=== PATIENT | female | born 1945 | race Caucasian/White ===

== ENCOUNTER 2016-06-22 21:48 | Inpatient (IN) | payer MEDICARE, OTHER ==
[2016-06-22] MEDS ORDERED: IPRATROPIUM/ALBUTEROL 0.5-2.5 MG/3 ML AMPUL NEB ONE (22:13)
[2016-06-22] MEDS ORDERED: CEFTRIAXONE 1 GM/D5W RTU 50 ML IV ONE (22:17)
[2016-06-22] MEDS ORDERED: AZITHROMYCIN INJ 500 MG VIAL IV ONE (22:17)
--- NOTE | 2016-06-22 22:19 | ER Document Report ---
ED Respiratory Problem - General Chief Complaint: Shortness Of Breath Stated Complaint: WEAKNESS Time seen by provider: 22:15 Notes: Patient is a 70-year-old female that comes emergency department for chief complaint of respiratory distress, fever, productive cough, and weakness. Patient was found by EMS to have an oxygen saturation of 78% on room air, initial temperature 103.6, already given 975 of Tylenol. Patient states she never smoked, denies history of asthma or COPD, she has had the influenza vaccine. Past medical history of cervical cancer (not on chemo or having radiation recently reportedly), IDDM, CKD. TRAVEL OUTSIDE OF THE [place] IN LAST 30 DAYS: No - Related Data Allergies/Adverse Reactions: hydralazine [Hydralazine] Allergy (Severe, Verified 06/22/16 23:26) Rash all over Sulfa (Sulfonamide Antibiotics) Allergy (Severe, Verified 06/22/16 23:26) mouth swells Past Medical History - General Information source: Patient - Social History Smoking Status: Never Smoker Frequency of alcohol use: None Drug Abuse: None Lives with: Family Family History: Reviewed & Not Pertinent, DM, Hyperlipidemia, Hypertension Patient has suicidal ideation: No - Past Medical History Cardiac Medical History: Reports: Hx Congestive Heart Failure, Hx Hypercholesterolemia, Hx Hypertension, Hx Peripheral Vascular Disease, Hx Heart Murmur Denies: Hx Atrial Fibrillation, Hx Coronary Artery Disease, Hx DVT, Hx Heart Attack, Hx Pulmonary Embolism Pulmonary Medical History: Reports: Hx Asthma - Sinus related, Hx Pneumonia - 2015, Hx Sleep Apnea - CPAP Denies: Hx Bronchitis, Hx COPD, Hx Respiratory Failure, Hx Tuberculosis Neurological Medical History: Denies: Hx Cerebrovascular Accident, Hx Seizures Endocrine Medical History: Reports: Hx Diabetes Mellitus Type 1, Hx Diabetes Mellitus Type 2. Denies: Hx Graves' Disease, Hx Hyperthyroidism, Hx Hypothyroidism Renal/ Medical History: Reports: Hx Kidney Stones - 1993. Denies: Hx End Stage Renal Disease, Hx Ovarian Cysts, Hx Peritoneal Dialysis, Hx Pelvic Inflammatory Disease Malignancy Medical History: Reports: Hx Cervical Cancer - currently. Denies: Hx Breast Cancer, Hx Leukemia, Hx Lung Cancer, Hx Ovarian Cancer GI Medical History: Reports: Hx Gastroesophageal Reflux Disease, Hx Irritable Bowel. Denies: Hx Cirrhosis, Hx Crohn's Disease, Hx Hiatal Hernia, Hx Liver Failure, Hx Ulcer Musculoskeltal Medical History: Reports Hx Arthritis, Denies Hx Fibromyalgia, Denies Hx Multiple Sclerosis, Denies Hx Muscular Dystrophy Skin Medical History: Denies Hx Eczema, Denies Hx Psoriasis Psychiatric Medical History: Reports: Hx Anxiety, Hx Depression Denies: Hx Bipolar Disorder, Hx Dementia, Hx Post Traumatic Stress Disorder, Hx Schizophrenia Traumatic Medical History: Denies: Hx Fractures Infectious Medical History: Denies: Hx HIV Past Surgical History: Reports: Hx Appendectomy, Hx Bowel Surgery, Hx Cholecystectomy, Hx Orthopedic Surgery - Amputation 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 Lumbar spine fusion.. Denies: Hx Section, Hx Colostomy, Hx Coronary Artery Bypass Graft, Hx Gastric Bypass Surgery, Hx Herniorrhaphy, Hx Hysterectomy, Hx Mastectomy, Hx Pacemaker, Hx Tonsillectomy, Hx Tubal Ligation - Immunizations Hx Diphtheria, Pertussis, Tetanus Vaccination: No Hx Pneumococcal Vaccination: 04/30/16 Review of Systems - Review of Systems Constitutional: See HPI EENT: No symptoms reported Cardiovascular: See HPI Respiratory: See HPI Gastrointestinal: No symptoms reported Genitourinary: No symptoms reported Female Genitourinary: No symptoms reported Musculoskeletal: No symptoms reported Skin: No symptoms reported Hematologic/Lymphatic: No symptoms reported Neurological/Psychological: No symptoms reported Physical Exam - Vital signs Vitals: Resp Pulse Ox 34 H 95 06/22/16 22:05 06/22/16 22:05 Interpretation: Normal - General General appearance: Alert, Anxious In distress: Severe - HEENT Head: Normocephalic, Atraumatic Eyes: Normal Pupils: PERRL - Respiratory Respiratory status: Respiratory distress, Labored, Tachypnea Breath sounds: Decreased air movement, Nonproductive cough, Rhonchi, Wheezing - Cardiovascular Rhythm: Regular. No: Tachycardia Heart sounds: Normal auscultation, S1 appreciated, S2 appreciated Murmur: No - Abdominal Inspection: Normal Distension: No distension Bowel sounds: Normal Tenderness: Nontender. No: Tender Organomegaly: No organomegaly - Back Back: Normal, Nontender. 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 Patient immediately placed on BiPAP therapy, gave DuoNeb, patient was already given 1 L fluid bolus from EMS, patient is not hypotensive or tachycardic. Patient immediately began to improve on BiPAP, respiratory rate improved and minimally labored on re-examination. Leukocytosis with elevation of neutrophils, 6% bands, febrile, productive cough , clinical picture is consistent with pneumonia. Patient already been started on Rocephin and azithromycin. 06/23/16 Patient is comfortable and smiling on reexamination, no signs of distress now. Chest x-ray not overtly reading pneumonia, possible congestion versus infectious process. DP and PT is elevated but patient was given a bolus of IV fluids by EMS. Patient does not have rails on exam, has no peripheral edema, suspect respiratory distress sources still pneumonia. Cultures pending, lactic acid unremarkable, VBG does not show acidosis fortunately. Kidney disease is chronic. Discussed with Dr. Whittaker, patient will be admitted to [facility]. - Vital Signs Vital signs: Temp Pulse Resp BP Pulse Ox 99.1 F 19 132/55 H 95 06/23/16 05:01 06/23/16 05:01 06/23/16 05:01 06/23/16 05:01 - Laboratory Result Diagrams: 06/22/16 21:57 06/22/16 22:02 Laboratory results interpreted by me: 06/22/16 06/22/16 06/22/16 21:57 21:57 22:02 WBC 12.4 H RBC 3.49 L Hgb 9.9 L Hct 32.2 L MCHC 30.7 L RDW 17.3 H Seg Neuts % (Manual) 83 H Band Neutrophils % 6 H Lymphocytes % (Manual) 8 L Abs Neuts (Manual) 11.0 H VBG pCO2 VBG HCO3 Chloride 110 H Carbon Dioxide 16 L BUN 62 H Creatinine 2.84 H Est GFR ( Amer) 20 L Est GFR (Non-Af Amer) 16 L Glucose 307 H Creatine Kinase 25 L NT-Pro-B Natriuret Pep 23246 H Urine Protein Urine Glucose (UA) Urine Blood 06/22/16 06/23/16 22:58 03:10 WBC RBC Hgb Hct MCHC RDW Seg Neuts % (Manual) Band Neutrophils % Lymphocytes % (Manual) Abs Neuts (Manual) VBG pCO2 34.7 L VBG HCO3 19.8 L Chloride Carbon Dioxide BUN Creatinine Est GFR ( Amer) Est GFR (Non-Af Amer) Glucose Creatine Kinase NT-Pro-B Natriuret Pep Urine Protein >=500 H Urine Glucose (UA) >=500 H Urine Blood MODERATE H Critical Care Note - Critical Care Note Total time excluding time spent on procedures (mins): 35 - respiratory distress , hypoxia Comments: Please allow 35 minutes of critical care time for evaluation and treatment of patient in respiratory distress, treatment with BiPAP therapy, antibiotics, DuoNeb therapy, multiple reevaluations, consultation and admission to the hospital. Discharge - Discharge Clinical Impression: Respiratory distress, Cough Fever Qualifiers: Fever type: unspecified Qualified Code(s): R50.9 - Fever, unspecified Leukocytosis Qualifiers: Leukocytosis type: unspecified Qualified Code(s): D72.829 - Elevated white blood cell count, unspecified Condition: Stable Disposition: ADMITTED INPATIENT Admitting Provider: Hospitalist Unit Admitted: [facility]
[2016-06-22 22:25] LABS: VENOUS BLOOD BASE EXCESS -5.2 mmol/L; VENOUS BLOOD PCO2 43.1 mmHg (35-63); VENOUS BLOOD PH 7.31 (7.30-7.42)
[2016-06-22 22:27] LABS: HEMATOCRIT 32.2 % (36.0-47.0); HEMOGLOBIN 9.9 g/dL (12.0-15.5); HGB HCT DIFFERENCE -2.5; MEAN CORPUSCULAR HEMOGLOBIN 28.3 pg (27.0-33.4); MEAN CORPUSCULAR HGB CONC 30.7 g/dL (32.0-36.0); MEAN CORPUSCULAR VOLUME 92 fl (80-97); RED BLOOD COUNT 3.49 10^6/uL (3.72-5.28); RED CELL DISTRIBUTION WIDTH 17.3 % (11.5-14.0); WHITE BLOOD COUNT 12.4 10^3/uL (4.0-10.5)
[2016-06-22 22:33] LABS: PROTHROMBIN TIME 14.8 SEC (11.4-15.4)
[2016-06-22 22:46] LABS: ALANINE AMINOTRANSFERASE 25 U/L (9-52); ALBUMIN 3.8 g/dL (3.5-5.0); ALKALINE PHOSPHATASE 65 U/L (38-126); ANION GAP 18 (5-19); ASPARTATE AMINO TRANSFERASE 29 U/L (14-36); BILIRUBIN,TOTAL 0.8 mg/dL (0.2-1.3); BLOOD UREA NITROGEN 62 mg/dL (7-20); CALCIUM 9.2 mg/dL (8.4-10.2); CARBON DIOXIDE 16 mmol/L (22-30); CHLORIDE 110 mmol/L (98-107); CREATINE KINASE 25 U/L (30-135); CREATININE RESULT 2.84 mg/dL (0.52-1.25); GLUCOSE 307 mg/dL (75-110); SODIUM 143.8 mmol/L (137-145); TOTAL PROTEIN 7.5 g/dL (6.3-8.2)
[2016-06-22 22:54] LABS: ANISOCYTOSIS 1+; BAND NEUTROPHILS % (MANUAL) 6 % (3-5); BASOPHILS % (MANUAL) 0 % (0-2); EOSINOPHILS % (MANUAL) 0 % (0-6); LYMPHOCYTES % (MANUAL) 8 % (13-45); NUCLEATED RED BLOOD CELLS 1 /100 WBC (0); OVALOCYTES SLIGHT; PLATELET CLUMPS PRESENT; POIKILOCYTOSIS SLIGHT; POLYCHROMASIA SLIGHT; TEAR DROP CELLS SLIGHT; TOTAL CELLS COUNTED 100; TOXIC GRANULATION 1+; TOXIC VACUOLATION PRESENT
[2016-06-22 22:58] LABS: CREATINE KINASE MB 0.73 ng/mL (<4.55); TROPONIN I < 0.012 ng/mL
[2016-06-22 23:34] LABS: APPEARANCE,URINE CLEAR; BILIRUBIN,URINE NEGATIVE (NEGATIVE); GLUCOSE, URINE >=500 mg/dL (NEGATIVE); KETONES,URINE NEGATIVE (NEGATIVE); LEUKOCYTE ESTERASE,URINE NEGATIVE (NEGATIVE); NITRITE,URINE NEGATIVE (NEGATIVE); PROTEIN,URINE >=500 mg/dL (NEGATIVE); UROBILINOGEN,URINE NEGATIVE mg/dL (<2.0)
[2016-06-23] MEDS ORDERED: ACETAMINOPHEN 325 MG TABLET PO ONE (01:39)
[2016-06-23 03:23] LABS: VENOUS BLOOD BASE EXCESS -4.7 mmol/L; VENOUS BLOOD HCO3 19.8 mmol/L (20-32); VENOUS BLOOD PCO2 34.7 mmHg (35-63); VENOUS BLOOD PH 7.37 (7.30-7.42)
[2016-06-23] MEDS ORDERED: DEXTROSE 40% GEL 15 GM TUBE PO PRN ×2 (05:44)
[2016-06-23] MEDS ORDERED: DEXTROSE 50%-WATER 25 GM/50 ML DISP.SYRIN IV PRN ×2 (05:44)
[2016-06-23] MEDS ORDERED: INSULIN LISPRO 100 UNIT/ML 3 ML VIAL SUBCUT PRN (05:44)
[2016-06-23] MEDS ORDERED: GLUCAGON,HUMAN RECOMB 1 MG INJ IM PRN (05:44)
[2016-06-23] MEDS ORDERED: PHARMACY COMMUNICATION ORDER MC SCH (05:45)
[2016-06-23] MEDS ORDERED: PIPERACILLIN/TAZOBACTAM 4.5 GM VIAL IV ONE (05:56)
[2016-06-23] MEDS ORDERED: PIPERACILLIN SODIUM/TAZOBACTAM 4.5 GM in NORMAL SALINE 100 ML IV SCH (06:00)
[2016-06-23] MEDS ORDERED: ALBUTEROL SULFATE 0.083% NEB 2.5 MG/3 ML AMPUL NEB PRN (06:02)
[2016-06-23] MEDS ORDERED: GUAIFENESIN SYRP 200 MG/10 ML UDC PO PRN (06:02)
[2016-06-23] MEDS ORDERED: VANCOMYCIN HCL 0 MG in DEXTROSE 5%-WATER 250 ML IV NR (06:15)
[2016-06-23] MEDS ORDERED: AZTREONAM INJ 1 GM VIAL IV PRN (06:29)
[2016-06-23] MEDS ORDERED: AZTREONAM INJ 1 GM VIAL ONE (06:41)
[2016-06-23] MEDS: NORMAL SALINE 1000 ML 1,000 ML IV PRN ×2 (06:47→21:41)
[2016-06-23 06:54] LABS: HEMATOCRIT 27.5 % (36.0-47.0); HEMOGLOBIN 8.7 g/dL (12.0-15.5); HGB HCT DIFFERENCE -1.4; MEAN CORPUSCULAR HEMOGLOBIN 28.6 pg (27.0-33.4); MEAN CORPUSCULAR HGB CONC 31.5 g/dL (32.0-36.0); MEAN CORPUSCULAR VOLUME 91 fl (80-97); RED BLOOD COUNT 3.03 10^6/uL (3.72-5.28); RED CELL DISTRIBUTION WIDTH 16.8 % (11.5-14.0); WHITE BLOOD COUNT 23.3 10^3/uL (4.0-10.5)
[2016-06-23] MEDS ORDERED: AZTREONAM 2 GM in DEXTROSE 5%-WATER 50 ML IV SCH (07:00)
[2016-06-23 07:02] LABS: ANION GAP 13 (5-19); BLOOD UREA NITROGEN 64 mg/dL (7-20); CALCIUM 8.6 mg/dL (8.4-10.2); CARBON DIOXIDE 18 mmol/L (22-30); CHLORIDE 112 mmol/L (98-107); CREATININE RESULT 3.02 mg/dL (0.52-1.25); GLUCOSE 262 mg/dL (75-110); POTASSIUM 4.7 mmol/L (3.6-5.0); SODIUM 142.6 mmol/L (137-145)
[2016-06-23 07:19] LABS: BAND NEUTROPHILS % (MANUAL) 12 % (3-5); BASOPHILS % (MANUAL) 0 % (0-2); EOSINOPHILS % (MANUAL) 0 % (0-6); LYMPHOCYTES % (MANUAL) 4 % (13-45); TOTAL CELLS COUNTED 100
[2016-06-23 07:20] LABS: PLATELET CLUMPS PRESENT; ROULEAUX SLIGHT; TOXIC GRANULATION SLIGHT; TOXIC VACUOLATION PRESENT
[2016-06-23 07:21] LABS: ANISOCYTOSIS SLIGHT; HYPOCHROMASIA 1+; POLYCHROMASIA 1+
--- NOTE | 2016-06-23 08:22 | EKG REPORT ---
SEVERITY:- ABNORMAL ECG - SINUS RHYTHM PROBABLE LEFT ATRIAL ABNORMALITY LEFT ANTERIOR FASCICULAR BLOCK CONSIDER ANTEROSEPTAL INFARCT : Confirmed by: Vlad Baez MD 23-Jun-2016 08:21:25
[2016-06-23] MEDS: IPRATROPIUM/ALBUTEROL 0.5-2.5 MG/3 ML AMPUL NEB SCH ×3 (08:26→20:13)
--- NOTE | 2016-06-23 08:42 | PDOC H&P ---
History of Present Illness Admission Date/PCP: 06/23/16 03:23 CAROLINA ROBIN MD Nephrology Dr. Craig Oncology Dr. Ureña Patient complains of: Difficulty breathing History of Present Illness: VIVIAN WATKINS is a 70 year old female with underlying asthma and COPD, who presents to the emergency room for evaluation of above complaint. Patient has been discussed with emergency room nurse practitioner who evaluated the patient. . Describes a 48 hour history of slowly progressive respiratory distress, in particular with much of any exertion, fever, productive cough, and generalized weakness. No nausea vomiting, diarrhea or dysuria. No sick contacts. Up-to- date with Pneumovax and flu vaccination. EMS reported a room air oxygen saturation of 78%, with an initial temperature 103.6. Significant respiratory distress upon arrival in the emergency room. Has responded nicely to treatment, including BiPAP. Hospitalized for 5 days last month at [facility] for problems associated with her chronic kidney disease. Laboratory results are listed in [facility] and are reviewed. X-ray summary results are listed below, with full report(s) reviewed. . EKG reviewed. And compared to a tracing from May 07 of last year. Social history/personal habits: . 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 No use of alcohol tobacco or illicit drugs. Allergies/adverse reactions are listed in [facility] and are reviewed. Home medications are reviewed from a hand written list provided by patient and are to be reconciled by nursing staff in [facility]. [facility] may not accurately reflect patient's true medications, dosages, and/or frequencies. REVIEW OF SYSTEMS: Constitutional: See history and present illness. Eyes: Wears glasses. ENT: No swallowing problems or complaints. No hearing problems or complaints. Pulmonary: See history and present illness. Cardiovascular: No current complaints, including chest pain. Gastrointestinal: No current complaints, including nausea or vomiting. Skin: No current complaints, including rashes. Hematologic: Easy bruising. Neurologic: No current complaints, including numbness or tingling. Musculoskeletal: Joint pain from arthritis. Psychiatric: Anxiety depression; denies suicidal or homicidal ideation. Endocrine: No current complaints, including polyuria. Genitourinary: No current complaints, including dysuria. PHYSICAL EXAMINATION: 5 feet 7 inches tall. 100.7 kg. BMI 34.8 kg/m. Pulse 53 and regular. Blood pressure 132/55. 97% saturation on FiO2 25%, BiPAP 12/6. Respirations are 16 and unlabored. Temperature 99.1. Obese chronically ill-appearing female, who appears a number of years older than her stated age. Pleasant awake alert and cooperative. Slightly fatigued, and mildly anxious, but otherwise in no obvious distress. is present at her side; patient approves. Skin is warm and dry. No grossly obvious evidence of rash in areas of skin examined. No subcutaneous nodules palpated. ENT: Hearing grossly normal to normal conversation. Tongue midline on protrusion pink and slightly tacky. Eyes: No scleral icterus. Pupils equal and reactive to light at 4 mm. [place] conjunctivae. Neck is supple and nontender to gentle active range of motion and palpation. Midline trachea. No palpable thyroid nodule mass enlargement or tenderness. Lymphatic: No palpable cervical or clavicular nodes. Neck and lymphatic exams limited by patient body habitus. Psychiatric: Reasonable insight into acute and chronic medical issues. Oriented to time location and why here. Lungs: Auscultation reveals equal breath sounds bilaterally. No use of accessory respiratory muscles. Slightly coarse breath sounds on the right; clear on the left. Cardiovascular: Heart regular rate and rhythm, without gallop or rub. 1/6 holosystolic ejection murmur heard at the cardiac apex. No carotid or abdominal aortic bruits. No ankle or pedal edema. Faintly palpable dorsalis pedis pulses. Abdomen: soft, obese, slightly distended nontender with positive bowel sounds. Unable to adequately evaluate abdomen for masses or organomegaly due to body habitus and distention. Extremities: Feet are warm and dry. No calf tenderness to compression. No grossly obvious visual evidence of calf swelling. Gentle manipulation of lower extremities fails to reveal any obvious evidence of injury or instability to knees hips or ankles. Prior amputation of all toes. 2 separate 1 cm wounds, 1 on distal surface right foot, other on later border, right foot. Each w/black eschar, w/o evidence of secondary infection. Neurologic: Moves upper extremities grossly normally. Patellar reflexes absent. Absent Babinski. Light touch is intact at feet. Dorsiflexion and plantarflexion of feet 5 / 5 and symmetric. Past Medical History Cardiac Medical History: Reports: Congestive Heart Failure - diastolic, Coronary Artery Disease, Hyperlipidema, Hypertension, Peripheral Vascular Disease, Heart Murmur Denies: Atrial Fibrillation, DVT, Myocardial Infarction, Pulmonary Embolism Pulmonary Medical History: Reports: Asthma - Sinus related, Chronic Obstructive Pulmonary Disease (COPD), Pneumonia - 02/2016, Sleep Apnea - CPAP Denies: Bronchitis, Respiratory Failure, Tuberculosis Neurological Medical History: Denies: Hemorrhagic CVA, Ischemic CVA, Seizures Endocrine Medical History: Reports: Diabetes Mellitus Type 1, Diabetes Mellitus Type 2 Denies: Hyperthyroidism, Hypothyroidism Renal/ Medical History: Denies: End Stage Renal Disease Malignancy Medical History: Reports: Cervical Cancer - currently Denies: Breast Cancer, Leukemia, Lung Cancer, Ovarian Cancer GI Medical History: Reports: Gastroesophageal Reflux Disease Denies: Cirrhosis, Crohn's Disease, Hiatal Hernia Musculoskeltal Medical History: Reports: Arthritis Denies: Fibromyalgia Skin Medical History: Denies: Eczema, Psoriasis Psychiatric Medical History: Reports: Depression Denies: Alcohol Dependency, Bipolar Disorder, Dementia, Post Traumatic Stress Disorder, Substance Abuse Hematology: Reports: Anemia Denies: Hemophilia, Sickle Cell Disease, Bleeding Tendencies Infectious Medical History: Reports: Methicillin-Resistant Staph Aureus Denies: Hepatitis B, Hepatitis C, HIV Past Surgical History Past Surgical History: Reports: Amputation - All toes, Appendectomy, Cholecystectomy, Orthopedic Surgery - Amputation 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 Lumbar spine fusion. Denies: Section, Colostomy, Coronary Artery Bypass Graft, Gastric Bypass Surgery, Herniorrhaphy, Hysterectomy, Mastectomy, Pacemaker, Tonsillectomy, Tubal Ligation Social History Information Source: Patient, Emergency Med Personnel, [facility] Records Lives with: Spouse/Significant other Smoking Status: Never Smoker Frequency of Alcohol Use: None Hx Recreational Drug Use: No Drugs: None Hx Prescription Drug Abuse: No - Advance Directive Resuscitation Status: Full Code Surrogate healthcare decision maker:: Family History Family History: Reviewed & Not Pertinent, DM, Hyperlipidemia, Hypertension Parental Family History Reviewed: Yes Children Family History Reviewed: Yes Sibling(s) Family History Reviewed.: Yes Medication/Allergy Home Medications: Amlodipine Besylate [Norvasc 10 mg Tablet] 10 mg PO QAM 06/23/16 Aspirin [Ecotrin 81 mg EC Tablet] 81 mg PO QAM 06/23/16 Atorvastatin Calcium [Lipitor 10 mg Tablet] 10 mg PO QAM 06/23/16 Bumetanide [Bumex 1 mg Tablet] 2 mg PO BID 06/23/16 Carvedilol [Coreg 12.5 mg Tablet] 12.5 mg PO Q12 06/23/16 Clonidine HCl [Catapres 0.2 mg Tablet] 0.2 mg PO TID 06/23/16 Esomeprazole Mag Trihydrate [Nexium] 40 mg PO DAILY 06/23/16 Fenofibrate Nanocrystallized [Tricor 145 mg Tablet] 145 mg PO DAILY 06/23/16 Hum Insulin NPH/Reg Insulin Hm [Insulin Inj 70-30 (100 Unit/1 ml) 3 ml Vial] 15 unit SUBCUT MEALS 06/23/16 Magnesium Oxide [Magnesium] 400 mg PO DAILY 06/23/16 Pramipexole Di-HCl [Mirapex] 1 mg PO BID 06/23/16 Sertraline HCl [Zoloft 50 mg Tablet] 100 mg PO QHS 06/23/16 Allergies/Adverse Reactions: hydralazine [Hydralazine] Allergy (Severe, Verified 06/22/16 23:26) Rash all over Sulfa (Sulfonamide Antibiotics) Allergy (Severe, Verified 06/22/16 23:26) mouth swells Physical Exam Vital Signs: Temp Pulse Resp BP Pulse Ox 99.1 F 19 132/55 H 95 06/23/16 05:01 06/23/16 05:01 06/23/16 05:01 06/23/16 05:01 Results Impressions: Chest X-Ray 06/22/16 22:12 IMPRESSION: Perihilar and bibasilar pulmonary opacities in the setting of cardiomegaly suggest failure pattern; infectious etiology is not excluded. Assessment & Plan - Diagnosis (1) Acute on chronic respiratory failure with hypoxia and hypercapnia Is this a current diagnosis for this admission?: YesPlan: Patient will be admitted under COPD and asthma exacerbation and pneumonia protocol. Incentive spirometry twice a day. Scheduled DuoNeb's. PRN albuterol nebs daily prednisone. Prevacid for gastritis prophylaxis. Antibiotics will consist of Zosyn, aztreonam, and intravenous vancomycin for suspected hospital-acquired pneumonia, combined with her history of MRSA infection. Pharmacy to assist with dosing.. I strongly encouraged patient to notify staff should patient feel that respiratory status is worsening. Patient is a full code. I have strongly encouraged patient not to get out of bed without notifying staff , , to avoid a fall with injury. Knee high SCDs for DVT prophylaxis, along with subcutaneous heparin. Impression and plans were discussed with patient, and , both of whom concur. Time spent in evaluation and management of patient: 65 minutes. 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 Accu-Cheks with appropriate sliding scale coverage.Resume home medications as appropriate once these have been reviewed. (6) Diastolic CHF Qualifiers: Congestive heart failure chronicity: acute on chronic Qualified Code (s): I50.33 - Acute on chronic diastolic (congestive) heart failure Is this a current diagnosis for this admission?: YesPlan: Resume home medications as appropriate once these have been reviewed. - Inpatient Certification Based on my medical assessment, after consideration of the patient's comorbidities, presenting symptoms, or acuity I expect that the services needed warrant INPATIENT care.: Yes I certify that my determination is in accordance with my understanding of Medicare's requirements for reasonable and necessary INPATIENT services [42 CFR 412.3e].: Yes Medical Necessity: Significant Comorbidiites Make Outpatient Treatment Too Risky , Need Close Monitoring Due to Risk of Patient Decompensation, Need For IV Fluids, Need For Continuous Telemetry Monitoring, Need for Nebulizer Therapy and Monitoring of Response, Need for IV Antibiotics, Risk of Diagnosis Which Will Require Inpatient Eval/Care/Monitoring Post Hospital Care: D/C or Transfer Summary
[2016-06-23] MEDS ORDERED: CLONIDINE HCL 0.2 MG TABLET PO SCH (10:00)
[2016-06-23] MEDS ORDERED: PREDNISONE 20 MG TABLET PO SCH (10:00)
[2016-06-23] MEDS ORDERED: PRAMIPEXOLE DI-HCL 0.5 MG TABLET PO SCH ×2 (10:00→18:00)
[2016-06-23] MEDS ORDERED: (PENDING PHARMACY ID) (Carvedilol [Coreg 25 Mg Tablet] 12.5 MG) PO SCH (10:00)
[2016-06-23] MEDS ORDERED: AZTREONAM 2 GM in DEXTROSE 5%-WATER 100 ML IV SCH (10:00)
--- NOTE | 2016-06-23 10:41 | PDOC PROGRESS REPORT ---
Subjective Progress Note for:: 06/23/16 Subjective:: Patient states that she would like something to eat. She is having some continued shortness of breath and chills. It is noted that she was hospitalized in May and for renal failure. Patient denies headache , new focal weakness, chest pain, abdominal pain, nausea, vomiting, diarrhea, constipation. Physical Exam Vital Signs: Temp Pulse Resp BP Pulse Ox 98.2 F 52 L 18 126/41 H 97 06/23/16 07:35 06/23/16 08:25 06/23/16 08:25 06/23/16 07:35 06/23/16 08:25 Intake & Output 06/22/16 06/23/16 06/24/16 06:59 06:59 06:59 Weight 100.7 kg GENERAL: No acute distress, shaking/chills HEENT: Conjunctiva clear, nonicteric, moist mucous membranes, no JVD, midline trachea RESPIRATORY: Clear to auscultation bilaterally, no wheezes, no rhonchi CARDIAC: Regular rate and rhythm, no murmurs/gallops/rubs ABDOMEN: Soft, nondistended, nontender, positive bowel sounds, no rebound, no guarding EXTREMETIES: No edema, cyanosis, clubbing NEUROLOGIC: Alert, oriented to person/place/time, CN's grossly intact, no focal deficits SKIN: 2 - 1 cm wounds on right foot with black eschar covering, no surrounding erythema, no exudate PSYCH: Normal mood, normal affect Results Laboratory Results: 06/23/16 06:32 06/23/16 06:32 06/23/16 06/23/16 06:32 06:32 WBC 23.3 H RBC 3.03 L Hgb 8.7 L Hct 27.5 L MCV 91 MCH 28.6 MCHC 31.5 L RDW 16.8 H Plt Count 216 Seg Neutrophils % Not Reportable Lymphocytes % Not Reportable Monocytes % Not Reportable Eosinophils % Not Reportable Basophils % Not Reportable Absolute Neutrophils Not Reportable Absolute Lymphocytes Not Reportable Absolute Monocytes Not Reportable Absolute Eosinophils Not Reportable Absolute Basophils Not Reportable Sodium 142.6 Potassium 4.7 Chloride 112 H Carbon Dioxide 18 L Anion Gap 13 BUN 64 H Creatinine 3.02 H Est GFR ( Amer) 18 L Est GFR (Non-Af Amer) 15 L Glucose 262 H Calcium 8.6 Impressions: Chest X-Ray 06/22/16 22:12 IMPRESSION: Perihilar and bibasilar pulmonary opacities in the setting of cardiomegaly suggest failure pattern; infectious etiology is not excluded. Assessment & Plan - Diagnosis (1) Acute on chronic respiratory failure with hypoxia and hypercapnia Is this a current diagnosis for this admission?: YesPlan: Continue oxygen supplementation. (2) Sepsis Qualifiers: Sepsis type: sepsis due to unspecified organism Qualified Code(s): A41.9 - Sepsis, unspecified organism Is this a current diagnosis for this admission?: YesPlan: Secondary to pneumonia. (3) Hospital acquired PNA Is this a current diagnosis for this admission?: YesPlan: Healthcare associated secondary to recent hospitalization. High probability of gram-negative organism. Start IV cefepime and IV azithromycin pending further culture and susceptibility. I would like to hold off IV vancomycin secondary to poor renal function approaching hemodialysis range. (4) COPD (chronic obstructive pulmonary disease) Is this a current diagnosis for this admission?: YesPlan: No wheezing at this time. Discontinue prednisone. Continue albuterol. (5) Bradycardia Is this a current diagnosis for this admission?: YesPlan: Decrease clonidine to 0.1 mg every 8 hours. (6) Acute on chronic diastolic (congestive) heart failure Is this a current diagnosis for this admission?: YesPlan: Continue Lasix. Monitor closely with gentle IV fluids. (7) Cervical cancer, FIGO stage MIRIAM Is this a current diagnosis for this admission?: YesPlan: Followed by Dr. Ureña of hematology oncology as an outpatient. She currently is not having treatment secondary to renal failure and right foot wound/ infection. (8) CKD (chronic kidney disease), stage IV Is this a current diagnosis for this admission?: YesPlan: Followed by Dr. Craig of nephrology. She is approaching hemodialysis range. 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 (10) Do not intubate but use all other measures Is this a current diagnosis for this admission?: Yes - Time Time Spent with patient: 35 or more minutes
[2016-06-23] MEDS: CARVEDILOL 12.5 MG TABLET PO SCH ×2 (10:59→21:35)
[2016-06-23] MEDS: HEPARIN SOD (PORCINE) 5,000 UNIT/ML 1 ML SYRINGE SUBCUT SCH ×2 (10:59→21:34)
[2016-06-23] MEDS ORDERED: CEFTRIAXONE 1 GM/D5W RTU 50 ML IV SCH (11:00)
[2016-06-23 11:17] LABS: ADD ON TESTING BLD IN LAB ACKNOWLEDGE
[2016-06-23 11:49] LABS: MAGNESIUM 2.1 mg/dL (1.6-2.3)
[2016-06-23] MEDS: INSULIN LISPRO 100 UNIT/ML 3 ML VIAL SUBCUT PRN ×3 (11:53→21:34)
[2016-06-23] MEDS ORDERED: CEFAZOLIN 1 GM/D5W RTU 50 ML IV SCH (12:00)
[2016-06-23] MEDS ORDERED: CLONIDINE HCL 0.1 MG TABLET PO PRN (12:16)
[2016-06-23] MEDS ORDERED: CEFAZOLIN SODIUM 1 GM in DEXTROSE 5%-WATER 50 ML IV ONE (13:00)
[2016-06-23] MEDS: CLONIDINE HCL 0.1 MG TABLET PO SCH ×2 (13:59→21:34)
[2016-06-23 14:34] LABS: PATH REVIEW PATHOLOGIST REVIEWED
[2016-06-23] MEDS: ACETAMINOPHEN 325 MG TABLET PO PRN (15:07)
[2016-06-23] MEDS ORDERED: LINEZOLID 600 MG RTU 300 ML IV ONE (16:00)
[2016-06-23] MEDS: LANSOPRAZOLE 30 MG TAB.RAP.DR PO SCH (16:56)
[2016-06-23] MEDS: CEFEPIME 1 GM/D5W RTU 1 GM/50 ML RTUPB IV SCH (17:58)
[2016-06-23] MEDS ORDERED: CEFAZOLIN SODIUM 1 GM in DEXTROSE 5%-WATER 50 ML IV SCH (18:00)
[2016-06-23] MEDS: SERTRALINE HCL 50 MG TABLET PO SCH (21:34)
[2016-06-23] MEDS ORDERED: INSULIN ASPART PROTAM SQ SCH (22:00)
[2016-06-23] MEDS ORDERED: ASPART SQ SCH (22:00)
[2016-06-23] MEDS ORDERED: LINEZOLID 300 ML IV SCH (22:00)
[2016-06-24] MEDS: ACETAMINOPHEN 325 MG TABLET PO PRN (04:14)
[2016-06-24] MEDS: LANSOPRAZOLE 30 MG TAB.RAP.DR PO SCH ×2 (05:30→10:27)
[2016-06-24] MEDS: CLONIDINE HCL 0.1 MG TABLET PO SCH ×3 (05:31→21:18)
[2016-06-24] MEDS: CEFEPIME 1 GM/D5W RTU 1 GM/50 ML RTUPB IV SCH ×2 (06:02→18:16)
[2016-06-24] MEDS: LINEZOLID 600 MG RTU 300 ML IV SCH ×2 (06:52→18:46)
[2016-06-24 06:57] LABS: ANION GAP 14 (5-19); BLOOD UREA NITROGEN 68 mg/dL (7-20); CALCIUM 8.8 mg/dL (8.4-10.2); CARBON DIOXIDE 17 mmol/L (22-30); CHLORIDE 111 mmol/L (98-107); GLUCOSE 174 mg/dL (75-110); MAGNESIUM 2.2 mg/dL (1.6-2.3); POTASSIUM 4.4 mmol/L (3.6-5.0); SODIUM 142.1 mmol/L (137-145)
[2016-06-24] MEDS: NORMAL SALINE 1000 ML 1,000 ML IV PRN (07:36)
[2016-06-24] MEDS: ATORVASTATIN CALCIUM 10 MG TABLET PO SCH (07:54)
[2016-06-24] MEDS: AMLODIPINE BESYLATE 10 MG TABLET PO SCH (07:54)
[2016-06-24] MEDS: INSULIN LISPRO 100 UNIT/ML 3 ML VIAL SUBCUT PRN ×4 (07:55→22:15)
[2016-06-24] MEDS ORDERED: FUROSEMIDE 40 MG TABLET PO SCH (08:00)
[2016-06-24] MEDS ORDERED: ASPIRIN 81 MG TABLET, ENT COATED PO SCH (08:00)
[2016-06-24] MEDS: IPRATROPIUM/ALBUTEROL 0.5-2.5 MG/3 ML AMPUL NEB SCH ×3 (08:04→20:01)
[2016-06-24] MEDS ORDERED: NORMAL SALINE FOR INHALATION 5 ML VIAL.NEB ONE (08:24)
[2016-06-24] MEDS ORDERED: PHARMACY COMMUNICATION ORDER MC NR (09:00)
[2016-06-24] MEDS ORDERED: CLONIDINE HCL 0.2 MG TABLET PO SCH (10:00)
[2016-06-24] MEDS ORDERED: AZITHROMYCIN 500 MG in DEXTROSE 5%-WATER 250 ML IV SCH (10:00)
[2016-06-24] MEDS ORDERED: (PENDING PHARMACY ID) (Pramipexole Di-Hcl [Mirapex] 1 MG) PO SCH (10:00)
[2016-06-24] MEDS ORDERED: MAGNESIUM OXIDE 400 MG TABLET PO SCH (10:00)
[2016-06-24] MEDS ORDERED: (PENDING PHARMACY ID) (Magnesium Oxide [Magnesium] 400 MG) PO SCH (10:00)
[2016-06-24] MEDS ORDERED: (PENDING PHARMACY ID) (Esomeprazole Mag Trihydrate [Nexium] 40 MG) PO SCH (10:00)
[2016-06-24] MEDS: CARVEDILOL 12.5 MG TABLET PO SCH ×2 (10:25→21:17)
[2016-06-24] MEDS: AZITHROMYCIN 250 MG TABLET PO SCH (10:26)
[2016-06-24] MEDS: FENOFIBRATE NANOCRYSTALLIZED 145 MG TABLET PO SCH (10:27)
[2016-06-24] MEDS: HEPARIN SOD (PORCINE) 5,000 UNIT/ML 1 ML SYRINGE SUBCUT SCH ×2 (10:28→21:18)
[2016-06-24] MEDS: PRAMIPEXOLE DI-HCL 0.5 MG TABLET PO SCH ×2 (10:34→18:49)
[2016-06-24] MEDS: BUMETANIDE 1 MG TABLET PO SCH (10:39)
[2016-06-24] MEDS: MAGNESIUM OXIDE 400 MG TABLET PO SCH (10:43)
[2016-06-24] MEDS ORDERED: NORMAL SALINE 1000 ML 1,000 ML IV PRN (12:26)
--- NOTE | 2016-06-24 16:54 | PDOC CONSULTATION ---
Consultation Consult Date: 06/24/16 Consult reason:: Right foot ulcer History of Present Illness Admission Date/PCP: 06/23/16 05:45 CAROLINA ROBIN MD History of Present Illness: 70-year-old female with history of diabetes currently in hospital for respiratory infection. Patient has had the bilateral amputations of all of her toes the remote past. Patient has had a chronic ulcer at the wound overlying the right first metatarsal head and another one overlying the fifth metatarsal head. The one overlying the first metatarsal head has been draining pus for the past several days. She notes that the of the wound had been packed in the past several weeks. She has very little sensation in her feet and does not experience any pain. Past Medical History Cardiac Medical History: Reports: Congestive Heart Failure - diastolic, Coronary Artery Disease, Hyperlipidema, Hypertension, Peripheral Vascular Disease, Heart Murmur Denies: Atrial Fibrillation, DVT, Myocardial Infarction, Pulmonary Embolism Pulmonary Medical History: Reports: Asthma - Sinus related, Pneumonia - 02/2016, Sleep Apnea - CPAP Denies: Bronchitis, Chronic Obstructive Pulmonary Disease (COPD), Respiratory Failure, Tuberculosis Neurological Medical History: Denies: Hemorrhagic CVA, Ischemic CVA, Seizures Endocrine Medical History: Reports: Diabetes Mellitus Type 1, Diabetes Mellitus Type 2 Denies: Hyperthyroidism, Hypothyroidism Renal/ Medical History: Denies: End Stage Renal Disease Malignancy Medical History: Reports: Cervical Cancer - currently Denies: Breast Cancer, Leukemia, Lung Cancer, Ovarian Cancer GI Medical History: Reports: Gastroesophageal Reflux Disease Denies: Cirrhosis, Crohn's Disease, Hiatal Hernia Musculoskeltal Medical History: Reports: Arthritis Denies: Fibromyalgia Skin Medical History: Denies: Eczema, Psoriasis Psychiatric Medical History: Reports: Depression Denies: Alcohol Dependency, Bipolar Disorder, Dementia, Post Traumatic Stress Disorder, Substance Abuse Hematology: Reports: Anemia Denies: Hemophilia, Sickle Cell Disease, Bleeding Tendencies Infectious Medical History: Reports: Methicillin-Resistant Staph Aureus Denies: Hepatitis B, Hepatitis C, HIV Past Surgical History Past Surgical History: Reports: Amputation - All toes, Appendectomy, Cholecystectomy, Orthopedic Surgery - Amputation 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 Lumbar spine fusion. Denies: Section, Colostomy, Coronary Artery Bypass Graft, Gastric Bypass Surgery, Herniorrhaphy, Hysterectomy, Mastectomy, Pacemaker, Tonsillectomy, Tubal Ligation Social History Lives with: Spouse/Significant other Smoking Status: Never Smoker Frequency of Alcohol Use: None Hx Recreational Drug Use: No Drugs: None Hx Prescription Drug Abuse: No - Advance Directive Resuscitation Status: Full Code Family History Family History: Reviewed & Not Pertinent, DM, Hyperlipidemia, Hypertension Parental Family History Reviewed: No Children Family History Reviewed: No Sibling(s) Family History Reviewed.: No Medication/Allergy Home Medications: Amlodipine Besylate [Norvasc 10 mg Tablet] 10 mg PO QAM 06/23/16 Aspirin [Ecotrin 81 mg EC Tablet] 81 mg PO QAM 06/23/16 Atorvastatin Calcium [Lipitor 10 mg Tablet] 10 mg PO QAM 06/23/16 Bumetanide [Bumex 1 mg Tablet] 2 mg PO BID 06/23/16 Carvedilol [Coreg 12.5 mg Tablet] 12.5 mg PO Q12 06/23/16 Clonidine HCl [Catapres 0.2 mg Tablet] 0.2 mg PO TID 06/23/16 Esomeprazole Mag Trihydrate [Nexium] 40 mg PO DAILY 06/23/16 Fenofibrate Nanocrystallized [Tricor 145 mg Tablet] 145 mg PO DAILY 06/23/16 Hum Insulin NPH/Reg Insulin Hm [Insulin Inj 70-30 (100 Unit/1 ml) 3 ml Vial] 15 unit SUBCUT MEALS 06/23/16 Magnesium Oxide [Magnesium] 400 mg PO DAILY 06/23/16 Pramipexole Di-HCl [Mirapex] 1 mg PO BID 06/23/16 Sertraline HCl [Zoloft 50 mg Tablet] 100 mg PO QHS 06/23/16 Allergies/Adverse Reactions: hydralazine [Hydralazine] Allergy (Severe, Verified 06/22/16 23:26) Rash all over Sulfa (Sulfonamide Antibiotics) Allergy (Severe, Verified 06/22/16 23:26) mouth swells Physical Exam Vital Signs: Temp Pulse Resp BP Pulse Ox 97.8 F 56 L 18 122/53 L 100 06/24/16 11:43 06/24/16 14:00 06/24/16 13:18 06/24/16 11:43 06/24/16 13:18 Intake & Output 06/23/16 06/24/16 06/25/16 06:59 06:59 06:59 Intake Total 3660 540 Output Total 1050 100 Balance 2610 440 Weight 100.7 kg 101.1 kg General appearance: PRESENT: no acute distress, cooperative Respiratory exam: PRESENT: other - Positive bilateral rhonchi Cardiovascular exam: PRESENT: RRR Pulses: PRESENT: +1 pedal pulses bilateral GI/Abdominal exam: PRESENT: other - Soft nondistended nontender to palpation Extremities exam: PRESENT: other - Left foot with the all toes amputation site well-healed with no ulcerations no erythema. The right foot with all toes amputation site with a clean very narrow ulcer overlying the fifth metatarsal head with no erythema and no induration. Eschar overlying the fifth metatarsal head on the right. This eschar was sharply excised revealing a tract that the lead down to the underlying bone which is palpable with the probe. No induration no erythema. No pus was drained after removal of the eschar. The skin defect measured the about the 5 mm wide by 1 cm. Wound was packed with iodoform gauze Results Laboratory Results: 06/23/16 06:32 06/24/16 05:56 06/24/16 05:56 Sodium 142.1 Potassium 4.4 Chloride 111 H Carbon Dioxide 17 L Anion Gap 14 BUN 68 H Creatinine 3.30 H Est GFR ( Amer) 17 L Est GFR (Non-Af Amer) 14 L Glucose 174 H Calcium 8.8 Magnesium 2.2 Impressions: Chest X-Ray 06/22/16 22:12 IMPRESSION: Perihilar and bibasilar pulmonary opacities in the setting of cardiomegaly suggest failure pattern; infectious etiology is not excluded. Assessment & Plan - Diagnosis (1) Diabetic infection of right foot Is this a current diagnosis for this admission?: YesPlan: Possible osteomyelitis involving the right first metatarsal that would account for nonhealing of this full-thickness the ulcer with the purulent drainage that has been noted in the past. Will obtain the x-ray studies. Will determine the therapeutic treatment after x-ray studies. In the meantime do iodoform gauze packing to the wound.
[2016-06-24] MEDS: SERTRALINE HCL 50 MG TABLET PO SCH (21:16)
--- NOTE | 2016-06-24 23:55 | PDOC PROGRESS REPORT ---
Subjective Progress Note for:: 06/24/16 Subjective:: Patient had a fever yesterday and subsequent escalation of her antibiotic coverage. Patient is noted to have pus from her eschar on her right lower extremity. Patient denies chest pain, shortness of breath, abdominal pain, nausea, vomiting , diarrhea, constipation, headache, new onset weakness. Physical Exam Vital Signs: Temp Pulse Resp BP Pulse Ox 97.3 F 49 L 20 118/41 L 100 06/24/16 07:33 06/24/16 07:33 06/24/16 07:33 06/24/16 07:33 06/24/16 07:33 Intake & Output 06/23/16 06/24/16 06/25/16 06:59 06:59 06:59 Intake Total 3660 Output Total 1050 Balance 2610 Weight 100.7 kg 101.1 kg Exam: General: Awake alert and oriented x3, no acute respiratory distress HEENT: AT/NC, PERRL, EOMI, oropharynx is moist, pink, no scleral icterus, no conjunctival injection Neck: No JVD, trachea midline Chest: Clear to auscultation bilaterally, no wheezes rhonchi or rales CV: Regular rate and rhythm, normal S1 and S2, no murmur, rub, or gallop Abdomen: Soft, nontender to palpation, nondistended, active bowel sounds; no rebound, rigidity, or guarding Extremities: No cyanosis, clubbing or edema Neuro: Cranial nerves II through XII are grossly intact without focal deficits; awake alert and oriented x3 Psych: Normal mood and affect Skin: Eschar on right first MTP with purulent drainage, eschar on lateral fifth MTP with dried packing. Results Laboratory Results: 06/23/16 06:32 06/24/16 05:56 06/23/16 06/23/16 06/24/16 06:32 06:32 05:56 WBC 23.3 H RBC 3.03 L Hgb 8.7 L Hct 27.5 L MCV 91 MCH 28.6 MCHC 31.5 L RDW 16.8 H Plt Count 216 Sodium 142.1 Potassium 4.4 Chloride 111 H Carbon Dioxide 17 L Anion Gap 14 BUN 68 H Creatinine 3.30 H Est GFR ( Amer) 17 L Est GFR (Non-Af Amer) 14 L Glucose 174 H Calcium 8.8 Magnesium 2.1 2.2 Impressions: Chest X-Ray 06/22/16 22:12 IMPRESSION: Perihilar and bibasilar pulmonary opacities in the setting of cardiomegaly suggest failure pattern; infectious etiology is not excluded. Assessment & Plan - Diagnosis (1) Acute on chronic respiratory failure with hypoxia and hypercapnia Is this a current diagnosis for this admission?: YesPlan: Continue oxygen as needed. (2) COPD (chronic obstructive pulmonary disease) Qualifiers: COPD type: unspecified COPD Qualified Code(s): J44.9 - Chronic obstructive pulmonary disease, unspecified Is this a current diagnosis for this admission?: YesPlan: Consider steroids, but reserve as I am unsure that patient is having a COPD related issue. Continue chronic nebulized treatments. (3) Diabetic infection of right foot Is this a current diagnosis for this admission?: YesPlan: Have consulted surgery. Have discussed case with Dr. Mclaughlin who previously had plans for amputation for this extremity. Plan to have him see her this week for possible amputation this coming Thursday or thereafter. (4) Hospital acquired PNA Is this a current diagnosis for this admission?: YesPlan: Continue patient on Zyvox, azithromycin, and cefepime. Patient currently growing gram-positive cocci in clusters and her blood likely secondary to her underlying extremity infection. Patient did have MRSA of her prior extremity before amputation. (5) Cervical cancer, FIGO stage MIRIAM Is this a current diagnosis for this admission?: YesPlan: Patient reports an advancement of her underlying malignancy as she has been admitted able to receive chemotherapy due to chronic illness. 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 Hold at this time. (9) Hypothyroid Qualifiers: Hypothyroidism type: unspecified Qualified Code(s): E03.9 - Hypothyroidism, unspecified Is this a current diagnosis for this admission?: Yes (10) ORIANA (obstructive sleep apnea) Is this a current diagnosis for this admission?: YesPlan: CPAP as needed (11) Severe obesity (BMI 35.0-39.9) with comorbidity Is this a current diagnosis for this admission?: Yes - Time Time Spent with patient: 25-34 minutes Medications reviewed and adjusted accordingly: Yes
[2016-06-25] MEDS: CEFEPIME 1 GM/D5W RTU 1 GM/50 ML RTUPB IV SCH (05:09)
[2016-06-25] MEDS: CLONIDINE HCL 0.1 MG TABLET PO SCH ×3 (05:48→22:06)
[2016-06-25] MEDS: LINEZOLID 600 MG RTU 300 ML IV SCH (05:49)
[2016-06-25 07:40] LABS: ABSOLUTE EOSINOPHILS # (AUTO) 0.2 10^3/uL (0.0-0.6); ABSOLUTE LYMPHOCYTES (AUTO) 1.6 10^3/uL (0.5-4.7); ABSOLUTE MONOCYTES (AUTO) 0.7 10^3/uL (0.1-1.4); ABSOLUTE NEUT (AUTO) 10.6 10^3/uL (1.7-8.2); BASOPHILS % (AUTO) 0.2 % (0-2); EOSINOPHILS % (AUTO) 1.5 % (0-6); HEMATOCRIT 26.2 % (36.0-47.0); HEMOGLOBIN 8.2 g/dL (12.0-15.5); HGB HCT DIFFERENCE -1.6; LYMPHOCYTES % (AUTO) 12.4 % (13-45); MEAN CORPUSCULAR HEMOGLOBIN 28.5 pg (27.0-33.4); MEAN CORPUSCULAR HGB CONC 31.3 g/dL (32.0-36.0); MEAN CORPUSCULAR VOLUME 91 fl (80-97); MONOCYTES % (AUTO) 5.4 % (3-13); RED BLOOD COUNT 2.88 10^6/uL (3.72-5.28); RED CELL DISTRIBUTION WIDTH 17.9 % (11.5-14.0); SEGMENTED NEUTROPHILS % (AUTO) 80.5 % (42-78); WHITE BLOOD COUNT 13.2 10^3/uL (4.0-10.5)
[2016-06-25 07:49] LABS: ANION GAP 11 (5-19); BLOOD UREA NITROGEN 68 mg/dL (7-20); CALCIUM 8.2 mg/dL (8.4-10.2); CARBON DIOXIDE 18 mmol/L (22-30); CHLORIDE 109 mmol/L (98-107); CREATININE RESULT 3.61 mg/dL (0.52-1.25); GLUCOSE 160 mg/dL (75-110); MAGNESIUM 2.1 mg/dL (1.6-2.3); PARTIAL THROMBOPLASTIN TIME 40.9 SEC (23.5-35.8); PHOSPHORUS 4.6 mg/dL (2.5-4.5); POTASSIUM 4.3 mmol/L (3.6-5.0)
[2016-06-25] MEDS: IPRATROPIUM/ALBUTEROL 0.5-2.5 MG/3 ML AMPUL NEB SCH ×3 (07:50→19:46)
[2016-06-25 07:59] LABS: PREALBUMIN 6.7 mg/dL (17.6-36.0)
[2016-06-25] MEDS: ASPIRIN 81 MG TABLET, ENT COATED PO SCH (08:19)
[2016-06-25] MEDS: AMLODIPINE BESYLATE 10 MG TABLET PO SCH (08:19)
[2016-06-25] MEDS: ATORVASTATIN CALCIUM 10 MG TABLET PO SCH (08:20)
[2016-06-25] MEDS: INSULIN LISPRO 100 UNIT/ML 3 ML VIAL SUBCUT PRN ×2 (08:26→17:20)
[2016-06-25] MEDS: CARVEDILOL 12.5 MG TABLET PO SCH ×2 (10:08→22:06)
[2016-06-25] MEDS: PRAMIPEXOLE DI-HCL 0.5 MG TABLET PO SCH ×2 (10:08→17:19)
[2016-06-25] MEDS: MAGNESIUM OXIDE 400 MG TABLET PO SCH (10:08)
[2016-06-25] MEDS: FENOFIBRATE NANOCRYSTALLIZED 145 MG TABLET PO SCH (10:08)
[2016-06-25] MEDS: LANSOPRAZOLE 30 MG TAB.RAP.DR PO SCH (10:08)
[2016-06-25] MEDS: AZITHROMYCIN 250 MG TABLET PO SCH (10:09)
[2016-06-25] MEDS: HEPARIN SOD (PORCINE) 5,000 UNIT/ML 1 ML SYRINGE SUBCUT SCH ×2 (10:12→22:07)
[2016-06-25] MEDS: BUMETANIDE 1 MG TABLET PO SCH (10:20)
[2016-06-25] MEDS ORDERED: BUMETANIDE INJ/PF 1 MG/4 ML SDV IV PRN (14:58)
--- NOTE | 2016-06-25 15:07 | PDOC PROGRESS REPORT ---
Subjective Progress Note for:: 06/25/16 Subjective:: Patient's foot appears to be improved today. Patient examined with surgeon and nurse present. Patient admits to shortness of breath. Patient denies chest pain, abdominal pain, nausea, vomiting, fevers, chills, diarrhea, constipation, headache, new onset weakness. Physical Exam Vital Signs: Temp Pulse Resp BP Pulse Ox 98.5 F 53 L 18 135/47 H 99 06/25/16 00:12 06/25/16 07:50 06/25/16 07:50 06/25/16 04:10 06/25/16 07:50 Intake & Output 06/24/16 06/25/16 06/26/16 06:59 06:59 06:59 Intake Total 3660 2265 Output Total 1050 750 Balance 2610 1515 Weight 101.1 kg Exam: General: Awake alert and oriented x3, mild tachypnea HEENT: AT/NC, PERRL, EOMI, oropharynx is moist, pink, no scleral icterus, no conjunctival injection Neck: No JVD, trachea midline Chest: Slight bilateral end expiratory wheezes CV: Regular rate and rhythm, normal S1 and S2, no murmur, rub, or gallop Abdomen: Soft, nontender to palpation, nondistended, active bowel sounds; no rebound, rigidity, or guarding Extremities: No cyanosis, clubbing or edema Neuro: Cranial nerves II through XII are grossly intact without focal deficits; awake alert and oriented x3 Psych: Normal mood and affect Skin: Right first MTP eschar removed, with pink granulation tissue present, erythema improved Results Laboratory Results: 06/25/16 07:23 06/25/16 07:23 06/25/16 06/25/16 07:23 07:23 WBC 13.2 H RBC 2.88 L Hgb 8.2 L Hct 26.2 L MCV 91 MCH 28.5 MCHC 31.3 L RDW 17.9 H Plt Count 204 Seg Neutrophils % 80.5 H Lymphocytes % 12.4 L Monocytes % 5.4 Eosinophils % 1.5 Basophils % 0.2 Absolute Neutrophils 10.6 H Absolute Lymphocytes 1.6 Absolute Monocytes 0.7 Absolute Eosinophils 0.2 Absolute Basophils 0.0 Sodium 138.0 Potassium 4.3 Chloride 109 H Carbon Dioxide 18 L Anion Gap 11 BUN 68 H Creatinine 3.61 H Est GFR ( Amer) 15 L Est GFR (Non-Af Amer) 12 L Glucose 160 H Calcium 8.2 L Phosphorus 4.6 H Magnesium 2.1 Prealbumin 6.7 L Impressions: Chest X-Ray 06/22/16 22:12 IMPRESSION: Perihilar and bibasilar pulmonary opacities in the setting of cardiomegaly suggest failure pattern; infectious etiology is not excluded. Foot X-Ray 06/24/16 00:00 IMPRESSION: No cortical erosions or lytic areas are identified to confirm bony involvement by osteomyelitis. Extensive amputations which appears stable. Other findings as noted above Assessment & Plan - Diagnosis (1) Sepsis Qualifiers: Sepsis type: methicillin resistant Staphylococcus aureus Qualified Code(s): A41.02 - Sepsis due to Methicillin resistant Staphylococcus aureus Is this a current diagnosis for this admission?: YesPlan: Secondary to underlying foot wound. At this time do not feel the patient clinically had pneumonia prior to presentation. Prior to presentation patient had fever and weakness. Feel that patient's cough is secondary currently to her volume overload. Have obtain chest x-ray which reveals volume overload but no overt consolidation consistent with pneumonia. Stop azithromycin and cefepime. Continue clindamycin and Zyvox. (2) Acute on chronic respiratory failure with hypoxia and hypercapnia Is this a current diagnosis for this admission?: YesPlan: Continue oxygen as needed. (3) COPD (chronic obstructive pulmonary disease) Qualifiers: COPD type: unspecified COPD Qualified Code(s): J44.9 - Chronic obstructive pulmonary disease, unspecified Is this a current diagnosis for this admission?: YesPlan: At this time, feel the patient's wheezing is secondary to volume overload. Have stopped IV fluids and will give Bumex. Continue nebulized treatments. Patient also suffers from pulmonary hypertension. (4) Diabetic infection of right foot Is this a current diagnosis for this admission?: YesPlan: Have consulted surgery. Have discussed case with Dr. Mclaughlin who previously had plans for amputation for this extremity. Plan to have him see her this week for possible amputation this coming Thursday or thereafter. Patient currently with MRSA bacteremia and also MRSA growing from swab of right foot/MTP wound. Patient previously had MRSA bacteremia/infection with her prior amputation. (5) Hospital acquired PNA Is this a current diagnosis for this admission?: YesPlan: Do not feel that patient met criteria for hospital-acquired pneumonia. We'll continue to monitor, but appears to be volume overloaded. 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 Most recent echo done on 04/20/2015, reveals grade 2 over 4 diastolic dysfunction and a grossly normal EF, and mild pulmonary hypertension On Bumex, Coreg, aspirin, no Ravinder or ARB secondary to CKD stage IV (10) Hypothyroid Qualifiers: Hypothyroidism type: unspecified Qualified Code(s): E03.9 - Hypothyroidism, unspecified Is this a current diagnosis for this admission?: Yes (11) ORIANA (obstructive sleep apnea) Is this a current diagnosis for this admission?: Yes (12) Severe obesity (BMI 35.0-39.9) with comorbidity Is this a current diagnosis for this admission?: Yes - Time Time Spent with patient: 35 or more minutes Medications reviewed and adjusted accordingly: Yes
[2016-06-25] MEDS: NYSTATIN CREAM 15 GM TP SCH (18:57)
[2016-06-25] MEDS: LINEZOLID 600 MG TABLET PO SCH (22:06)
[2016-06-25] MEDS: SERTRALINE HCL 50 MG TABLET PO SCH (22:06)
[2016-06-25] MEDS: ACETAMINOPHEN 325 MG TABLET PO PRN (23:11)
[2016-06-26 05:35] LABS: ABSOLUTE EOSINOPHILS # (AUTO) 0.2 10^3/uL (0.0-0.6); ABSOLUTE LYMPHOCYTES (AUTO) 1.5 10^3/uL (0.5-4.7); ABSOLUTE MONOCYTES (AUTO) 0.6 10^3/uL (0.1-1.4); ABSOLUTE NEUT (AUTO) 6.7 10^3/uL (1.7-8.2); BASOPHILS % (AUTO) 0.3 % (0-2); EOSINOPHILS % (AUTO) 2.7 % (0-6); HEMATOCRIT 26.6 % (36.0-47.0); HEMOGLOBIN 8.3 g/dL (12.0-15.5); HGB HCT DIFFERENCE -1.7; LYMPHOCYTES % (AUTO) 16.7 % (13-45); MEAN CORPUSCULAR HEMOGLOBIN 28.4 pg (27.0-33.4); MEAN CORPUSCULAR HGB CONC 31.1 g/dL (32.0-36.0); MEAN CORPUSCULAR VOLUME 91 fl (80-97); MONOCYTES % (AUTO) 6.4 % (3-13); RED BLOOD COUNT 2.92 10^6/uL (3.72-5.28); RED CELL DISTRIBUTION WIDTH 17.5 % (11.5-14.0); SEGMENTED NEUTROPHILS % (AUTO) 73.9 % (42-78)
[2016-06-26 05:54] LABS: ANION GAP 14 (5-19); BLOOD UREA NITROGEN 72 mg/dL (7-20); CALCIUM 8.9 mg/dL (8.4-10.2); CARBON DIOXIDE 15 mmol/L (22-30); CHLORIDE 110 mmol/L (98-107); CREATININE RESULT 3.93 mg/dL (0.52-1.25); GLUCOSE 140 mg/dL (75-110); POTASSIUM 4.6 mmol/L (3.6-5.0); SODIUM 139.1 mmol/L (137-145)
[2016-06-26] MEDS: CLONIDINE HCL 0.1 MG TABLET PO SCH ×3 (06:26→22:41)
[2016-06-26] MEDS: AMLODIPINE BESYLATE 10 MG TABLET PO SCH (07:49)
[2016-06-26] MEDS: ATORVASTATIN CALCIUM 10 MG TABLET PO SCH (07:49)
[2016-06-26] MEDS: ASPIRIN 81 MG TABLET, ENT COATED PO SCH (07:50)
--- NOTE | 2016-06-26 08:13 | PDOC PROGRESS REPORT ---
Subjective Progress Note for:: 06/25/16 Subjective:: Spoke with the patient. Longtime patient of Dr. Mclaughlin. The patient was planning an amputation in the near future due to chronic nonhealing wound. Patient refuses care by any surgeon other than Dr. Mclaughlin. Physical Exam Vital Signs: Temp Pulse Resp BP Pulse Ox 97.8 F 54 L 20 148/52 H 99 06/26/16 04:19 06/26/16 07:17 06/26/16 07:17 06/26/16 07:17 06/26/16 07:17 Intake & Output 06/25/16 06/26/16 06/27/16 06:59 06:59 06:59 Intake Total 2265 1540 Output Total 750 770 Balance 1515 770 Weight 103.5 kg General appearance: PRESENT: no acute distress Head exam: PRESENT: normocephalic Extremities exam: PRESENT: other - Right foot chronic wounds. Little to no induration, erythema or tenderness. Right lateral foot wound 1.5 x 0.1 cm long , appears recently closed with a thin strip of eschar. Distal foot chronic wound has a 0.5 cm opening and tracks approximately a centimeter deep. No pus is expressed. The wound is probed with Q-tips soaked with hydrogen peroxide. The wound is repacked and redressed. Neurological exam: PRESENT: alert, oriented to situation Results Laboratory Results: 06/26/16 04:57 06/26/16 04:57 06/26/16 06/26/16 04:57 04:57 WBC 9.0 RBC 2.92 L Hgb 8.3 L Hct 26.6 L MCV 91 MCH 28.4 MCHC 31.1 L RDW 17.5 H Plt Count 200 Seg Neutrophils % 73.9 Lymphocytes % 16.7 Monocytes % 6.4 Eosinophils % 2.7 Basophils % 0.3 Absolute Neutrophils 6.7 Absolute Lymphocytes 1.5 Absolute Monocytes 0.6 Absolute Eosinophils 0.2 Absolute Basophils 0.0 Sodium 139.1 Potassium 4.6 Chloride 110 H Carbon Dioxide 15 L Anion Gap 14 BUN 72 H Creatinine 3.93 H Est GFR ( Amer) 14 L Est GFR (Non-Af Amer) 11 L Glucose 140 H Calcium 8.9 06/24/16 16:50 Nasophary (Mrsa Only) MRSA Surveillance Culture - Final MRSA RECOVERED Impressions: Foot X-Ray 06/24/16 00:00 IMPRESSION: No cortical erosions or lytic areas are identified to confirm bony involvement by osteomyelitis. Extensive amputations which appears stable. Other findings as noted above Chest X-Ray 06/25/16 00:00 IMPRESSION: Cardiomegaly, with pulmonary vascular congestion and mild alveolar and interstitial edema worrisome for fluid overload or congestive failure Assessment & Plan - Diagnosis (1) Diabetic infection of right foot Is this a current diagnosis for this admission?: YesPlan: Patient is a patient of Dr. Mclaughlin. She is planning surgery with him. She does not want surgery by any other providers. The right foot chronic wound apparently had erythema and edema on admission, but now this has resolved. Dr. Mclaughlin is aware and will be caring for patient. Continue daily wound care.
[2016-06-26] MEDS: IPRATROPIUM/ALBUTEROL 0.5-2.5 MG/3 ML AMPUL NEB SCH ×3 (08:21→20:28)
[2016-06-26 09:22] LABS: PROTHROMBIN TIME 15.2 SEC (11.4-15.4)
[2016-06-26 09:23] LABS: PARTIAL THROMBOPLASTIN TIME 40.9 SEC (23.5-35.8)
[2016-06-26] MEDS: NYSTATIN CREAM 15 GM TP SCH ×2 (09:35→17:41)
[2016-06-26] MEDS: LANSOPRAZOLE 30 MG TAB.RAP.DR PO SCH (09:37)
[2016-06-26] MEDS: FENOFIBRATE NANOCRYSTALLIZED 145 MG TABLET PO SCH (09:37)
[2016-06-26] MEDS: LINEZOLID 600 MG TABLET PO SCH ×2 (09:38→22:40)
[2016-06-26] MEDS: MAGNESIUM OXIDE 400 MG TABLET PO SCH (09:38)
[2016-06-26] MEDS: CARVEDILOL 12.5 MG TABLET PO SCH ×2 (09:38→22:41)
[2016-06-26] MEDS: PRAMIPEXOLE DI-HCL 0.5 MG TABLET PO SCH ×2 (09:39→17:38)
[2016-06-26] MEDS ORDERED: BUMETANIDE INJ/PF 1 MG/4 ML SDV IV ONE (10:30)
[2016-06-26 10:38] LABS: ARTERIAL BLOOD BASE EXCESS -8.7 mmol/L; ARTERIAL BLOOD O2 SATURATION 96.1 % (94-98)
[2016-06-26] MEDS: INSULIN LISPRO 100 UNIT/ML 3 ML VIAL SUBCUT PRN ×3 (12:09→22:43)
--- NOTE | 2016-06-26 13:14 | PDOC CONSULTATION ---
Consultation Consult Date: 06/26/16 Consult reason:: Acute on chronic kidney disease with congestive heart failure. Evaluation towards initiation of dialysis. History of Present Illness Admission Date/PCP: 06/23/16 05:45 CAROLINA ROBIN MD History of Present Illness: Mrs. Pryor is a 70 years old lady with a past medical history of diabetes mellitus hypertension chronic right foot ulcer which has failed conservative management, history of cervical cancer with metastasis, CKD stage IV with a base creatinine of around 2.5-3 was admitted with history of fever and chills of one days duration . This was preceded by progressive shortness of breath over the last 2-3 days duration. Denies any history of chest pain cough with expectoration or hemoptysis. Evaluations in the hospital is revealed that she is not diastolic congestive heart failure. IV diuretics has been initiated and she feels some better. During the current evaluation she was also found to have erythema suggestive of active infection around the right foot ulcer. She was initiated on antibiotics. Blood cultures are currently growing MRSA. Her antibiotics have been modified to suit her cultures. Her laboratory evaluation shows worsening renal numbers. She was in the process of initiating hemodialysis through an AV fistula and it was in the making. Cervical cancer with metastasis treatment is currently on hold because of her active foot ulcer by the [facility] oncologist. Past Medical History Cardiac Medical History: Reports: Coronary Artery Disease, Heart Murmur, Hyperlipidemia, Peripheral Vascular Disease Denies: Atrial Fibrillation, DVT, Myocardial Infarction, Pulmonary Embolism Pulmonary Medical History: Reports: Asthma - Sinus related, Pneumonia - 02/2016, Sleep Apnea - CPAP Denies: Bronchitis, Chronic Obstructive Pulmonary Disease (COPD), Respiratory Failure, Tuberculosis Neurological Medical History: Denies: Hemorrhagic CVA, Ischemic CVA, Seizures Endocrine Medical History: Reports: Diabetes Mellitus Type 2 Denies: Hyperthyroidism, Hypothyroidism Renal/ Medical History: Reports: Chronic Kidney Disease Stage IV - with base creatinine at around 3 on discharge early feb. Denies: Benign Prostatic Hyperplasia, End Stage Renal Disease Malignancy Medical History: Reports: Cervical Cancer - currently Denies: Breast Cancer, Leukemia, Lung Cancer, Ovarian Cancer GI Medical History: Reports: Gastroesophageal Reflux Disease Denies: Cirrhosis, Crohn's Disease, Hiatal Hernia Musculoskeltal Medical History: Reports: Arthritis Denies: Fibromyalgia, Rheumatoid Arthritis, Systemic Lupus Erythematosus Skin Medical History: Denies: Eczema, Psoriasis Psychiatric Medical History: Reports: Depression Denies: Alcohol Dependency, Bipolar Disorder, Dementia, Post Traumatic Stress Disorder, Substance Abuse Infectious Medical History: Reports: Methicillin-resist Staph Aureus Denies: Hepatitis B, Hepatitis C, HIV Hematology Medical History: Reports Anemia Past Surgical History Past Surgical History: Reports: Appendectomy, Cholecystectomy, Orthopedic Surgery - Amputation 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 Lumbar spine fusion. Denies: Section, Colostomy, Coronary Artery Bypass Graft, Gastric Bypass Surgery, Herniorrhaphy, Hysterectomy, Mastectomy, Pacemaker, Tonsillectomy, Tubal Ligation Social History Lives with: Spouse/Significant other Smoking Status: Never Smoker Frequency of Alcohol Use: None Hx Recreational Drug Use: No Drugs: None Hx Prescription Drug Abuse: No - Advance Directive Resuscitation Status: Full Code Family History Parental Family History Reviewed: No Children Family History Reviewed: No Sibling(s) Family History Reviewed.: No Medication/Allergy Home Medications: Amlodipine Besylate [Norvasc 10 mg Tablet] 10 mg PO QAM 06/23/16 Aspirin [Ecotrin 81 mg EC Tablet] 81 mg PO QAM 06/23/16 Atorvastatin Calcium [Lipitor 10 mg Tablet] 10 mg PO QAM 06/23/16 Bumetanide [Bumex 1 mg Tablet] 2 mg PO BID 06/23/16 Carvedilol [Coreg 12.5 mg Tablet] 12.5 mg PO Q12 06/23/16 Clonidine HCl [Catapres 0.2 mg Tablet] 0.2 mg PO TID 06/23/16 Esomeprazole Mag Trihydrate [Nexium] 40 mg PO DAILY 06/23/16 Fenofibrate Nanocrystallized [Tricor 145 mg Tablet] 145 mg PO DAILY 06/23/16 Hum Insulin NPH/Reg Insulin Hm [Insulin Inj 70-30 (100 Unit/1 ml) 3 ml Vial] 15 unit SUBCUT MEALS 06/23/16 Magnesium Oxide [Magnesium] 400 mg PO DAILY 06/23/16 Pramipexole Di-HCl [Mirapex] 1 mg PO BID 06/23/16 Sertraline HCl [Zoloft 50 mg Tablet] 100 mg PO QHS 06/23/16 Allergies/Adverse Reactions: hydralazine [Hydralazine] Allergy (Severe, Verified 06/22/16 23:26) Rash all over Sulfa (Sulfonamide Antibiotics) Allergy (Severe, Verified 06/22/16 23:26) mouth swells Review of Systems Review of Systems: Constitutional: PRESENT: as per HPI. ABSENT: Headache(s), weight gain, weight loss Eyes: ABSENT: visual disturbances Ears: ABSENT: hearing changes Cardiovascular: ABSENT: chest pain, edema, orthropnea, palpitations Respiratory: ABSENT: cough, hemoptysis Gastrointestinal: ABSENT: abdominal pain, constipation, diarrhea, hematemesis, hematochezia, nausea, vomiting Genitourinary: ABSENT: dysuria, hematuria Musculoskeletal: ABSENT: joint swelling Integumentary: ABSENT: rash, wounds Neurological: ABSENT: abnormal gait, abnormal speech, confusion, dizziness, focal weakness, syncope Psychiatric: ABSENT: Homicidal ideation, suicidal ideation Endocrine: ABSENT: cold intolerance, heat intolerance, menstrual abnormalities, polydipsia, polyuria Hematologic/Lymphatic: ABSENT: easy bleeding, easy bruising, lymphadenopathy Physical Exam Vital Signs: Temp Pulse Resp BP Pulse Ox 97.5 F 57 L 20 148/50 H 98 06/26/16 11:43 06/26/16 11:43 06/26/16 11:43 06/26/16 11:43 06/26/16 11:43 Intake & Output 06/25/16 06/26/16 06/27/16 06:59 06:59 06:59 Intake Total 2265 1540 Output Total 750 770 Balance 1515 770 Weight 103.5 kg General appearance: PRESENT: mild distress Eye exam: PRESENT: EOMI, PERRLA. ABSENT: nystagmus, periorbital swelling Mouth exam: PRESENT: moist, neck supple Neck exam: ABSENT: meningismus, tenderness, thyromegaly, tracheal deviation Respiratory exam: PRESENT: clear to auscultation siobhan, crackles, decreased breath sounds. ABSENT: rhonchi, stridor Cardiovascular exam: PRESENT: +S1, +S2, systolic murmur GI/Abdominal exam: PRESENT: distended, soft. ABSENT: diminished bowel sounds, firm, guarding, organomegaly, tenderness Extremities exam: PRESENT: pedal edema Neurological exam: PRESENT: alert, awake, oriented to person, oriented to place , oriented to time Psychiatric exam: PRESENT: normal mood Skin exam: PRESENT: dry. ABSENT: cyanosis, erythema, mottled, normal color Results Laboratory Results: 06/26/16 04:57 06/26/16 04:57 06/26/16 06/26/1617 04:57 04:57 09:36 WBC 9.0 RBC 2.92 L Hgb 8.3 L Hct 26.6 L MCV 91 MCH 28.4 MCHC 31.1 L RDW 17.5 H Plt Count 200 Seg Neutrophils % 73.9 Lymphocytes % 16.7 Monocytes % 6.4 Eosinophils % 2.7 Basophils % 0.3 Absolute Neutrophils 6.7 Absolute Lymphocytes 1.5 Absolute Monocytes 0.6 Absolute Eosinophils 0.2 Absolute Basophils 0.0 Carbonic Acid 1.03 L HCO3/H2CO3 Ratio 16:1 ABG pH 7.31 L ABG pCO2 34.3 L ABG pO2 88.5 ABG HCO3 16.8 L ABG O2 Saturation 96.1 ABG Base Excess -8.7 FiO2 1 L Sodium 139.1 Potassium 4.6 Chloride 110 H Carbon Dioxide 15 L Anion Gap 14 BUN 72 H Creatinine 3.93 H Est GFR ( Amer) 14 L Est GFR (Non-Af Amer) 11 L Glucose 140 H Calcium 8.9 06/24/16 11:10 Foot - Right Gram Stain - Final 06/24/16 16:50 Nasophary (Mrsa Only) MRSA Surveillance Culture - Final MRSA RECOVERED Impressions: Foot X-Ray 06/24/16 00:00 IMPRESSION: No cortical erosions or lytic areas are identified to confirm bony involvement by osteomyelitis. Extensive amputations which appears stable. Other findings as noted above Chest X-Ray 06/25/16 00:00 IMPRESSION: Cardiomegaly, with pulmonary vascular congestion and mild alveolar and interstitial edema worrisome for fluid overload or congestive failure Assessment & Plan - Diagnosis (1) MRSA bacteremia Is this a current diagnosis for this admission?: YesPlan: Patient currently on appropriate antibiotics with decrement in the white count. Most likely sources of foot infection. (2) Acute on chronic respiratory failure with hypoxia and hypercapnia Is this a current diagnosis for this admission?: YesPlan: Secondary to congestive heart failure as seen clinically and radiologically. She is on IV diuretics but given her renal functions she needs to be initiated on hemodialysis. Discussed this extensively with the patient as well as Dr. Post. Will get the temporary dialysis catheter given her bacteremic stage and plan for dialysis in the morning. (3) Diabetic infection of right foot Is this a current diagnosis for this admission?: YesPlan: On IV antibiotics. Plan for more definitive treatment as per hospitalist and surgicalist. (4) Sepsis Qualifiers: Sepsis type: methicillin resistant Staphylococcus aureus Qualified Code(s): A41.02 - Sepsis due to Methicillin resistant Staphylococcus aureus Is this a current diagnosis for this admission?: Yes (5) Acute on chronic diastolic (congestive) heart failure Is this a current diagnosis for this admission?: YesPlan: As mentioned earlier plan for initiation of hemodialysis in the morning. (6) Acute on chronic renal insufficiency Is this a current diagnosis for this admission?: YesPlan: She is baseline stage IV CKD. Given the presention with heart failure in the the presence of acute worsening of her CKD stage IV secondary to ATN from MRSA bacteremia sepsis I have discussed with the patient to initiate hemodialysis. She had already been sitting on the cusp for a while and she is willing to go ahead with that. I believe initiating hemodialysis and getting central fluid off her would prep her and get her ideally prepared for hopefully a definitive treatment with amputation earlier for next week. Since she is bacteremic we will proceed with temporary dialysis catheter in the groin followed by a conversion to an IJ catheter sometime next week prior to her being discharged. I have discussed with her the pros and cons of hemodialysis including complications that can happen during the procedure. They include sudden drops in blood pressure bleeding and infections. In rare occasions this can lead to cardiac arrest. Patient understands and willing to proceed. (7) Cervical cancer, FIGO stage MIRIAM Is this a current diagnosis for this admission?: Yes (8) Diabetic foot ulcer Qualifiers: Diabetes mellitus type: type 1 Laterality: right Qualified Code(s) : E10.621 - Type 1 diabetes mellitus with foot ulcer; L97.519 - Non-pressure chronic ulcer of other part of right foot with unspecified severity (9) Sepsis Qualifiers: Sepsis type: sepsis due to unspecified organism Qualified Code(s): A41.9 - Sepsis, unspecified organism Is this a current diagnosis for this admission?: Yes (10) ORIANA (obstructive sleep apnea) Is this a current diagnosis for this admission?: Yes (11) Anemia Qualifiers: Anemia type: other cause Other causes of anemia: other cause, not classified Qualified Code(s): D64.89 - Other specified anemias Is this a current diagnosis for this admission?: YesPlan: Multifactorial. They include combination of sepsis, malignancy and chronic kidney disease stage IV. Get iron studies and see if she should be initiating her on erythropoietin.
--- NOTE | 2016-06-26 15:48 | PDOC PROGRESS REPORT ---
Subjective Progress Note for:: 06/26/16 Subjective:: Patient reports that she is still slightly short of breath. She does not have a productive cough. Patient denies chest pain, abdominal pain, nausea, vomiting , fevers, chills, diarrhea, constipation, headache, new onset weakness. Physical Exam Vital Signs: Temp Pulse Resp BP Pulse Ox 97.8 F 56 L 24 H 123/44 L 100 06/26/16 04:19 06/26/16 06:44 06/26/16 04:19 06/26/16 04:19 06/26/16 04:19 Intake & Output 06/25/16 06/26/16 06/27/16 06:59 06:59 06:59 Intake Total 2265 1540 Output Total 750 770 Balance 1515 770 Weight 103.5 kg Exam: General: Awake alert and oriented x3, mild tachypnea HEENT: AT/NC, PERRL, EOMI, oropharynx is moist, pink, no scleral icterus, no conjunctival injection Neck: No JVD, trachea midline Chest: bilateral rales CV: Regular rate and rhythm, normal S1 and S2, no rub, or gallop; 3/6 systolic murmur Abdomen: Soft, nontender to palpation, nondistended, active bowel sounds; no rebound, rigidity, or guarding Extremities: No cyanosis, clubbing or edema Neuro: Cranial nerves II through XII are grossly intact without focal deficits; awake alert and oriented x3 Psych: Normal mood and affect Skin: Right first MTP eschar removed, with pink granulation tissue present, erythema improved Results Laboratory Results: 06/26/16 04:57 06/26/16 04:57 06/25/16 06/25/16 06/26/16 07:23 07:23 04:57 WBC 13.2 H 9.0 RBC 2.88 L 2.92 L Hgb 8.2 L 8.3 L Hct 26.2 L 26.6 L MCV 91 91 MCH 28.5 28.4 MCHC 31.3 L 31.1 L RDW 17.9 H 17.5 H Plt Count 204 200 Seg Neutrophils % 80.5 H 73.9 Lymphocytes % 12.4 L 16.7 Monocytes % 5.4 6.4 Eosinophils % 1.5 2.7 Basophils % 0.2 0.3 Absolute Neutrophils 10.6 H 6.7 Absolute Lymphocytes 1.6 1.5 Absolute Monocytes 0.7 0.6 Absolute Eosinophils 0.2 0.2 Absolute Basophils 0.0 0.0 Sodium 138.0 Potassium 4.3 Chloride 109 H Carbon Dioxide 18 L Anion Gap 11 BUN 68 H Creatinine 3.61 H Est GFR ( Amer) 15 L Est GFR (Non-Af Amer) 12 L Glucose 160 H Calcium 8.2 L Phosphorus 4.6 H Magnesium 2.1 Prealbumin 6.7 L 06/26/16 04:57 WBC RBC Hgb Hct MCV MCH MCHC RDW Plt Count Seg Neutrophils % Lymphocytes % Monocytes % Eosinophils % Basophils % Absolute Neutrophils Absolute Lymphocytes Absolute Monocytes Absolute Eosinophils Absolute Basophils Sodium 139.1 Potassium 4.6 Chloride 110 H Carbon Dioxide 15 L Anion Gap 14 BUN 72 H Creatinine 3.93 H Est GFR ( Amer) 14 L Est GFR (Non-Af Amer) 11 L Glucose 140 H Calcium 8.9 Phosphorus Magnesium Prealbumin 06/24/16 16:50 Nasophary (Mrsa Only) MRSA Surveillance Culture - Final MRSA RECOVERED Impressions: Foot X-Ray 06/24/16 00:00 IMPRESSION: No cortical erosions or lytic areas are identified to confirm bony involvement by osteomyelitis. Extensive amputations which appears stable. Other findings as noted above Chest X-Ray 06/25/16 00:00 IMPRESSION: Cardiomegaly, with pulmonary vascular congestion and mild alveolar and interstitial edema worrisome for fluid overload or congestive failure Assessment & Plan - Diagnosis (1) Sepsis Qualifiers: Sepsis type: methicillin resistant Staphylococcus aureus Qualified Code(s): A41.02 - Sepsis due to Methicillin resistant Staphylococcus aureus Is this a current diagnosis for this admission?: YesPlan: Secondary to underlying foot wound. AOn Clindamycin day #2 and Zyvox day #3. At this time do not feel the patient clinically had pneumonia prior to presentation. Prior to presentation patient had fever and weakness. Feel that patient's cough is secondary currently to her volume overload. Have obtain chest x-ray which reveals volume overload but no overt consolidation consistent with pneumonia. (2) Acute on chronic respiratory failure with hypoxia and hypercapnia Is this a current diagnosis for this admission?: YesPlan: Continue oxygen as needed. Patient currently hypoxic alone. (3) COPD (chronic obstructive pulmonary disease) Qualifiers: COPD type: unspecified COPD Qualified Code(s): J44.9 - Chronic obstructive pulmonary disease, unspecified Is this a current diagnosis for this admission?: YesPlan: Continue scheduled nebulized treatments. Patient also suffers from pulmonary hypertension. (4) Diabetic infection of right foot Is this a current diagnosis for this admission?: YesPlan: Have discussed case with Dr. Mclaughlin who plans to see patient for plans for an amputation this coming week. Patient currently with MRSA bacteremia and also MRSA growing from swab of right foot/MTP wound. Patient previously had MRSA bacteremia/infection with her prior amputation. (5) Hospital acquired PNA Is this a current diagnosis for this admission?: YesPlan: Do not feel that patient met criteria for hospital-acquired pneumonia. Do not feel patient has pneumonia. (6) Cervical cancer, FIGO stage MIRIAM Is this a current diagnosis for this admission?: YesPlan: Patient reports an advancement of her underlying malignancy as she has been admitted able to receive chemotherapy due to chronic illness. 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 Most recent echo done on 04/20/2015, reveals grade 2 over 4 diastolic dysfunction and a grossly normal EF, and mild pulmonary hypertension On Bumex, Coreg, aspirin, no Ravinder or ARB secondary to CKD stage IV/V (10) Hypothyroid Qualifiers: Hypothyroidism type: unspecified Qualified Code(s): E03.9 - Hypothyroidism, unspecified Is this a current diagnosis for this admission?: YesPlan: Continue Synthroid (11) ORIANA (obstructive sleep apnea) Is this a current diagnosis for this admission?: Yes (12) Severe obesity (BMI 35.0-39.9) with comorbidity Is this a current diagnosis for this admission?: Yes (13) Metabolic acidosis Is this a current diagnosis for this admission?: YesPlan: Currently feel that patient's uncompensated metabolic acidosis is due to her renal failure. (14) Acute on chronic renal failure Is this a current diagnosis for this admission?: YesPlan: Patient currently has acute on chronic renal failure. Have discussed this case with Dr. Dick Craig who preliminarily is planning to have temporary dialysis catheter placed and possibly start hemodialysis. - Time Time Spent with patient: 35 or more minutes Medications reviewed and adjusted accordingly: Yes
[2016-06-26] MEDS: BUMETANIDE INJ/PF 1 MG/4 ML SDV IV SCH (17:37)
[2016-06-26] MEDS: SERTRALINE HCL 50 MG TABLET PO SCH (22:42)
[2016-06-27 05:08] LABS: ABSOLUTE EOSINOPHILS # (AUTO) 0.2 10^3/uL (0.0-0.6); ABSOLUTE LYMPHOCYTES (AUTO) 1.5 10^3/uL (0.5-4.7); ABSOLUTE MONOCYTES (AUTO) 0.6 10^3/uL (0.1-1.4); ABSOLUTE NEUT (AUTO) 6.2 10^3/uL (1.7-8.2); BASOPHILS % (AUTO) 0.4 % (0-2); EOSINOPHILS % (AUTO) 2.8 % (0-6); HEMOGLOBIN 8.3 g/dL (12.0-15.5); HGB HCT DIFFERENCE -2.1; LYMPHOCYTES % (AUTO) 17.2 % (13-45); MEAN CORPUSCULAR HEMOGLOBIN 28.2 pg (27.0-33.4); MEAN CORPUSCULAR HGB CONC 30.8 g/dL (32.0-36.0); MEAN CORPUSCULAR VOLUME 91 fl (80-97); MONOCYTES % (AUTO) 6.9 % (3-13); RED BLOOD COUNT 2.95 10^6/uL (3.72-5.28); RED CELL DISTRIBUTION WIDTH 17.1 % (11.5-14.0); SEGMENTED NEUTROPHILS % (AUTO) 72.7 % (42-78); WHITE BLOOD COUNT 8.6 10^3/uL (4.0-10.5)
[2016-06-27 05:19] LABS: ANION GAP 13 (5-19); BLOOD UREA NITROGEN 72 mg/dL (7-20); CALCIUM 8.9 mg/dL (8.4-10.2); CARBON DIOXIDE 18 mmol/L (22-30); CHLORIDE 109 mmol/L (98-107); CREATININE RESULT 3.73 mg/dL (0.52-1.25); GLUCOSE 167 mg/dL (75-110); POTASSIUM 4.8 mmol/L (3.6-5.0); SODIUM 140.2 mmol/L (137-145)
[2016-06-27] MEDS: INSULIN LISPRO 100 UNIT/ML 3 ML VIAL SUBCUT PRN ×3 (08:01→16:02)
[2016-06-27] MEDS: BUMETANIDE INJ/PF 1 MG/4 ML SDV IV SCH ×2 (08:05→17:03)
[2016-06-27] MEDS: CLONIDINE HCL 0.1 MG TABLET PO SCH ×2 (08:05→16:03)
[2016-06-27] MEDS ORDERED: LIDOCAINE 0.5% INJ-PF (5 MG/ML) 50 ML SDV ONE (08:44)
--- NOTE | 2016-06-27 08:56 | PDOC PROGRESS REPORT ---
Subjective Subjective:: no complaints. No change in sore on right foot. Needs temporary dialysis catheter. Physical Exam Vital Signs: Temp Pulse Resp BP Pulse Ox 97.7 F 62 18 143/50 H 96 06/27/16 04:23 06/27/16 06:37 06/26/16 20:28 06/26/16 20:00 06/27/16 05:30 Intake & Output 06/26/16 06/27/16 06/28/16 06:59 06:59 06:59 Intake Total 1540 410 Output Total 770 1175 Balance 770 -765 Weight 103.5 kg General appearance: PRESENT: no acute distress Eye exam: PRESENT: EOMI GI/Abdominal exam: PRESENT: soft. ABSENT: distended, tenderness Extremities exam: PRESENT: other - Sore on right foot. Neurological exam: PRESENT: alert, oriented to situation Results Laboratory Results: 06/27/16 04:30 06/27/16 04:30 06/26/16 06/27/16 06/27/16 09:36 04:30 04:30 WBC 8.6 RBC 2.95 L Hgb 8.3 L Hct 27.0 L MCV 91 MCH 28.2 MCHC 30.8 L RDW 17.1 H Plt Count 219 Seg Neutrophils % 72.7 Lymphocytes % 17.2 Monocytes % 6.9 Eosinophils % 2.8 Basophils % 0.4 Absolute Neutrophils 6.2 Absolute Lymphocytes 1.5 Absolute Monocytes 0.6 Absolute Eosinophils 0.2 Absolute Basophils 0.0 Retic Count (auto) 2.05 Absolute Retic 0.060 Carbonic Acid 1.03 L HCO3/H2CO3 Ratio 16:1 ABG pH 7.31 L ABG pCO2 34.3 L ABG pO2 88.5 ABG HCO3 16.8 L ABG O2 Saturation 96.1 ABG Base Excess -8.7 FiO2 1 L Sodium 140.2 Potassium 4.8 Chloride 109 H Carbon Dioxide 18 L Anion Gap 13 BUN 72 H Creatinine 3.73 H Est GFR ( Amer) 14 L Est GFR (Non-Af Amer) 12 L Glucose 167 H Calcium 8.9 Iron 49 TIBC 278 % Saturation 18 Ferritin 249.00 Vitamin B12 974.0 H Folate 11.20 06/24/16 11:10 Foot - Right Gram Stain - Final Impressions: Foot X-Ray 06/24/16 00:00 IMPRESSION: No cortical erosions or lytic areas are identified to confirm bony involvement by osteomyelitis. Extensive amputations which appears stable. Other findings as noted above Chest X-Ray 06/25/16 00:00 IMPRESSION: Cardiomegaly, with pulmonary vascular congestion and mild alveolar and interstitial edema worrisome for fluid overload or congestive failure Assessment & Plan - Diagnosis (1) Diabetic infection of right foot Is this a current diagnosis for this admission?: YesPlan: Per Dr. Mclaughlin. Eventually will get amp. (2) Acute on chronic renal failure Is this a current diagnosis for this admission?: YesPlan: Late note. Rounding late for 06/26/2016. Needs temporary dialysis catheter. Has a rather large abdomen and panniculus. Want to avoid right groin due to impending amputation. Left groin may be difficult to keep clean and uninfected given the large panniculus. Consider neck versus left groin. Spoke with Dr. Person, who will do catheter today..
[2016-06-27] MEDS: IPRATROPIUM/ALBUTEROL 0.5-2.5 MG/3 ML AMPUL NEB SCH ×3 (10:00→20:22)
[2016-06-27] MEDS: LANSOPRAZOLE 30 MG TAB.RAP.DR PO SCH (10:02)
[2016-06-27] MEDS: ATORVASTATIN CALCIUM 10 MG TABLET PO SCH (10:03)
[2016-06-27] MEDS: PRAMIPEXOLE DI-HCL 0.5 MG TABLET PO SCH ×2 (10:03→17:03)
[2016-06-27] MEDS: MAGNESIUM OXIDE 400 MG TABLET PO SCH (10:06)
[2016-06-27] MEDS: AMLODIPINE BESYLATE 10 MG TABLET PO SCH (10:06)
[2016-06-27] MEDS: ASPIRIN 81 MG TABLET, ENT COATED PO SCH (10:07)
[2016-06-27] MEDS: LINEZOLID 600 MG TABLET PO SCH (10:07)
[2016-06-27] MEDS: CARVEDILOL 12.5 MG TABLET PO SCH (10:07)
[2016-06-27] MEDS: FENOFIBRATE NANOCRYSTALLIZED 145 MG TABLET PO SCH (10:08)
[2016-06-27] MEDS: NYSTATIN CREAM 15 GM TP SCH ×2 (10:14→17:07)
--- NOTE | 2016-06-27 10:31 | OPERATIVE REPORT E ---
Operative Report NAME: VIVIAN WATKINS : 1945 AGE: 70Y DATE OF SURGERY: 06/27/2016 ROOM: 325 PREOPERATIVE DIAGNOSIS: Impending renal failure. POSTOPERATIVE DIAGNOSIS: Impending renal failure. PROCEDURE: Insertion of right internal jugular vein Trialysis catheter. SURGEON: SEDRICK BRO M.D. ANESTHESIA: Local with 1% Xylocaine. COMPLICATIONS: None. CONDITION: Stable. PROCEDURE: After adequate consent was obtained, the patient's left neck was prepped and draped in the usual sterile manner. A timeout was achieved and then local anesthesia was injected into the anterior triangle. We then identified the left internal jugular vein using the local anesthesia and we aspirated a small amount of blood into the syringe and injected local just above the vein. We then accessed the left internal jugular vein percutaneously and the guidewire was advanced through the needle and the needle was removed. We were not able to advance the guidewire smoothly into the basilic vein and into the superior vena cava. After manipulating the syringe and trying to redirect the wire, we abandoned any further attempts to cannulate the left internal jugular vein. The guidewire was removed and pressure was maintained on the left internal jugular vein for approximately 1 minute. We then reprepped the right neck and after adequate preparation was made and cleansing we accessed the right internal jugular vein using the local anesthesia and needle syringe to anesthetize the area above the vein and to locate the vein. We then accessed the right internal jugular vein percutaneously with the access needle and the guidewire was advanced smoothly into the internal jugular vein into the basilic and into the superior vena cava. There was smooth advancement of the wire. We then passed vein dilators over the guidewire after the needle was removed. Then, using the sterile Seldinger technique, the Trialysis catheter was advanced over the guidewire as the guidewire was removed. We then aspirated each lumen and there was good antegrade and retrograde flow through each lumen. We flushed each with saline and then we secured the catheter in the usual manner using 3-0 nylon. Tegaderm was placed over the catheter. A portable chest x-ray has been ordered. The patient tolerated the procedure well. There were good breath sounds in the right hemithorax post insertion and the chest x-ray will be reviewed. DICTATING PHYSICIAN: SEDRICK BRO M.D. [id number] PHY#: [id number] ID: [id number] JOB#: [id number] ACCT: [id number] cc:SEDRICK BRO M.D. >
[2016-06-27] MEDS ORDERED: OXYCODONE-ACETAMINOPHEN 5-325 MG TABLET ONE (10:50)
--- NOTE | 2016-06-27 13:44 | PDOC PROGRESS REPORT ---
Subjective Progress Note for:: 06/27/16 Subjective:: She is generally doing stable. She had a temporary right IJ catheter placed this morning by the surgeons which was uneventful she is currently undergoing dialysis without any issues. I had talked her through the pros and cons of dialysis earlier this morning. Physical Exam Vital Signs: Temp Pulse Resp BP Pulse Ox 97.7 F 53 L 19 136/48 H 90 L 06/27/16 07:35 06/27/16 11:44 06/27/16 11:44 06/27/16 11:44 06/27/16 11:44 Intake & Output 06/26/16 06/27/16 06/28/16 06:59 06:59 06:59 Intake Total 1540 513 Output Total 770 2175 Balance 770 -1662 Weight 103.5 kg 102 kg General appearance: PRESENT: no acute distress Respiratory exam: PRESENT: clear to auscultation siobhan, crackles, symmetrical. ABSENT: rhonchi Cardiovascular exam: PRESENT: +S1, +S2, systolic murmur GI/Abdominal exam: PRESENT: distended, soft. ABSENT: diminished bowel sounds, firm, guarding, organomegaly, tenderness Extremities exam: PRESENT: +1 edema Neurological exam: PRESENT: alert, awake, oriented to person, oriented to place , oriented to time Results Laboratory Results: 06/27/16 04:30 06/27/16 04:30 06/27/16 06/27/16 04:30 04:30 WBC 8.6 RBC 2.95 L Hgb 8.3 L Hct 27.0 L MCV 91 MCH 28.2 MCHC 30.8 L RDW 17.1 H Plt Count 219 Seg Neutrophils % 72.7 Lymphocytes % 17.2 Monocytes % 6.9 Eosinophils % 2.8 Basophils % 0.4 Absolute Neutrophils 6.2 Absolute Lymphocytes 1.5 Absolute Monocytes 0.6 Absolute Eosinophils 0.2 Absolute Basophils 0.0 Retic Count (auto) 2.05 Absolute Retic 0.060 Sodium 140.2 Potassium 4.8 Chloride 109 H Carbon Dioxide 18 L Anion Gap 13 BUN 72 H Creatinine 3.73 H Est GFR ( Amer) 14 L Est GFR (Non-Af Amer) 12 L Glucose 167 H Calcium 8.9 Iron 49 TIBC 278 % Saturation 18 Ferritin 249.00 Vitamin B12 974.0 H Folate 11.20 06/24/16 11:10 Foot - Right Gram Stain - Final 06/24/16 11:10 Foot - Right Wound Culture - Final Mrsa (Meth Resis Staph Aureus) Skin Diamante Impressions: Foot X-Ray 06/24/16 00:00 IMPRESSION: No cortical erosions or lytic areas are identified to confirm bony involvement by osteomyelitis. Extensive amputations which appears stable. Other findings as noted above Chest X-Ray 06/27/16 00:00 IMPRESSION: Appropriate right IJ line. Slightly improved aeration. No pneumothorax. Assessment & Plan - Diagnosis (1) MRSA bacteremia Is this a current diagnosis for this admission?: YesPlan: On appropriate antibiotics. Discussed with Dr. Post of repeating cultures to see if she is steroid as that would give us a window for placing IJ PermCath on Thursday. (2) Acute on chronic respiratory failure with hypoxia and hypercapnia Is this a current diagnosis for this admission?: YesPlan: Stable .See how she responds to hemodialysis later today. (3) Diabetic infection of right foot Is this a current diagnosis for this admission?: YesPlan: For definitive treatment later this coming week. (4) Sepsis Qualifiers: Sepsis type: methicillin resistant Staphylococcus aureus Qualified Code(s): A41.02 - Sepsis due to Methicillin resistant Staphylococcus aureus Is this a current diagnosis for this admission?: YesPlan: From infected right foot. Currently on antibiotics. Stable. (5) Acute on chronic diastolic (congestive) heart failure Is this a current diagnosis for this admission?: YesPlan: See response to hemodialysis in the morning. (6) Acute on chronic renal insufficiency Is this a current diagnosis for this admission?: YesPlan: CKD stage V now on dialysis. She is undergoing dialysis without any issues through her right temporary IJ catheter. Dialysis orders were discussed with the treating nurse. Vital signs are stable. Will plan to remove approximately 1.5-2 L of fluid as tolerated. (7) Cervical cancer, FIGO stage MIRIAM Is this a current diagnosis for this admission?: Yes (8) Diabetic foot ulcer Qualifiers: Diabetes mellitus type: type 1 Laterality: right Qualified Code(s) : E10.621 - Type 1 diabetes mellitus with foot ulcer; L97.519 - Non-pressure chronic ulcer of other part of right foot with unspecified severity (9) Sepsis Qualifiers: Sepsis type: sepsis due to unspecified organism Qualified Code(s): A41.9 - Sepsis, unspecified organism Is this a current diagnosis for this admission?: Yes (10) ORIANA (obstructive sleep apnea) Is this a current diagnosis for this admission?: Yes (11) Anemia Qualifiers: Anemia type: other cause Other causes of anemia: other cause, not classified Qualified Code(s): D64.89 - Other specified anemias Is this a current diagnosis for this admission?: YesPlan: Adjust erythropoietin. She is got moderate iron deficiency and will plan 1 dose of IV Feraheme next week.
[2016-06-27] MEDS ORDERED: HEPARIN SOD (PORCINE) 1,000 UNIT/ML 10 ML VIAL IV PRN (14:10)
--- NOTE | 2016-06-27 17:47 | PDOC PROGRESS REPORT ---
Subjective Progress Note for:: 06/27/16 Subjective:: Patient complains of pain at the site of her temporary dialysis catheter. She does report some slight shortness of breath. Patient denies chest pain, abdominal pain, nausea, vomiting, fevers, chills, diarrhea, constipation, headache, new onset weakness. Physical Exam Vital Signs: Temp Pulse Resp BP Pulse Ox 97.7 F 62 18 143/50 H 96 06/27/16 04:23 06/27/16 06:37 06/26/16 20:28 06/26/16 20:00 06/27/16 05:30 Intake & Output 06/26/16 06/27/16 06/28/16 06:59 06:59 06:59 Intake Total 1540 410 Output Total 770 1175 Balance 770 -765 Weight 103.5 kg Exam: General: Awake alert and oriented x3, mild tachypnea HEENT: AT/NC, PERRL, EOMI, oropharynx is moist, pink, no scleral icterus, no conjunctival injection Neck: No JVD, trachea midline Chest: bilateral rales to mid lung CV: Regular rate and rhythm, normal S1 and S2, no rub, or gallop; 3/6 systolic murmur Abdomen: Soft, nontender to palpation, nondistended, active bowel sounds; no rebound, rigidity, or guarding Extremities: No cyanosis, clubbing or edema Neuro: Cranial nerves II through XII are grossly intact without focal deficits; awake alert and oriented x3 Psych: Normal mood and affect Skin: Right first MTP eschar removed, with pink granulation tissue present, erythema improved Results Laboratory Results: 06/27/16 04:30 06/27/16 04:30 06/26/16 06/27/16 06/27/16 09:36 04:30 04:30 WBC 8.6 RBC 2.95 L Hgb 8.3 L Hct 27.0 L MCV 91 MCH 28.2 MCHC 30.8 L RDW 17.1 H Plt Count 219 Seg Neutrophils % 72.7 Lymphocytes % 17.2 Monocytes % 6.9 Eosinophils % 2.8 Basophils % 0.4 Absolute Neutrophils 6.2 Absolute Lymphocytes 1.5 Absolute Monocytes 0.6 Absolute Eosinophils 0.2 Absolute Basophils 0.0 Retic Count (auto) 2.05 Absolute Retic 0.060 Carbonic Acid 1.03 L HCO3/H2CO3 Ratio 16:1 ABG pH 7.31 L ABG pCO2 34.3 L ABG pO2 88.5 ABG HCO3 16.8 L ABG O2 Saturation 96.1 ABG Base Excess -8.7 FiO2 1 L Sodium 140.2 Potassium 4.8 Chloride 109 H Carbon Dioxide 18 L Anion Gap 13 BUN 72 H Creatinine 3.73 H Est GFR ( Amer) 14 L Est GFR (Non-Af Amer) 12 L Glucose 167 H Calcium 8.9 Iron 49 TIBC 278 % Saturation 18 Ferritin 249.00 Vitamin B12 974.0 H Folate 11.20 06/24/16 11:10 Foot - Right Gram Stain - Final Impressions: Foot X-Ray 06/24/16 00:00 IMPRESSION: No cortical erosions or lytic areas are identified to confirm bony involvement by osteomyelitis. Extensive amputations which appears stable. Other findings as noted above Chest X-Ray 06/25/16 00:00 IMPRESSION: Cardiomegaly, with pulmonary vascular congestion and mild alveolar and interstitial edema worrisome for fluid overload or congestive failure Assessment & Plan - Diagnosis (1) Sepsis Qualifiers: Sepsis type: methicillin resistant Staphylococcus aureus Qualified Code(s): A41.02 - Sepsis due to Methicillin resistant Staphylococcus aureus Is this a current diagnosis for this admission?: YesPlan: Secondary to underlying foot wound. On Clindamycin day #3 and Zyvox day #4. At this time do not feel the patient clinically had pneumonia prior to presentation. Prior to presentation patient had fever and weakness. Feel that patient's cough is secondary currently to her volume overload. Have obtain chest x-ray which reveals volume overload but no overt consolidation consistent with pneumonia. (2) Acute on chronic respiratory failure with hypoxia and hypercapnia Is this a current diagnosis for this admission?: YesPlan: Continue oxygen as needed. Patient currently hypoxic alone. (3) COPD (chronic obstructive pulmonary disease) Qualifiers: COPD type: unspecified COPD Qualified Code(s): J44.9 - Chronic obstructive pulmonary disease, unspecified Is this a current diagnosis for this admission?: YesPlan: Continue scheduled nebulized treatments. Patient also suffers from pulmonary hypertension. (4) Diabetic infection of right foot Is this a current diagnosis for this admission?: YesPlan: Patient currently with MRSA bacteremia and also MRSA growing from swab of right foot/MTP wound. Patient previously had MRSA bacteremia/infection with her prior amputation. Plan for probable amputation this coming week. Will consult cardiology. Patient will need to have a Vas-Cath placed for dialysis. 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 Most recent echo done on 04/20/2015, reveals grade 2 over 4 diastolic dysfunction and a grossly normal EF, and mild pulmonary hypertension On Bumex, Coreg, aspirin, no Ravinder or ARB secondary to CKD stage IV/V. Pending repeat echo. (9) Hypothyroid Qualifiers: Hypothyroidism type: unspecified Qualified Code(s): E03.9 - Hypothyroidism, unspecified Is this a current diagnosis for this admission?: YesPlan: Continue Synthroid (10) ORIANA (obstructive sleep apnea) Is this a current diagnosis for this admission?: Yes (11) Severe obesity (BMI 35.0-39.9) with comorbidity Is this a current diagnosis for this admission?: Yes (12) Metabolic acidosis Is this a current diagnosis for this admission?: Yes (13) Acute on chronic renal failure Is this a current diagnosis for this admission?: Yes
--- NOTE | 2016-06-27 17:53 | PROGRESS NOTE E ---
Progress Note NAME: VIVIAN WATKINS : 1945 AGE: 70Y DATE: 06/27/2016 ROOM: 325 SUBJECTIVE: The patient is without complaints at this time, is status post placement of a Trilisate catheter by me this morning. OBJECTIVE: VITAL SIGNS: Blood pressure 157/72. Temperature 97.7. Pulse 58. Respirations 16. EXTREMITIES: The patient's right foot is enclosed in a dressing which has not been taken down. The patient is undergoing dialysis shortly after my placement of a Trilisate catheter. ASSESSMENT: DIABETIC FOOT ULCER. PLAN: The patient will need a limited amputation of the right hallux. This will be done later on next week. DICTATING PHYSICIAN: SEDRICK BRO M.D. [id number] PHY#: [id number] ID: [id number] JOB#: [id number] ACCT: [id number] cc:SEDRICK BRO M.D. >
--- NOTE | 2016-06-27 18:22 | XCELERA REPORT ---
[address] [address] Transthoracic Echocardiogram Report Name: VIVIAN WATKINS Age: 70 yrs Gender: Female : 1945 Patient Status: Inpatient Patient Location: 3W\S\325\S\A Study Date: 06/26/2016 11:22 AM Height: 67 in Weight: 222 lb BSA: 2.1 m2 Procedure: A two-dimensional transthoracic echocardiogram with color flow and Doppler was performed. The study was technically difficult with many images being suboptimal in quality. Reason For Study: MRSA bacteremia History: MRSA Bacteremia. Ordering Physician: SENDY BARRERA Performed By: Flavia Hwang Interpretation Summary No grosse vegetations , but recommend VINAYAK if endocarditis is still suspected. The study was technically difficult with many images being suboptimal in quality. MRSA Bacteremia The left ventricle is normal in size. There is mild concentric left ventricular hypertrophy. LV EF is 65% Left ventricular systolic function is normal. Doppler measurements suggest normal left ventricular diastolic function The left ventricular wall motion is normal. Not well seen.Probaly mildly dilated. The right atrium is mildly dilated. The left and right artia are moderately dilated The interatrial septum is intact with no evidence for an atrial septal defect. There is severe mitral annular calcification. Cannot exude mild MVP.No vegetation. There is mild mitral stenosis There is a trace amount of mitral regurgitation There is no aortic valvular vegetation. There is no aortic valve stenosis There is Aortic Sclerosis without stenosis. No aortic regurgitation is present. There is no tricuspid stenosis. There is a mild to moderate amount of tricuspid regurgitation There is moderate pulmonary hypertension by echo RVSP is 49 mm of Hg , with RA men of 12. There is a mild amount of pulmonic regurgitation There is no pulmonic valvular stenosis. Small pericardial effusion. There are no echocardiographic indications of cardiac tamponade. No grosse vegetations , but recommend VINAYAK if endocarditis is still suspected. MMode/2D Measurements \T\ Calculations RVDd: 4.4 cm LVIDd: 5.0 cm FS: 41.9 % Ao root diam: 2.8 cm IVSd: 1.3 cm LVIDs: 2.9 cm EDV(Teich): 116.2 ml LVPWd: 1.3 cm ESV(Teich): 31.7 ml Ao root area: 6.0 cm2 EF(Teich): 72.7 % LA dimension: 4.8 cm Doppler Measurements \T\ Calculations MV E max robbie: MV P1/2t max robbie: Ao V2 max: LV V1 max P.8 cm/sec 185.1 cm/sec 126.0 cm/sec 6.2 mmHg MV A max robbie: MV P1/2t: 84.3 msec Ao max PG: LV V1 max: 169.3 cm/sec 6.3 mmHg 124.4 cm/sec MV E/A: 1.1 MVA(P1/2t): 2.6 cm2 MV dec slope: 643.5 cm/sec2 MV dec time: 0.30 sec PA V2 max: PI end-d robbie: TR max robbie: 118.0 cm/sec 137.1 cm/sec 301.3 cm/sec PA max PG: TR max P.6 mmHg 36.3 mmHg Left Ventricle The left ventricle is normal in size. There is mild concentric left ventricular hypertrophy. LV EF is 65%. Left ventricular systolic function is normal. Doppler measurements suggest normal left ventricular diastolic function. The left ventricular wall motion is normal. There is no thrombus. Right Ventricle Not well seen.Probaly mildly dilated. Atria The right atrium is mildly dilated. The left and right artia are moderately dilated. The interatrial septum is intact with no evidence for an atrial septal defect. Mitral Valve There is severe mitral annular calcification. Cannot exude mild MVP.No vegetation. There is mild mitral stenosis. There is a trace amount of mitral regurgitation. Aortic Valve There is no aortic valvular vegetation. There is no aortic valve stenosis. There is no LVOT obstruction. There is Aortic Sclerosis without stenosis. No aortic regurgitation is present. Tricuspid Valve There is no tricuspid stenosis. There is a mild to moderate amount of tricuspid regurgitation. There is moderate pulmonary hypertension by echo. RVSP is 49 mm of Hg , with RA men of 12. Pulmonic Valve There is no pulmonic valvular stenosis. There is a mild amount of pulmonic regurgitation. Great Vessels The aortic root is normal size. Effusions Small pericardial effusion. There are no echocardiographic indications of cardiac tamponade. : SENDY BARRERA > Sarah Hardign
[2016-06-27] MEDS: ACETAMINOPHEN 325 MG TABLET PO PRN (22:05)
[2016-06-28] MEDS: LINEZOLID 600 MG TABLET PO SCH ×3 (00:14→20:59)
[2016-06-28] MEDS: CLONIDINE HCL 0.1 MG TABLET PO SCH ×4 (00:14→21:01)
[2016-06-28] MEDS: SERTRALINE HCL 50 MG TABLET PO SCH ×2 (00:16→21:01)
[2016-06-28] MEDS: CARVEDILOL 12.5 MG TABLET PO SCH ×3 (00:17→21:00)
[2016-06-28] MEDS: INSULIN LISPRO 100 UNIT/ML 3 ML VIAL SUBCUT PRN ×5 (00:18→22:45)
[2016-06-28 05:41] LABS: HEPATITIS C VIRUS AB <0.1 s/co ratio (0.0-0.9); TRANSFERRIN 199 mg/dL (200-370)
[2016-06-28] MEDS: BUMETANIDE INJ/PF 1 MG/4 ML SDV IV SCH ×2 (06:34→17:20)
[2016-06-28] MEDS: AMLODIPINE BESYLATE 10 MG TABLET PO SCH (07:54)
[2016-06-28] MEDS: ATORVASTATIN CALCIUM 10 MG TABLET PO SCH (07:55)
[2016-06-28] MEDS: ASPIRIN 81 MG TABLET, ENT COATED PO SCH (07:55)
[2016-06-28] MEDS: IPRATROPIUM/ALBUTEROL 0.5-2.5 MG/3 ML AMPUL NEB SCH ×3 (07:56→20:46)
[2016-06-28 08:52] LABS: ABSOLUTE EOSINOPHILS # (AUTO) 0.2 10^3/uL (0.0-0.6); ABSOLUTE LYMPHOCYTES (AUTO) 1.4 10^3/uL (0.5-4.7); ABSOLUTE MONOCYTES (AUTO) 0.5 10^3/uL (0.1-1.4); ABSOLUTE NEUT (AUTO) 5.6 10^3/uL (1.7-8.2); BASOPHILS % (AUTO) 0.5 % (0-2); EOSINOPHILS % (AUTO) 2.4 % (0-6); HEMATOCRIT 26.7 % (36.0-47.0); HEMOGLOBIN 8.3 g/dL (12.0-15.5); HGB HCT DIFFERENCE -1.8; LYMPHOCYTES % (AUTO) 18.6 % (13-45); MEAN CORPUSCULAR HEMOGLOBIN 28.1 pg (27.0-33.4); MEAN CORPUSCULAR HGB CONC 30.9 g/dL (32.0-36.0); MEAN CORPUSCULAR VOLUME 91 fl (80-97); MONOCYTES % (AUTO) 6.2 % (3-13); RED BLOOD COUNT 2.94 10^6/uL (3.72-5.28); RED CELL DISTRIBUTION WIDTH 17.9 % (11.5-14.0); SEGMENTED NEUTROPHILS % (AUTO) 72.3 % (42-78); WHITE BLOOD COUNT 7.8 10^3/uL (4.0-10.5)
[2016-06-28 09:12] LABS: ANION GAP 13 (5-19); BLOOD UREA NITROGEN 56 mg/dL (7-20); CALCIUM 8.8 mg/dL (8.4-10.2); CARBON DIOXIDE 21 mmol/L (22-30); CHLORIDE 107 mmol/L (98-107); CREATININE RESULT 3.02 mg/dL (0.52-1.25); GLUCOSE 191 mg/dL (75-110); POTASSIUM 4.2 mmol/L (3.6-5.0); SODIUM 140.7 mmol/L (137-145)
[2016-06-28 10:21] LABS: PTH INTACT 101 pg/mL (15-65)
[2016-06-28] MEDS: PRAMIPEXOLE DI-HCL 0.5 MG TABLET PO SCH ×2 (10:22→17:19)
[2016-06-28] MEDS: LANSOPRAZOLE 30 MG TAB.RAP.DR PO SCH (10:24)
[2016-06-28] MEDS: FENOFIBRATE NANOCRYSTALLIZED 145 MG TABLET PO SCH (10:24)
[2016-06-28] MEDS: MAGNESIUM OXIDE 400 MG TABLET PO SCH (10:24)
[2016-06-28] MEDS: NYSTATIN CREAM 15 GM TP SCH ×2 (10:26→17:16)
--- NOTE | 2016-06-28 14:19 | PDOC PROGRESS REPORT ---
Subjective Progress Note for:: 06/28/16 Subjective:: Complains of pain at the side of her catheter insertion. Patient reports she is breathing better.Patient denies chest pain, shortness of breath, abdominal pain, nausea, vomiting, fevers, chills, diarrhea, constipation , headache, new onset weakness. Physical Exam Vital Signs: Temp Pulse Resp BP Pulse Ox 98.1 F 58 L 20 141/48 H 95 06/28/16 04:29 06/28/16 06:37 06/28/16 04:29 06/28/16 04:29 06/28/16 04:29 Intake & Output 06/27/16 06/28/16 06/29/16 06:59 06:59 06:59 Intake Total 513 399 Output Total 2172 4200 Balance -1662 -3801 Weight 102 kg 102.1 kg Exam: General: Awake alert and oriented x3, no acute respiratory distress HEENT: AT/NC, PERRL, EOMI, oropharynx is moist, pink, no scleral icterus, no conjunctival injection Neck: No JVD, trachea midline Chest: bilateral bibasilar rales CV: Regular rate and rhythm, normal S1 and S2, no rub, or gallop; 3/6 systolic murmur Abdomen: Soft, nontender to palpation, nondistended, active bowel sounds; no rebound, rigidity, or guarding Extremities: No cyanosis, clubbing; 1+edema Neuro: Cranial nerves II through XII are grossly intact without focal deficits; awake alert and oriented x3 Psych: Normal mood and affect Skin: Right first MTP eschar removed, with pink granulation tissue present, erythema improved Results Laboratory Results: 06/27/16 04:30 06/27/16 04:30 06/24/16 11:10 Foot - Right Gram Stain - Final 06/24/16 11:10 Foot - Right Wound Culture - Final Mrsa (Meth Resis Staph Aureus) Skin Diamante Impressions: Foot X-Ray 06/24/16 00:00 IMPRESSION: No cortical erosions or lytic areas are identified to confirm bony involvement by osteomyelitis. Extensive amputations which appears stable. Other findings as noted above Chest X-Ray 06/27/16 00:00 IMPRESSION: Appropriate right IJ line. Slightly improved aeration. No pneumothorax. Assessment & Plan - Diagnosis (1) Sepsis Qualifiers: Sepsis type: methicillin resistant Staphylococcus aureus Qualified Code(s): A41.02 - Sepsis due to Methicillin resistant Staphylococcus aureus Is this a current diagnosis for this admission?: YesPlan: Secondary to underlying foot wound. On Clindamycin day #4 and Zyvox day #5. At this time do not feel the patient clinically had pneumonia prior to presentation. Prior to presentation patient had fever and weakness. Feel that patient's cough is secondary currently to her volume overload. Have obtain chest x-ray which reveals volume overload but no overt consolidation consistent with pneumonia. (2) Acute on chronic respiratory failure with hypoxia and hypercapnia Is this a current diagnosis for this admission?: YesPlan: Continue oxygen as needed. Patient currently hypoxic alone. (3) COPD (chronic obstructive pulmonary disease) Qualifiers: COPD type: unspecified COPD Qualified Code(s): J44.9 - Chronic obstructive pulmonary disease, unspecified Is this a current diagnosis for this admission?: Yes (4) Diabetic infection of right foot Is this a current diagnosis for this admission?: YesPlan: Patient currently with MRSA bacteremia and also MRSA growing from swab of right foot/MTP wound. Patient previously had MRSA bacteremia/infection with her prior amputation. Plan for probable amputation this coming week. Will consult cardiology. Patient will need to have a Vas-Cath placed for dialysis. (5) Cervical cancer, FIGO stage MIRIAM Is this a current diagnosis for this admission?: YesPlan: Patient reports an advancement of her underlying malignancy as she has been admitted able to receive chemotherapy due to chronic illness. 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 Is this a current diagnosis for this admission?: YesPlan: Continue insulin (8) Diastolic CHF Qualifiers: Congestive heart failure chronicity: acute on chronic Qualified Code (s): I50.33 - Acute on chronic diastolic (congestive) heart failure Is this a current diagnosis for this admission?: Yes (9) Hypothyroid Qualifiers: Hypothyroidism type: unspecified Qualified Code(s): E03.9 - Hypothyroidism, unspecified Is this a current diagnosis for this admission?: Yes (10) ORIANA (obstructive sleep apnea) Is this a current diagnosis for this admission?: Yes (11) Severe obesity (BMI 35.0-39.9) with comorbidity Is this a current diagnosis for this admission?: Yes (12) Metabolic acidosis Is this a current diagnosis for this admission?: Yes (13) Acute on chronic renal failure Is this a current diagnosis for this admission?: Yes - Time Time Spent with patient: 25-34 minutes Medications reviewed and adjusted accordingly: Yes
[2016-06-28] MEDS: OXYCODONE-ACETAMINOPHEN 5-325 MG TABLET PO PRN (20:58)
[2016-06-29] MEDS: BUMETANIDE INJ/PF 1 MG/4 ML SDV IV SCH (05:57)
[2016-06-29] MEDS: CLONIDINE HCL 0.1 MG TABLET PO SCH ×3 (05:58→21:07)
[2016-06-29] MEDS: INSULIN LISPRO 100 UNIT/ML 3 ML VIAL SUBCUT PRN ×4 (07:35→21:14)
[2016-06-29] MEDS: ATORVASTATIN CALCIUM 10 MG TABLET PO SCH (07:36)
[2016-06-29] MEDS: AMLODIPINE BESYLATE 10 MG TABLET PO SCH (07:36)
[2016-06-29] MEDS: ASPIRIN 81 MG TABLET, ENT COATED PO SCH (07:36)
[2016-06-29] MEDS: IPRATROPIUM/ALBUTEROL 0.5-2.5 MG/3 ML AMPUL NEB SCH ×3 (08:51→20:41)
[2016-06-29] MEDS: PRAMIPEXOLE DI-HCL 0.5 MG TABLET PO SCH ×2 (09:08→17:09)
[2016-06-29] MEDS: FENOFIBRATE NANOCRYSTALLIZED 145 MG TABLET PO SCH (09:08)
[2016-06-29] MEDS: LANSOPRAZOLE 30 MG TAB.RAP.DR PO SCH (09:09)
[2016-06-29] MEDS: CARVEDILOL 12.5 MG TABLET PO SCH ×2 (09:09→21:08)
[2016-06-29] MEDS: LINEZOLID 600 MG TABLET PO SCH ×2 (09:09→21:08)
[2016-06-29] MEDS: MAGNESIUM OXIDE 400 MG TABLET PO SCH (09:09)
[2016-06-29] MEDS: NYSTATIN CREAM 15 GM TP SCH ×2 (09:10→17:09)
[2016-06-29] MEDS: OXYCODONE-ACETAMINOPHEN 5-325 MG TABLET PO PRN (15:50)
--- NOTE | 2016-06-29 17:34 | PDOC PROGRESS REPORT ---
Subjective Progress Note for:: 06/29/16 Subjective:: Patient complains of discomfort at the site of her dialysis catheter. Patient denies chest pain, shortness of breath, abdominal pain, nausea, vomiting , fevers, chills, diarrhea, constipation, headache, new onset weakness. Physical Exam Vital Signs: Temp Pulse Resp BP Pulse Ox 97.4 F 59 L 20 162/40 H 90 L 06/29/16 04:29 06/29/16 07:20 06/29/16 04:29 06/29/16 07:20 06/29/16 07:20 Intake & Output 06/28/16 06/29/16 06/30/16 06:59 06:59 06:59 Intake Total 399 1550 Output Total 4200 1600 Balance -3801 -50 Weight 102.1 kg 98.8 kg Exam: General: Awake alert and oriented x3, no acute respiratory distress HEENT: AT/NC, PERRL, EOMI, oropharynx is moist, pink, no scleral icterus, no conjunctival injection Neck: No JVD, trachea midline, trails this catheter and right neck Chest: bilateral bibasilar rales CV: Regular rate and rhythm, normal S1 and S2, no rub, or gallop; 3/6 systolic murmur Abdomen: Soft, nontender to palpation, nondistended, active bowel sounds; no rebound, rigidity, or guarding Extremities: No cyanosis, clubbing; 1+edema Neuro: Cranial nerves II through XII are grossly intact without focal deficits; awake alert and oriented x3 Psych: Normal mood and affect Skin: Right first MTP eschar removed, with pink granulation tissue present, erythema improved Results Laboratory Results: 06/28/16 08:27 06/28/16 08:27 06/27/16 06/28/16 06/28/16 04:30 08:27 08:27 WBC 7.8 RBC 2.94 L Hgb 8.3 L Hct 26.7 L MCV 91 MCH 28.1 MCHC 30.9 L RDW 17.9 H Plt Count 210 Seg Neutrophils % 72.3 Lymphocytes % 18.6 Monocytes % 6.2 Eosinophils % 2.4 Basophils % 0.5 Absolute Neutrophils 5.6 Absolute Lymphocytes 1.4 Absolute Monocytes 0.5 Absolute Eosinophils 0.2 Absolute Basophils 0.0 Sodium 140.7 Potassium 4.2 Chloride 107 Carbon Dioxide 21 L Anion Gap 13 BUN 56 H Creatinine 3.02 H Est GFR ( Amer) 18 L Est GFR (Non-Af Amer) 15 L Glucose 191 H Calcium 8.8 Phosphorus 4.0 Magnesium 2.0 Transferrin 199 L PTH Intact 101 H Impressions: Foot X-Ray 06/24/16 00:00 IMPRESSION: No cortical erosions or lytic areas are identified to confirm bony involvement by osteomyelitis. Extensive amputations which appears stable. Other findings as noted above Chest X-Ray 06/27/16 00:00 IMPRESSION: Appropriate right IJ line. Slightly improved aeration. No pneumothorax. Assessment & Plan - Diagnosis (1) Sepsis Qualifiers: Sepsis type: methicillin resistant Staphylococcus aureus Qualified Code(s): A41.02 - Sepsis due to Methicillin resistant Staphylococcus aureus Is this a current diagnosis for this admission?: YesPlan: Secondary to underlying foot wound. On Clindamycin day #5 and Zyvox day #6. At this time do not feel the patient clinically had pneumonia prior to presentation. Prior to presentation patient had fever and weakness. Feel that patient's cough is secondary currently to her volume overload. Have obtain chest x-ray which reveals volume overload but no overt consolidation consistent with pneumonia. (2) Acute on chronic respiratory failure with hypoxia and hypercapnia Is this a current diagnosis for this admission?: YesPlan: Continue oxygen as needed. Patient currently hypoxic alone. (3) COPD (chronic obstructive pulmonary disease) Qualifiers: COPD type: unspecified COPD Qualified Code(s): J44.9 - Chronic obstructive pulmonary disease, unspecified Is this a current diagnosis for this admission?: Yes (4) Diabetic infection of right foot Is this a current diagnosis for this admission?: YesPlan: Patient currently with MRSA bacteremia and also MRSA growing from swab of right foot/MTP wound. Patient previously had MRSA bacteremia/infection with her prior amputation. Plan for probable amputation this coming week. Have consulted cardiology for preoperative clearance. Plan for stress test tomorrow. (5) Cervical cancer, FIGO stage MIRIAM Is this a current diagnosis for this admission?: YesPlan: Patient reports an advancement of her underlying malignancy as she has been admitted able to receive chemotherapy due to chronic illness. 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 Is this a current diagnosis for this admission?: Yes (7) Diastolic CHF Qualifiers: Congestive heart failure chronicity: acute on chronic Qualified Code (s): I50.33 - Acute on chronic diastolic (congestive) heart failure Is this a current diagnosis for this admission?: Yes (8) Hypothyroid Qualifiers: Hypothyroidism type: unspecified Qualified Code(s): E03.9 - Hypothyroidism, unspecified Is this a current diagnosis for this admission?: YesPlan: Continue Synthroid (9) ORIANA (obstructive sleep apnea) Is this a current diagnosis for this admission?: Yes (10) Severe obesity (BMI 35.0-39.9) with comorbidity Is this a current diagnosis for this admission?: Yes (11) Metabolic acidosis Is this a current diagnosis for this admission?: Yes (12) Acute on chronic renal failure Is this a current diagnosis for this admission?: YesPlan: Patient currently has acute on chronic renal failure. Patient has started hemodialysis and plans for hemodialysis tomorrow. (13) Moderate to severe pulmonary hypertension Is this a current diagnosis for this admission?: YesPlan: Patient is found to have moderate pulmonary hypertension on echo. - Time Time Spent with patient: 25-34 minutes Medications reviewed and adjusted accordingly: Yes
--- NOTE | 2016-06-29 19:43 | PROGRESS NOTE E ---
Progress Note NAME: VIVIAN WATKINS : 1945 AGE: 70Y DATE: 06/29/2016 ROOM: 325 SUBJECTIVE: Patient is lying comfortable in bed and is without complaints. OBJECTIVE: VITAL SIGNS: Blood pressure 155/45. Pulse 62. Saturations 91% on room air. Respirations 20. NECK: The patient's right internal jugular Trialysis catheter is in place. EXTREMITIES: The patient's right foot dressing was not taken down. ASSESSMENT: RENAL INSUFFICIENCY WITH DIABETIC FOOT ULCER OF THE RIGHT FOOT WITH NEED FOR AMPUTATION. PLAN: The patient is to be taken to the operating room later this week by Dr. Mclaughlin. DICTATING PHYSICIAN: SEDRICK BRO M.D. [id number] Y#: [id number] ID: [id number] JOB#: [id number] ACCT: [id number] cc:SEDRICK BRO M.D. >
[2016-06-29] MEDS: SERTRALINE HCL 50 MG TABLET PO SCH (21:08)
[2016-06-30] MEDS: CLONIDINE HCL 0.1 MG TABLET PO SCH ×3 (05:19→22:47)
[2016-06-30 05:54] LABS: ABSOLUTE BASOPHILS # (AUTO) 0.1 10^3/uL (0.0-0.2); ABSOLUTE EOSINOPHILS # (AUTO) 0.3 10^3/uL (0.0-0.6); ABSOLUTE LYMPHOCYTES (AUTO) 1.6 10^3/uL (0.5-4.7); ABSOLUTE MONOCYTES (AUTO) 0.4 10^3/uL (0.1-1.4); ABSOLUTE NEUT (AUTO) 5.3 10^3/uL (1.7-8.2); BASOPHILS % (AUTO) 0.8 % (0-2); EOSINOPHILS % (AUTO) 3.4 % (0-6); HEMATOCRIT 26.1 % (36.0-47.0); HEMOGLOBIN 8.1 g/dL (12.0-15.5); HGB HCT DIFFERENCE -1.8; LYMPHOCYTES % (AUTO) 20.6 % (13-45); MEAN CORPUSCULAR HEMOGLOBIN 28.2 pg (27.0-33.4); MEAN CORPUSCULAR HGB CONC 31.1 g/dL (32.0-36.0); MEAN CORPUSCULAR VOLUME 91 fl (80-97); MONOCYTES % (AUTO) 5.8 % (3-13); RED BLOOD COUNT 2.88 10^6/uL (3.72-5.28); RED CELL DISTRIBUTION WIDTH 17.9 % (11.5-14.0); SEGMENTED NEUTROPHILS % (AUTO) 69.4 % (42-78); WHITE BLOOD COUNT 7.7 10^3/uL (4.0-10.5)
[2016-06-30 06:15] LABS: ANION GAP 13 (5-19); BLOOD UREA NITROGEN 58 mg/dL (7-20); CALCIUM 8.8 mg/dL (8.4-10.2); CARBON DIOXIDE 22 mmol/L (22-30); CHLORIDE 107 mmol/L (98-107); CREATININE RESULT 2.68 mg/dL (0.52-1.25); GLUCOSE 191 mg/dL (75-110); POTASSIUM 4.6 mmol/L (3.6-5.0); SODIUM 142.2 mmol/L (137-145)
[2016-06-30] MEDS: IPRATROPIUM/ALBUTEROL 0.5-2.5 MG/3 ML AMPUL NEB SCH ×3 (08:44→20:41)
[2016-06-30] MEDS ORDERED: LIDOCAINE 0.5% INJ-PF (5 MG/ML) 50 ML SDV ONE (09:09)
[2016-06-30] MEDS: ATORVASTATIN CALCIUM 10 MG TABLET PO SCH (09:34)
[2016-06-30] MEDS: AMLODIPINE BESYLATE 10 MG TABLET PO SCH (09:34)
[2016-06-30] MEDS: ASPIRIN 81 MG TABLET, ENT COATED PO SCH (09:34)
[2016-06-30] MEDS: LINEZOLID 600 MG TABLET PO SCH ×2 (10:45→22:47)
[2016-06-30] MEDS: CARVEDILOL 12.5 MG TABLET PO SCH ×2 (10:45→22:47)
[2016-06-30] MEDS: LANSOPRAZOLE 30 MG TAB.RAP.DR PO SCH (10:45)
[2016-06-30] MEDS: FENOFIBRATE NANOCRYSTALLIZED 145 MG TABLET PO SCH (10:45)
[2016-06-30] MEDS: NYSTATIN CREAM 15 GM TP SCH ×2 (10:45→17:29)
[2016-06-30] MEDS: MAGNESIUM OXIDE 400 MG TABLET PO SCH (10:45)
[2016-06-30] MEDS: PRAMIPEXOLE DI-HCL 0.5 MG TABLET PO SCH ×2 (10:45→17:22)
--- NOTE | 2016-06-30 11:26 | Operative Report ---
Operative Report DATE OF SURGERY: 06/30/16 Operative Report: see Below PREOPERATIVE DIAGNOSIS: End-stage renal failure POSTOPERATIVE DIAGNOSIS: Same. OPERATION: 1. Focused ultrasound of the right groin. 2. Ultrasound directed insertion of percutaneous, temporary trial analysis catheter SURGEON: PARESH ADDISON BIOCHEMICAL ENGINEER: none ANESTHESIA: GA TISSUE REMOVED OR ALTERED: None COMPLICATIONS: None ESTIMATED BLOOD LOSS: scant INTRAOPERATIVE FINDINGS: See below PROCEDURE: Patient was seen in the floor, 325. Right groin was exposed, shaved, prepped with Hibiclens and then chlorhexidine. Graft surgical plan and surgical timeout were conducted. The skin was anesthetized 1% lidocaine without epinephrine. Ultrasound was used to scan the right groin. Patent common femoral vein identified, suitable for cannulation. The right skin was anesthetized with 1% lidocaine without epinephrine additionally. Micropuncture needle and wire were cannulated to the right common femoral vein. The micro-catheter was threaded over the microwire and wire removed. A conventional 0.035 wire was threaded through the introducer. The tract was then dilated up using the small and medium-size dilators, then the trials this catheter was threaded over. There was excellent aspiration, flushing through all 3 chambers. Catheter secured to skin with 3-0 Ethilon, and Biopatch applied. Sterile dressing applied. Patient will
[2016-06-30] MEDS ORDERED: MUPIROCIN 2% OINTMENT 22 GM TP ONE (12:00)
--- NOTE | 2016-06-30 13:39 | PDOC PROGRESS REPORT ---
Subjective Progress Note for:: 06/30/16 Subjective:: Seen on hemodialysis today. She had issues with her temporary right IJ catheter which was not functioning. Therefore we had to get Dr. Mclaughlin to place a new temporary right femoral catheter and bring her back for hemodialysis later today and she is presently undergoing dialysis without any issues. Patient denies any history of chest pain shortness of breath no history of nausea vomiting. She is scheduled for surgery later today or tomorrow. Physical Exam Vital Signs: Temp Pulse Resp BP Pulse Ox 98.1 F 73 20 185/55 H 91 L 06/30/16 05:16 06/30/16 08:12 06/30/16 08:12 06/30/16 08:12 06/30/16 08:12 Intake & Output 06/29/16 06/30/16 07/01/16 06:59 06:59 06:59 Intake Total 1550 2057 Output Total 1600 1400 Balance -50 657 Weight 98.8 kg 96 kg General appearance: PRESENT: no acute distress Respiratory exam: PRESENT: clear to auscultation siobhan. ABSENT: crackles, rhonchi Cardiovascular exam: PRESENT: +S1, +S2, systolic murmur GI/Abdominal exam: PRESENT: distended, soft. ABSENT: diminished bowel sounds, firm, guarding, organomegaly, tenderness Neurological exam: PRESENT: alert, awake, oriented to person, oriented to place , oriented to time Results Laboratory Results: 06/30/16 05:18 06/30/16 05:18 06/30/16 06/30/16 05:18 05:18 WBC 7.7 RBC 2.88 L Hgb 8.1 L Hct 26.1 L MCV 91 MCH 28.2 MCHC 31.1 L RDW 17.9 H Plt Count 205 Seg Neutrophils % 69.4 Lymphocytes % 20.6 Monocytes % 5.8 Eosinophils % 3.4 Basophils % 0.8 Absolute Neutrophils 5.3 Absolute Lymphocytes 1.6 Absolute Monocytes 0.4 Absolute Eosinophils 0.3 Absolute Basophils 0.1 Sodium 142.2 Potassium 4.6 Chloride 107 Carbon Dioxide 22 Anion Gap 13 BUN 58 H Creatinine 2.68 H Est GFR ( Amer) 21 L Est GFR (Non-Af Amer) 18 L Glucose 191 H Calcium 8.8 Impressions: Foot X-Ray 06/24/16 00:00 IMPRESSION: No cortical erosions or lytic areas are identified to confirm bony involvement by osteomyelitis. Extensive amputations which appears stable. Other findings as noted above Chest X-Ray 06/30/16 00:00 IMPRESSION: Stable chest with appropriate right IJ lines. Assessment & Plan - Diagnosis (1) MRSA bacteremia Is this a current diagnosis for this admission?: YesPlan: On appropriate antibiotics. (2) Acute on chronic respiratory failure with hypoxia and hypercapnia Is this a current diagnosis for this admission?: Yes (3) Diabetic infection of right foot Is this a current diagnosis for this admission?: Yes (4) Sepsis Qualifiers: Sepsis type: methicillin resistant Staphylococcus aureus Qualified Code(s): A41.02 - Sepsis due to Methicillin resistant Staphylococcus aureus Is this a current diagnosis for this admission?: YesPlan: From infected right foot. Currently on antibiotics. Stable. (5) Acute on chronic diastolic (congestive) heart failure Is this a current diagnosis for this admission?: YesPlan: Has done well to conservative management and hemodialysis/ultrafiltration. Is currently undergoing dialysis again and will try to remove another 1-100 L as tolerated. This should set her up in good stead for her foot surgery hopefully tomorrow.. (6) Acute on chronic renal insufficiency Is this a current diagnosis for this admission?: YesPlan: CKD stage V now on dialysis. She is undergoing dialysis without any issues through right Femoral Catheter. Non functioning right temporary IJ catheter. Dialysis orders were discussed with the treating nurse. Vital signs are stable. Will plan to remove approximately 1.5-2 L of fluid as tolerated. (7) Cervical cancer, FIGO stage MIRIAM Is this a current diagnosis for this admission?: Yes (8) Diabetic foot ulcer Qualifiers: Diabetes mellitus type: type 1 Laterality: right Qualified Code(s) : E10.621 - Type 1 diabetes mellitus with foot ulcer; L97.519 - Non-pressure chronic ulcer of other part of right foot with unspecified severity Plan: Plan for elective surgery may be tomorrow morning. (9) Sepsis Qualifiers: Sepsis type: sepsis due to unspecified organism Qualified Code(s): A41.9 - Sepsis, unspecified organism Is this a current diagnosis for this admission?: Yes (10) ORIANA (obstructive sleep apnea) Is this a current diagnosis for this admission?: Yes (11) Anemia Qualifiers: Anemia type: other cause Other causes of anemia: other cause, not classified Qualified Code(s): D64.89 - Other specified anemias Is this a current diagnosis for this admission?: YesPlan: Plan for low-dose of IV Feraheme and I will also start her on erythropoietin.
[2016-06-30] MEDS ORDERED: HEPARIN SOD (PORCINE) 1,000 UNIT/ML 10 ML VIAL IV PRN (13:53)
--- NOTE | 2016-06-30 14:17 | PDOC PROGRESS REPORT ---
Subjective Progress Note for:: 06/30/16 Subjective:: The patient was interviewed and examined. Formal consultation to follow. The patient would be acceptable risk for this scheduled surgery. Postoperatively recommend serial EKGs and enzymes, and telemetry monitoring. Will ask Dr. Huthcison to follow the patient from 07/01/2016. Thanking you for this consult. Physical Exam Vital Signs: Temp Pulse Resp BP Pulse Ox 98.1 F 73 20 185/55 H 91 L 06/30/16 05:16 06/30/16 08:12 06/30/16 08:12 06/30/16 08:12 06/30/16 08:12 Intake & Output 06/29/16 06/30/16 07/01/16 06:59 06:59 06:59 Intake Total 1550 2057 Output Total 1600 1400 Balance -50 657 Weight 98.8 kg 96 kg Results Laboratory Results: 06/30/16 05:18 06/30/16 05:18 06/30/16 06/30/16 05:18 05:18 WBC 7.7 RBC 2.88 L Hgb 8.1 L Hct 26.1 L MCV 91 MCH 28.2 MCHC 31.1 L RDW 17.9 H Plt Count 205 Seg Neutrophils % 69.4 Lymphocytes % 20.6 Monocytes % 5.8 Eosinophils % 3.4 Basophils % 0.8 Absolute Neutrophils 5.3 Absolute Lymphocytes 1.6 Absolute Monocytes 0.4 Absolute Eosinophils 0.3 Absolute Basophils 0.1 Sodium 142.2 Potassium 4.6 Chloride 107 Carbon Dioxide 22 Anion Gap 13 BUN 58 H Creatinine 2.68 H Est GFR ( Amer) 21 L Est GFR (Non-Af Amer) 18 L Glucose 191 H Calcium 8.8 Impressions: Foot X-Ray 06/24/16 00:00 IMPRESSION: No cortical erosions or lytic areas are identified to confirm bony involvement by osteomyelitis. Extensive amputations which appears stable. Other findings as noted above Chest X-Ray 06/30/16 00:00 IMPRESSION: Stable chest with appropriate right IJ lines.
--- NOTE | 2016-06-30 14:58 | PDOC PROGRESS REPORT ---
Subjective Progress Note for:: 06/30/16 Subjective:: Notified early this morning patient's dialysis catheter was not working. Vascular surgery was consulted. Patient denies chest pain, shortness of breath , abdominal pain, nausea, vomiting, fevers, chills, diarrhea, constipation, headache, new onset weakness. Physical Exam Vital Signs: Temp Pulse Resp BP Pulse Ox 98.1 F 52 L 16 166/44 H 93 06/30/16 05:16 06/30/16 05:16 06/30/16 05:16 06/30/16 05:16 06/30/16 05:16 Intake & Output 06/29/16 06/30/16 07/01/16 06:59 06:59 06:59 Intake Total 1550 2057 Output Total 1600 1400 Balance -50 657 Weight 98.8 kg 96 kg Exam: General: Awake alert and oriented x3, no acute respiratory distress HEENT: AT/NC, PERRL, EOMI, oropharynx is moist, pink, no scleral icterus, no conjunctival injection Neck: No JVD, trachea midline, trialysis catheter in right neck Chest: bilateral bibasilar rales CV: Regular rate and rhythm, normal S1 and S2, no rub, or gallop; 3/6 systolic murmur Abdomen: Soft, nontender to palpation, nondistended, active bowel sounds; no rebound, rigidity, or guarding Extremities: No cyanosis, clubbing; 1+edema bilateral Neuro: Cranial nerves II through XII are grossly intact without focal deficits; awake alert and oriented x3 Psych: Normal mood and affect Skin: Right first MTP eschar removed, with pink granulation tissue present, erythema improved Results Laboratory Results: 06/30/16 05:18 06/30/16 05:18 06/30/16 06/30/16 05:18 05:18 WBC 7.7 RBC 2.88 L Hgb 8.1 L Hct 26.1 L MCV 91 MCH 28.2 MCHC 31.1 L RDW 17.9 H Plt Count 205 Seg Neutrophils % 69.4 Lymphocytes % 20.6 Monocytes % 5.8 Eosinophils % 3.4 Basophils % 0.8 Absolute Neutrophils 5.3 Absolute Lymphocytes 1.6 Absolute Monocytes 0.4 Absolute Eosinophils 0.3 Absolute Basophils 0.1 Sodium 142.2 Potassium 4.6 Chloride 107 Carbon Dioxide 22 Anion Gap 13 BUN 58 H Creatinine 2.68 H Est GFR ( Amer) 21 L Est GFR (Non-Af Amer) 18 L Glucose 191 H Calcium 8.8 Impressions: Foot X-Ray 06/24/16 00:00 IMPRESSION: No cortical erosions or lytic areas are identified to confirm bony involvement by osteomyelitis. Extensive amputations which appears stable. Other findings as noted above Assessment & Plan - Diagnosis (1) Sepsis Qualifiers: Sepsis type: methicillin resistant Staphylococcus aureus Qualified Code(s): A41.02 - Sepsis due to Methicillin resistant Staphylococcus aureus Is this a current diagnosis for this admission?: YesPlan: Secondary to underlying foot wound. On Clindamycin day #6 and Zyvox day #7. At this time do not feel the patient clinically had pneumonia prior to presentation. Prior to presentation patient had fever and weakness. Feel that patient's cough is secondary currently to her volume overload. Have obtain chest x-ray which reveals volume overload but no overt consolidation consistent with pneumonia. (2) Acute on chronic respiratory failure with hypoxia and hypercapnia Is this a current diagnosis for this admission?: YesPlan: Continue oxygen as needed. Patient currently hypoxic alone. (3) COPD (chronic obstructive pulmonary disease) Qualifiers: COPD type: unspecified COPD Qualified Code(s): J44.9 - Chronic obstructive pulmonary disease, unspecified Is this a current diagnosis for this admission?: Yes (4) Diabetic infection of right foot Is this a current diagnosis for this admission?: YesPlan: Patient currently with MRSA bacteremia and also MRSA growing from swab of right foot/MTP wound. Patient previously had MRSA bacteremia/infection with her prior amputation. Plan for probable amputation this week with Dr. Mclaughlin. Cardiology reports no need for stress test and that her risk is acceptable for surgery. (5) Cervical cancer, FIGO stage MIRIAM Is this a current diagnosis for this admission?: YesPlan: Patient reports an advancement of her underlying malignancy as she has been admitted able to receive chemotherapy due to chronic illness. 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 Most recent echo done on 06/26/2016 reveals an EF of 65%, LVH, and severe mitral annular calcification, and moderate pulmonary hypertension. On Bumex, Coreg, aspirin, no Ravinder or ARB secondary to CKD stage IV/V. (8) Hypothyroid Qualifiers: Hypothyroidism type: unspecified Qualified Code(s): E03.9 - Hypothyroidism, unspecified Is this a current diagnosis for this admission?: YesPlan: Continue Synthroid (9) ORIANA (obstructive sleep apnea) Is this a current diagnosis for this admission?: Yes (10) Metabolic acidosis Is this a current diagnosis for this admission?: Yes (11) Acute on chronic renal failure Is this a current diagnosis for this admission?: Yes (12) Moderate to severe pulmonary hypertension Is this a current diagnosis for this admission?: Yes (13) Severe obesity (BMI 35.0-39.9) with comorbidity Is this a current diagnosis for this admission?: Yes - Time Time Spent with patient: 25-34 minutes Medications reviewed and adjusted accordingly: Yes Anticipated discharge: Acute Rehab Within: Other - After surgery
[2016-06-30] MEDS ORDERED: FERUMOXYTOL 510 MG in NORMAL SALINE 100 ML IV ONE (15:00)
[2016-06-30] MEDS ORDERED: EPOETIN ALFA 10,000 UNIT in SYRINGE, DISPOSABLE, 1 EACH IV PRN (15:00)
[2016-06-30] MEDS ORDERED: TUBERCULIN,PURIF.PROT.DERIV. 5 TU/0.1 ML TEST 1 ML VIAL ID ONE (16:30)
[2016-06-30] MEDS: CALCIUM ACETATE 667 MG CAPSULE PO SCH (17:22)
[2016-06-30] MEDS: INSULIN LISPRO 100 UNIT/ML 3 ML VIAL SUBCUT PRN (17:22)
[2016-06-30] MEDS: SERTRALINE HCL 50 MG TABLET PO SCH (22:48)
[2016-07-01] MEDS: CLONIDINE HCL 0.1 MG TABLET PO SCH ×3 (06:36→22:54)
[2016-07-01] MEDS: CALCIUM ACETATE 667 MG CAPSULE PO SCH ×3 (07:54→17:51)
[2016-07-01] MEDS: AMLODIPINE BESYLATE 10 MG TABLET PO SCH (07:54)
[2016-07-01] MEDS: ATORVASTATIN CALCIUM 10 MG TABLET PO SCH (07:54)
[2016-07-01] MEDS: ASPIRIN 81 MG TABLET, ENT COATED PO SCH (07:54)
[2016-07-01] MEDS: INSULIN LISPRO 100 UNIT/ML 3 ML VIAL SUBCUT PRN ×4 (07:55→22:54)
[2016-07-01] MEDS: IPRATROPIUM/ALBUTEROL 0.5-2.5 MG/3 ML AMPUL NEB SCH (08:50)
[2016-07-01] MEDS: PRAMIPEXOLE DI-HCL 0.5 MG TABLET PO SCH ×2 (11:05→17:51)
[2016-07-01] MEDS: FENOFIBRATE NANOCRYSTALLIZED 145 MG TABLET PO SCH (11:06)
[2016-07-01] MEDS: CARVEDILOL 12.5 MG TABLET PO SCH ×2 (11:06→22:54)
[2016-07-01] MEDS: MAGNESIUM OXIDE 400 MG TABLET PO SCH (11:06)
[2016-07-01] MEDS: LANSOPRAZOLE 30 MG TAB.RAP.DR PO SCH (11:06)
[2016-07-01] MEDS: LINEZOLID 600 MG TABLET PO SCH ×2 (11:07→22:54)
[2016-07-01] MEDS: MUPIROCIN 2% OINTMENT 22 GM TP SCH (11:07)
[2016-07-01] MEDS: BUMETANIDE 1 MG TABLET PO SCH (11:08)
--- NOTE | 2016-07-01 11:09 | PDOC PROGRESS REPORT ---
Subjective Progress Note for:: 07/01/16 Subjective:: Patient seems to be doing better with gradual improvement. Pt is denying any chest arm or neck discomfort. Patient denying any PND, orthopnea. Patient denied any sustained palpitations, dizziness, syncope, near syncope. Patient denying any fever chills. Patient denying any other significant discomfort. Patient is maintaining sinus rhythm. Review of systems: Rest review of systems negative. Medications: Medications have been reviewed. Physical Exam Vital Signs: Temp Pulse Resp BP Pulse Ox 98.3 F 87 16 168/86 H 95 07/01/16 07:15 07/01/16 08:50 07/01/16 08:50 07/01/16 07:15 07/01/16 09:10 Intake & Output 06/30/16 07/01/16 07/02/16 06:59 06:59 06:59 Intake Total 2057 1197 Output Total 1400 3050 Balance 657 -1853 Weight 96 kg 96.6 kg Exam: GENERAL: well-nourished and in no acute distress. Alert and oriented x3 HEAD: Atraumatic, normocephalic. EYES: Pupils equal round and reactive to light, extraocular movements intact, sclera anicteric, conjunctiva are normal. ENT: TMs normal, nares patent, oropharynx clear without exudates. Moist mucous membranes. No oral ulcerations or bleeding gums noted NECK: supple without lymphadenopathy. Trachea is central. No cervical or axillary lymphadenopathy noted. Carotids are 2+, JVD WNL LUNGS: Respiration seems nonlabored, no significant accessory muscle action noted. Breath sounds clear to auscultation bilaterally and equal. No wheezes rales or rhonchi. No significant dullness noted on percussion. CHEST: Palpation of the chest wall shows no significant chest wall tenderness or abnormalities. 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 ABDOMEN: Soft, no significant tenderness appreciated, normoactive bowel sounds. No guarding, no rebound. No rigidity noted . No masses appreciated. EXTREMITIES: Pedal pulses are 1-2+, no calf tenderness noted. No clubbing or cyanosis.trace to 1+ pedal edema noted. Left midtarsal amputation noted. Patient has amputation of right sided toes as well. Ulcerations noted right foot. NEUROLOGICAL: Focused neurological exam showed no significant neurologic deficit. Normal speech, no focal weakness appreciated. PSYCH: Normal mood, normal affect. Judgment and insight within normal limits. SKIN: No significant ecchymosis, rash, patient has diabetic ulcer right foot. MUSCULOSKELETAL EXAM: No significant joint swelling noted. Results Laboratory Results: 06/30/16 05:18 06/30/16 05:18 Impressions: Foot X-Ray 06/24/16 00:00 IMPRESSION: No cortical erosions or lytic areas are identified to confirm bony involvement by osteomyelitis. Extensive amputations which appears stable. Other findings as noted above Chest X-Ray 06/30/16 00:00 IMPRESSION: Stable chest with appropriate right IJ lines. Status: Image reviewed by de - Chest x-ray showed globular heart, pulmonary venous congestion with minimal fluid and transverse fissures right side. Assessment & Plan - Diagnosis (1) Acute on chronic renal failure Is this a current diagnosis for this admission?: YesPlan: Patient under management by tree deadener. He is identifying stage V chronic kidney disease. Patient on dialysis. Agree with fluid removal on dialysis. (2) Acute on chronic respiratory failure with hypoxia and hypercapnia Is this a current diagnosis for this admission?: YesPlan: Most likely combination of COPD and CHF. Patient may have had underlying pneumonia or bronchitis. Continue antibiotic therapy. (3) COPD (chronic obstructive pulmonary disease) Qualifiers: COPD type: unspecified COPD Qualified Code(s): J44.9 - Chronic obstructive pulmonary disease, unspecified Is this a current diagnosis for this admission?: YesPlan: Continue current management plans. Patient seems to be improving as regards her pulmonary status. (4) Diabetic infection of right foot Is this a current diagnosis for this admission?: YesPlan: Patient being managed by filler shredding machine loader and also surgeons. (5) Acute on chronic diastolic (congestive) heart failure Is this a current diagnosis for this admission?: YesPlan: Patient noted to have diastolic dysfunction. CHF precipitated by volume overload, infection etc. Agree with fluid removal on dialysis. (6) ORIANA (obstructive sleep apnea) Is this a current diagnosis for this admission?: YesPlan: There is association of chronic kidney disease with sleep apnea as well as obesity. Patient will benefit from further evaluation and management. (7) Dyslipidemia Is this a current diagnosis for this admission?: YesPlan: Patient noted to have dyslipidemia. LDL goal is less than 70. Recommend statin therapy at least intermediate or high dose, of high potency status. Periodic lipid panel and liver panel is indicated. Patient to report any significant muscle discomfort or other side effects. (8) Hypertension Qualifiers: Hypertension type: essential hypertension Qualified Code(s): I10 - Essential (primary) hypertension Is this a current diagnosis for this admission?: YesPlan: Blood pressure goal in this patient is 135/85 or less. This was discussed with the patient. Currently blood pressure under reasonable control. Better medication for this patient are ROHIT inhibitor/ARB/beta ronaldo etc. discussed side effects of uncontrolled hypertension and also severe hypotension. - Notes Notes: CODE STATUS : was discussed, patient remains DO NOT RESUSCITATE. Surrogate decision-maker unchanged. Multiple medical problems were addressed. - Time Time with patient: Greater than 35 minutes - More than 50% of the time spent coordinating care, discussing management plans with involved caregivers. Management plans discussed with involved personnels. Medical decision making was of moderate complexity. Medications reviewed and adjusted accordingly: Yes
[2016-07-01] MEDS: NYSTATIN CREAM 15 GM TP SCH ×2 (11:26→17:53)
--- NOTE | 2016-07-01 15:20 | CONSULTATION REPORT E ---
Consultation Report NAME: VIVIAN WATKINS : 1945 AGE: 70Y DATE: 06/30/2016 325 A TO: KRYSTAL QUEVEDO M.D. FROM: CEZAR DELUCA M.D. Requesting Physician REASON FOR CONSULTATION: Preoperative cardiac risk assessment. HISTORY: The patient is a 70-year-old female with history of chronic kidney stage IV, COPD, asthma, insulin dependent diabetes mellitus and history of obstructive sleep apnea that 2 to 3 days prior to her admission became progressively short of breath with PND, orthopnea and some degree of leg edema. She also had some wheezing and cough, which was nonproductive. The patient was admitted with acute exacerbation of asthma and COPD and also diagnosis of congestive heart failure. The patient also had MRSA with blood cultures being positive and in view of this and the patient having chronic kidney disease stage IV, the patient was started on dialysis, respiratory treatment and antibiotics. With this, the patient improved and at present has no PND and orthopnea. There is no chest pain or discomfort. There is no leg edema. There is no TIA or CVA symptoms. There is no chest pain or discomfort. There is no palpitations. Note, the patient also was found to have a right diabetic foot ulcer and has been recommended to have partial amputation of the right foot; hence, the preoperative cardiac consultation. PAST MEDICAL HISTORY: Negative for coronary artery disease, PR or anginal symptoms. There is a history of hypertension. There is a history of congestive heart failure secondary to diastolic dysfunction and also secondary to volume overload due to congestive heart failure. The patient has history of asthma and COPD and was admitted with acute exacerbation, but the patient now has returned to baseline after treatment. She also has a history of sleep apnea and uses CPAP. There is no history of pulmonary embolism. She has history of diabetes mellitus type 2, insulin dependent. There is no history of hypothyroidism. She has history of chronic kidney disease stage IV and MRSA septicemia. The patient has [id number] renal insufficiency due to acute tubular necrosis and hence the patient is on dialysis. There is no . There is no history of anxiety or depression. PAST SURGICAL HISTORY: Positive for: 1. Appendectomy. 2. Cholecystectomy. 3. Orthopedic surgery. 4. Amputation of all toes. 5. Lumbar spine fusion. SOCIAL HISTORY: The patient lives with her and she has never smoked. There is no history of EtOH abuse. DISPOSITION: The patient is a DNR and is surrogate healthcare decision maker. REVIEW OF SYMPTOMS: CONSTITUTIONAL: Had some fevers without any rigors on admission, but no recurrence. He has some generalized fatigue. HEAD: Denies headaches or dizziness. There is no history of head injury. EYES: No history of amblyopia or diplopia. No history of amaurosis fugax. EARS: No history of hearing loss. No history of recurrent earaches. No history of tinnitus. NOSE: No history of hay fever. No history of nosebleeds. No nasal polyposis. MOUTH: No history of ulcers in the mouth. No history of altered taste sensation. No bleeding from the gums. THROAT: No odynophagia or dysphagia. No history of recurrent sore throat. SKIN: No history of pruritus. No history of cellulitis. No history of yellowish discoloration of the skin. No history of skin cancer. NECK: No history of C-spine arthritis symptoms. No enlarged neck lymph nodes. No swelling in the neck. LUNGS: History of acute exacerbation of COPD and asthma on admission now back to baseline. She has a history of sleep apnea on CPAP at home. There is no history of pulmonary embolism. No history of pleuritic chest pain. No hemoptysis. There is history of cough, which is nonproductive of sputum. History of wheezing as mentioned earlier. The patient does have shortness of breath, especially mild exertion. CARDIOVASCULAR: No history of PR, angina or coronary artery disease. History of hypertension. History of congestive heart failure secondary to early diastolic dysfunction and volume overload secondary to renal failure. Recent symptoms of PND and orthopnea. This may be due secondary to volume overload and CHF when she came in, which has resolved now. There is no palpitations or syncope. GASTROINTESTINAL: No history of GI bleed. No history of altered bowel movements. No history of abdominal pain. No history of fatty food intolerance. MUSCULOSKELETAL: Denies any arthritis or collagen vascular disease. ENDOCRINE: History of diabetes mellitus type 2, insulin dependent. No history of polydipsia or polyuria. No history of hirsutism. No history of thyroid disease. No history of heat or cold intolerance. CENTRAL NERVOUS SYSTEM: No history of TIA or CVA. History of sleep apnea present. No history of seizures, headaches or migraines. No history of gait imbalance. RENAL: History of chronic kidney disease stage IV, now with worsening renal function. Ljdzr-rh-[id number] renal failure secondary to ATN due to MRSA septicemia. No symptoms of UTI, no history of hematuria . PSYCHIATRIC: No history of anxiety or depression. VASCULAR: He does not walk much, but has a history of peripheral vascular disease, the details of which are not known. There is no history of DVT. HEMATOLOGIC: No history of bleeding diathesis. No history of clotting disorders. ALLERGIES: 1. HYDRALAZINE. 2. SULFA. MEDICATIONS: 1. Acetaminophen 650 mg p.o. q.4 h. p.r.n. 2. Albuterol sulfate 2.5 mg nebulization q.4 h. 3. Amlodipine 10 mg p.o. a.m. 4. Aspirin 81 mg p.o. a.m. 5. Atorvastatin 10 p.o. a.m. 6. Bumex 1 mg p.o. daily. 7. PhosLo 667 mg p.o. with meals. 8. Coreg 12.5 mg p.o. q.12 h. 9. Clonidine 0.1 mg p.o. q.8 h. 10. Hyperglycemic precaucations with glucose 40% gel p.o. 15 g and 30 g p.o., respectively hypoglycemia. 11. She is also on hypoglycemia precautions with dextrose 50% 12.5 mg and 25 g IV, respectively p.r.n. hypoglycemia. 12. She gets epoetin 10,000 units IV with each dialysis. 13. Fenofibrate 145 mg p.o. daily. 14. Glucagon 1 mg IM p.r.n. 15. Robitussin 200 mg p.o. q.4 h. p.r.n. 16. Ferumoxytol 510 mg IV x1. 17. Ipratropium/albuterol 3 mL nebulizer treatment q.4 h. while awake. 18. Accu-Cheks a.c., t.i.d. and bedtime. 19. Insulin Lispro with sliding scale coverage doses. 20. She is on lansoprazole 30 mg p.o. daily. 21. Zyvox 600 mg p.o. q.12 h. 22. Magnesium oxide 400 mg p.o. daily. 23. Bactroban 1 application topically x1. 24. Nystatin 1 application topically b.i.d. 25. Oxycodone hydrochloride/acetaminophen 1 tablet p.o. q.6 h. p.r.n. 26. Mirapex 1 mg p.o. b.i.d. 27. Zoloft 100 mg p.o. at bedtime. PHYSICAL EXAMINATION: VITAL SIGNS: The patient is afebrile with a temperature of 98.1 degrees Fahrenheit, pulse is 65 beats per minute, blood pressure 157/42, respirations 18 per minute. O2 sat is 95% on room air. HEENT: Head is atraumatic, normocephalic. EYES: Pupils are equal, round, regular, reactive to light and accommodation. Extraocular movements are normal. There is mild conjunctival pallor. There is no scleral icterus. EARS: Tympanic membranes are intact. External auditory canals are clear. NOSE: There is no deviated nasal septum. There is no inflammation of the nasal mucous membranes. There is no nasal polyps. MOUTH: Mucous membranes of the mouth are moist. Tongue is moist. There are no ulcers. There is no bleeding from the gums. THROAT: There is no redness of the oropharynx. There are no exudates. SKIN: There are no skin rashes and no petechiae or ecchymoses. There are no skin lesions. NECK: Supple. There is no JVD present. Carotids are equal. There is no bruit. There is a dry left-sided catheter (dialysis catheter in the right IJ). Carotids are equal. There is no bruit. There is no lymphadenopathy. Trachea is central. LUNGS: Diminished air entry. There is no prolonged expiration without any rhonchi, rales or wheezing. There is hyperresonance on percussion. HEART: S1 and S2 are heard. There is no S4 gallop present. There is no S3 gallop. There is a systolic murmur at left sternal border at the apex. There is no rub. ABDOMEN: Soft, obese, nontender. There is no hepatosplenomegaly. Bowel sounds are well heard. EXTREMITIES: Femorals are diminished. There is no femoral bruit. Leg pulses are diminished. The right foot with a dressing and hence cannot be examined. This is where the patient has the diabetic foot ulcer, which is the cause of the patient's MRSA. There is no DVT or cellulitis. There is no calf tenderness. CENTRAL NERVOUS SYSTEM: The patient is conscious, awake, alert, oriented x3 with no focal deficit. PSYCHIATRIC: The patient does not appear to be anxious or depressed. The patient's judgement and insight are intact. Her affect is normal. DIAGNOSTIC TEST RESULTS: The patient's chest x-ray shows that the right port IJ superior vena cava. No pneumothorax. No congestive heart failure except there is cardiomegaly and some prominence of the central pulmonary vasculature. The patient's EKG done on admission showed sinus rhythm, probable left atrial abnormality, left anterior fascicular block. Poor R-wave progression secondary to lead placement and/or left anterior hemiblock. The patient's echocardiogram done on 06/26/2016 shows that it was a difficult study. The left ventricle was normal in size. There is mild concentric left ventricular hypertrophy and ejection fraction of 65%. Doppler measurements suggest normal left ventricular diastolic dysfunction and left LV systolic function is normal. The left ventricular wall motion is normal. The right ventricle is not well seen, probably mildly dilated. The right atrium is mildly dilated. The right atrium is moderately dilated. The atrial septum is intact with no evidence of atrial septal defect. There is severe mitral annular calcification. Cannot exclude mild mitral reflux, no vegetation. There is mild mitral stenosis. There is trace amount of mitral regurgitation. There is aortic valve sclerosis without stenosis. There is no aortic regurgitation present. There is dqwx-lg-lyvfiebj amount of tricuspid regurgitation. There is moderate pulmonary hypertension by echocardiogram. Right ventricular systolic pressure is 49 mmHg with RA mean of 12 with mild amount of pulmonic regurgitation. There is no pulmonary valvular stenosis. There is a small pericardial effusion. There are no echocardiographic indications of cardiac tamponade. The patient's white count is 7700, hemoglobin 8.1, hematocrit is 26.1, platelet count is 205,000. The patient's sodium is 142.2, potassium 4.6, chloride 107. The patient's CO2 is 22. The patient's BUN is 58, creatinine is 2.68. GFR is reduced at 18 mL per minute. On 06/22/2016, her CPK, MB and troponin was negative. IMPRESSION: 1. MRSA bacteremia. The patient is on antibiotics for this. 2. Acute exacerbation of asthma, resolved. 3. Acute exacerbation of COPD, much improved and at present back to baseline. 4. Diabetic right foot ulcer for amputation. The patient also on antibiotics. This is the cause of the patient's MRSA. 5. Qrmbw-dd-xyhupkt congestive heart failure, most likely secondary to a combination of diastolic dysfunction and the patient's systolic dysfunction due to volume overload and CHF due to chronic kidney disease. 6. Lgvoe-ex-okjcrpb renal insufficiency at present on dialysis, doing much better. 7. Hypertension. 8. History of cervical cancer, FIGO stage 4A. 9. Diabetes mellitus type 2, insulin dependent. 10. Obstructive sleep apnea on CPAP. 11. Hyperlipidemia. 12. History of anxiety and depression. 13. Hyperlipidemia. 14. Preoperative cardiac risk assessment. RECOMMENDATIONS: Continue current treatment. The patient will be at an acceptable cardiac risk for the surgery of partial right foot amputation. Note postoperatively the patient will be admitted to monitor heart rate and for any arrhythmias and also get serial EKGs and cardiac enzymes. Note 35 minutes spent on the patient with more than 50% of time spent on direct patient care, discussion with the patient and also with various caregivers on this case including the attending physician and the drilling rig operator. Dr. Hutchison will follow the patient from tomorrow. DICTATING PHYSICIAN: KRYSTAL QUEVEDO M.D. [id number] PHY#: [id number] ID: [id number] JOB#: [id number] ACCT: [id number] cc:KRYSTAL QUEVEDO M.D. >
--- NOTE | 2016-07-01 15:49 | PDOC PROGRESS REPORT ---
Subjective Progress Note for:: 07/01/16 Subjective:: Patient has no specific complaints today. Her have seen her with her daughter present in the room and answered multiple family questions. Patient denies fever , chills, headache, new focal weakness, chest pain, shortness of breath, abdominal pain, nausea, vomiting, diarrhea, constipation. Physical Exam Vital Signs: Temp Pulse Resp BP Pulse Ox 97.5 F 65 16 179/49 H 100 07/01/16 11:23 07/01/16 11:23 07/01/16 11:23 07/01/16 11:23 07/01/16 11:23 Intake & Output 06/30/16 07/01/16 07/02/16 06:59 06:59 06:59 Intake Total 2057 1197 300 Output Total 1400 3050 150 Balance 657 -1853 150 Weight 96 kg 96.6 kg GENERAL: No acute distress HEENT: Conjunctiva clear, nonicteric, moist mucous membranes, no JVD, midline trachea RESPIRATORY: Clear to auscultation bilaterally, no wheezes, no rhonchi CARDIAC: Regular rate and rhythm, no murmurs/gallops/rubs ABDOMEN: Soft, nondistended, nontender, positive bowel sounds, no rebound, no guarding EXTREMETIES: No edema, cyanosis, clubbing. Remote amputation 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 NEUROLOGIC: Alert, oriented to person/place/time, CN's grossly intact, no focal deficits SKIN: 2 small wounds to distal right foot. PSYCH: Normal mood, normal affect Results Laboratory Results: 06/30/16 05:18 06/30/16 05:18 Impressions: Foot X-Ray 06/24/16 00:00 IMPRESSION: No cortical erosions or lytic areas are identified to confirm bony involvement by osteomyelitis. Extensive amputations which appears stable. Other findings as noted above Chest X-Ray 06/30/16 00:00 IMPRESSION: Stable chest with appropriate right IJ lines. Assessment & Plan - Diagnosis (1) Sepsis Qualifiers: Sepsis type: sepsis due to unspecified organism Qualified Code(s): A41.9 - Sepsis, unspecified organism Is this a current diagnosis for this admission?: YesPlan: Secondary to underlying foot wound. On Zyvox day #8. (2) Acute on chronic respiratory failure with hypoxia and hypercapnia Is this a current diagnosis for this admission?: YesPlan: Continue oxygen supplementation. (3) COPD (chronic obstructive pulmonary disease) Qualifiers: COPD type: unspecified COPD Qualified Code(s): J44.9 - Chronic obstructive pulmonary disease, unspecified Is this a current diagnosis for this admission?: YesPlan: Stable. Continue when necessary albuterol. (4) Bradycardia Is this a current diagnosis for this admission?: YesPlan: Heart rate runs low but relatively stable. (5) Acute on chronic diastolic (congestive) heart failure Is this a current diagnosis for this admission?: YesPlan: Maintain volume status on hemodialysis. Most recent echo done on 06/26/2016 reveals an EF of 65%, LVH, and severe mitral annular calcification, and moderate pulmonary hypertension. Continue Bumex, Coreg, aspirin, no Ravinder or ARB secondary to CKD stage IV/V. (6) Cervical cancer, FIGO stage MIRIAM Is this a current diagnosis for this admission?: YesPlan: Followed by Dr. Ureña of hematology oncology as an outpatient. She currently is not having treatment secondary to renal failure and right foot wound/ infection. 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 (8) ESRD (end stage renal disease) Is this a current diagnosis for this admission?: YesPlan: Hemodialysis per nephrology. (9) Diabetic infection of right foot Is this a current diagnosis for this admission?: YesPlan: Awaiting further surgical recommendations by Dr. Mclaughlin of surgery. (10) Do not intubate but use all other measures Is this a current diagnosis for this admission?: Yes - Time Time Spent with patient: 35 or more minutes
[2016-07-01] MEDS: OXYCODONE-ACETAMINOPHEN 5-325 MG TABLET PO PRN (17:55)
--- NOTE | 2016-07-01 18:31 | PDOC PROGRESS REPORT ---
Subjective Progress Note for:: 07/01/16 Subjective:: Patient is anxious to have her trialysis catheter from her neck removed. No other complaints. She prefers Dr. Mclaughlin perform her foot amputation. She's been made aware that he is likely out until next week. Physical Exam Vital Signs: Temp Pulse Resp BP Pulse Ox 97.8 F 62 16 148/46 H 100 07/01/16 15:06 07/01/16 15:06 07/01/16 15:06 07/01/16 15:06 07/01/16 15:06 Intake & Output 06/30/16 07/01/16 07/02/16 06:59 06:59 06:59 Intake Total 2057 1197 320 Output Total 1400 3050 150 Balance 657 -0203 170 Weight 96 kg 96.6 kg General appearance: PRESENT: no acute distress Eye exam: PRESENT: EOMI Teeth exam: PRESENT: poor dentation Neck exam: PRESENT: other - Trialysis catheter is present in the right neck/ right IJV. Dressing is removed. The right neck is prepped with alcohol swabs and then iodine swabs. Sutures are removed. The trials his catheter is removed while the patient is in Trendelenburg position. Immediate pressure was placed with gauze 4 x 4's. Pressures held for 8 minutes without incident. Tegaderm dressing is placed. Patient is instructed to remain in a flat position for 30 minutes. Respiratory exam: PRESENT: unlabored Neurological exam: PRESENT: alert, oriented to situation Psychiatric exam: PRESENT: normal mood Results Laboratory Results: 06/30/16 05:18 06/30/16 05:18 Impressions: Foot X-Ray 06/24/16 00:00 IMPRESSION: No cortical erosions or lytic areas are identified to confirm bony involvement by osteomyelitis. Extensive amputations which appears stable. Other findings as noted above Chest X-Ray 06/30/16 00:00 IMPRESSION: Stable chest with appropriate right IJ lines. Assessment & Plan - Diagnosis (1) Diabetic infection of right foot Is this a current diagnosis for this admission?: Yes (2) Acute on chronic renal failure Is this a current diagnosis for this admission?: YesPlan: Trials his catheters removed without incident. She will remain in a flat position for [address] Mclaughlin perform her foot amputation. She's been made aware that he is likely out until next week.
[2016-07-01] MEDS: SERTRALINE HCL 50 MG TABLET PO SCH (22:54)
[2016-07-02 05:49] LABS: ABSOLUTE EOSINOPHILS # (AUTO) 0.2 10^3/uL (0.0-0.6); ABSOLUTE LYMPHOCYTES (AUTO) 1.3 10^3/uL (0.5-4.7); ABSOLUTE MONOCYTES (AUTO) 0.3 10^3/uL (0.1-1.4); ABSOLUTE NEUT (AUTO) 3.9 10^3/uL (1.7-8.2); BASOPHILS % (AUTO) 0.8 % (0-2); EOSINOPHILS % (AUTO) 2.8 % (0-6); HEMATOCRIT 24.2 % (36.0-47.0); HGB HCT DIFFERENCE -1.1; LYMPHOCYTES % (AUTO) 22.2 % (13-45); MEAN CORPUSCULAR HEMOGLOBIN 28.8 pg (27.0-33.4); MEAN CORPUSCULAR HGB CONC 31.8 g/dL (32.0-36.0); MEAN CORPUSCULAR VOLUME 91 fl (80-97); MONOCYTES % (AUTO) 5.5 % (3-13); RED BLOOD COUNT 2.68 10^6/uL (3.72-5.28); RED CELL DISTRIBUTION WIDTH 17.9 % (11.5-14.0); SEGMENTED NEUTROPHILS % (AUTO) 68.7 % (42-78); WHITE BLOOD COUNT 5.7 10^3/uL (4.0-10.5)
[2016-07-02 05:54] LABS: HEMOGLOBIN 7.7 g/dL (12.0-15.5)
[2016-07-02] MEDS: CLONIDINE HCL 0.1 MG TABLET PO SCH ×3 (06:00→21:14)
[2016-07-02 06:15] LABS: ANION GAP 12 (5-19); BLOOD UREA NITROGEN 46 mg/dL (7-20); CALCIUM 9.2 mg/dL (8.4-10.2); CARBON DIOXIDE 26 mmol/L (22-30); CHLORIDE 104 mmol/L (98-107); CREATININE RESULT 2.62 mg/dL (0.52-1.25); GLUCOSE 165 mg/dL (75-110); MAGNESIUM 1.9 mg/dL (1.6-2.3); POTASSIUM 4.2 mmol/L (3.6-5.0); SODIUM 141.5 mmol/L (137-145)
[2016-07-02] MEDS ORDERED: NORMAL SALINE 250 ML IV PRN ×2 (07:42)
[2016-07-02] MEDS: LANSOPRAZOLE 30 MG TAB.RAP.DR PO SCH (10:12)
[2016-07-02] MEDS: PRAMIPEXOLE DI-HCL 0.5 MG TABLET PO SCH ×2 (10:12→17:49)
[2016-07-02] MEDS: BUMETANIDE 1 MG TABLET PO SCH (10:12)
[2016-07-02] MEDS: LINEZOLID 600 MG TABLET PO SCH ×2 (10:12→21:11)
[2016-07-02] MEDS: CARVEDILOL 12.5 MG TABLET PO SCH ×2 (10:13→21:12)
[2016-07-02] MEDS: CALCIUM ACETATE 667 MG CAPSULE PO SCH ×3 (10:13→17:47)
[2016-07-02] MEDS: MAGNESIUM OXIDE 400 MG TABLET PO SCH (10:13)
[2016-07-02] MEDS: ATORVASTATIN CALCIUM 10 MG TABLET PO SCH (10:13)
[2016-07-02] MEDS: FENOFIBRATE NANOCRYSTALLIZED 145 MG TABLET PO SCH (10:13)
[2016-07-02] MEDS: AMLODIPINE BESYLATE 10 MG TABLET PO SCH (10:13)
[2016-07-02] MEDS: ASPIRIN 81 MG TABLET, ENT COATED PO SCH (10:13)
[2016-07-02] MEDS: MUPIROCIN 2% OINTMENT 22 GM TP SCH (10:14)
[2016-07-02] MEDS: NYSTATIN CREAM 15 GM TP SCH ×2 (10:14→17:50)
[2016-07-02] MEDS: INSULIN LISPRO 100 UNIT/ML 3 ML VIAL SUBCUT PRN ×2 (11:42→22:03)
--- NOTE | 2016-07-02 12:55 | PDOC PROGRESS REPORT ---
Subjective Progress Note for:: 07/02/16 Subjective:: Patient seems to be doing better with gradual improvement. Pt is denying any chest arm or neck discomfort. Patient denying any PND, orthopnea. Patient denied any sustained palpitations, dizziness, syncope, near syncope. Patient denying any fever chills. Patient denying any other significant discomfort. Patient is maintaining sinus rhythm. Review of systems: Rest review of systems negative. Medications: Medications have been reviewed. Physical Exam Vital Signs: Temp Pulse Resp BP Pulse Ox 97.9 F 56 L 16 130/50 H 100 07/02/16 03:27 07/02/16 08:56 07/02/16 08:56 07/02/16 08:19 07/02/16 07:18 Intake & Output 07/01/16 07/02/16 07/03/16 06:59 06:59 06:59 Intake Total 1197 1155 Output Total 3050 653 Balance -1853 502 Weight 96.6 kg 97.2 kg Exam: GENERAL: well-nourished and in no acute distress. Alert and oriented x3 HEAD: Atraumatic, normocephalic. EYES: Pupils equal round and reactive to light, extraocular movements intact, sclera anicteric, conjunctiva are normal. ENT: TMs normal, nares patent, oropharynx clear without exudates. Moist mucous membranes. No oral ulcerations or bleeding gums noted NECK: supple without lymphadenopathy. Trachea is central. No cervical or axillary lymphadenopathy noted. Carotids are 2+, JVD WNL LUNGS: Respiration seems nonlabored, no significant accessory muscle action noted. Breath sounds clear to auscultation bilaterally and equal. No wheezes rales or rhonchi. No significant dullness noted on percussion. CHEST: Palpation of the chest wall shows no significant chest wall tenderness or abnormalities. 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 ABDOMEN: Soft, no significant tenderness appreciated, normoactive bowel sounds. No guarding, no rebound. No rigidity noted . No masses appreciated. EXTREMITIES: Pedal pulses are 1-2+, no calf tenderness noted. No clubbing or cyanosis.trace to 1+ pedal edema noted. Left midtarsal amputation noted. Patient has amputation of right sided toes as well. Ulcerations noted right foot. NEUROLOGICAL: Focused neurological exam showed no significant neurologic deficit. Normal speech, no focal weakness appreciated. PSYCH: Normal mood, normal affect. Judgment and insight within normal limits. SKIN: No significant ecchymosis, rash, patient has diabetic ulcer. MUSCULOSKELETAL EXAM: No significant joint swelling noted. Results Laboratory Results: 07/02/16 05:25 07/02/16 05:25 07/02/16 07/02/16 07/02/16 05:25 05:25 08:00 WBC 5.7 RBC 2.68 L Hgb 7.7 L Hct 24.2 L MCV 91 MCH 28.8 MCHC 31.8 L RDW 17.9 H Plt Count 147 L Seg Neutrophils % 68.7 Lymphocytes % 22.2 Monocytes % 5.5 Eosinophils % 2.8 Basophils % 0.8 Absolute Neutrophils 3.9 Absolute Lymphocytes 1.3 Absolute Monocytes 0.3 Absolute Eosinophils 0.2 Absolute Basophils 0.0 Sodium 141.5 Potassium 4.2 Chloride 104 Carbon Dioxide 26 Anion Gap 12 BUN 46 H Creatinine 2.62 H Est GFR ( Amer) 22 L Est GFR (Non-Af Amer) 18 L Glucose 165 H Calcium 9.2 Phosphorus 4.0 Magnesium 1.9 Blood Type A POSITIVE Antibody Screen NEGATIVE Impressions: Foot X-Ray 06/24/16 00:00 IMPRESSION: No cortical erosions or lytic areas are identified to confirm bony involvement by osteomyelitis. Extensive amputations which appears stable. Other findings as noted above Chest X-Ray 06/30/16 00:00 IMPRESSION: Stable chest with appropriate right IJ lines. Assessment & Plan - Diagnosis (1) Acute on chronic renal failure Is this a current diagnosis for this admission?: Yes (2) Acute on chronic respiratory failure with hypoxia and hypercapnia Is this a current diagnosis for this admission?: Yes (3) COPD (chronic obstructive pulmonary disease) Qualifiers: COPD type: unspecified COPD Qualified Code(s): J44.9 - Chronic obstructive pulmonary disease, unspecified Is this a current diagnosis for this admission?: Yes (4) Diabetic infection of right foot Is this a current diagnosis for this admission?: Yes (5) Acute on chronic diastolic (congestive) heart failure Is this a current diagnosis for this admission?: Yes (6) ORIANA (obstructive sleep apnea) Is this a current diagnosis for this admission?: Yes (7) Dyslipidemia Is this a current diagnosis for this admission?: Yes (8) Hypertension Qualifiers: Hypertension type: essential hypertension Qualified Code(s): I10 - Essential (primary) hypertension Is this a current diagnosis for this admission?: Yes - Notes Notes: Patient is showing stable course. Her respirations are stable. COPD seems to be improving. Diabetic foot ulcer being managed by surgeons. She is scheduled for amputation sometimes next week. Congestive heart failure, acute on chronic diastolic, this is improved. Sleep apnea syndrome: currently is stable. Dyslipidemia: Stable.Patient noted to have dyslipidemia. LDL goal is less than 70. Recommend statin therapy at least intermediate or high dose, of high potency status. Periodic lipid panel and liver panel is indicated. Patient to report any significant muscle discomfort or other side effects. Hypertension: Currently stable.Blood pressure goal in this patient is 135/85 or less. This was discussed with the patient. Currently blood pressure under reasonable control. Better medication for this patient are ROHIT inhibitor/ARB/ beta ronaldo etc. discussed side effects of uncontrolled hypertension and also severe hypotension. - Time Time with patient: 15-25 minutes - CODE STATUS : was discussed, patient remains DO NOT RESUSCITATE. Surrogate decision-maker unchanged. Multiple medical problems were addressed.More than 50% of the time spent coordinating care, discussing management plans with involved caregivers. Management plans discussed with involved personnels. Medical decision making was of moderate complexity. Medications reviewed and adjusted accordingly: Yes
--- NOTE | 2016-07-02 15:27 | PDOC PROGRESS REPORT ---
Subjective Progress Note for:: 07/02/16 Subjective:: Patient has no new complaints. She is currently in hemodialysis at the time my visit. Patient denies fever, chills, headache, new focal weakness, chest pain, shortness of breath, abdominal pain, nausea, vomiting, diarrhea, constipation. Physical Exam Vital Signs: Temp Pulse Resp BP Pulse Ox 98.0 F 54 L 15 160/69 H 93 07/02/16 14:43 07/02/16 14:43 07/02/16 14:43 07/02/16 14:43 07/02/16 14:43 Intake & Output 07/01/16 07/02/16 07/03/16 06:59 06:59 06:59 Intake Total 1197 1155 0 Output Total 3050 653 Balance -1853 502 0 Weight 96.6 kg 97.2 kg GENERAL: No acute distress HEENT: Conjunctiva clear, nonicteric, moist mucous membranes, no JVD, midline trachea RESPIRATORY: Clear to auscultation bilaterally, no wheezes, no rhonchi CARDIAC: Regular rate and rhythm, no murmurs/gallops/rubs ABDOMEN: Soft, nondistended, nontender, positive bowel sounds, no rebound, no guarding EXTREMETIES: No edema, cyanosis, clubbing. Remote amputation 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 NEUROLOGIC: Alert, oriented to person/place/time, CN's grossly intact, no focal deficits SKIN: 2 small wounds to distal right foot. PSYCH: Normal mood, normal affect Results Laboratory Results: 07/02/16 05:25 07/02/16 05:25 07/02/16 07/02/16 07/02/16 05:25 05:25 08:00 WBC 5.7 RBC 2.68 L Hgb 7.7 L Hct 24.2 L MCV 91 MCH 28.8 MCHC 31.8 L RDW 17.9 H Plt Count 147 L Seg Neutrophils % 68.7 Lymphocytes % 22.2 Monocytes % 5.5 Eosinophils % 2.8 Basophils % 0.8 Absolute Neutrophils 3.9 Absolute Lymphocytes 1.3 Absolute Monocytes 0.3 Absolute Eosinophils 0.2 Absolute Basophils 0.0 Sodium 141.5 Potassium 4.2 Chloride 104 Carbon Dioxide 26 Anion Gap 12 BUN 46 H Creatinine 2.62 H Est GFR ( Amer) 22 L Est GFR (Non-Af Amer) 18 L Glucose 165 H Calcium 9.2 Phosphorus 4.0 Magnesium 1.9 Blood Type A POSITIVE Antibody Screen NEGATIVE Impressions: Foot X-Ray 06/24/16 00:00 IMPRESSION: No cortical erosions or lytic areas are identified to confirm bony involvement by osteomyelitis. Extensive amputations which appears stable. Other findings as noted above Chest X-Ray 06/30/16 00:00 IMPRESSION: Stable chest with appropriate right IJ lines. Assessment & Plan - Diagnosis (1) Sepsis Qualifiers: Sepsis type: sepsis due to unspecified organism Qualified Code(s): A41.9 - Sepsis, unspecified organism Is this a current diagnosis for this admission?: YesPlan: Secondary to underlying foot wound. On Zyvox until 07/08/16. (2) Acute on chronic respiratory failure with hypoxia and hypercapnia Is this a current diagnosis for this admission?: YesPlan: Continue oxygen supplementation. (3) COPD (chronic obstructive pulmonary disease) Qualifiers: COPD type: unspecified COPD Qualified Code(s): J44.9 - Chronic obstructive pulmonary disease, unspecified Is this a current diagnosis for this admission?: YesPlan: Stable. Continue when necessary albuterol. (4) Bradycardia Is this a current diagnosis for this admission?: YesPlan: Heart rate runs low but relatively stable. (5) Acute on chronic diastolic (congestive) heart failure Is this a current diagnosis for this admission?: YesPlan: Maintain volume status on hemodialysis. Most recent echo done on 06/26/2016 reveals an EF of 65%, LVH, and severe mitral annular calcification, and moderate pulmonary hypertension. Continue Bumex, Coreg, aspirin, no Ravinder or ARB secondary to CKD stage IV/V. (6) Cervical cancer, FIGO stage MIRIAM Is this a current diagnosis for this admission?: YesPlan: Followed by Dr. Ureña of hematology oncology as an outpatient. She currently is not having treatment secondary to renal failure and right foot wound/ infection. 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 (8) ESRD (end stage renal disease) Is this a current diagnosis for this admission?: YesPlan: Hemodialysis per nephrology. I will consult Dr. Burnette to place PermCath prior to discharge. (9) Diabetic infection of right foot Is this a current diagnosis for this admission?: YesPlan: Awaiting probable right [id number] amputation by Dr. Mclaughlin of surgery. (10) Do not intubate but use all other measures Is this a current diagnosis for this admission?: Yes - Time Time Spent with patient: 35 or more minutes
--- NOTE | 2016-07-02 16:06 | PDOC PROGRESS REPORT ---
Subjective Progress Note for:: 07/02/16 Subjective:: Patient was seen on hemodialysis today. No issues on hemodialysis. Vital signs are stable. She is feeling better. She denies any history of chest pain shortness of breath. She is awaiting surgery on of leg soon. No complaints of any fever chills. Physical Exam Vital Signs: Temp Pulse Resp BP Pulse Ox 98 F 50 L 15 187/72 H 93 07/02/16 14:49 07/02/16 14:49 07/02/16 14:49 07/02/16 14:49 07/02/16 14:43 Intake & Output 07/01/16 07/02/16 07/03/16 06:59 06:59 06:59 Intake Total 1197 1155 500 Output Total 3050 653 Balance -1853 502 500 Weight 96.6 kg 97.2 kg Exam: Patient is in no acute distress. She looks well-nourished. Both heart sounds were heard normally. No rubs or gallops. No pericardial rub. Chest examination revealed equal air entry in both lungs nose no wheezing or crackles. Examination of the abdomen was soft nontender. No organomegaly. Bowel sounds are heard normally. Was no ascites. Neurological evaluation revealed an awake alert person. Oriented to time person and place. Cranial nerves 2-12 is grossly intact. She is not aphasic. Psych evaluation revealed appropriate affect. She is not anxious or agitated. He has a normal mood. Skin evaluation was normal. She had no mottling. Skin is not dry. She had no skin rashes. No palpable nodules Cardiovascular exam: PRESENT: +S1, +S2, systolic murmur GI/Abdominal exam: PRESENT: distended, soft. ABSENT: diminished bowel sounds, firm, guarding, organomegaly, tenderness Results Laboratory Results: 07/02/16 05:25 07/02/16 05:25 07/02/16 07/02/16 07/02/16 05:25 05:25 08:00 WBC 5.7 RBC 2.68 L Hgb 7.7 L Hct 24.2 L MCV 91 MCH 28.8 MCHC 31.8 L RDW 17.9 H Plt Count 147 L Seg Neutrophils % 68.7 Lymphocytes % 22.2 Monocytes % 5.5 Eosinophils % 2.8 Basophils % 0.8 Absolute Neutrophils 3.9 Absolute Lymphocytes 1.3 Absolute Monocytes 0.3 Absolute Eosinophils 0.2 Absolute Basophils 0.0 Sodium 141.5 Potassium 4.2 Chloride 104 Carbon Dioxide 26 Anion Gap 12 BUN 46 H Creatinine 2.62 H Est GFR ( Amer) 22 L Est GFR (Non-Af Amer) 18 L Glucose 165 H Calcium 9.2 Phosphorus 4.0 Magnesium 1.9 Blood Type A POSITIVE Antibody Screen NEGATIVE Impressions: Foot X-Ray 06/24/16 00:00 IMPRESSION: No cortical erosions or lytic areas are identified to confirm bony involvement by osteomyelitis. Extensive amputations which appears stable. Other findings as noted above Chest X-Ray 06/30/16 00:00 IMPRESSION: Stable chest with appropriate right IJ lines. Assessment & Plan - Diagnosis (1) MRSA bacteremia Is this a current diagnosis for this admission?: YesPlan: On appropriate antibiotics. (2) Acute on chronic respiratory failure with hypoxia and hypercapnia Is this a current diagnosis for this admission?: Yes (3) Diabetic infection of right foot Is this a current diagnosis for this admission?: YesPlan: For definitive treatment later this coming week. (4) Sepsis Qualifiers: Sepsis type: methicillin resistant Staphylococcus aureus Qualified Code(s): A41.02 - Sepsis due to Methicillin resistant Staphylococcus aureus Is this a current diagnosis for this admission?: YesPlan: From infected right foot. Currently on antibiotics. Stable. (5) Acute on chronic diastolic (congestive) heart failure Is this a current diagnosis for this admission?: YesPlan: Has done well to conservative management and hemodialysis/ultrafiltration. Is currently undergoing dialysis again and will try to remove another 1-2 L as tolerated. . (6) Acute on chronic renal insufficiency Is this a current diagnosis for this admission?: YesPlan: CKD stage V now on dialysis. She is undergoing dialysis without any issues through right Femoral Catheter. Dialysis orders were discussed with the treating nurse. Vital signs are stable. Will plan to remove approximately 1 -2 L of fluid as tolerated. (7) Cervical cancer, FIGO stage MIRIAM Is this a current diagnosis for this admission?: Yes (8) Diabetic foot ulcer Qualifiers: Diabetes mellitus type: type 1 Laterality: right Qualified Code(s) : E10.621 - Type 1 diabetes mellitus with foot ulcer; L97.519 - Non-pressure chronic ulcer of other part of right foot with unspecified severity (9) Sepsis Qualifiers: Sepsis type: sepsis due to unspecified organism Qualified Code(s): A41.9 - Sepsis, unspecified organism Is this a current diagnosis for this admission?: Yes (10) ORIANA (obstructive sleep apnea) Is this a current diagnosis for this admission?: Yes (11) Anemia Qualifiers: Anemia type: other cause Other causes of anemia: other cause, not classified Qualified Code(s): D64.89 - Other specified anemias Is this a current diagnosis for this admission?: YesPlan: Adjust erythropoietin.
[2016-07-02] MEDS ORDERED: HEPARIN SOD (PORCINE) 1,000 UNIT/ML 10 ML VIAL IV PRN (16:14)
[2016-07-02] MEDS ORDERED: EPOETIN ALFA INJ 20000 UNIT/1 ML VIAL (RENAL) IV PRN (16:14)
[2016-07-02] MEDS: SERTRALINE HCL 50 MG TABLET PO SCH (21:12)
[2016-07-03] MEDS: CLONIDINE HCL 0.1 MG TABLET PO SCH ×3 (05:34→21:12)
[2016-07-03 06:00] LABS: ABSOLUTE BASOPHILS # (AUTO) 0.1 10^3/uL (0.0-0.2); ABSOLUTE EOSINOPHILS # (AUTO) 0.2 10^3/uL (0.0-0.6); ABSOLUTE LYMPHOCYTES (AUTO) 1.4 10^3/uL (0.5-4.7); ABSOLUTE MONOCYTES (AUTO) 0.4 10^3/uL (0.1-1.4); ABSOLUTE NEUT (AUTO) 6.7 10^3/uL (1.7-8.2); BASOPHILS % (AUTO) 0.6 % (0-2); EOSINOPHILS % (AUTO) 1.8 % (0-6); HEMATOCRIT 27.6 % (36.0-47.0); HGB HCT DIFFERENCE -0.6; LYMPHOCYTES % (AUTO) 16.1 % (13-45); MEAN CORPUSCULAR HEMOGLOBIN 29.2 pg (27.0-33.4); MEAN CORPUSCULAR HGB CONC 32.7 g/dL (32.0-36.0); MEAN CORPUSCULAR VOLUME 89 fl (80-97); MONOCYTES % (AUTO) 4.5 % (3-13); RED CELL DISTRIBUTION WIDTH 17.5 % (11.5-14.0); WHITE BLOOD COUNT 8.6 10^3/uL (4.0-10.5)
[2016-07-03 06:21] LABS: ANION GAP 12 (5-19); BLOOD UREA NITROGEN 30 mg/dL (7-20); CARBON DIOXIDE 27 mmol/L (22-30); CHLORIDE 100 mmol/L (98-107); CREATININE RESULT 1.96 mg/dL (0.52-1.25); GLUCOSE 197 mg/dL (75-110); POTASSIUM 3.7 mmol/L (3.6-5.0)
--- NOTE | 2016-07-03 06:53 | PDOC PROGRESS REPORT ---
Subjective Subjective:: Late entry. Reports no problems with site of trialysis catheter removal. No complaints with foot. Physical Exam Vital Signs: Temp Pulse Resp BP Pulse Ox 98.6 F 61 20 174/53 H 94 07/03/16 04:49 07/03/16 04:49 07/03/16 04:49 07/03/16 04:49 07/03/16 04:49 Intake & Output 07/01/16 07/02/16 07/03/16 06:59 06:59 06:59 Intake Total 1197 1155 812 Output Total 3050 653 1999 Balance -1853 502 -1188 Weight 96.6 kg 97.2 kg 93.1 kg General appearance: PRESENT: no acute distress Head exam: PRESENT: normocephalic Teeth exam: PRESENT: poor dentation Neck exam: PRESENT: other - Neck dressing is changed. Previous trialysis catheter right neck site looks good. Respiratory exam: PRESENT: clear to auscultation siobhan Cardiovascular exam: PRESENT: RRR Extremities exam: PRESENT: other - Right foot with 2 small lesions. Lateral foot lesion is essentially healed. The open wound in the skin overlying the proximal first metatarsal is noninfected, no edema, no induration, no drainage. It is packed with quarter-inch iodoform gauze. Redressed. Neurological exam: PRESENT: alert, oriented to situation Results Laboratory Results: 07/03/16 05:18 07/03/16 05:18 07/02/16 07/03/16 07/03/16 08:00 05:18 05:18 WBC 8.6 RBC 3.10 L Hgb 9.0 L Hct 27.6 L MCV 89 MCH 29.2 MCHC 32.7 RDW 17.5 H Plt Count 178 Seg Neutrophils % 77.0 Lymphocytes % 16.1 Monocytes % 4.5 Eosinophils % 1.8 Basophils % 0.6 Absolute Neutrophils 6.7 Absolute Lymphocytes 1.4 Absolute Monocytes 0.4 Absolute Eosinophils 0.2 Absolute Basophils 0.1 Sodium 139.0 Potassium 3.7 Chloride 100 Carbon Dioxide 27 Anion Gap 12 BUN 30 H Creatinine 1.96 H Est GFR ( Amer) 30 L Est GFR (Non-Af Amer) 25 L Glucose 197 H Calcium 9.0 Blood Type A POSITIVE Antibody Screen NEGATIVE 06/27/16 19:00 Blood Blood Culture - Final NO GROWTH IN 5 DAYS 06/27/16 18:40 Blood Blood Culture - Final NO GROWTH IN 5 DAYS Impressions: Foot X-Ray 06/24/16 00:00 IMPRESSION: No cortical erosions or lytic areas are identified to confirm bony involvement by osteomyelitis. Extensive amputations which appears stable. Other findings as noted above Chest X-Ray 06/30/16 00:00 IMPRESSION: Stable chest with appropriate right IJ lines. Assessment & Plan - Diagnosis (1) Diabetic infection of right foot Is this a current diagnosis for this admission?: Yes (2) Acute on chronic renal failure Is this a current diagnosis for this admission?: YesPlan: Currently with groin trialysis catheter. Right neck site of previous trialysis catheter looks fine. Foot looks good, noninfected. Due to chronic nonhealing wound, the plan was more proximal amputation by Dr. Mclaughlin. She prefers [facility] only for surgery. She understands he is gone this week with a family emergency. Chemotherapy for her cervical cancer is being delayed due to nonhealing of the foot.
[2016-07-03] MEDS: ASPIRIN 81 MG TABLET, ENT COATED PO SCH (07:54)
[2016-07-03] MEDS: ATORVASTATIN CALCIUM 10 MG TABLET PO SCH (07:54)
[2016-07-03] MEDS: CALCIUM ACETATE 667 MG CAPSULE PO SCH ×3 (07:54→17:11)
[2016-07-03] MEDS: AMLODIPINE BESYLATE 10 MG TABLET PO SCH (07:54)
[2016-07-03] MEDS: LANSOPRAZOLE 30 MG TAB.RAP.DR PO SCH (09:23)
[2016-07-03] MEDS: FENOFIBRATE NANOCRYSTALLIZED 145 MG TABLET PO SCH (09:23)
[2016-07-03] MEDS: PRAMIPEXOLE DI-HCL 0.5 MG TABLET PO SCH ×2 (09:23→17:12)
[2016-07-03] MEDS: CARVEDILOL 12.5 MG TABLET PO SCH ×2 (09:24→21:12)
[2016-07-03] MEDS: MAGNESIUM OXIDE 400 MG TABLET PO SCH (09:25)
[2016-07-03] MEDS: LINEZOLID 600 MG TABLET PO SCH ×2 (09:25→21:11)
[2016-07-03] MEDS: BUMETANIDE 1 MG TABLET PO SCH (09:25)
[2016-07-03] MEDS: MUPIROCIN 2% OINTMENT 22 GM TP SCH (09:26)
[2016-07-03] MEDS: NYSTATIN CREAM 15 GM TP SCH ×2 (09:26→17:11)
[2016-07-03] MEDS: INSULIN LISPRO 100 UNIT/ML 3 ML VIAL SUBCUT PRN ×3 (12:28→21:39)
--- NOTE | 2016-07-03 13:41 | PDOC PROGRESS REPORT ---
Subjective Progress Note for:: 07/03/16 Subjective:: No complaints Physical Exam Vital Signs: Temp Pulse Resp BP Pulse Ox 98.1 F 64 16 173/45 H 97 07/03/16 07:14 07/03/16 12:52 07/03/16 12:52 07/03/16 07:14 07/03/16 12:52 Intake & Output 07/02/16 07/03/16 07/04/16 06:59 06:59 06:59 Intake Total 1155 1212 Output Total 653 2000 Balance 502 -788 Weight 97.2 kg 93.1 kg Extremities exam: PRESENT: other - Foot wound clean open sinus tract overlying her 1st metatarsal amputation site. No drainage and no erythema. Results Laboratory Results: 07/03/16 05:18 07/03/16 05:18 07/02/16 07/03/16 07/03/16 08:00 05:18 05:18 WBC 8.6 RBC 3.10 L Hgb 9.0 L Hct 27.6 L MCV 89 MCH 29.2 MCHC 32.7 RDW 17.5 H Plt Count 178 Seg Neutrophils % 77.0 Lymphocytes % 16.1 Monocytes % 4.5 Eosinophils % 1.8 Basophils % 0.6 Absolute Neutrophils 6.7 Absolute Lymphocytes 1.4 Absolute Monocytes 0.4 Absolute Eosinophils 0.2 Absolute Basophils 0.1 Sodium 139.0 Potassium 3.7 Chloride 100 Carbon Dioxide 27 Anion Gap 12 BUN 30 H Creatinine 1.96 H Est GFR ( Amer) 30 L Est GFR (Non-Af Amer) 25 L Glucose 197 H Calcium 9.0 Blood Type A POSITIVE Antibody Screen NEGATIVE 06/27/16 19:00 Blood Blood Culture - Final NO GROWTH IN 5 DAYS 06/27/16 18:40 Blood Blood Culture - Final NO GROWTH IN 5 DAYS Impressions: Foot X-Ray 06/24/16 00:00 IMPRESSION: No cortical erosions or lytic areas are identified to confirm bony involvement by osteomyelitis. Extensive amputations which appears stable. Other findings as noted above Chest X-Ray 06/30/16 00:00 IMPRESSION: Stable chest with appropriate right IJ lines. 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 Pending amputation by Dr. Mclaughlin on Thursday.
--- NOTE | 2016-07-03 17:20 | PDOC PROGRESS REPORT ---
Subjective Progress Note for:: 07/03/16 Subjective:: Patient has no new complaints. No issues been reported. Patient denies fever, chills, headache, new focal weakness, chest pain, shortness of breath, abdominal pain, nausea, vomiting, diarrhea, constipation. Physical Exam Vital Signs: Temp Pulse Resp BP Pulse Ox 97.7 F 60 18 134/34 H 92 07/03/16 15:06 07/03/16 15:06 07/03/16 15:06 07/03/16 15:06 07/03/16 15:06 Intake & Output 07/02/16 07/03/16 07/04/16 06:59 06:59 06:59 Intake Total 1155 1212 Output Total 653 2000 Balance 502 -788 Weight 97.2 kg 93.1 kg GENERAL: No acute distress HEENT: Conjunctiva clear, nonicteric, moist mucous membranes, no JVD, midline trachea RESPIRATORY: Clear to auscultation bilaterally, no wheezes, no rhonchi CARDIAC: Regular rate and rhythm, no murmurs/gallops/rubs ABDOMEN: Soft, nondistended, nontender, positive bowel sounds, no rebound, no guarding EXTREMETIES: No edema, cyanosis, clubbing. Remote amputation 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 NEUROLOGIC: Alert, oriented to person/place/time, CN's grossly intact, no focal deficits SKIN: 2 small wounds to distal right foot. PSYCH: Normal mood, normal affect Results Laboratory Results: 07/03/16 05:18 07/03/16 05:18 07/03/16 07/03/16 05:18 05:18 WBC 8.6 RBC 3.10 L Hgb 9.0 L Hct 27.6 L MCV 89 MCH 29.2 MCHC 32.7 RDW 17.5 H Plt Count 178 Seg Neutrophils % 77.0 Lymphocytes % 16.1 Monocytes % 4.5 Eosinophils % 1.8 Basophils % 0.6 Absolute Neutrophils 6.7 Absolute Lymphocytes 1.4 Absolute Monocytes 0.4 Absolute Eosinophils 0.2 Absolute Basophils 0.1 Sodium 139.0 Potassium 3.7 Chloride 100 Carbon Dioxide 27 Anion Gap 12 BUN 30 H Creatinine 1.96 H Est GFR ( Amer) 30 L Est GFR (Non-Af Amer) 25 L Glucose 197 H Calcium 9.0 06/27/16 19:00 Blood Blood Culture - Final NO GROWTH IN 5 DAYS 06/27/16 18:40 Blood Blood Culture - Final NO GROWTH IN 5 DAYS Impressions: Foot X-Ray 06/24/16 00:00 IMPRESSION: No cortical erosions or lytic areas are identified to confirm bony involvement by osteomyelitis. Extensive amputations which appears stable. Other findings as noted above Chest X-Ray 06/30/16 00:00 IMPRESSION: Stable chest with appropriate right IJ lines. Assessment & Plan - Diagnosis (1) Sepsis Qualifiers: Sepsis type: sepsis due to unspecified organism Qualified Code(s): A41.9 - Sepsis, unspecified organism Is this a current diagnosis for this admission?: YesPlan: Secondary to underlying foot wound. On Zyvox until 07/08/16. (2) Acute on chronic respiratory failure with hypoxia and hypercapnia Is this a current diagnosis for this admission?: YesPlan: Continue oxygen supplementation. (3) COPD (chronic obstructive pulmonary disease) Qualifiers: COPD type: unspecified COPD Qualified Code(s): J44.9 - Chronic obstructive pulmonary disease, unspecified Is this a current diagnosis for this admission?: YesPlan: Stable. Continue when necessary albuterol. (4) Bradycardia Is this a current diagnosis for this admission?: YesPlan: Heart rate runs low but relatively stable. (5) Acute on chronic diastolic (congestive) heart failure Is this a current diagnosis for this admission?: YesPlan: Maintain volume status on hemodialysis. Most recent echo done on 06/26/2016 reveals an EF of 65%, LVH, and severe mitral annular calcification, and moderate pulmonary hypertension. Continue Bumex, Coreg, aspirin, no Ravinder or ARB secondary to CKD stage IV/V. (6) Cervical cancer, FIGO stage MIRIAM Is this a current diagnosis for this admission?: YesPlan: Followed by Dr. Ureña of hematology oncology as an outpatient. She currently is not having treatment secondary to renal failure and right foot wound/ infection. 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 (8) ESRD (end stage renal disease) Is this a current diagnosis for this admission?: YesPlan: Hemodialysis per nephrology. I will consult Dr. Burnette to place PermCath prior to discharge. (9) Diabetic infection of right foot Is this a current diagnosis for this admission?: YesPlan: Awaiting probable right [id number] amputation by Dr. Mclaughlin of surgery. (10) Do not intubate but use all other measures Is this a current diagnosis for this admission?: Yes - Time Time Spent with patient: 35 or more minutes Anticipated discharge: SNF
--- NOTE | 2016-07-03 19:55 | PDOC PROGRESS REPORT ---
Subjective Progress Note for:: 07/03/16 Subjective:: Patient seems to be doing better with gradual improvement. Pt is denying any chest arm or neck discomfort. Patient denying any PND, orthopnea. Patient denied any sustained palpitations, dizziness, syncope, near syncope. Patient denying any fever chills. Patient denying any other significant discomfort. Patient is maintaining sinus rhythm. Patient denied any leg discomfort on questioning today. Review of systems: Rest review of systems negative. Medications: Medications have been reviewed. Physical Exam Vital Signs: Temp Pulse Resp BP Pulse Ox 97.7 F 60 18 134/34 H 92 07/03/16 15:06 07/03/16 15:06 07/03/16 15:06 07/03/16 15:06 07/03/16 15:06 Intake & Output 07/02/16 07/03/16 07/04/16 06:59 06:59 06:59 Intake Total 1155 1212 710 Output Total 653 2000 Balance 502 -788 710 Weight 97.2 kg 93.1 kg Exam: GENERAL: well-nourished and in no acute distress. Alert and oriented x3 HEAD: Atraumatic, normocephalic. EYES: Pupils equal round and reactive to light, extraocular movements intact, sclera anicteric, conjunctiva are normal. ENT: TMs normal, nares patent, oropharynx clear without exudates. Moist mucous membranes. No oral ulcerations or bleeding gums noted NECK: supple without lymphadenopathy. Trachea is central. No cervical or axillary lymphadenopathy noted. Carotids are 2+, JVD WNL LUNGS: Respiration seems nonlabored, no significant accessory muscle action noted. Breath sounds clear to auscultation bilaterally and equal. No wheezes rales or rhonchi. No significant dullness noted on percussion. CHEST: Palpation of the chest wall shows no significant chest wall tenderness or abnormalities. 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 ABDOMEN: Soft, no significant tenderness appreciated, normoactive bowel sounds. No guarding, no rebound. No rigidity noted . No masses appreciated. EXTREMITIES: Pedal pulses are 1-2+, no calf tenderness noted. No clubbing or cyanosis.trace to 1+ pedal edema noted. Left midtarsal amputation noted. Patient has amputation of right sided toes as well. Ulcerations noted right foot. NEUROLOGICAL: Focused neurological exam showed no significant neurologic deficit. Normal speech, no focal weakness appreciated. PSYCH: Normal mood, normal affect. Judgment and insight within normal limits. SKIN: No significant ecchymosis, rash, patient has diabetic ulcer right foot. MUSCULOSKELETAL EXAM: No significant joint swelling noted. Results Laboratory Results: 07/03/16 05:18 07/03/16 05:18 07/03/16 07/03/16 05:18 05:18 WBC 8.6 RBC 3.10 L Hgb 9.0 L Hct 27.6 L MCV 89 MCH 29.2 MCHC 32.7 RDW 17.5 H Plt Count 178 Seg Neutrophils % 77.0 Lymphocytes % 16.1 Monocytes % 4.5 Eosinophils % 1.8 Basophils % 0.6 Absolute Neutrophils 6.7 Absolute Lymphocytes 1.4 Absolute Monocytes 0.4 Absolute Eosinophils 0.2 Absolute Basophils 0.1 Sodium 139.0 Potassium 3.7 Chloride 100 Carbon Dioxide 27 Anion Gap 12 BUN 30 H Creatinine 1.96 H Est GFR ( Amer) 30 L Est GFR (Non-Af Amer) 25 L Glucose 197 H Calcium 9.0 06/27/16 19:00 Blood Blood Culture - Final NO GROWTH IN 5 DAYS 06/27/16 18:40 Blood Blood Culture - Final NO GROWTH IN 5 DAYS Impressions: Foot X-Ray 06/24/16 00:00 IMPRESSION: No cortical erosions or lytic areas are identified to confirm bony involvement by osteomyelitis. Extensive amputations which appears stable. Other findings as noted above Chest X-Ray 06/30/16 00:00 IMPRESSION: Stable chest with appropriate right IJ lines. Assessment & Plan - Diagnosis (1) Acute on chronic renal failure Is this a current diagnosis for this admission?: Yes (2) Acute on chronic respiratory failure with hypoxia and hypercapnia Is this a current diagnosis for this admission?: Yes (3) COPD (chronic obstructive pulmonary disease) Qualifiers: COPD type: unspecified COPD Qualified Code(s): J44.9 - Chronic obstructive pulmonary disease, unspecified Is this a current diagnosis for this admission?: Yes (4) Diabetic infection of right foot Is this a current diagnosis for this admission?: Yes (5) Acute on chronic diastolic (congestive) heart failure Is this a current diagnosis for this admission?: Yes (6) ORIANA (obstructive sleep apnea) Is this a current diagnosis for this admission?: Yes (7) Dyslipidemia Is this a current diagnosis for this admission?: Yes (8) Hypertension Qualifiers: Hypertension type: essential hypertension Qualified Code(s): I10 - Essential (primary) hypertension Is this a current diagnosis for this admission?: Yes - Notes Notes: Patient is showing stable course. Her respirations are stable. COPD seems to be improving. Diabetic foot ulcer being managed by surgeons. She is scheduled for amputation sometimes next week. Patient received one unit of blood transfusion yesterday. Her hemoglobin today is 9 g percent Congestive heart failure, acute on chronic diastolic, this is improved. Patient currently compensated. Sleep apnea syndrome: currently is stable. Patient encouraged nightly CPAP use. Dyslipidemia: Stable.Patient noted to have dyslipidemia. LDL goal is less than 70. Recommend statin therapy at least intermediate or high dose, of high potency status. Periodic lipid panel and liver panel is indicated. Patient to report any significant muscle discomfort or other side effects. Hypertension: Currently stable.Blood pressure goal in this patient is 135/85 or less. This was discussed with the patient. Currently blood pressure under reasonable control. Better medication for this patient are ROHIT inhibitor/ARB/ beta ronaldo etc. discussed side effects of uncontrolled hypertension and also severe hypotension. Diabetic foot ulcer: Patient being followed by surgeons. - Time Time with patient: 15-25 minutes - CODE STATUS : was discussed, patient remains DO NOT RESUSCITATE. Surrogate decision-maker unchanged. Multiple medical problems were addressed. Management plans discussed with involved personnels. Medical decision making was of moderate complexity.
[2016-07-03] MEDS: SERTRALINE HCL 50 MG TABLET PO SCH (21:12)
[2016-07-04] MEDS: CLONIDINE HCL 0.1 MG TABLET PO SCH ×3 (05:25→21:23)
[2016-07-04 06:41] LABS: ABSOLUTE BASOPHILS # (AUTO) 0.1 10^3/uL (0.0-0.2); ABSOLUTE EOSINOPHILS # (AUTO) 0.2 10^3/uL (0.0-0.6); ABSOLUTE LYMPHOCYTES (AUTO) 1.6 10^3/uL (0.5-4.7); ABSOLUTE MONOCYTES (AUTO) 0.4 10^3/uL (0.1-1.4); ABSOLUTE NEUT (AUTO) 5.7 10^3/uL (1.7-8.2); BASOPHILS % (AUTO) 0.7 % (0-2); EOSINOPHILS % (AUTO) 2.2 % (0-6); HEMATOCRIT 27.1 % (36.0-47.0); HEMOGLOBIN 8.7 g/dL (12.0-15.5); MEAN CORPUSCULAR HEMOGLOBIN 28.7 pg (27.0-33.4); MEAN CORPUSCULAR HGB CONC 32.1 g/dL (32.0-36.0); MEAN CORPUSCULAR VOLUME 89 fl (80-97); MONOCYTES % (AUTO) 4.8 % (3-13); RED BLOOD COUNT 3.03 10^6/uL (3.72-5.28); RED CELL DISTRIBUTION WIDTH 17.4 % (11.5-14.0); SEGMENTED NEUTROPHILS % (AUTO) 72.3 % (42-78); WHITE BLOOD COUNT 7.9 10^3/uL (4.0-10.5)
[2016-07-04 07:01] LABS: ANION GAP 14 (5-19); BLOOD UREA NITROGEN 43 mg/dL (7-20); CARBON DIOXIDE 27 mmol/L (22-30); CHLORIDE 98 mmol/L (98-107); CREATININE RESULT 2.57 mg/dL (0.52-1.25); GLUCOSE 259 mg/dL (75-110); POTASSIUM 4.2 mmol/L (3.6-5.0); SODIUM 138.8 mmol/L (137-145)
[2016-07-04] MEDS ORDERED: DEXTROSE 40% GEL 15 GM TUBE PO PRN (07:41)
[2016-07-04] MEDS: ASPIRIN 81 MG TABLET, ENT COATED PO SCH (08:54)
[2016-07-04] MEDS: CALCIUM ACETATE 667 MG CAPSULE PO SCH ×3 (08:55→16:37)
[2016-07-04] MEDS: ATORVASTATIN CALCIUM 10 MG TABLET PO SCH (08:55)
--- NOTE | 2016-07-04 10:49 | PDOC PROGRESS REPORT ---
Subjective Progress Note for:: 07/04/16 Subjective:: Patient seems to be doing better with gradual improvement. Pt is denying any chest arm or neck discomfort. Patient denying any PND, orthopnea. Patient denied any sustained palpitations, dizziness, syncope, near syncope. Patient denying any fever chills. Patient denying any other significant discomfort. Patient is maintaining sinus rhythm. Patient denied any leg discomfort on questioning today. Patient noted to be intermittently bradycardic. Review of systems: Rest review of systems negative. Medications: Medications have been reviewed. Physical Exam Vital Signs: Temp Pulse Resp BP Pulse Ox 98.5 F 56 L 20 148/42 H 93 07/04/16 07:18 07/04/16 07:18 07/04/16 07:18 07/04/16 07:18 07/04/16 07:18 Intake & Output 07/03/16 07/04/16 07/05/16 06:59 06:59 06:59 Intake Total 1212 712 Output Total 2000 Balance -788 712 Weight 93.1 kg 93.2 kg Exam: GENERAL: well-nourished and in no acute distress. Alert and oriented x3 HEAD: Atraumatic, normocephalic. EYES: Pupils equal round and reactive to light, extraocular movements intact, sclera anicteric, conjunctiva are normal. ENT: TMs normal, nares patent, oropharynx clear without exudates. Moist mucous membranes. No oral ulcerations or bleeding gums noted NECK: supple without lymphadenopathy. Trachea is central. No cervical or axillary lymphadenopathy noted. Carotids are 2+, JVD WNL LUNGS: Respiration seems nonlabored, no significant accessory muscle action noted. Breath sounds clear to auscultation bilaterally and equal. No wheezes rales or rhonchi. No significant dullness noted on percussion. CHEST: Palpation of the chest wall shows no significant chest wall tenderness or abnormalities. 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 ABDOMEN: Soft, no significant tenderness appreciated, normoactive bowel sounds. No guarding, no rebound. No rigidity noted . No masses appreciated. EXTREMITIES: Pedal pulses are 1-2+, no calf tenderness noted. No clubbing or cyanosis.trace to 1+ pedal edema noted. Left midtarsal amputation noted. Patient has amputation of right sided toes as well. Ulcerations noted right foot. NEUROLOGICAL: Focused neurological exam showed no significant neurologic deficit. Normal speech, no focal weakness appreciated. PSYCH: Normal mood, normal affect. Judgment and insight within normal limits. SKIN: No significant ecchymosis, rash, patient has diabetic ulcer right foot. MUSCULOSKELETAL EXAM: No significant joint swelling noted. Results Laboratory Results: 07/04/16 05:41 07/04/16 05:41 07/04/16 07/04/16 05:41 05:41 WBC 7.9 RBC 3.03 L Hgb 8.7 L Hct 27.1 L MCV 89 MCH 28.7 MCHC 32.1 RDW 17.4 H Plt Count 148 L Seg Neutrophils % 72.3 Lymphocytes % 20.0 Monocytes % 4.8 Eosinophils % 2.2 Basophils % 0.7 Absolute Neutrophils 5.7 Absolute Lymphocytes 1.6 Absolute Monocytes 0.4 Absolute Eosinophils 0.2 Absolute Basophils 0.1 Sodium 138.8 Potassium 4.2 Chloride 98 Carbon Dioxide 27 Anion Gap 14 BUN 43 H Creatinine 2.57 H Est GFR ( Amer) 22 L Est GFR (Non-Af Amer) 18 L Glucose 259 H Calcium 9.0 Impressions: Foot X-Ray 06/24/16 00:00 IMPRESSION: No cortical erosions or lytic areas are identified to confirm bony involvement by osteomyelitis. Extensive amputations which appears stable. Other findings as noted above Chest X-Ray 06/30/16 00:00 IMPRESSION: Stable chest with appropriate right IJ lines. Assessment & Plan - Diagnosis (1) Acute on chronic renal failure Is this a current diagnosis for this admission?: Yes (2) Acute on chronic respiratory failure with hypoxia and hypercapnia Is this a current diagnosis for this admission?: Yes (3) COPD (chronic obstructive pulmonary disease) Qualifiers: COPD type: unspecified COPD Qualified Code(s): J44.9 - Chronic obstructive pulmonary disease, unspecified Is this a current diagnosis for this admission?: Yes (4) Diabetic infection of right foot Is this a current diagnosis for this admission?: Yes (5) Acute on chronic diastolic (congestive) heart failure Is this a current diagnosis for this admission?: Yes (6) ORIANA (obstructive sleep apnea) Is this a current diagnosis for this admission?: Yes (7) Dyslipidemia Is this a current diagnosis for this admission?: Yes (8) Hypertension Qualifiers: Hypertension type: essential hypertension Qualified Code(s): I10 - Essential (primary) hypertension Is this a current diagnosis for this admission?: Yes (9) Bradycardia Is this a current diagnosis for this admission?: Yes (10) Anemia Qualifiers: Anemia type: unspecified type Qualified Code(s): D64.9 - Anemia, unspecified Is this a current diagnosis for this admission?: YesPlan: Possibly related to advanced renal disease. Patient did receive one unit of blood transfusion during this admission. Recommend maintaining hemoglobin above 8 g percent. May consider erythropoietin therapy. - Notes Notes: Patient is showing stable course. Her respirations are stable. COPD seems to be improving. Diabetic foot ulcer being managed by surgeons. She is scheduled for amputation sometimes next week.. Congestive heart failure, acute on chronic diastolic, this is improved. Patient currently compensated. Sleep apnea syndrome: currently is stable. Patient encouraged nightly CPAP use. Patient informed that she should get her CPAP machine from home and use it at night. Dyslipidemia: Stable.Patient noted to have dyslipidemia. LDL goal is less than 70. Recommend statin therapy at least intermediate or high dose, of high potency status. Periodic lipid panel and liver panel is indicated. Patient to report any significant muscle discomfort or other side effects. Hypertension: Currently stable.Blood pressure goal in this patient is 135/85 or less. This was discussed with the patient. Currently blood pressure under reasonable control. Better medication for this patient are ROHIT inhibitor/ARB/ beta ronaldo etc. discussed side effects of uncontrolled hypertension and also severe hypotension. Bradycardia: Patient noted to have mild bradycardia but basically asymptomatic. May consider reducing carvedilol dose if patient becomes symptomatic or bradycardia worsens. Diabetic foot ulcer: Patient being followed by surgeons. - Time Time with patient: 15-25 minutes - CODE STATUS : was discussed, patient remains DO NOT RESUSCITATE. Surrogate decision-maker unchanged. Multiple medical problems were addressed.More than 50% of the time spent coordinating care, discussing management plans with involved caregivers. Management plans discussed with involved personnels. Medical decision making was of moderate complexity.
[2016-07-04] MEDS: INSULIN GLARGINE,HUM.REC.ANLOG 300 UNIT/3 ML INSULN.PEN SUBCUT SCH (11:08)
[2016-07-04] MEDS: LANSOPRAZOLE 30 MG TAB.RAP.DR PO SCH (11:12)
[2016-07-04] MEDS: MAGNESIUM OXIDE 400 MG TABLET PO SCH (11:13)
[2016-07-04] MEDS: PRAMIPEXOLE DI-HCL 0.5 MG TABLET PO SCH ×2 (11:13→16:38)
[2016-07-04] MEDS: MUPIROCIN 2% OINTMENT 22 GM TP SCH (11:14)
[2016-07-04] MEDS: NYSTATIN CREAM 15 GM TP SCH ×2 (11:14→16:40)
--- NOTE | 2016-07-04 11:32 | PDOC PROGRESS REPORT ---
Subjective Progress Note for:: 07/04/16 Subjective:: No complaints with neck or with foot. Denies fevers, chills, nausea, vomiting. Tolerating diet. Physical Exam Vital Signs: Temp Pulse Resp BP Pulse Ox 98.5 F 56 L 20 148/42 H 93 07/04/16 07:18 07/04/16 07:18 07/04/16 07:18 07/04/16 07:18 07/04/16 07:18 Intake & Output 07/03/16 07/04/16 07/05/16 06:59 06:59 06:59 Intake Total 1212 712 Output Total 1999 Balance -788 712 Weight 93.1 kg 93.2 kg General appearance: PRESENT: no acute distress Head exam: PRESENT: normocephalic Eye exam: PRESENT: EOMI, other - Classis Mouth exam: PRESENT: tongue midline Neck exam: PRESENT: other - Right neck site healing nicely. Dressing changed. Respiratory exam: PRESENT: unlabored Extremities exam: PRESENT: other - Clean dressing on right foot. Neurological exam: PRESENT: alert, oriented to situation Psychiatric exam: PRESENT: normal mood Results Laboratory Results: 07/04/16 05:41 07/04/16 05:41 07/04/16 07/04/16 05:41 05:41 WBC 7.9 RBC 3.03 L Hgb 8.7 L Hct 27.1 L MCV 89 MCH 28.7 MCHC 32.1 RDW 17.4 H Plt Count 148 L Seg Neutrophils % 72.3 Lymphocytes % 20.0 Monocytes % 4.8 Eosinophils % 2.2 Basophils % 0.7 Absolute Neutrophils 5.7 Absolute Lymphocytes 1.6 Absolute Monocytes 0.4 Absolute Eosinophils 0.2 Absolute Basophils 0.1 Sodium 138.8 Potassium 4.2 Chloride 98 Carbon Dioxide 27 Anion Gap 14 BUN 43 H Creatinine 2.57 H Est GFR ( Amer) 22 L Est GFR (Non-Af Amer) 18 L Glucose 259 H Calcium 9.0 Impressions: Foot X-Ray 06/24/16 00:00 IMPRESSION: No cortical erosions or lytic areas are identified to confirm bony involvement by osteomyelitis. Extensive amputations which appears stable. Other findings as noted above Chest X-Ray 06/30/16 00:00 IMPRESSION: Stable chest with appropriate right IJ lines. Assessment & Plan - Diagnosis (1) Diabetic infection of right foot Is this a current diagnosis for this admission?: YesPlan: Should be nothing by mouth at midnight on Thursday evening for potential surgery on Thursday morning. (2) Acute on chronic renal failure Is this a current diagnosis for this admission?: Yes
[2016-07-04] MEDS: CARVEDILOL 12.5 MG TABLET PO SCH ×2 (11:52→21:22)
[2016-07-04] MEDS ORDERED: HEPARIN SOD (PORCINE) 1,000 UNIT/ML 10 ML VIAL IV PRN ×3 (12:32→15:14)
--- NOTE | 2016-07-04 15:23 | PDOC PROGRESS REPORT ---
Subjective Progress Note for:: 07/04/16 Subjective:: Patient has no new complaints. No issues been reported. Patient denies fever, chills, headache, new focal weakness, chest pain, shortness of breath, abdominal pain, nausea, vomiting, diarrhea, constipation. Physical Exam Vital Signs: Temp Pulse Resp BP Pulse Ox 98.5 F 60 20 148/42 H 93 07/04/16 07:18 07/04/16 14:00 07/04/16 07:18 07/04/16 07:18 07/04/16 07:18 Intake & Output 07/03/16 07/04/16 07/05/16 06:59 06:59 06:59 Intake Total 1212 712 356 Output Total 2000 0 Balance -788 712 356 Weight 93.1 kg 93.2 kg GENERAL: No acute distress HEENT: Conjunctiva clear, nonicteric, moist mucous membranes, no JVD, midline trachea RESPIRATORY: Clear to auscultation bilaterally, no wheezes, no rhonchi CARDIAC: Regular rate and rhythm, no murmurs/gallops/rubs ABDOMEN: Soft, nondistended, nontender, positive bowel sounds, no rebound, no guarding EXTREMETIES: No edema, cyanosis, clubbing. Remote amputation 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 NEUROLOGIC: Alert, oriented to person/place/time, CN's grossly intact, no focal deficits SKIN: 2 small wounds to distal right foot. PSYCH: Normal mood, normal affect Results Laboratory Results: 07/04/16 05:41 07/04/16 05:41 07/04/16 07/04/16 05:41 05:41 WBC 7.9 RBC 3.03 L Hgb 8.7 L Hct 27.1 L MCV 89 MCH 28.7 MCHC 32.1 RDW 17.4 H Plt Count 148 L Seg Neutrophils % 72.3 Lymphocytes % 20.0 Monocytes % 4.8 Eosinophils % 2.2 Basophils % 0.7 Absolute Neutrophils 5.7 Absolute Lymphocytes 1.6 Absolute Monocytes 0.4 Absolute Eosinophils 0.2 Absolute Basophils 0.1 Sodium 138.8 Potassium 4.2 Chloride 98 Carbon Dioxide 27 Anion Gap 14 BUN 43 H Creatinine 2.57 H Est GFR ( Amer) 22 L Est GFR (Non-Af Amer) 18 L Glucose 259 H Calcium 9.0 Impressions: Foot X-Ray 06/24/16 00:00 IMPRESSION: No cortical erosions or lytic areas are identified to confirm bony involvement by osteomyelitis. Extensive amputations which appears stable. Other findings as noted above Chest X-Ray 06/30/16 00:00 IMPRESSION: Stable chest with appropriate right IJ lines. Assessment & Plan - Diagnosis (1) Sepsis Qualifiers: Sepsis type: sepsis due to unspecified organism Qualified Code(s): A41.9 - Sepsis, unspecified organism Is this a current diagnosis for this admission?: YesPlan: Secondary to underlying foot wound. On Zyvox until 07/08/16. (2) Acute on chronic respiratory failure with hypoxia and hypercapnia Is this a current diagnosis for this admission?: YesPlan: Continue oxygen supplementation. (3) COPD (chronic obstructive pulmonary disease) Qualifiers: COPD type: unspecified COPD Qualified Code(s): J44.9 - Chronic obstructive pulmonary disease, unspecified Is this a current diagnosis for this admission?: YesPlan: Stable. Continue when necessary albuterol. (4) Bradycardia Is this a current diagnosis for this admission?: YesPlan: Heart rate runs low but relatively stable. (5) Acute on chronic diastolic (congestive) heart failure Is this a current diagnosis for this admission?: YesPlan: Maintain volume status on hemodialysis. Most recent echo done on 06/26/2016 reveals an EF of 65%, LVH, and severe mitral annular calcification, and moderate pulmonary hypertension. Continue Bumex, Coreg, aspirin, no Ravinder or ARB secondary to CKD stage IV/V. (6) Cervical cancer, FIGO stage MIRIAM Is this a current diagnosis for this admission?: YesPlan: Followed by Dr. Ureña of hematology oncology as an outpatient. She currently is not having treatment secondary to renal failure and right foot wound/ infection. 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 Sliding scale insulin coverage. (8) ESRD (end stage renal disease) Is this a current diagnosis for this admission?: YesPlan: Hemodialysis per nephrology. Consult placed to Dr. Burnette to place PermCath prior to discharge. (9) Diabetic infection of right foot Is this a current diagnosis for this admission?: YesPlan: Awaiting probable right [id number] amputation by Dr. Mclaughlin of surgery. (10) Do not intubate but use all other measures Is this a current diagnosis for this admission?: Yes - Time Time Spent with patient: 25-34 minutes
[2016-07-04] MEDS: EPOETIN ALFA INJ 20000 UNIT/1 ML VIAL (RENAL) IV PRN ×2 (15:49→16:40)
[2016-07-04] MEDS: LINEZOLID 600 MG TABLET PO SCH ×2 (16:40→21:23)
[2016-07-04] MEDS: AMLODIPINE BESYLATE 10 MG TABLET PO SCH (16:40)
[2016-07-04] MEDS: BUMETANIDE 1 MG TABLET PO SCH (16:40)
[2016-07-04] MEDS: FENOFIBRATE NANOCRYSTALLIZED 145 MG TABLET PO SCH (16:40)
--- NOTE | 2016-07-04 17:00 | PDOC PROGRESS REPORT ---
Subjective Progress Note for:: 07/04/16 Subjective:: Patient was seen on hemodialysis today. She feels more awake and stronger since started on dialysis. Orders discussed with RN. Plan to remove 1- 1.5 L as tolerated.No issues on hemodialysis. Vital signs are stable. She is feeling better. She denies any history of chest pain shortness of breath. She is awaiting surgery on of leg next week. No complaints of any fever chills. Physical Exam Vital Signs: Temp Pulse Resp BP Pulse Ox 98.5 F 60 20 148/42 H 93 07/04/16 07:18 07/04/16 14:00 07/04/16 07:18 07/04/16 07:18 07/04/16 07:18 Intake & Output 07/03/16 07/04/16 07/05/16 06:59 06:59 06:59 Intake Total 1212 712 356 Output Total 2000 0 Balance -788 712 356 Weight 93.1 kg 93.2 kg General appearance: PRESENT: no acute distress Respiratory exam: PRESENT: clear to auscultation siobhan. ABSENT: crackles, rhonchi Cardiovascular exam: PRESENT: +S1, +S2, systolic murmur GI/Abdominal exam: PRESENT: distended, soft. ABSENT: diminished bowel sounds, firm, guarding, organomegaly, tenderness Extremities exam: PRESENT: pedal edema - trace+ Neurological exam: PRESENT: alert, awake, oriented to person, oriented to place , oriented to time Results Laboratory Results: 07/04/16 05:41 07/04/16 05:41 07/04/16 07/04/16 05:41 05:41 WBC 7.9 RBC 3.03 L Hgb 8.7 L Hct 27.1 L MCV 89 MCH 28.7 MCHC 32.1 RDW 17.4 H Plt Count 148 L Seg Neutrophils % 72.3 Lymphocytes % 20.0 Monocytes % 4.8 Eosinophils % 2.2 Basophils % 0.7 Absolute Neutrophils 5.7 Absolute Lymphocytes 1.6 Absolute Monocytes 0.4 Absolute Eosinophils 0.2 Absolute Basophils 0.1 Sodium 138.8 Potassium 4.2 Chloride 98 Carbon Dioxide 27 Anion Gap 14 BUN 43 H Creatinine 2.57 H Est GFR ( Amer) 22 L Est GFR (Non-Af Amer) 18 L Glucose 259 H Calcium 9.0 Impressions: Foot X-Ray 06/24/16 00:00 IMPRESSION: No cortical erosions or lytic areas are identified to confirm bony involvement by osteomyelitis. Extensive amputations which appears stable. Other findings as noted above Chest X-Ray 06/30/16 00:00 IMPRESSION: Stable chest with appropriate right IJ lines. Assessment & Plan - Diagnosis (1) MRSA bacteremia Is this a current diagnosis for this admission?: YesPlan: On appropriate antibiotics. (2) Acute on chronic respiratory failure with hypoxia and hypercapnia Is this a current diagnosis for this admission?: YesPlan: Stable. Has responded to hemodialysis. (3) Diabetic infection of right foot Is this a current diagnosis for this admission?: YesPlan: For definitive treatment later this coming week. (4) Sepsis Qualifiers: Sepsis type: methicillin resistant Staphylococcus aureus Qualified Code(s): A41.02 - Sepsis due to Methicillin resistant Staphylococcus aureus Is this a current diagnosis for this admission?: YesPlan: From infected right foot. Currently on antibiotics. Stable. (5) Acute on chronic diastolic (congestive) heart failure Is this a current diagnosis for this admission?: YesPlan: Has done well to conservative management and hemodialysis/ultrafiltration. Is currently undergoing dialysis again and will try to remove another 1-2 L as tolerated. (6) Acute on chronic renal insufficiency Is this a current diagnosis for this admission?: YesPlan: CKD stage V now on dialysis. Feeling better since being on HD. She is undergoing dialysis without any issues through right Femoral Catheter. Dialysis orders were discussed with the treating nurse. Vital signs are stable. Will plan to remove approximately 1-2 L of fluid as tolerated. (7) Cervical cancer, FIGO stage MIRIAM Is this a current diagnosis for this admission?: Yes (8) Diabetic foot ulcer Qualifiers: Diabetes mellitus type: type 1 Laterality: right Qualified Code(s) : E10.621 - Type 1 diabetes mellitus with foot ulcer; L97.519 - Non-pressure chronic ulcer of other part of right foot with unspecified severity (9) Sepsis Qualifiers: Sepsis type: sepsis due to unspecified organism Qualified Code(s): A41.9 - Sepsis, unspecified organism Is this a current diagnosis for this admission?: Yes (10) ORIANA (obstructive sleep apnea) Is this a current diagnosis for this admission?: Yes (11) Anemia Qualifiers: Anemia type: other cause Other causes of anemia: other cause, not classified Qualified Code(s): D64.89 - Other specified anemias Is this a current diagnosis for this admission?: YesPlan: Adjust erythropoietin.
[2016-07-04] MEDS: SERTRALINE HCL 50 MG TABLET PO SCH (21:23)
[2016-07-04] MEDS: OXYCODONE-ACETAMINOPHEN 5-325 MG TABLET PO PRN (21:26)
[2016-07-04] MEDS: INSULIN LISPRO 100 UNIT/ML 3 ML VIAL SUBCUT PRN (21:51)
[2016-07-05 06:16] LABS: ABSOLUTE EOSINOPHILS # (AUTO) 0.2 10^3/uL (0.0-0.6); ABSOLUTE LYMPHOCYTES (AUTO) 1.5 10^3/uL (0.5-4.7); ABSOLUTE MONOCYTES (AUTO) 0.4 10^3/uL (0.1-1.4); ABSOLUTE NEUT (AUTO) 4.7 10^3/uL (1.7-8.2); BASOPHILS % (AUTO) 0.6 % (0-2); EOSINOPHILS % (AUTO) 2.3 % (0-6); HEMATOCRIT 26.4 % (36.0-47.0); HEMOGLOBIN 8.5 g/dL (12.0-15.5); HGB HCT DIFFERENCE -0.9; LYMPHOCYTES % (AUTO) 21.8 % (13-45); MEAN CORPUSCULAR HEMOGLOBIN 28.5 pg (27.0-33.4); MEAN CORPUSCULAR HGB CONC 32.1 g/dL (32.0-36.0); MEAN CORPUSCULAR VOLUME 89 fl (80-97); MONOCYTES % (AUTO) 6.1 % (3-13); RED BLOOD COUNT 2.97 10^6/uL (3.72-5.28); RED CELL DISTRIBUTION WIDTH 17.6 % (11.5-14.0); SEGMENTED NEUTROPHILS % (AUTO) 69.2 % (42-78); WHITE BLOOD COUNT 6.8 10^3/uL (4.0-10.5)
[2016-07-05 06:36] LABS: ANION GAP 11 (5-19); BLOOD UREA NITROGEN 29 mg/dL (7-20); CALCIUM 8.8 mg/dL (8.4-10.2); CARBON DIOXIDE 29 mmol/L (22-30); CHLORIDE 100 mmol/L (98-107); CREATININE RESULT 2.09 mg/dL (0.52-1.25); GLUCOSE 196 mg/dL (75-110); POTASSIUM 3.8 mmol/L (3.6-5.0); SODIUM 139.6 mmol/L (137-145)
[2016-07-05] MEDS: CLONIDINE HCL 0.1 MG TABLET PO SCH ×3 (07:19→22:24)
[2016-07-05] MEDS: MAGNESIUM OXIDE 400 MG TABLET PO SCH (09:26)
[2016-07-05] MEDS: CALCIUM ACETATE 667 MG CAPSULE PO SCH ×3 (09:26→17:27)
[2016-07-05] MEDS: LINEZOLID 600 MG TABLET PO SCH ×2 (09:26→22:23)
[2016-07-05] MEDS: ATORVASTATIN CALCIUM 10 MG TABLET PO SCH (09:26)
[2016-07-05] MEDS: CARVEDILOL 12.5 MG TABLET PO SCH ×2 (09:26→22:23)
[2016-07-05] MEDS: AMLODIPINE BESYLATE 10 MG TABLET PO SCH (09:27)
[2016-07-05] MEDS: BUMETANIDE 1 MG TABLET PO SCH (09:27)
[2016-07-05] MEDS: LANSOPRAZOLE 30 MG TAB.RAP.DR PO SCH (09:27)
[2016-07-05] MEDS: FENOFIBRATE NANOCRYSTALLIZED 145 MG TABLET PO SCH (09:27)
[2016-07-05] MEDS: ASPIRIN 81 MG TABLET, ENT COATED PO SCH (09:27)
[2016-07-05] MEDS: PRAMIPEXOLE DI-HCL 0.5 MG TABLET PO SCH ×2 (09:28→17:27)
[2016-07-05] MEDS: MUPIROCIN 2% OINTMENT 22 GM TP SCH (09:29)
[2016-07-05] MEDS: INSULIN GLARGINE,HUM.REC.ANLOG 300 UNIT/3 ML INSULN.PEN SUBCUT SCH (09:30)
[2016-07-05] MEDS ORDERED: ONDANSETRON HCL INJ/PF 4 MG/2 ML SDV ONE (09:42)
[2016-07-05] MEDS: NYSTATIN CREAM 15 GM TP SCH ×2 (10:00→17:28)
--- NOTE | 2016-07-05 10:03 | PROGRESS NOTE E ---
Progress Note NAME: VIVIAN WATKINS : 1945 AGE: 70Y DATE: 07/05/2016 ROOM: 325 SUBJECTIVE: The patient is a 70-year-old female who has a past medical history of diabetes, hypertension, and she is now end-stage renal disease and started on hemodialysis. She has a diabetic infection of the right foot and awaiting for possible right [id number] amputation. OBJECTIVE: GENERAL: The patient is lying in bed, not in distress, well nourished. VITALS SIGNS: Temperature 98.5, heart rate 65, respiratory rate 16, blood pressure 179/62, saturation 96% on room air. HEENT: Head, normocephalic, atraumatic. Eyes: Pupils round and reactive to light and accommodation bilaterally. Ears: Tympanic membranes intact bilaterally. No discharge from the ears. NECK: Supple. No thyromegaly. No lymphadenopathy. CARDIOVASCULAR: Normal S1, S2. Regular rate and rhythm. No murmur. No gallop. CHEST: Normal inspection. No deformity. LUNGS: Clear to auscultation bilaterally. ABDOMEN: Soft. No organomegaly. Bowel sounds are active. MUSCULOSKELETAL: No edema. Wound in the right leg. NEUROLOGIC: Grossly intact. Awake, alert, and oriented. PSYCHIATRIC: Normal affect. LABORATORY: White blood count 6.8, hemoglobin 8.5, hematocrit 26. Creatinine is 2.0, sodium 139, potassium 3.8. ASSESSMENT: 1. END-STAGE RENAL DISEASE, NOW ON HEMODIALYSIS. 2. SEPSIS SECONDARY TO OSTEOMYELITIS. 3. OSTEOMYELITIS OF THE RIGHT FOOT. 4. [id number] RESPIRATORY FAILURE WITH HYPOXEMIA AND HYPERCAPNIA. 5. COPD. 6. CERVICAL CANCER STAGE IV. 7. DIABETES MELLITUS TYPE 1 WITH ATHEROSCLEROSIS OF THE ARTERIES OF LOWER EXTREMITIES. 8. SEVERE PERIPHERAL VASCULAR DISEASE WITH OSTEOMYELITIS OF THE RIGHT FOOT. 9. DNR. PLAN: The patient is scheduled for hemodialysis next Thursday. Dr. Dick Craig on the case. Continue antibiotics. She is on Zyvox. She may need [id number] amputation on the right if there is no improvement of the wound on the right foot. Dr. Mclaughlin on the case. Lab tomorrow morning. DICTATING PHYSICIAN: CAITY ROMERO M.D. [id number] PHY#: [id number] ID: [id number] JOB#: [id number] ACCT: [id number] cc: >
[2016-07-05] MEDS ORDERED: ONDANSETRON HCL INJ/PF 4 MG/2 ML SDV IV PRN (12:06)
[2016-07-05] MEDS: INSULIN LISPRO 100 UNIT/ML 3 ML VIAL SUBCUT PRN ×3 (13:00→22:24)
--- NOTE | 2016-07-05 19:04 | PDOC PROGRESS REPORT ---
Subjective Progress Note for:: 07/05/16 Physical Exam Vital Signs: Temp Pulse Resp BP Pulse Ox 98.5 F 66 16 179/62 H 96 07/05/16 08:09 07/05/16 08:09 07/05/16 08:09 07/05/16 08:09 07/05/16 08:09 Intake & Output 07/04/16 07/05/16 07/06/16 06:59 06:59 06:59 Intake Total 712 753 Output Total 1600 Balance 712 -847 Weight 93.2 kg 91.7 kg Extremities exam: PRESENT: calf tenderness, other - Right foot , ulcer no drainage Results Laboratory Results: 07/05/16 05:42 07/05/16 05:42 07/05/16 07/05/16 05:42 05:42 WBC 6.8 RBC 2.97 L Hgb 8.5 L Hct 26.4 L MCV 89 MCH 28.5 MCHC 32.1 RDW 17.6 H Plt Count 126 L Seg Neutrophils % 69.2 Lymphocytes % 21.8 Monocytes % 6.1 Eosinophils % 2.3 Basophils % 0.6 Absolute Neutrophils 4.7 Absolute Lymphocytes 1.5 Absolute Monocytes 0.4 Absolute Eosinophils 0.2 Absolute Basophils 0.0 Sodium 139.6 Potassium 3.8 Chloride 100 Carbon Dioxide 29 Anion Gap 11 BUN 29 H Creatinine 2.09 H Est GFR ( Amer) 28 L Est GFR (Non-Af Amer) 23 L Glucose 196 H Calcium 8.8 Impressions: Foot X-Ray 06/24/16 00:00 IMPRESSION: No cortical erosions or lytic areas are identified to confirm bony involvement by osteomyelitis. Extensive amputations which appears stable. Other findings as noted above Chest X-Ray 06/30/16 00:00 IMPRESSION: Stable chest with appropriate right IJ lines.
--- NOTE | 2016-07-05 19:23 | PDOC PROGRESS REPORT ---
Subjective Progress Note for:: 07/05/16 Subjective:: Patient seems to be doing better with gradual improvement. Pt is denying any chest arm or neck discomfort. Patient denying any PND, orthopnea. Patient denied any sustained palpitations, dizziness, syncope, near syncope. Patient denying any fever chills. Patient denying any other significant discomfort. Patient is maintaining sinus rhythm. Patient denied any leg discomfort on questioning today. Patient denying any leg discomfort. Review of systems: Rest review of systems negative. Medications: Medications have been reviewed. Physical Exam Vital Signs: Temp Pulse Resp BP Pulse Ox 98.3 F 70 16 133/47 H 92 07/05/16 11:47 07/05/16 11:47 07/05/16 11:47 07/05/16 11:47 07/05/16 11:47 Intake & Output 07/04/16 07/05/16 07/06/16 06:59 06:59 06:59 Intake Total 712 753 Output Total 1600 Balance 712 -847 Weight 93.2 kg 91.7 kg Exam: GENERAL: well-nourished and in no acute distress. Alert and oriented x3 HEAD: Atraumatic, normocephalic. EYES: Pupils equal round and reactive to light, extraocular movements intact, sclera anicteric, conjunctiva are normal. ENT: TMs normal, nares patent, oropharynx clear without exudates. Moist mucous membranes. No oral ulcerations or bleeding gums noted NECK: supple without lymphadenopathy. Trachea is central. No cervical or axillary lymphadenopathy noted. Carotids are 2+, JVD WNL LUNGS: Respiration seems nonlabored, no significant accessory muscle action noted. Breath sounds clear to auscultation bilaterally and equal. No wheezes rales or rhonchi. No significant dullness noted on percussion. CHEST: Palpation of the chest wall shows no significant chest wall tenderness or abnormalities. 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 ABDOMEN: Soft, no significant tenderness appreciated, normoactive bowel sounds. No guarding, no rebound. No rigidity noted . No masses appreciated. EXTREMITIES: Pedal pulses are 1-2+, no calf tenderness noted. No clubbing or cyanosis.trace to 1+ pedal edema noted. Left midtarsal amputation noted. Patient has amputation of right sided toes as well. Ulcerations noted right foot. NEUROLOGICAL: Focused neurological exam showed no significant neurologic deficit. Normal speech, no focal weakness appreciated. PSYCH: Normal mood, normal affect. Judgment and insight within normal limits. SKIN: No significant ecchymosis, rash, patient has diabetic ulcer right foot. MUSCULOSKELETAL EXAM: No significant joint swelling noted. Results Laboratory Results: 07/05/16 05:42 07/05/16 05:42 07/05/16 07/05/16 05:42 05:42 WBC 6.8 RBC 2.97 L Hgb 8.5 L Hct 26.4 L MCV 89 MCH 28.5 MCHC 32.1 RDW 17.6 H Plt Count 126 L Seg Neutrophils % 69.2 Lymphocytes % 21.8 Monocytes % 6.1 Eosinophils % 2.3 Basophils % 0.6 Absolute Neutrophils 4.7 Absolute Lymphocytes 1.5 Absolute Monocytes 0.4 Absolute Eosinophils 0.2 Absolute Basophils 0.0 Sodium 139.6 Potassium 3.8 Chloride 100 Carbon Dioxide 29 Anion Gap 11 BUN 29 H Creatinine 2.09 H Est GFR ( Amer) 28 L Est GFR (Non-Af Amer) 23 L Glucose 196 H Calcium 8.8 Impressions: Foot X-Ray 06/24/16 00:00 IMPRESSION: No cortical erosions or lytic areas are identified to confirm bony involvement by osteomyelitis. Extensive amputations which appears stable. Other findings as noted above Chest X-Ray 06/30/16 00:00 IMPRESSION: Stable chest with appropriate right IJ lines. Assessment & Plan - Diagnosis (1) Acute on chronic renal failure Is this a current diagnosis for this admission?: Yes (2) Acute on chronic respiratory failure with hypoxia and hypercapnia Is this a current diagnosis for this admission?: Yes (3) COPD (chronic obstructive pulmonary disease) Qualifiers: COPD type: unspecified COPD Qualified Code(s): J44.9 - Chronic obstructive pulmonary disease, unspecified Is this a current diagnosis for this admission?: Yes (4) Diabetic infection of right foot Is this a current diagnosis for this admission?: Yes (5) Acute on chronic diastolic (congestive) heart failure Is this a current diagnosis for this admission?: Yes (6) ORIANA (obstructive sleep apnea) Is this a current diagnosis for this admission?: Yes (7) Dyslipidemia Is this a current diagnosis for this admission?: Yes (8) Hypertension Qualifiers: Hypertension type: essential hypertension Qualified Code(s): I10 - Essential (primary) hypertension Is this a current diagnosis for this admission?: Yes (9) Bradycardia Is this a current diagnosis for this admission?: Yes (10) Anemia Qualifiers: Anemia type: unspecified type Qualified Code(s): D64.9 - Anemia, unspecified Is this a current diagnosis for this admission?: Yes - Notes Notes: Patient remains generally is stable. She is being followed by surgeon, threshing department supervisor, hospitalist. Cardiac agudelo she has remained stable. Blood pressure seems reasonably well controlled. Heart rate is adequate. Patient seems compensated as regards CHF. COPD symptoms seems stable. Continue current medications. Multiple medical issues were reviewed. Anemia seems stable. Will continue to follow. - Time Time with patient: 15-25 minutes - More than 50% of the time spent coordinating care, discussing management plans with involved caregivers. Management plans discussed with involved personnels. Medical decision making was of moderate complexity.CODE STATUS : was discussed, patient remains DO NOT RESUSCITATE. Surrogate decision-maker unchanged. Multiple medical problems were addressed.
[2016-07-05] MEDS: SERTRALINE HCL 50 MG TABLET PO SCH (22:24)
[2016-07-06 04:59] LABS: ABSOLUTE BASOPHILS # (AUTO) 0.1 10^3/uL (0.0-0.2); ABSOLUTE EOSINOPHILS # (AUTO) 0.2 10^3/uL (0.0-0.6); ABSOLUTE LYMPHOCYTES (AUTO) 1.9 10^3/uL (0.5-4.7); ABSOLUTE MONOCYTES (AUTO) 0.5 10^3/uL (0.1-1.4); ABSOLUTE NEUT (AUTO) 5.1 10^3/uL (1.7-8.2); BASOPHILS % (AUTO) 0.7 % (0-2); EOSINOPHILS % (AUTO) 2.2 % (0-6); LYMPHOCYTES % (AUTO) 24.9 % (13-45); MEAN CORPUSCULAR HEMOGLOBIN 28.8 pg (27.0-33.4); MEAN CORPUSCULAR VOLUME 90 fl (80-97); MONOCYTES % (AUTO) 6.2 % (3-13); RED BLOOD COUNT 2.78 10^6/uL (3.72-5.28); RED CELL DISTRIBUTION WIDTH 17.4 % (11.5-14.0); WHITE BLOOD COUNT 7.7 10^3/uL (4.0-10.5)
[2016-07-06 05:19] LABS: ANION GAP 10 (5-19); BLOOD UREA NITROGEN 44 mg/dL (7-20); CARBON DIOXIDE 30 mmol/L (22-30); CHLORIDE 100 mmol/L (98-107); CREATININE RESULT 3.31 mg/dL (0.52-1.25); GLUCOSE 165 mg/dL (75-110); POTASSIUM 4.2 mmol/L (3.6-5.0); SODIUM 140.2 mmol/L (137-145)
[2016-07-06] MEDS: CLONIDINE HCL 0.1 MG TABLET PO SCH ×3 (05:37→22:01)
[2016-07-06] MEDS: INSULIN GLARGINE,HUM.REC.ANLOG 300 UNIT/3 ML INSULN.PEN SUBCUT SCH (11:00)
[2016-07-06] MEDS: LANSOPRAZOLE 30 MG TAB.RAP.DR PO SCH (11:06)
[2016-07-06] MEDS: AMLODIPINE BESYLATE 10 MG TABLET PO SCH (11:06)
[2016-07-06] MEDS: ATORVASTATIN CALCIUM 10 MG TABLET PO SCH (11:06)
[2016-07-06] MEDS: CALCIUM ACETATE 667 MG CAPSULE PO SCH ×3 (11:07→18:39)
[2016-07-06] MEDS: MAGNESIUM OXIDE 400 MG TABLET PO SCH (11:07)
[2016-07-06] MEDS: FENOFIBRATE NANOCRYSTALLIZED 145 MG TABLET PO SCH (11:07)
[2016-07-06] MEDS: BUMETANIDE 1 MG TABLET PO SCH (11:07)
[2016-07-06] MEDS: CARVEDILOL 12.5 MG TABLET PO SCH ×2 (11:07→22:00)
[2016-07-06] MEDS: ASPIRIN 81 MG TABLET, ENT COATED PO SCH (11:07)
[2016-07-06] MEDS: LINEZOLID 600 MG TABLET PO SCH ×2 (11:07→22:00)
[2016-07-06] MEDS: PRAMIPEXOLE DI-HCL 0.5 MG TABLET PO SCH ×2 (11:08→18:39)
[2016-07-06] MEDS: MUPIROCIN 2% OINTMENT 22 GM TP SCH (11:08)
--- NOTE | 2016-07-06 11:18 | PROGRESS NOTE E ---
Progress Note NAME: VIVIAN WATKINS : 1945 AGE: 70Y DATE: 07/06/2016 ROOM: 325 SUBJECTIVE: The patient is a 70-year-old female who has a past medical history of diabetes, hypertension. She is now dialysis dependent. She has chronic kidney disease stage 4 and admitted with acute renal failure, acute on chronic, and she was started on hemodialysis Thursday/Thursday/Thursday. She has an diabetic infected diabetic right foot, and she is awaiting for possible below-knee amputation as well as catheter placement tomorrow morning. OBJECTIVE: GENERAL: The patient looks well, well nourished, not in distress. VITAL SIGNS: Temperature is 97.8, heart rate 54, blood pressure is 119/39, weight is 91 kg, BMI is 31, saturation 97% on 2 liters. HEAD: Normocephalic/atraumatic. EYES: Pupils round, reactive to light bilaterally. Extraocular movements intact. Conjunctiva is clear. No redness. EARS: Tympanic membranes intact bilaterally. No discharge from the ears. No discharge from the nose. NOSE: No discharge from the nose. No septum deformity. MOUTH: Mucous membrane is moist. NECK: Supple. No increased JVD. No thyromegaly. No lymphadenopathy. CARDIOVASCULAR: Normal S1, S2. Regular rate and rhythm. No edema. RESPIRATORY: There is no deformity. Symmetrical movement bilaterally. No wheezing. No crackles. ABDOMEN: Soft, nontender. No organomegaly. No guarding. Bowel sounds active. MUSCULOSKELETAL: No edema. NEUROLOGICAL: Awake, alert, grossly intact. No focal deficit. SKIN: There is no rash. ASSESSMENT: 1. END-STAGE RENAL DISEASE, WHICH IS NEW, START ON HEMODIALYSIS, PROBABLY SECONDARY TO OSTEOMYELITIS. 2. OSTEOMYELITIS OF THE RIGHT FOOT. 3. ACUTE ON CHRONIC RESPIRATORY FAILURE WITH HYPOXEMIA AND HYPERCAPNIA. 4. CERVICAL CANCER, STAGE 4. 5. DIABETES MELLITUS TYPE 1 WITH ATHEROSCLEROSIS OF THE LOWER EXTREMITIES. 6. SEVERE PERIPHERAL VASCULAR DISEASE WITH OSTEOMYELITIS OF THE RIGHT FOOT. 7. DNR. PLAN: The patient is scheduled for hemodialysis tomorrow morning. Dr. Dick Craig is her transition teacher. Continue antibiotics. She is on Zyvox. Continue Zyvox. She may need a right below-knee amputation plus permanent catheter placement by Dr. Mclaughlin tomorrow. Lab tomorrow morning. INR/PT tomorrow morning. DICTATING PHYSICIAN: CAITY ROMERO M.D. [id number] PHY#: [id number] ID: [id number] JOB#: [id number] ACCT: [id number] cc:CAITY ROMERO M.D. > [facility]
[2016-07-06] MEDS: NYSTATIN CREAM 15 GM TP SCH ×2 (11:22→18:41)
[2016-07-06] MEDS: INSULIN LISPRO 100 UNIT/ML 3 ML VIAL SUBCUT PRN ×2 (12:10→22:01)
--- NOTE | 2016-07-06 14:01 | PDOC PROGRESS REPORT ---
Subjective Progress Note for:: 07/06/16 Subjective:: Patient seems to be doing better without any significant complaints. She still hasn't brought her CPAP machine to the hospital. She wants to do bring it today. Pt is denying any chest arm or neck discomfort. Patient denying any PND , orthopnea. Patient denied any sustained palpitations, dizziness, syncope, near syncope. Patient denying any fever chills. Patient denying any other significant discomfort. Patient is maintaining sinus rhythm. Patient denied any leg discomfort on questioning today. Review of systems: Rest review of systems negative. Medications: Medications have been reviewed. Physical Exam Vital Signs: Temp Pulse Resp BP Pulse Ox 98.3 F 61 16 129/40 H 95 07/06/16 11:24 07/06/16 11:24 07/06/16 11:24 07/06/16 11:24 07/06/16 11:24 Intake & Output 07/05/16 07/06/16 07/07/16 06:59 06:59 06:59 Intake Total 753 1227 Output Total 1600 Balance -847 1227 Weight 91.7 kg 91.8 kg Exam: GENERAL: well-nourished and in no acute distress. Alert and oriented x3 HEAD: Atraumatic, normocephalic. EYES: Pupils equal round and reactive to light, extraocular movements intact, sclera anicteric, conjunctiva are normal. ENT: TMs normal, nares patent, oropharynx clear without exudates. Moist mucous membranes. No oral ulcerations or bleeding gums noted NECK: supple without lymphadenopathy. Trachea is central. No cervical or axillary lymphadenopathy noted. Carotids are 2+, JVD WNL LUNGS: Respiration seems nonlabored, no significant accessory muscle action noted. Breath sounds clear to auscultation bilaterally and equal. No wheezes rales or rhonchi. No significant dullness noted on percussion. CHEST: Palpation of the chest wall shows no significant chest wall tenderness or abnormalities. 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 ABDOMEN: Soft, no significant tenderness appreciated, normoactive bowel sounds. No guarding, no rebound. No rigidity noted . No masses appreciated. EXTREMITIES: Pedal pulses are 1-2+, no calf tenderness noted. No clubbing or cyanosis.trace to 1+ pedal edema noted. Left midtarsal amputation noted. Patient has amputation of right sided toes as well. Ulcerations noted right foot. NEUROLOGICAL: Focused neurological exam showed no significant neurologic deficit. Normal speech, no focal weakness appreciated. PSYCH: Normal mood, normal affect. Judgment and insight within normal limits. SKIN: No significant ecchymosis, rash, patient has diabetic ulcer right foot. MUSCULOSKELETAL EXAM: No significant joint swelling noted. Results Laboratory Results: 07/06/16 03:40 07/06/16 03:40 07/06/16 07/06/16 03:40 03:40 WBC 7.7 RBC 2.78 L Hgb 8.0 L Hct 25.0 L MCV 90 MCH 28.8 MCHC 32.0 RDW 17.4 H Plt Count 127 L Seg Neutrophils % 66.0 Lymphocytes % 24.9 Monocytes % 6.2 Eosinophils % 2.2 Basophils % 0.7 Absolute Neutrophils 5.1 Absolute Lymphocytes 1.9 Absolute Monocytes 0.5 Absolute Eosinophils 0.2 Absolute Basophils 0.1 Sodium 140.2 Potassium 4.2 Chloride 100 Carbon Dioxide 30 Anion Gap 10 BUN 44 H Creatinine 3.31 H Est GFR ( Amer) 17 L Est GFR (Non-Af Amer) 14 L Glucose 165 H Calcium 9.0 Phosphorus 4.0 Albumin 3.0 L Impressions: Foot X-Ray 06/24/16 00:00 IMPRESSION: No cortical erosions or lytic areas are identified to confirm bony involvement by osteomyelitis. Extensive amputations which appears stable. Other findings as noted above Chest X-Ray 06/30/16 00:00 IMPRESSION: Stable chest with appropriate right IJ lines. Assessment & Plan - Diagnosis (1) Acute on chronic renal failure Is this a current diagnosis for this admission?: Yes (2) Acute on chronic respiratory failure with hypoxia and hypercapnia Is this a current diagnosis for this admission?: Yes (3) COPD (chronic obstructive pulmonary disease) Qualifiers: Qualified Code(s): J44.9 - Chronic obstructive pulmonary disease, unspecified Is this a current diagnosis for this admission?: Yes (4) Diabetic infection of right foot Is this a current diagnosis for this admission?: Yes (5) Acute on chronic diastolic (congestive) heart failure Is this a current diagnosis for this admission?: Yes (6) ORIANA (obstructive sleep apnea) Is this a current diagnosis for this admission?: Yes (7) Dyslipidemia Is this a current diagnosis for this admission?: Yes (8) Hypertension Qualifiers: Qualified Code(s): I10 - Essential (primary) hypertension Is this a current diagnosis for this admission?: Yes (9) Bradycardia Is this a current diagnosis for this admission?: Yes (10) Anemia Qualifiers: Qualified Code(s): D64.9 - Anemia, unspecified Is this a current diagnosis for this admission?: Yes - Notes Notes: Patient has been generally stable from cardiac standpoint. She is scheduled for possible amputation of the right lower extremity below-knee tomorrow. Patient noted to be stable from cardiac standpoint without any ongoing angina, evidence of congestive heart failure and is maintaining sinus rhythm. She is therefore cleared for surgery. Patient would benefit from starting nightly CPAP. This was explained to the patient. Will order an EKG for tomorrow morning and another postoperative EKG. Patient's medical regimen was reviewed and is felt to be satisfactory. No changes were made. - Time Time with patient: 15-25 minutes - CODE STATUS : was discussed, patient remains DO NOT RESUSCITATE. Surrogate decision-maker unchanged. Multiple medical problems were addressed.More than 50% of the time spent coordinating care, discussing management plans with involved caregivers. Management plans discussed with involved personnels. Medical decision making was of moderate complexity.
--- NOTE | 2016-07-06 14:01 | PDOC PROGRESS REPORT ---
Subjective Progress Note for:: 07/06/16 Physical Exam Vital Signs: Temp Pulse Resp BP Pulse Ox 98.3 F 61 16 129/40 H 95 07/06/16 11:24 07/06/16 11:24 07/06/16 11:24 07/06/16 11:24 07/06/16 11:24 Intake & Output 07/05/16 07/06/16 07/07/16 06:59 06:59 06:59 Intake Total 753 1227 Output Total 1600 Balance -847 1227 Weight 91.7 kg 91.8 kg Extremities exam: PRESENT: other - Right foot wound area clean, no cellulitic changes Results Laboratory Results: 07/06/16 03:40 07/06/16 03:40 07/06/16 07/06/16 03:40 03:40 WBC 7.7 RBC 2.78 L Hgb 8.0 L Hct 25.0 L MCV 90 MCH 28.8 MCHC 32.0 RDW 17.4 H Plt Count 127 L Seg Neutrophils % 66.0 Lymphocytes % 24.9 Monocytes % 6.2 Eosinophils % 2.2 Basophils % 0.7 Absolute Neutrophils 5.1 Absolute Lymphocytes 1.9 Absolute Monocytes 0.5 Absolute Eosinophils 0.2 Absolute Basophils 0.1 Sodium 140.2 Potassium 4.2 Chloride 100 Carbon Dioxide 30 Anion Gap 10 BUN 44 H Creatinine 3.31 H Est GFR ( Amer) 17 L Est GFR (Non-Af Amer) 14 L Glucose 165 H Calcium 9.0 Phosphorus 4.0 Albumin 3.0 L Impressions: Foot X-Ray 06/24/16 00:00 IMPRESSION: No cortical erosions or lytic areas are identified to confirm bony involvement by osteomyelitis. Extensive amputations which appears stable. Other findings as noted above Chest X-Ray 06/30/16 00:00 IMPRESSION: Stable chest with appropriate right IJ lines. Assessment & Plan - Plan Summary Plan Summary: Right foot wound with osteomylitis for OR tomorrow for possible tranmetatorsal AMPUTATION and for Insertion of Tunneled central venous catheter for Hemodialysis.
[2016-07-06 15:22] LABS: ABSOLUTE BASOPHILS # (AUTO) 0.1 10^3/uL (0.0-0.2); ABSOLUTE EOSINOPHILS # (AUTO) 0.1 10^3/uL (0.0-0.6); ABSOLUTE LYMPHOCYTES (AUTO) 1.4 10^3/uL (0.5-4.7); ABSOLUTE MONOCYTES (AUTO) 0.5 10^3/uL (0.1-1.4); ABSOLUTE NEUT (AUTO) 4.6 10^3/uL (1.7-8.2); BASOPHILS % (AUTO) 0.8 % (0-2); EOSINOPHILS % (AUTO) 2.1 % (0-6); HEMOGLOBIN 8.2 g/dL (12.0-15.5); HGB HCT DIFFERENCE -0.4; LYMPHOCYTES % (AUTO) 21.2 % (13-45); MEAN CORPUSCULAR HEMOGLOBIN 29.4 pg (27.0-33.4); MEAN CORPUSCULAR HGB CONC 32.8 g/dL (32.0-36.0); MEAN CORPUSCULAR VOLUME 90 fl (80-97); MONOCYTES % (AUTO) 7.4 % (3-13); RED BLOOD COUNT 2.78 10^6/uL (3.72-5.28); RED CELL DISTRIBUTION WIDTH 17.3 % (11.5-14.0); SEGMENTED NEUTROPHILS % (AUTO) 68.5 % (42-78); WHITE BLOOD COUNT 6.7 10^3/uL (4.0-10.5)
[2016-07-06 17:16] LABS: ANION GAP 12 (5-19); BLOOD UREA NITROGEN 53 mg/dL (7-20); CALCIUM 9.1 mg/dL (8.4-10.2); CARBON DIOXIDE 29 mmol/L (22-30); CHLORIDE 98 mmol/L (98-107); GLUCOSE 226 mg/dL (75-110); POTASSIUM 3.9 mmol/L (3.6-5.0)
[2016-07-06] MEDS: SERTRALINE HCL 50 MG TABLET PO SCH (22:01)
[2016-07-06] MEDS: ACETAMINOPHEN 325 MG TABLET PO PRN (23:31)
[2016-07-07] MEDS: CLONIDINE HCL 0.1 MG TABLET PO SCH ×3 (05:21→22:12)
[2016-07-07 05:46] LABS: ABSOLUTE BASOPHILS # (AUTO) 0.1 10^3/uL (0.0-0.2); ABSOLUTE EOSINOPHILS # (AUTO) 0.2 10^3/uL (0.0-0.6); ABSOLUTE NEUT (AUTO) 4.5 10^3/uL (1.7-8.2)
[2016-07-07 05:49] LABS: PROTHROMBIN TIME 14.3 SEC (11.4-15.4)
[2016-07-07 05:50] LABS: ABSOLUTE LYMPHOCYTES (AUTO) 1.7 10^3/uL (0.5-4.7); ABSOLUTE MONOCYTES (AUTO) 0.5 10^3/uL (0.1-1.4); BASOPHILS % (AUTO) 0.9 % (0-2); EOSINOPHILS % (AUTO) 2.2 % (0-6); HEMATOCRIT 25.1 % (36.0-47.0); HGB HCT DIFFERENCE -1.4; LYMPHOCYTES % (AUTO) 24.1 % (13-45); MEAN CORPUSCULAR HEMOGLOBIN 28.1 pg (27.0-33.4); MEAN CORPUSCULAR HGB CONC 31.5 g/dL (32.0-36.0); MEAN CORPUSCULAR VOLUME 89 fl (80-97); RED BLOOD COUNT 2.81 10^6/uL (3.72-5.28); RED CELL DISTRIBUTION WIDTH 17.7 % (11.5-14.0); SEGMENTED NEUTROPHILS % (AUTO) 65.8 % (42-78); WHITE BLOOD COUNT 6.9 10^3/uL (4.0-10.5)
[2016-07-07 05:54] LABS: HEMOGLOBIN 7.9 g/dL (12.0-15.5)
[2016-07-07 06:02] LABS: ALBUMIN 2.7 g/dL (3.5-5.0); ANION GAP 10 (5-19); BLOOD UREA NITROGEN 58 mg/dL (7-20); CALCIUM 9.1 mg/dL (8.4-10.2); CARBON DIOXIDE 30 mmol/L (22-30); CHLORIDE 98 mmol/L (98-107); CREATININE RESULT 4.39 mg/dL (0.52-1.25); GLUCOSE 182 mg/dL (75-110); PHOSPHORUS 4.4 mg/dL (2.5-4.5); POTASSIUM 4.2 mmol/L (3.6-5.0); SODIUM 137.9 mmol/L (137-145)
--- NOTE | 2016-07-07 08:30 | EKG REPORT ---
SEVERITY:- ABNORMAL ECG - SINUS RHYTHM FIRST DEGREE AV BLOCK ANTERIOR INFARCT, OLD : Confirmed by: Chas Hutchison 07-Jul-2016 08:29:28
[2016-07-07] MEDS ORDERED: OXYCODONE-ACETAMINOPHEN 5-325 MG TABLET PO PRN (08:38)
[2016-07-07] MEDS ORDERED: DIAZEPAM 5 MG TABLET PO PRN ×2 (08:38→08:48)
[2016-07-07] MEDS ORDERED: BACITRACIN INJ 50,000 UNIT VIAL INJ PRN (09:52)
[2016-07-07] MEDS ORDERED: HEPARIN SOD (PORCINE) 1,000 UNIT/ML 10 ML VIAL IV PRN (09:55)
[2016-07-07] MEDS: ATORVASTATIN CALCIUM 10 MG TABLET PO SCH (10:01)
[2016-07-07] MEDS: BUMETANIDE 1 MG TABLET PO SCH (10:01)
[2016-07-07] MEDS: CARVEDILOL 12.5 MG TABLET PO SCH ×2 (10:01→22:12)
[2016-07-07] MEDS: PRAMIPEXOLE DI-HCL 0.5 MG TABLET PO SCH ×2 (10:01→18:36)
[2016-07-07] MEDS: NYSTATIN CREAM 15 GM TP SCH ×2 (10:01→18:40)
[2016-07-07] MEDS: FENOFIBRATE NANOCRYSTALLIZED 145 MG TABLET PO SCH (10:01)
[2016-07-07] MEDS: MUPIROCIN 2% OINTMENT 22 GM TP SCH (10:01)
[2016-07-07] MEDS: CALCIUM ACETATE 667 MG CAPSULE PO SCH ×3 (10:01→18:36)
[2016-07-07] MEDS: ASPIRIN 81 MG TABLET, ENT COATED PO SCH (10:01)
[2016-07-07] MEDS: LANSOPRAZOLE 30 MG TAB.RAP.DR PO SCH (10:01)
[2016-07-07] MEDS: AMLODIPINE BESYLATE 10 MG TABLET PO SCH (10:01)
[2016-07-07] MEDS: MAGNESIUM OXIDE 400 MG TABLET PO SCH (10:01)
[2016-07-07] MEDS: INSULIN GLARGINE,HUM.REC.ANLOG 300 UNIT/3 ML INSULN.PEN SUBCUT SCH (10:01)
[2016-07-07] MEDS ORDERED: LIDOCAINE 0.5% INJ-PF (5 MG/ML) 50 ML SDV ONE (10:56)
[2016-07-07] MEDS ORDERED: MIDAZOLAM 2 MG/2 ML INJ ONE (11:04)
[2016-07-07] MEDS ORDERED: FENTANYL CITRATE INJ/PF 100 MCG/2 ML AMPUL ONE (11:04)
[2016-07-07] MEDS: EPOETIN ALFA INJ 20000 UNIT/1 ML VIAL (RENAL) IV PRN (11:35)
[2016-07-07] MEDS: LINEZOLID 600 MG TABLET PO SCH ×2 (12:08→22:12)
[2016-07-07] MEDS: OXYCODONE-ACETAMINOPHEN 5-325 MG TABLET PO PRN ×2 (12:31→22:09)
--- NOTE | 2016-07-07 12:32 | PDOC PROGRESS REPORT ---
Subjective Progress Note for:: 07/07/16 Subjective:: Patient has no specific complaints No fever no chills No shortness of breath She underwent dialysis this morning and was transfused 1 unit of packed red cells She is waiting for dialysis access to be placed And will be scheduled later for amputation of her foot Physical Exam Vital Signs: Temp Pulse Resp BP Pulse Ox 97.6 F 61 14 187/81 H 97 07/07/16 10:37 07/07/16 10:37 07/07/16 10:37 07/07/16 10:37 07/07/16 10:37 Intake & Output 07/06/16 07/07/16 07/08/16 00:59 00:59 00:59 Intake Total 1027 1352 310 Balance 1027 1352 310 Weight 91.7 kg 91.8 kg 95.8 kg I filled by likely all of the right General appearance: PRESENT: no acute distress, well-developed, well-nourished Head exam: PRESENT: atraumatic, normocephalic Eye exam: PRESENT: conjunctiva pink, EOMI, PERRLA. ABSENT: scleral icterus Ear exam: PRESENT: normal external ear exam Mouth exam: PRESENT: moist, tongue midline Neck exam: ABSENT: carotid bruit, JVD, lymphadenopathy, thyromegaly Respiratory exam: PRESENT: clear to auscultation siobhan. ABSENT: rales, rhonchi, wheezes Cardiovascular exam: PRESENT: RRR. ABSENT: diastolic murmur, rubs, systolic murmur Pulses: PRESENT: normal dorsalis pedis pul Vascular exam: PRESENT: normal capillary refill GI/Abdominal exam: PRESENT: normal bowel sounds, soft. ABSENT: distended, guarding, mass, organolmegaly, rebound, tenderness Rectal exam: PRESENT: deferred Extremities exam: PRESENT: full ROM. ABSENT: calf tenderness, clubbing, pedal edema Neurological exam: PRESENT: alert, awake, oriented to person, oriented to place , oriented to time, oriented to situation, CN II-XII grossly intact. ABSENT: motor sensory deficit Psychiatric exam: PRESENT: appropriate affect, normal mood. ABSENT: homicidal ideation, suicidal ideation Skin exam: PRESENT: dry, intact, warm. ABSENT: cyanosis, rash Results Laboratory Results: 07/07/16 05:21 07/07/16 05:21 07/06/16 07/06/16 07/07/16 14:34 14:34 05:21 WBC 6.7 6.9 RBC 2.78 L 2.81 L Hgb 8.2 L 7.9 L Hct 25.0 L 25.1 L MCV 90 89 MCH 29.4 28.1 MCHC 32.8 31.5 L RDW 17.3 H 17.7 H Plt Count 125 L 121 L Seg Neutrophils % 68.5 65.8 Lymphocytes % 21.2 24.1 Monocytes % 7.4 7.0 Eosinophils % 2.1 2.2 Basophils % 0.8 0.9 Absolute Neutrophils 4.6 4.5 Absolute Lymphocytes 1.4 1.7 Absolute Monocytes 0.5 0.5 Absolute Eosinophils 0.1 0.2 Absolute Basophils 0.1 0.1 Sodium 139.0 Potassium 3.9 Chloride 98 Carbon Dioxide 29 Anion Gap 12 BUN 53 H Creatinine 3.80 H Est GFR ( Amer) 14 L Est GFR (Non-Af Amer) 12 L Glucose 226 H Calcium 9.1 Phosphorus Albumin Blood Type Antibody Screen 07/07/16 07/07/16 05:21 08:10 WBC RBC Hgb Hct MCV MCH MCHC RDW Plt Count Seg Neutrophils % Lymphocytes % Monocytes % Eosinophils % Basophils % Absolute Neutrophils Absolute Lymphocytes Absolute Monocytes Absolute Eosinophils Absolute Basophils Sodium 137.9 Potassium 4.2 Chloride 98 Carbon Dioxide 30 Anion Gap 10 BUN 58 H Creatinine 4.39 H Est GFR ( Amer) 12 L Est GFR (Non-Af Amer) 10 L Glucose 182 H Calcium 9.1 Phosphorus 4.4 Albumin 2.7 L Blood Type A POSITIVE Antibody Screen NEGATIVE Impressions: Foot X-Ray 06/24/16 00:00 IMPRESSION: No cortical erosions or lytic areas are identified to confirm bony involvement by osteomyelitis. Extensive amputations which appears stable. Other findings as noted above Chest X-Ray 06/30/16 00:00 IMPRESSION: Stable chest with appropriate right IJ lines. 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 Burnette Time Spent with patient: 25-34 minutes
--- NOTE | 2016-07-07 12:56 | PDOC PROGRESS REPORT ---
Subjective Progress Note for:: 07/07/16 Subjective:: Patient was seen on hemodialysis today. She Continues to feel better since started on dialysis. Orders discussed with RN. Plan to remove 1 L as tolerated.No issues on hemodialysis. Vital signs are stable. She is feeling better. She denies any history of chest pain shortness of breath. She is awaiting surgery on of leg soon. No complaints of any fever chills.Also due for a right IJ PermCath. Physical Exam Vital Signs: Temp Pulse Resp BP Pulse Ox 97.5 F 62 18 148/44 H 99 07/07/16 11:36 07/07/16 11:36 07/07/16 11:36 07/07/16 11:36 07/07/16 11:36 Intake & Output 07/06/16 07/07/16 07/08/16 06:59 06:59 06:59 Intake Total 1227 1142 300 Balance 1227 1142 300 Weight 91.8 kg 95.8 kg General appearance: PRESENT: no acute distress Respiratory exam: PRESENT: clear to auscultation siobhan. ABSENT: crackles, rhonchi Cardiovascular exam: PRESENT: +S1, +S2, systolic murmur GI/Abdominal exam: PRESENT: distended, soft. ABSENT: diminished bowel sounds, firm, guarding, organomegaly, tenderness Extremities exam: ABSENT: pedal edema Neurological exam: PRESENT: alert, awake, oriented to person, oriented to place , oriented to time Results Laboratory Results: 07/07/16 05:21 07/07/16 05:21 07/06/16 07/06/16 07/07/16 14:34 14:34 05:21 WBC 6.7 6.9 RBC 2.78 L 2.81 L Hgb 8.2 L 7.9 L Hct 25.0 L 25.1 L MCV 90 89 MCH 29.4 28.1 MCHC 32.8 31.5 L RDW 17.3 H 17.7 H Plt Count 125 L 121 L Seg Neutrophils % 68.5 65.8 Lymphocytes % 21.2 24.1 Monocytes % 7.4 7.0 Eosinophils % 2.1 2.2 Basophils % 0.8 0.9 Absolute Neutrophils 4.6 4.5 Absolute Lymphocytes 1.4 1.7 Absolute Monocytes 0.5 0.5 Absolute Eosinophils 0.1 0.2 Absolute Basophils 0.1 0.1 Sodium 139.0 Potassium 3.9 Chloride 98 Carbon Dioxide 29 Anion Gap 12 BUN 53 H Creatinine 3.80 H Est GFR ( Amer) 14 L Est GFR (Non-Af Amer) 12 L Glucose 226 H Calcium 9.1 Phosphorus Albumin Blood Type Antibody Screen 07/07/16 07/07/16 05:21 08:10 WBC RBC Hgb Hct MCV MCH MCHC RDW Plt Count Seg Neutrophils % Lymphocytes % Monocytes % Eosinophils % Basophils % Absolute Neutrophils Absolute Lymphocytes Absolute Monocytes Absolute Eosinophils Absolute Basophils Sodium 137.9 Potassium 4.2 Chloride 98 Carbon Dioxide 30 Anion Gap 10 BUN 58 H Creatinine 4.39 H Est GFR ( Amer) 12 L Est GFR (Non-Af Amer) 10 L Glucose 182 H Calcium 9.1 Phosphorus 4.4 Albumin 2.7 L Blood Type A POSITIVE Antibody Screen NEGATIVE Impressions: Foot X-Ray 06/24/16 00:00 IMPRESSION: No cortical erosions or lytic areas are identified to confirm bony involvement by osteomyelitis. Extensive amputations which appears stable. Other findings as noted above Chest X-Ray 06/30/16 00:00 IMPRESSION: Stable chest with appropriate right IJ lines. Assessment & Plan - Diagnosis (1) MRSA bacteremia Is this a current diagnosis for this admission?: YesPlan: On appropriate antibiotics. (2) Acute on chronic respiratory failure with hypoxia and hypercapnia Is this a current diagnosis for this admission?: Yes (3) Diabetic infection of right foot Is this a current diagnosis for this admission?: YesPlan: For definitive treatment this week. (4) Sepsis Qualifiers: Sepsis type: methicillin resistant Staphylococcus aureus Qualified Code(s): A41.02 - Sepsis due to Methicillin resistant Staphylococcus aureus Is this a current diagnosis for this admission?: YesPlan: From infected right foot. Currently on antibiotics. Stable. (5) Acute on chronic diastolic (congestive) heart failure Is this a current diagnosis for this admission?: YesPlan: Has done well to conservative management and hemodialysis/ultrafiltration. Is currently undergoing dialysis again and will try to remove another 1 L as tolerated. (6) Acute on chronic renal insufficiency Is this a current diagnosis for this admission?: YesPlan: CKD stage V now on dialysis. Feeling better since being on HD. She is undergoing dialysis without any issues through right Femoral Catheter. Dialysis orders were discussed with the treating nurse. Vital signs are stable. Will plan to remove approximately 1 L of fluid as tolerated.She is scheduled to have IJ PermCath sometime this week. (7) Cervical cancer, FIGO stage MIRIAM Is this a current diagnosis for this admission?: Yes (8) Diabetic foot ulcer Qualifiers: Diabetes mellitus type: type 1 Laterality: right Qualified Code(s) : E10.621 - Type 1 diabetes mellitus with foot ulcer; L97.519 - Non-pressure chronic ulcer of other part of right foot with unspecified severity Plan: Plan for elective surgery soon. (9) Sepsis Qualifiers: Sepsis type: sepsis due to unspecified organism Qualified Code(s): A41.9 - Sepsis, unspecified organism Is this a current diagnosis for this admission?: Yes (10) ORIANA (obstructive sleep apnea) Is this a current diagnosis for this admission?: Yes (11) Anemia Qualifiers: Anemia type: other cause Other causes of anemia: other cause, not classified Qualified Code(s): D64.89 - Other specified anemias Is this a current diagnosis for this admission?: YesPlan: Adjust erythropoietin.
[2016-07-07] MEDS ORDERED: LISINOPRIL 10 MG TABLET PO ONE (13:30)
[2016-07-07] MEDS ORDERED: VANCOMYCIN HCL 500 MG in DEXTROSE 5%-WATER 100 ML IV ONE (14:15)
--- NOTE | 2016-07-07 14:30 | Operative Report ---
Operative Report DATE OF SURGERY: 06/30/16 PREOPERATIVE DIAGNOSIS: End-stage renal failure POSTOPERATIVE DIAGNOSIS: Same. OPERATION: 1. Focused ultrasound of his internal jugular veins. 2. Ultrasound directed insertion of percutaneous, permacatheter. #3 angiogram and interpretation. SURGEON: NATHANIEL ADDISON BLOWER MECHANIC: none ANESTHESIA: Moderate Sedation TISSUE REMOVED OR ALTERED: None COMPLICATIONS: None ESTIMATED BLOOD LOSS: 5 mL. INTRAOPERATIVE FINDINGS: Consisted of a thrombosed right internal jugular vein with probable patency at the innominate. A right-sided Port-A-Cath is noted. On the left the internal jugular vein is wide open. A perm catheter was placed with the tip well down in the right atrial pool. Catheter angiogram demonstrated Purcell flow of contrast through the right atrium, ventricle and pulmonary outflow tract. Easy egress of blood and ingress of heparinized solution through both ports. PROCEDURE: After obtaining informed consent, the patient was taken to the [facility] and positioned supine. Both sides of the neck were interrogated with ultrasound. Based on this the left side was selected for access. The left neck and chest were prepared with chlorhexidine and draped out with sterile linen. After the " universal timeout", in which it was verified that the patient continued to receive antibiotic, the procedure commenced. A steriley sheathed ultrasound probe was used to evaluate the left internal jugular vein. Local anesthesia was infiltrated adjacent to the probe. Access into the left internal vein was obtained using a micropuncture needle, followed by micropuncture wire and then a micropuncture catheter. This was followed by introduction of a 0.035 guidewire the tip of which was placed down into the inferior vena cava . A 27 cm long split catheter was now positioned over the chest and an exit site marked and locally anesthetized ,the catheter was placed between the 2 incisions. Proximally, the catheter was now positioned using a peel-away sheath, after dilation. Easy ingress of heparinized solution and egress of blood obtained through both ports. A completion angiogram was done by injecting contrast. The findings were as dictated. The neck incision was now closed using interrupted 3-0 PDS to the subcutaneous tissues, the catheter was anchored at the exit site using 3-0 PDS. A Biopatch device was now placed adjacent to the catheter. Dressings were applied and the procedure concluded. Exposure time: 1.3 minutes. Exposure: 49 cGy per centimeters squared. Contrast amount: 5 mL of [id number] low osmolality. Copies of the dictated operative report for Dr. Nathaniel Burnette MD.concluded. Copies of the dictated operative report for Dr. Nathaniel Burnette MD.
[2016-07-07 15:08] LABS: ABSOLUTE BASOPHILS # (AUTO) 0.1 10^3/uL (0.0-0.2); ABSOLUTE EOSINOPHILS # (AUTO) 0.1 10^3/uL (0.0-0.6); ABSOLUTE LYMPHOCYTES (AUTO) 1.3 10^3/uL (0.5-4.7); ABSOLUTE MONOCYTES (AUTO) 0.4 10^3/uL (0.1-1.4); ABSOLUTE NEUT (AUTO) 4.6 10^3/uL (1.7-8.2); BASOPHILS % (AUTO) 0.9 % (0-2); EOSINOPHILS % (AUTO) 1.9 % (0-6); HEMATOCRIT 28.3 % (36.0-47.0); HEMOGLOBIN 9.3 g/dL (12.0-15.5); HGB HCT DIFFERENCE -0.4; LYMPHOCYTES % (AUTO) 19.6 % (13-45); MEAN CORPUSCULAR HEMOGLOBIN 28.9 pg (27.0-33.4); MEAN CORPUSCULAR VOLUME 88 fl (80-97); MONOCYTES % (AUTO) 6.2 % (3-13); RED BLOOD COUNT 3.23 10^6/uL (3.72-5.28); RED CELL DISTRIBUTION WIDTH 16.9 % (11.5-14.0); SEGMENTED NEUTROPHILS % (AUTO) 71.4 % (42-78); WHITE BLOOD COUNT 6.5 10^3/uL (4.0-10.5)
--- NOTE | 2016-07-07 21:50 | PDOC PROGRESS REPORT ---
Subjective Progress Note for:: 07/07/16 Subjective:: Patient was seen in the morning. She is expected to have a dialysis catheter placed and also to have mid tarsal amputation of the right foot. Patient seems to be doing well without any significant complaints. Patient to use CPAP machine tonight.. Pt is denying any chest arm or neck discomfort. Patient denying any PND, orthopnea. Patient denied any sustained palpitations, dizziness, syncope, near syncope. Patient denying any fever chills. Patient denying any other significant discomfort. Patient is maintaining sinus rhythm. Patient denied any leg discomfort on questioning today. Review of systems: Rest review of systems negative. Medications: Medications have been reviewed. Physical Exam Vital Signs: Temp Pulse Resp BP Pulse Ox 97.2 F 77 18 136/42 H 100 07/07/16 15:01 07/07/16 19:00 07/07/16 15:01 07/07/16 15:01 07/07/16 15:01 Intake & Output 07/06/16 07/07/16 07/08/16 06:59 06:59 06:59 Intake Total 1227 1142 1125 Output Total 650 Balance 1227 1142 475 Weight 91.8 kg 95.8 kg Exam: GENERAL: well-nourished and in no acute distress. Alert and oriented x3 HEAD: Atraumatic, normocephalic. EYES: Pupils equal round and reactive to light, extraocular movements intact, sclera anicteric, conjunctiva are normal. ENT: TMs normal, nares patent, oropharynx clear without exudates. Moist mucous membranes. No oral ulcerations or bleeding gums noted NECK: supple without lymphadenopathy. Trachea is central. No cervical or axillary lymphadenopathy noted. Carotids are 2+, JVD WNL LUNGS: Respiration seems nonlabored, no significant accessory muscle action noted. Breath sounds clear to auscultation bilaterally and equal. No wheezes rales or rhonchi. No significant dullness noted on percussion. CHEST: Palpation of the chest wall shows no significant chest wall tenderness or abnormalities. HEART: [place] [employer] HAND, No PSH, 1/6 TARAH aortic area, 1/6 pradhan systolic murmur mitral area, no rubs, no gallops. ABDOMEN: Soft, no significant tenderness appreciated, normoactive bowel sounds. No guarding, no rebound. No rigidity noted . No masses appreciated. EXTREMITIES: Pedal pulses are 1-2+, no calf tenderness noted. No clubbing or cyanosis.trace to 1+ pedal edema noted. Left midtarsal amputation noted. Patient has amputation of right sided toes as well. Ulcerations noted right foot. NEUROLOGICAL: Focused neurological exam showed no significant neurologic deficit. Normal speech, no focal weakness appreciated. PSYCH: Normal mood, normal affect. Judgment and insight within normal limits. SKIN: No significant ecchymosis, rash, patient has diabetic ulcer right foot. MUSCULOSKELETAL EXAM: No significant joint swelling noted. Results Laboratory Results: 07/07/16 14:40 07/07/16 05:21 07/07/16 07/07/16 07/07/16 05:21 05:21 08:10 WBC 6.9 RBC 2.81 L Hgb 7.9 L Hct 25.1 L MCV 89 MCH 28.1 MCHC 31.5 L RDW 17.7 H Plt Count 121 L Seg Neutrophils % 65.8 Lymphocytes % 24.1 Monocytes % 7.0 Eosinophils % 2.2 Basophils % 0.9 Absolute Neutrophils 4.5 Absolute Lymphocytes 1.7 Absolute Monocytes 0.5 Absolute Eosinophils 0.2 Absolute Basophils 0.1 Sodium 137.9 Potassium 4.2 Chloride 98 Carbon Dioxide 30 Anion Gap 10 BUN 58 H Creatinine 4.39 H Est GFR ( Amer) 12 L Est GFR (Non-Af Amer) 10 L Glucose 182 H Calcium 9.1 Phosphorus 4.4 Albumin 2.7 L Blood Type A POSITIVE Antibody Screen NEGATIVE 07/07/16 14:40 WBC 6.5 RBC 3.23 L Hgb 9.3 L Hct 28.3 L MCV 88 MCH 28.9 MCHC 33.0 RDW 16.9 H Plt Count 123 L Seg Neutrophils % 71.4 Lymphocytes % 19.6 Monocytes % 6.2 Eosinophils % 1.9 Basophils % 0.9 Absolute Neutrophils 4.6 Absolute Lymphocytes 1.3 Absolute Monocytes 0.4 Absolute Eosinophils 0.1 Absolute Basophils 0.1 Sodium Potassium Chloride Carbon Dioxide Anion Gap BUN Creatinine Est GFR ( Amer) Est GFR (Non-Af Amer) Glucose Calcium Phosphorus Albumin Blood Type Antibody Screen EKG Comments: Sinus rhythm, first degree AV block, loss of R-wave anterior precordial lead indicative of anterior NM old. Impressions: Foot X-Ray 06/24/16 00:00 IMPRESSION: No cortical erosions or lytic areas are identified to confirm bony involvement by osteomyelitis. Extensive amputations which appears stable. Other findings as noted above Chest X-Ray 06/30/16 00:00 IMPRESSION: Stable chest with appropriate right IJ lines. Central Venous Line 07/07/16 00:00 IMPRESSION: Intra procedural imaging and fluoro Guidance Fluoroscopy 07/07/16 00:00 IMPRESSION: Intra procedural imaging and fluoro Assessment & Plan - Diagnosis (1) Acute on chronic renal failure Is this a current diagnosis for this admission?: Yes (2) Acute on chronic respiratory failure with hypoxia and hypercapnia Is this a current diagnosis for this admission?: Yes (3) COPD (chronic obstructive pulmonary disease) Qualifiers: COPD type: unspecified COPD Qualified Code(s): J44.9 - Chronic obstructive pulmonary disease, unspecified Is this a current diagnosis for this admission?: Yes (4) Diabetic infection of right foot Is this a current diagnosis for this admission?: Yes (5) Acute on chronic diastolic (congestive) heart failure Is this a current diagnosis for this admission?: Yes (6) ORIANA (obstructive sleep apnea) Is this a current diagnosis for this admission?: Yes (7) Dyslipidemia Is this a current diagnosis for this admission?: Yes (8) Hypertension Qualifiers: Hypertension type: essential hypertension Qualified Code(s): I10 - Essential (primary) hypertension Is this a current diagnosis for this admission?: Yes (9) Bradycardia Is this a current diagnosis for this admission?: Yes (10) Anemia Qualifiers: Anemia type: unspecified type Qualified Code(s): D64.9 - Anemia, unspecified Is this a current diagnosis for this admission?: Yes - Notes Notes: Patient has remained generally stable from cardiac standpoint. She does have underlying CAD but currently stable. CHF also seems compensated. She is maintaining sinus rhythm with first-degree AV block. Patient was cleared for surgery. Will repeat EKG in a.m. for postop. Continue patient's current regimen. Dr. Harding to follow from tomorrow. - Time Time with patient: 15-25 minutes - CODE STATUS : was discussed, patient remains DO NOT RESUSCITATE. Surrogate decision-maker unchanged. Multiple medical problems were addressed.More than 50% of the time spent coordinating care, discussing management plans with involved caregivers. Management plans discussed with involved personnels. Medical decision making was of moderate complexity.
[2016-07-07] MEDS: LISINOPRIL 10 MG TABLET PO SCH (22:10)
[2016-07-07] MEDS: SERTRALINE HCL 50 MG TABLET PO SCH (22:12)
[2016-07-07] MEDS: INSULIN LISPRO 100 UNIT/ML 3 ML VIAL SUBCUT PRN (22:14)
[2016-07-08] MEDS: CLONIDINE HCL 0.1 MG TABLET PO SCH ×3 (05:58→22:45)
--- NOTE | 2016-07-08 11:03 | EKG REPORT ---
SEVERITY:- ABNORMAL ECG - SINUS RHYTHM FIRST DEGREE AV BLOCK LEFT ANTERIOR FASCICULAR BLOCK ABNRM R PROG, CONSIDER ASMI OR LEAD PLACEMENT : Confirmed by: Chas Hutchison 08-Jul-2016 11:01:55
[2016-07-08] MEDS: CARVEDILOL 12.5 MG TABLET PO SCH ×2 (11:38→22:45)
[2016-07-08] MEDS: FENOFIBRATE NANOCRYSTALLIZED 145 MG TABLET PO SCH (11:39)
[2016-07-08] MEDS: LISINOPRIL 10 MG TABLET PO SCH ×2 (11:40→22:43)
[2016-07-08] MEDS: AMLODIPINE BESYLATE 10 MG TABLET PO SCH (11:40)
[2016-07-08] MEDS: CALCIUM ACETATE 667 MG CAPSULE PO SCH ×3 (11:40→17:38)
[2016-07-08] MEDS: PRAMIPEXOLE DI-HCL 0.5 MG TABLET PO SCH ×2 (11:41→17:38)
[2016-07-08] MEDS: ATORVASTATIN CALCIUM 10 MG TABLET PO SCH (11:41)
[2016-07-08] MEDS: ASPIRIN 81 MG TABLET, ENT COATED PO SCH (11:41)
[2016-07-08] MEDS: MAGNESIUM OXIDE 400 MG TABLET PO SCH (11:42)
[2016-07-08] MEDS: LANSOPRAZOLE 30 MG TAB.RAP.DR PO SCH (11:42)
[2016-07-08] MEDS: INSULIN LISPRO 100 UNIT/ML 3 ML VIAL SUBCUT PRN ×2 (11:43→22:46)
[2016-07-08] MEDS: INSULIN GLARGINE,HUM.REC.ANLOG 300 UNIT/3 ML INSULN.PEN SUBCUT SCH (11:46)
--- NOTE | 2016-07-08 11:48 | PDOC PROGRESS REPORT ---
Subjective Progress Note for:: 07/08/16 Subjective:: Patient looks a little depressed ; she has no nausea no vomiting no chest pain no shortness of breath she is anxious about surgery Dialysis access was placed yesterday Patient is due for dialysis in a.m. Physical Exam Vital Signs: Temp Pulse Resp BP Pulse Ox 98.5 F 62 16 142/47 H 96 07/08/16 11:05 07/08/16 11:05 07/08/16 11:05 07/08/16 11:05 07/08/16 11:05 Intake & Output 07/07/16 07/08/16 07/09/16 00:59 00:59 00:59 Intake Total 1352 1757 110 Output Total 650 Balance 1352 1107 110 Weight 91.8 kg 95.8 kg 96 kg General appearance: PRESENT: no acute distress, well-developed, well-nourished Head exam: PRESENT: atraumatic, normocephalic Eye exam: PRESENT: conjunctiva pink, EOMI, PERRLA. ABSENT: scleral icterus Ear exam: PRESENT: normal external ear exam Mouth exam: PRESENT: moist, tongue midline Neck exam: ABSENT: carotid bruit, JVD, lymphadenopathy, thyromegaly Respiratory exam: PRESENT: clear to auscultation siobhan. ABSENT: rales, rhonchi, wheezes Cardiovascular exam: PRESENT: RRR. ABSENT: diastolic murmur, rubs, systolic murmur Pulses: PRESENT: normal dorsalis pedis pul Vascular exam: PRESENT: normal capillary refill GI/Abdominal exam: PRESENT: normal bowel sounds, soft. ABSENT: distended, guarding, mass, organolmegaly, rebound, tenderness Rectal exam: PRESENT: deferred Extremities exam: PRESENT: full ROM. ABSENT: calf tenderness, clubbing, pedal edema Neurological exam: PRESENT: alert, awake, oriented to person, oriented to place , oriented to time, oriented to situation, CN II-XII grossly intact. ABSENT: motor sensory deficit Psychiatric exam: PRESENT: appropriate affect, normal mood. ABSENT: homicidal ideation, suicidal ideation Skin exam: PRESENT: dry, intact, warm. ABSENT: cyanosis, rash Results Laboratory Results: 07/07/16 14:40 07/07/16 05:21 07/07/16 14:40 WBC 6.5 RBC 3.23 L Hgb 9.3 L Hct 28.3 L MCV 88 MCH 28.9 MCHC 33.0 RDW 16.9 H Plt Count 123 L Seg Neutrophils % 71.4 Lymphocytes % 19.6 Monocytes % 6.2 Eosinophils % 1.9 Basophils % 0.9 Absolute Neutrophils 4.6 Absolute Lymphocytes 1.3 Absolute Monocytes 0.4 Absolute Eosinophils 0.1 Absolute Basophils 0.1 Impressions: Foot X-Ray 06/24/16 00:00 IMPRESSION: No cortical erosions or lytic areas are identified to confirm bony involvement by osteomyelitis. Extensive amputations which appears stable. Other findings as noted above Chest X-Ray 06/30/16 00:00 IMPRESSION: Stable chest with appropriate right IJ lines. 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 Freed And did hear from Dr. Mclaughlin that the amputation would be scheduled on July 10 We will keep the patient nothing by mouth after midnight tomorrow Time Spent with patient: 25-34 minutes
[2016-07-08] MEDS: BUMETANIDE 1 MG TABLET PO SCH (11:49)
[2016-07-08] MEDS: MUPIROCIN 2% OINTMENT 22 GM TP SCH (12:54)
--- NOTE | 2016-07-08 20:51 | PDOC PROGRESS REPORT ---
Subjective Progress Note for:: 07/08/16 Subjective:: Patient seems to be doing better but seems mildly depressed. She has brought her CPAP machine to the hospital and claims to be using it. Pt is denying any chest arm or neck discomfort. Patient denying any PND, orthopnea. Patient denied any sustained palpitations, dizziness, syncope, near syncope. Patient denying any fever chills. Patient denying any other significant discomfort. Patient had a dialysis catheter placed on the left side. She did not get midtarsal amputation of the right foot. This has been postponed. Patient is maintaining sinus rhythm. Patient denied any leg discomfort on questioning today. Review of systems: Rest review of systems negative. Medications: Medications have been reviewed. Physical Exam Vital Signs: Temp Pulse Resp BP Pulse Ox 98.2 F 64 18 144/42 H 90 L 07/08/16 15:20 07/08/16 15:20 07/08/16 15:20 07/08/16 15:20 07/08/16 15:20 Intake & Output 07/07/16 07/08/16 07/09/16 06:59 06:59 06:59 Intake Total 1142 1857 714 Output Total 650 Balance 1142 1207 714 Weight 95.8 kg 96 kg Exam: GENERAL: well-nourished and in no acute distress. Alert and oriented x3 HEAD: Atraumatic, normocephalic. EYES: Pupils equal round and reactive to light, extraocular movements intact, sclera anicteric, conjunctiva are normal. ENT: TMs normal, nares patent, oropharynx clear without exudates. Moist mucous membranes. No oral ulcerations or bleeding gums noted NECK: supple without lymphadenopathy. Trachea is central. No cervical or axillary lymphadenopathy noted. Carotids are 2+, JVD WNL LUNGS: Respiration seems nonlabored, no significant accessory muscle action noted. Breath sounds clear to auscultation bilaterally and equal. No wheezes rales or rhonchi. No significant dullness noted on percussion. CHEST: Palpation of the chest wall shows no significant chest wall tenderness or abnormalities. 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 ABDOMEN: Soft, no significant tenderness appreciated, normoactive bowel sounds. No guarding, no rebound. No rigidity noted . No masses appreciated. EXTREMITIES: Pedal pulses are 1-2+, no calf tenderness noted. No clubbing or cyanosis.trace to 1+ pedal edema noted. Left midtarsal amputation noted. Patient has amputation of right sided toes as well. Ulcerations noted right foot. NEUROLOGICAL: Focused neurological exam showed no significant neurologic deficit. Normal speech, no focal weakness appreciated. PSYCH: Normal mood, normal affect. Judgment and insight within normal limits. SKIN: No significant ecchymosis, rash, patient has diabetic ulcer right foot. MUSCULOSKELETAL EXAM: No significant joint swelling noted. Results Laboratory Results: 07/07/16 14:40 07/07/16 05:21 Impressions: Foot X-Ray 06/24/16 00:00 IMPRESSION: No cortical erosions or lytic areas are identified to confirm bony involvement by osteomyelitis. Extensive amputations which appears stable. Other findings as noted above Chest X-Ray 06/30/16 00:00 IMPRESSION: Stable chest with appropriate right IJ lines. Central Venous Line 07/07/16 00:00 IMPRESSION: Intra procedural imaging and fluoro Guidance Fluoroscopy 07/07/16 00:00 IMPRESSION: Intra procedural imaging and fluoro Assessment & Plan - Diagnosis (1) Acute on chronic renal failure Is this a current diagnosis for this admission?: Yes (2) Acute on chronic respiratory failure with hypoxia and hypercapnia Is this a current diagnosis for this admission?: Yes (3) COPD (chronic obstructive pulmonary disease) Qualifiers: COPD type: unspecified COPD Qualified Code(s): J44.9 - Chronic obstructive pulmonary disease, unspecified Is this a current diagnosis for this admission?: Yes (4) Diabetic infection of right foot Is this a current diagnosis for this admission?: Yes (5) Acute on chronic diastolic (congestive) heart failure Is this a current diagnosis for this admission?: Yes (6) ORIANA (obstructive sleep apnea) Is this a current diagnosis for this admission?: Yes (7) Dyslipidemia Is this a current diagnosis for this admission?: Yes (8) Hypertension Qualifiers: Hypertension type: essential hypertension Qualified Code(s): I10 - Essential (primary) hypertension Is this a current diagnosis for this admission?: Yes (9) Bradycardia Is this a current diagnosis for this admission?: Yes (10) Anemia Qualifiers: Anemia type: unspecified type Qualified Code(s): D64.9 - Anemia, unspecified Is this a current diagnosis for this admission?: Yes - Notes Notes: Patient remains generally stable from cardiac standpoint. EKG was reviewed. Patient maintaining sinus rhythm. No significant acute ST-T wave changes noted. Patient is awaiting midtarsal amputation for diabetic nonhealing ulcer on her right foot. Patient seems mildly depressed. Patient otherwise stable. No medication changes were performed. Patient encouraged to use her CPAP machine. As regards congestive heart failure see seems compensated. - Time Time with patient: 15-25 minutes - CODE STATUS : was discussed, patient remains DO NOT RESUSCITATE. Surrogate decision-maker unchanged. Multiple medical problems were addressed.
[2016-07-08] MEDS: SERTRALINE HCL 50 MG TABLET PO SCH (22:45)
[2016-07-09 05:23] LABS: ABSOLUTE EOSINOPHILS # (AUTO) 0.2 10^3/uL (0.0-0.6); ABSOLUTE LYMPHOCYTES (AUTO) 1.7 10^3/uL (0.5-4.7); ABSOLUTE MONOCYTES (AUTO) 0.6 10^3/uL (0.1-1.4); ABSOLUTE NEUT (AUTO) 4.2 10^3/uL (1.7-8.2); BASOPHILS % (AUTO) 0.7 % (0-2); EOSINOPHILS % (AUTO) 2.3 % (0-6); HEMATOCRIT 24.7 % (36.0-47.0); HEMOGLOBIN 8.2 g/dL (12.0-15.5); HGB HCT DIFFERENCE -0.1; LYMPHOCYTES % (AUTO) 25.1 % (13-45); MEAN CORPUSCULAR HEMOGLOBIN 29.1 pg (27.0-33.4); MEAN CORPUSCULAR HGB CONC 33.3 g/dL (32.0-36.0); MEAN CORPUSCULAR VOLUME 87 fl (80-97); MONOCYTES % (AUTO) 9.2 % (3-13); RED BLOOD COUNT 2.83 10^6/uL (3.72-5.28); RED CELL DISTRIBUTION WIDTH 16.8 % (11.5-14.0); SEGMENTED NEUTROPHILS % (AUTO) 62.7 % (42-78); WHITE BLOOD COUNT 6.7 10^3/uL (4.0-10.5)
[2016-07-09 05:38] LABS: ANION GAP 10 (5-19); BLOOD UREA NITROGEN 50 mg/dL (7-20); CALCIUM 9.2 mg/dL (8.4-10.2); CARBON DIOXIDE 29 mmol/L (22-30); CHLORIDE 101 mmol/L (98-107); CREATININE RESULT 3.01 mg/dL (0.52-1.25); GLUCOSE 135 mg/dL (75-110); POTASSIUM 4.1 mmol/L (3.6-5.0); SODIUM 140.4 mmol/L (137-145)
[2016-07-09] MEDS: CLONIDINE HCL 0.1 MG TABLET PO SCH ×3 (06:33→21:52)
[2016-07-09] MEDS ORDERED: HEPARIN SOD (PORCINE) 1,000 UNIT/ML 10 ML VIAL IV PRN (10:08)
--- NOTE | 2016-07-09 11:30 | PDOC PROGRESS REPORT ---
Subjective Progress Note for:: 07/09/16 Subjective:: Patient was seen on hemodialysis today. She has had a left IJ catheter placed by Dr. Burnette yesterday which was uneventful. Currently undergoing dialysis through that catheter. Femoral catheter was removed. She Continues to feel better since started on dialysis. Orders discussed with RN. Plan to remove 500 cc - 1 L as tolerated.No issues on hemodialysis. Vital signs are stable. She is feeling better. She denies any history of chest pain shortness of breath. She is awaiting surgery on of leg tomorrow. No complaints of any fever chills. Physical Exam Vital Signs: Temp Pulse Resp BP Pulse Ox 98.5 F 59 L 16 143/52 H 97 07/09/16 04:02 07/09/16 07:00 07/09/16 04:02 07/09/16 04:02 07/09/16 04:02 Intake & Output 07/08/16 07/09/16 07/10/16 06:59 06:59 06:59 Intake Total 1857 1396 Output Total 650 Balance 1207 1396 Weight 96 kg 95.7 kg General appearance: PRESENT: no acute distress Respiratory exam: PRESENT: clear to auscultation siobhan. ABSENT: crackles, rhonchi Cardiovascular exam: PRESENT: +S1, +S2, systolic murmur GI/Abdominal exam: PRESENT: distended, soft. ABSENT: diminished bowel sounds, firm, guarding, organomegaly, tenderness Neurological exam: PRESENT: alert, awake, oriented to person, oriented to place , oriented to time Results Laboratory Results: 07/09/16 04:47 07/09/16 04:47 07/09/16 07/09/16 04:47 04:47 WBC 6.7 RBC 2.83 L Hgb 8.2 L Hct 24.7 L MCV 87 MCH 29.1 MCHC 33.3 RDW 16.8 H Plt Count 119 L Seg Neutrophils % 62.7 Lymphocytes % 25.1 Monocytes % 9.2 Eosinophils % 2.3 Basophils % 0.7 Absolute Neutrophils 4.2 Absolute Lymphocytes 1.7 Absolute Monocytes 0.6 Absolute Eosinophils 0.2 Absolute Basophils 0.0 Sodium 140.4 Potassium 4.1 Chloride 101 Carbon Dioxide 29 Anion Gap 10 BUN 50 H Creatinine 3.01 H Est GFR ( Amer) 19 L Est GFR (Non-Af Amer) 15 L Glucose 135 H Calcium 9.2 Impressions: Foot X-Ray 06/24/16 00:00 IMPRESSION: No cortical erosions or lytic areas are identified to confirm bony involvement by osteomyelitis. Extensive amputations which appears stable. Other findings as noted above Chest X-Ray 06/30/16 00:00 IMPRESSION: Stable chest with appropriate right IJ lines. Central Venous Line 07/07/16 00:00 IMPRESSION: Intra procedural imaging and fluoro Guidance Fluoroscopy 07/07/16 00:00 IMPRESSION: Intra procedural imaging and fluoro Assessment & Plan - Diagnosis (1) MRSA bacteremia Is this a current diagnosis for this admission?: YesPlan: On appropriate antibiotics. (2) Acute on chronic respiratory failure with hypoxia and hypercapnia Is this a current diagnosis for this admission?: Yes (3) Diabetic infection of right foot Is this a current diagnosis for this admission?: YesPlan: For definitive treatment this week. (4) Sepsis Qualifiers: Sepsis type: methicillin resistant Staphylococcus aureus Qualified Code(s): A41.02 - Sepsis due to Methicillin resistant Staphylococcus aureus Is this a current diagnosis for this admission?: YesPlan: From infected right foot. Currently on antibiotics. Stable. (5) Acute on chronic diastolic (congestive) heart failure Is this a current diagnosis for this admission?: YesPlan: Has done well to conservative management and hemodialysis/ultrafiltration. Is currently undergoing dialysis again and will try to remove another 500 cc- 1 L as tolerated. (6) Acute on chronic renal insufficiency Is this a current diagnosis for this admission?: YesPlan: CKD stage V now on dialysis. Feeling better since being on HD. She is undergoing dialysis without any issues through New left IJ PermCath. Dialysis orders were discussed with the treating nurse. Vital signs are stable. Will plan to remove approximately 500 - 1 L of fluid as tolerated. (7) Cervical cancer, FIGO stage MIRIAM Is this a current diagnosis for this admission?: Yes (8) Diabetic foot ulcer Qualifiers: Diabetes mellitus type: type 1 Laterality: right Qualified Code(s) : E10.621 - Type 1 diabetes mellitus with foot ulcer; L97.519 - Non-pressure chronic ulcer of other part of right foot with unspecified severity (9) Sepsis Qualifiers: Sepsis type: sepsis due to unspecified organism Qualified Code(s): A41.9 - Sepsis, unspecified organism Is this a current diagnosis for this admission?: Yes (10) ORIANA (obstructive sleep apnea) Is this a current diagnosis for this admission?: Yes (11) Anemia Qualifiers: Anemia type: other cause Other causes of anemia: other cause, not classified Qualified Code(s): D64.89 - Other specified anemias Is this a current diagnosis for this admission?: YesPlan: Adjust erythropoietin.
[2016-07-09] MEDS: EPOETIN ALFA INJ 20000 UNIT/1 ML VIAL (RENAL) IV PRN (11:44)
[2016-07-09] MEDS: CALCIUM ACETATE 667 MG CAPSULE PO SCH ×3 (11:52→17:44)
[2016-07-09] MEDS ORDERED: INSULIN REG, HUMAN 100 UNIT/ML 3 ML VIAL SUBCUT ONE (12:00)
[2016-07-09] MEDS: ATORVASTATIN CALCIUM 10 MG TABLET PO SCH (12:10)
[2016-07-09] MEDS: LANSOPRAZOLE 30 MG TAB.RAP.DR PO SCH (12:11)
[2016-07-09] MEDS: LISINOPRIL 10 MG TABLET PO SCH ×2 (12:11→21:52)
[2016-07-09] MEDS: FENOFIBRATE NANOCRYSTALLIZED 145 MG TABLET PO SCH (12:11)
[2016-07-09] MEDS: MAGNESIUM OXIDE 400 MG TABLET PO SCH (12:11)
[2016-07-09] MEDS: ASPIRIN 81 MG TABLET, ENT COATED PO SCH (12:11)
[2016-07-09] MEDS: AMLODIPINE BESYLATE 10 MG TABLET PO SCH (12:11)
[2016-07-09] MEDS: CARVEDILOL 12.5 MG TABLET PO SCH ×2 (12:12→21:52)
[2016-07-09] MEDS: BUMETANIDE 1 MG TABLET PO SCH (12:12)
[2016-07-09] MEDS: MUPIROCIN 2% OINTMENT 22 GM TP SCH (12:13)
[2016-07-09] MEDS: PRAMIPEXOLE DI-HCL 0.5 MG TABLET PO SCH ×2 (12:13→17:44)
[2016-07-09] MEDS: INSULIN GLARGINE,HUM.REC.ANLOG 300 UNIT/3 ML INSULN.PEN SUBCUT SCH (12:13)
[2016-07-09] MEDS ORDERED: INSULIN REG, HUMAN 100 UNIT/ML 3 ML VIAL (PYX) SUBCUT ONE (13:00)
--- NOTE | 2016-07-09 16:02 | PDOC PROGRESS REPORT ---
Subjective Progress Note for:: 07/09/16 Subjective:: Patient has no complaints undergoing dialysis today Physical Exam Vital Signs: Temp Pulse Resp BP Pulse Ox 98.3 F 57 L 18 148/37 H 98 07/09/16 15:07 07/09/16 15:07 07/09/16 15:07 07/09/16 15:07 07/09/16 15:07 Intake & Output 07/08/16 07/09/16 07/10/16 00:59 00:59 00:59 Intake Total 1757 1274 232 Output Total 650 Balance 1107 1274 232 Weight 95.8 kg 96 kg 95.7 kg General appearance: PRESENT: no acute distress, well-developed, well-nourished Head exam: PRESENT: atraumatic, normocephalic Eye exam: PRESENT: conjunctiva pink, EOMI, PERRLA. ABSENT: scleral icterus Ear exam: PRESENT: normal external ear exam Mouth exam: PRESENT: moist, tongue midline Neck exam: ABSENT: carotid bruit, JVD, lymphadenopathy, thyromegaly Respiratory exam: PRESENT: clear to auscultation siobhan. ABSENT: rales, rhonchi, wheezes Cardiovascular exam: PRESENT: RRR. ABSENT: diastolic murmur, rubs, systolic murmur Pulses: PRESENT: normal dorsalis pedis pul Vascular exam: PRESENT: normal capillary refill GI/Abdominal exam: PRESENT: normal bowel sounds, soft. ABSENT: distended, guarding, mass, organolmegaly, rebound, tenderness Rectal exam: PRESENT: deferred Extremities exam: PRESENT: full ROM. ABSENT: calf tenderness, clubbing, pedal edema Neurological exam: PRESENT: alert, awake, oriented to person, oriented to place , oriented to time, oriented to situation, CN II-XII grossly intact. ABSENT: motor sensory deficit Psychiatric exam: PRESENT: appropriate affect, normal mood. ABSENT: homicidal ideation, suicidal ideation Skin exam: PRESENT: dry, intact, warm. ABSENT: cyanosis, rash Results Laboratory Results: 07/09/16 04:47 07/09/16 04:47 07/09/16 07/09/16 04:47 04:47 WBC 6.7 RBC 2.83 L Hgb 8.2 L Hct 24.7 L MCV 87 MCH 29.1 MCHC 33.3 RDW 16.8 H Plt Count 119 L Seg Neutrophils % 62.7 Lymphocytes % 25.1 Monocytes % 9.2 Eosinophils % 2.3 Basophils % 0.7 Absolute Neutrophils 4.2 Absolute Lymphocytes 1.7 Absolute Monocytes 0.6 Absolute Eosinophils 0.2 Absolute Basophils 0.0 Sodium 140.4 Potassium 4.1 Chloride 101 Carbon Dioxide 29 Anion Gap 10 BUN 50 H Creatinine 3.01 H Est GFR ( Amer) 19 L Est GFR (Non-Af Amer) 15 L Glucose 135 H Calcium 9.2 Impressions: Foot X-Ray 06/24/16 00:00 IMPRESSION: No cortical erosions or lytic areas are identified to confirm bony involvement by osteomyelitis. Extensive amputations which appears stable. Other findings as noted above Chest X-Ray 06/30/16 00:00 IMPRESSION: Stable chest with appropriate right IJ lines. 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 Is this a current diagnosis for this admission?: Yes (4) Osteomyelitis Qualifiers: Osteomyelitis location: foot Laterality: right Chronicity: chronic Qualified Code(s): M86.671 - Other chronic osteomyelitis, right ankle and foot Is this a current diagnosis for this admission?: YesPlan: for amputation foot in am NPO after midnight (5) Anemia Qualifiers: Anemia type: unspecified type Qualified Code(s): D64.9 - Anemia, unspecified Is this a current diagnosis for this admission?: YesPlan: anemia of chronic disease epogen transfuse as per Dr Craig will repeat H/H in am (6) MRSA bacteremia Is this a current diagnosis for this admission?: YesPlan: vanco with dialysis as per dr Craig - Time Time Spent with patient: 25-34 minutes
--- NOTE | 2016-07-09 16:54 | PDOC PROGRESS REPORT ---
Subjective Progress Note for:: 07/09/16 Subjective:: Patient seems to be doing better. She tolerated dialysis well.. Pt is denying any chest arm or neck discomfort. Patient denying any PND, orthopnea. Patient denied any sustained palpitations, dizziness, syncope, near syncope. Patient denying any fever chills. Patient denying any other significant discomfort. She did not get midtarsal amputation of the right foot. This has been postponed. Patient is maintaining sinus rhythm. Patient denied any leg discomfort on questioning today. Review of systems: Rest review of systems negative. Medications: Medications have been reviewed. Physical Exam Vital Signs: Temp Pulse Resp BP Pulse Ox 98.3 F 57 L 18 148/37 H 98 07/09/16 15:07 07/09/16 15:07 07/09/16 15:07 07/09/16 15:07 07/09/16 15:07 Intake & Output 07/08/16 07/09/16 07/10/16 06:59 06:59 06:59 Intake Total 1857 1396 Output Total 650 Balance 1207 1396 Weight 96 kg 95.7 kg Exam: GENERAL: well-nourished and in no acute distress. Alert and oriented x3 HEAD: Atraumatic, normocephalic. EYES: Pupils equal round and reactive to light, extraocular movements intact, sclera anicteric, conjunctiva are normal. ENT: TMs normal, nares patent, oropharynx clear without exudates. Moist mucous membranes. No oral ulcerations or bleeding gums noted NECK: supple without lymphadenopathy. Trachea is central. No cervical or axillary lymphadenopathy noted. Carotids are 2+, JVD WNL LUNGS: Respiration seems nonlabored, no significant accessory muscle action noted. Breath sounds clear to auscultation bilaterally and equal. No wheezes rales or rhonchi. No significant dullness noted on percussion. CHEST: Palpation of the chest wall shows no significant chest wall tenderness or abnormalities. 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 ABDOMEN: Soft, no significant tenderness appreciated, normoactive bowel sounds. No guarding, no rebound. No rigidity noted . No masses appreciated. EXTREMITIES: Pedal pulses are 1-2+, no calf tenderness noted. No clubbing or cyanosis.trace pedal edema noted. Left midtarsal amputation noted. Patient has amputation of right sided toes as well. Ulcerations noted right foot. Patient however has the right foot in wraps. NEUROLOGICAL: Focused neurological exam showed no significant neurologic deficit. Normal speech, no focal weakness appreciated. PSYCH: Normal mood, normal affect. Judgment and insight within normal limits. SKIN: No significant ecchymosis, rash, patient has diabetic ulcer right foot. MUSCULOSKELETAL EXAM: No significant joint swelling noted. Results Laboratory Results: 07/09/16 04:47 07/09/16 04:47 07/09/16 07/09/16 04:47 04:47 WBC 6.7 RBC 2.83 L Hgb 8.2 L Hct 24.7 L MCV 87 MCH 29.1 MCHC 33.3 RDW 16.8 H Plt Count 119 L Seg Neutrophils % 62.7 Lymphocytes % 25.1 Monocytes % 9.2 Eosinophils % 2.3 Basophils % 0.7 Absolute Neutrophils 4.2 Absolute Lymphocytes 1.7 Absolute Monocytes 0.6 Absolute Eosinophils 0.2 Absolute Basophils 0.0 Sodium 140.4 Potassium 4.1 Chloride 101 Carbon Dioxide 29 Anion Gap 10 BUN 50 H Creatinine 3.01 H Est GFR ( Amer) 19 L Est GFR (Non-Af Amer) 15 L Glucose 135 H Calcium 9.2 Impressions: Foot X-Ray 06/24/16 00:00 IMPRESSION: No cortical erosions or lytic areas are identified to confirm bony involvement by osteomyelitis. Extensive amputations which appears stable. Other findings as noted above Chest X-Ray 06/30/16 00:00 IMPRESSION: Stable chest with appropriate right IJ lines. Central Venous Line 07/07/16 00:00 IMPRESSION: Intra procedural imaging and fluoro Guidance Fluoroscopy 07/07/16 00:00 IMPRESSION: Intra procedural imaging and fluoro Assessment & Plan - Diagnosis (1) Acute on chronic renal failure Is this a current diagnosis for this admission?: Yes (2) Acute on chronic respiratory failure with hypoxia and hypercapnia Is this a current diagnosis for this admission?: Yes (3) COPD (chronic obstructive pulmonary disease) Qualifiers: COPD type: unspecified COPD Qualified Code(s): J44.9 - Chronic obstructive pulmonary disease, unspecified Is this a current diagnosis for this admission?: Yes (4) Diabetic infection of right foot Is this a current diagnosis for this admission?: Yes (5) Acute on chronic diastolic (congestive) heart failure Is this a current diagnosis for this admission?: Yes (6) ORIANA (obstructive sleep apnea) Is this a current diagnosis for this admission?: Yes (7) Dyslipidemia Is this a current diagnosis for this admission?: Yes (8) Hypertension Qualifiers: Hypertension type: essential hypertension Qualified Code(s): I10 - Essential (primary) hypertension Is this a current diagnosis for this admission?: Yes (9) Bradycardia Is this a current diagnosis for this admission?: Yes (10) Anemia Qualifiers: Anemia type: unspecified type Qualified Code(s): D64.9 - Anemia, unspecified Is this a current diagnosis for this admission?: Yes - Notes Notes: Patient has remained stable from cardiac standpoint. She now has the CPAP machine at bedside. Patient encouraged to use it nightly. Patient has no evidence of any angina or angina equivalent symptom. Patient noted to be in sinus rhythm. No clinical CHF noted. Discussed with anesthesiologist. He would like us to order a 12-lead EKG for the morning. We will go ahead and do that. Patient cleared for surgery. Choice of anesthesia best left to the anesthesiologist. - Time Time with patient: 15-25 minutes - CODE STATUS : was discussed, patient remains DO NOT RESUSCITATE. Surrogate decision-maker unchanged. Multiple medical problems were addressed.
[2016-07-09] MEDS: INSULIN LISPRO 100 UNIT/ML 3 ML VIAL SUBCUT PRN ×2 (17:44→21:52)
[2016-07-09] MEDS: SERTRALINE HCL 50 MG TABLET PO SCH (21:53)
[2016-07-10] MEDS: CLONIDINE HCL 0.1 MG TABLET PO SCH ×3 (05:14→22:29)
[2016-07-10 05:16] LABS: HEMATOCRIT 25.8 % (36.0-47.0); HEMOGLOBIN 8.6 g/dL (12.0-15.5); MEAN CORPUSCULAR HEMOGLOBIN 29.5 pg (27.0-33.4); MEAN CORPUSCULAR HGB CONC 33.5 g/dL (32.0-36.0); MEAN CORPUSCULAR VOLUME 88 fl (80-97); RED BLOOD COUNT 2.93 10^6/uL (3.72-5.28); RED CELL DISTRIBUTION WIDTH 17.1 % (11.5-14.0); WHITE BLOOD COUNT 6.6 10^3/uL (4.0-10.5)
[2016-07-10] MEDS ORDERED: LIDOCAINE 1% INJ-PF (10 MG/ML) 30 ML SDV ONE (08:09)
[2016-07-10] MEDS ORDERED: FENTANYL CITRATE INJ/PF 100 MCG/2 ML AMPUL ONE (10:49)
[2016-07-10] MEDS ORDERED: MIDAZOLAM 2 MG/2 ML INJ ONE (10:49)
[2016-07-10] MEDS ORDERED: KETAMINE HCL INJ 500 MG/10 ML VIAL ONE (10:49)
[2016-07-10] MEDS ORDERED: ACETAMINOPHEN 100 ML IV ONE (10:50)
[2016-07-10] MEDS ORDERED: PROPOFOL INJ 200 MG/20 ML VIAL IV ONE (10:50)
[2016-07-10] MEDS ORDERED: DEXMEDETOMIDINE INJ 80 MCG/20 ML VIAL IV ONE (10:50)
--- NOTE | 2016-07-10 11:10 | PDOC PROGRESS REPORT ---
Subjective Progress Note for:: 07/10/16 Subjective:: Patient was seen this morning. She is in the process of being taken for to the OR. She denies any history of chest pain shortness of breath. She is due for dialysis tomorrow. Physical Exam Vital Signs: Temp Pulse Resp BP Pulse Ox 97.8 F 60 16 141/47 H 90 L 07/10/16 10:20 07/10/16 10:20 07/10/16 10:20 07/10/16 10:20 07/10/16 10:20 Intake & Output 07/09/16 07/10/16 07/11/16 06:59 06:59 06:59 Intake Total 1396 975 Output Total 800 Balance 1396 175 Weight 95.7 kg 95.4 kg General appearance: PRESENT: no acute distress Respiratory exam: PRESENT: clear to auscultation siobhan. ABSENT: crackles, rhonchi Cardiovascular exam: PRESENT: +S1, +S2, systolic murmur GI/Abdominal exam: PRESENT: distended, soft. ABSENT: diminished bowel sounds, firm, guarding, organomegaly, tenderness Neurological exam: PRESENT: alert, oriented to person, oriented to place, oriented to time Results Laboratory Results: 07/10/16 04:45 07/09/16 04:47 07/10/16 04:45 WBC 6.6 RBC 2.93 L Hgb 8.6 L Hct 25.8 L MCV 88 MCH 29.5 MCHC 33.5 RDW 17.1 H Plt Count 132 L Impressions: Foot X-Ray 06/24/16 00:00 IMPRESSION: No cortical erosions or lytic areas are identified to confirm bony involvement by osteomyelitis. Extensive amputations which appears stable. Other findings as noted above Chest X-Ray 06/30/16 00:00 IMPRESSION: Stable chest with appropriate right IJ lines. Central Venous Line 07/07/16 00:00 IMPRESSION: Intra procedural imaging and fluoro Guidance Fluoroscopy 07/07/16 00:00 IMPRESSION: Intra procedural imaging and fluoro Assessment & Plan - Diagnosis (1) MRSA bacteremia Is this a current diagnosis for this admission?: YesPlan: On appropriate antibiotics. (2) Acute on chronic respiratory failure with hypoxia and hypercapnia Is this a current diagnosis for this admission?: Yes (3) Diabetic infection of right foot Is this a current diagnosis for this admission?: YesPlan: Process of having definite to surgery today. (4) Sepsis Qualifiers: Sepsis type: methicillin resistant Staphylococcus aureus Qualified Code(s): A41.02 - Sepsis due to Methicillin resistant Staphylococcus aureus Is this a current diagnosis for this admission?: Yes (5) Acute on chronic diastolic (congestive) heart failure Is this a current diagnosis for this admission?: Yes (6) Acute on chronic renal insufficiency Is this a current diagnosis for this admission?: YesPlan: CKD stage V now on dialysis. Feeling better since being on HD. Dialysis orders in place for tomorrow.. Vital signs are stable. Off till Thursday and Dr. terrell covering me for tomorrow and Thursday. (7) Cervical cancer, FIGO stage MIRIAM Is this a current diagnosis for this admission?: Yes (8) Diabetic foot ulcer Qualifiers: Diabetes mellitus type: type 1 Laterality: right Qualified Code(s) : E10.621 - Type 1 diabetes mellitus with foot ulcer; L97.519 - Non-pressure chronic ulcer of other part of right foot with unspecified severity (9) Sepsis Qualifiers: Sepsis type: sepsis due to unspecified organism Qualified Code(s): A41.9 - Sepsis, unspecified organism Is this a current diagnosis for this admission?: Yes (10) ORIANA (obstructive sleep apnea) Is this a current diagnosis for this admission?: Yes (11) Anemia Qualifiers: Anemia type: other cause Other causes of anemia: other cause, not classified Qualified Code(s): D64.89 - Other specified anemias Is this a current diagnosis for this admission?: Yes
--- NOTE | 2016-07-10 11:28 | EKG REPORT ---
SEVERITY:- ABNORMAL ECG - SINUS RHYTHM ATRIAL PREMATURE COMPLEX FIRST DEGREE AV BLOCK BORDERLINE LEFT AXIS DEVIATION CONSIDER ANTERIOR INFARCT : Confirmed by: Chas Hutchison 10-Jul-2016 11:26:54
[2016-07-10] MEDS ORDERED: PROMETHAZINE HCL INJ 25 MG/1 ML VIAL IV PRN ×2 (11:39)
[2016-07-10] MEDS ORDERED: DIPHENHYDRAMINE HCL 50 MG/ML VIAL IV PRN (11:39)
[2016-07-10] MEDS ORDERED: FENTANYL CITRATE INJ/PF 100 MCG/2 ML AMPUL IV PRN ×3 (11:39)
[2016-07-10] MEDS ORDERED: MORPHINE SULFATE 10 MG/ML INJ IV PRN ×2 (11:39→14:46)
[2016-07-10] MEDS: CALCIUM ACETATE 667 MG CAPSULE PO SCH ×3 (12:17→17:26)
--- NOTE | 2016-07-10 12:57 | Operative Report ---
Nonrecallable Operative Report DATE OF SURGERY: 07/10/16 PREOPERATIVE DIAGNOSIS: Osteomyelitis right foot POSTOPERATIVE DIAGNOSIS: Same OPERATION: Right [id number] amputation SURGEON: PARESH ADDISON TEXTILE BAG SEWER: AMADOR PARSON ANESTHESIA: Spinal TISSUE REMOVED OR ALTERED: Right foot and lower leg COMPLICATIONS: None ESTIMATED BLOOD LOSS: 2 50 mL INTRAOPERATIVE FINDINGS: See below PROCEDURE: The patient was seen in the preoperative holding area with the right leg was marked. The right foot is been isolated with Covan wrap. Was for a right below the knee amputation. She was taken the operating room where successful spinal anesthesia was induced by Dr. Ortiz. The right leg from the groin to the previously wrapped foot was prepped and draped sterile fashion with the right foot being isolated with an Ioban dressing. Surgical plan surgical timeout were conducted. The right leg was marked for below the knee amputation with the superior flap approximately 8 cm below the tibial tuberosity and the posterior flap approximately 15 cm distal to the superior flap. Skin was incised with #10 blade, subcutaneous tissue and fascia as well as muscle divided with electrocautery. The anterior tibial posterior tibial and peroneal arteries were all patent and were clamped as encountered. The periosteum overlying the tibia was stripped with an elevator and the tibia divided the oscillating saw. The fibula was similarly divided after elevating the periosteum. Remaining muscular attachments were divided with the cautery. The right foot and lower leg was passed off to pathology All clamps were released once the vascular pedicles were secured with 0 and 2-0 Vicryl ties. Estimated blood loss was 200-250 mL. Of note the muscle as well as the skin appeared viable throughout the operation. Hemostasis was felt to be excellent prior to stump closure. The anterior face of the tibia was trimmed with the oscillating saw to create a taper fax. The length of the tibia and transected fibula were comparable. We talked the muscle into the deep cavity and performed a single layer close myodesis 2-0 Vicryl suture. Skin was approximated with 3-0 Vicryl and richie. A dressing was Xeroform, 4 x 4's Curlex and Ravinder wrap applied. Of note prior to skin incision, the skin was anesthetized quarter percent Marcaine. The patient on procedure well, taken recovery in stable condition. The physician assistant boiler operator, Ms. Parson, provided assistance during this case by: Assisting retracting tissue, instillation of local anesthesia and closure of skin incisions.
[2016-07-10] MEDS: LISINOPRIL 10 MG TABLET PO SCH ×2 (13:36→22:42)
[2016-07-10] MEDS: PRAMIPEXOLE DI-HCL 0.5 MG TABLET PO SCH ×2 (13:36→17:26)
[2016-07-10] MEDS: CARVEDILOL 12.5 MG TABLET PO SCH ×2 (13:36→22:42)
[2016-07-10] MEDS: AMLODIPINE BESYLATE 10 MG TABLET PO SCH (14:05)
[2016-07-10] MEDS ORDERED: METOCLOPRAMIDE HCL INJ/PF 10 MG/2 ML SDV ONE (14:25)
[2016-07-10] MEDS ORDERED: LIDOCAINE 2% INJ-PF (20 MG/ML) 10 ML AMPUL ONE (14:25)
[2016-07-10] MEDS ORDERED: ONDANSETRON HCL INJ/PF 4 MG/2 ML SDV ONE (14:25)
[2016-07-10] MEDS: BUMETANIDE 1 MG TABLET PO SCH (14:35)
[2016-07-10] MEDS: MUPIROCIN 2% OINTMENT 22 GM TP SCH (14:35)
[2016-07-10] MEDS: MAGNESIUM OXIDE 400 MG TABLET PO SCH (14:36)
[2016-07-10] MEDS: ATORVASTATIN CALCIUM 10 MG TABLET PO SCH (14:36)
[2016-07-10] MEDS: LANSOPRAZOLE 30 MG TAB.RAP.DR PO SCH (14:36)
[2016-07-10] MEDS: INSULIN GLARGINE,HUM.REC.ANLOG 300 UNIT/3 ML INSULN.PEN SUBCUT SCH (14:36)
[2016-07-10] MEDS: FENOFIBRATE NANOCRYSTALLIZED 145 MG TABLET PO SCH (14:36)
[2016-07-10] MEDS ORDERED: MORPHINE SULFATE 10 MG/ML INJ ONE (14:58)
[2016-07-10] MEDS: HYDROMORPHONE HCL INJ/PF 2 MG/ML AMPULE IV PRN ×3 (16:20→23:56)
--- NOTE | 2016-07-10 16:26 | PDOC PROGRESS REPORT ---
Subjective Progress Note for:: 07/10/16 Subjective:: Patient was evaluated after she returned from the OR She underwent right BKA the right foot osteomyelitis and MRSA infection Surgery was uneventful Upon her return patient is complaining of significant pain in the leg and initially morphine and Dilaudid were ordered She's no fever no chills She is hemodynamically stable Physical Exam Vital Signs: Temp Pulse Resp BP Pulse Ox 97.5 F 51 L 20 158/47 H 98 07/10/16 14:54 07/10/16 14:54 07/10/16 14:54 07/10/16 14:54 07/10/16 14:54 Intake & Output 07/09/16 07/10/16 07/11/16 00:59 00:59 00:59 Intake Total 1274 1197 3710 Output Total 800 2270 Balance 9666 676 1639 Weight 96 kg 95.7 kg 95.4 kg General appearance: PRESENT: no acute distress, well-developed, well-nourished Head exam: PRESENT: atraumatic, normocephalic Eye exam: PRESENT: conjunctiva pink, EOMI, PERRLA. ABSENT: scleral icterus Ear exam: PRESENT: normal external ear exam Mouth exam: PRESENT: moist, tongue midline Neck exam: ABSENT: carotid bruit, JVD, lymphadenopathy, thyromegaly Respiratory exam: PRESENT: clear to auscultation siobhan. ABSENT: rales, rhonchi, wheezes Cardiovascular exam: PRESENT: RRR. ABSENT: diastolic murmur, rubs, systolic murmur Pulses: PRESENT: normal dorsalis pedis pul Vascular exam: PRESENT: normal capillary refill GI/Abdominal exam: PRESENT: normal bowel sounds, soft. ABSENT: distended, guarding, mass, organolmegaly, rebound, tenderness Rectal exam: PRESENT: deferred Extremities exam: PRESENT: full ROM, other - Right lower extremity Right BKA Stump dressed Dressing appears clean and dry. ABSENT: calf tenderness, clubbing , pedal edema Neurological exam: PRESENT: alert, awake, oriented to person, oriented to place , oriented to time, oriented to situation, CN II-XII grossly intact. ABSENT: motor sensory deficit Psychiatric exam: PRESENT: appropriate affect, normal mood. ABSENT: homicidal ideation, suicidal ideation Skin exam: PRESENT: dry, intact, warm. ABSENT: cyanosis, rash Results Laboratory Results: 07/10/16 04:45 07/09/16 04:47 07/10/16 04:45 WBC 6.6 RBC 2.93 L Hgb 8.6 L Hct 25.8 L MCV 88 MCH 29.5 MCHC 33.5 RDW 17.1 H Plt Count 132 L Impressions: Foot X-Ray 06/24/16 00:00 IMPRESSION: No cortical erosions or lytic areas are identified to confirm bony involvement by osteomyelitis. Extensive amputations which appears stable. Other findings as noted above Chest X-Ray 06/30/16 00:00 IMPRESSION: Stable chest with appropriate right IJ lines. 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 Is this a current diagnosis for this admission?: Yes (4) Osteomyelitis Qualifiers: Osteomyelitis location: foot Laterality: right Chronicity: chronic Qualified Code(s): M86.671 - Other chronic osteomyelitis, right ankle and foot Is this a current diagnosis for this admission?: Yes (5) Anemia Qualifiers: Anemia type: unspecified type Qualified Code(s): D64.9 - Anemia, unspecified Is this a current diagnosis for this admission?: Yes (6) MRSA bacteremia Is this a current diagnosis for this admission?: Yes (7) Status post below knee amputation of right lower extremity Is this a current diagnosis for this admission?: Yes - Time Time Spent with patient: Continue the present management Discussed the case with Dr. Ureña who will consult Patient to be discharged to short-term rehabilitation when stable She is to resume chemotherapy and or radiation therapy after 3-4 weeks when the wound of the right lower extremity is healed Time Spent with patient: 25-34 minutes
[2016-07-10] MEDS: INSULIN LISPRO 100 UNIT/ML 3 ML VIAL SUBCUT PRN (17:26)
--- NOTE | 2016-07-10 19:29 | PDOC PROGRESS REPORT ---
Subjective Progress Note for:: 07/10/16 Subjective:: Patient seems to be doing better. Patient was seen prior to being taken to operating theater. Pt is denying any chest arm or neck discomfort. Patient denying any PND, orthopnea. Patient denied any sustained palpitations, dizziness, syncope, near syncope. Patient denying any fever chills. Patient denying any other significant discomfort. Twelve-lead EKG reviewed. Patient is maintaining sinus rhythm. Review of systems: Rest review of systems negative. Medications: Medications have been reviewed. Physical Exam Vital Signs: Temp Pulse Resp BP Pulse Ox 97.5 F 51 L 20 158/47 H 98 07/10/16 14:54 07/10/16 14:54 07/10/16 14:54 07/10/16 14:54 07/10/16 14:54 Intake & Output 07/09/16 07/10/16 07/11/16 06:59 06:59 06:59 Intake Total 8177 455 9681 Output Total 800 2270 Balance 5820 552 6928 Weight 95.7 kg 95.4 kg Exam: GENERAL: well-nourished and in no acute distress. Alert and oriented x3 HEAD: Atraumatic, normocephalic. EYES: Pupils equal round and reactive to light, extraocular movements intact, sclera anicteric, conjunctiva are normal. ENT: TMs normal, nares patent, oropharynx clear without exudates. Moist mucous membranes. No oral ulcerations or bleeding gums noted NECK: supple without lymphadenopathy. Trachea is central. No cervical or axillary lymphadenopathy noted. Carotids are 2+, JVD WNL LUNGS: Respiration seems nonlabored, no significant accessory muscle action noted. Breath sounds clear to auscultation bilaterally and equal. No wheezes rales or rhonchi. No significant dullness noted on percussion. CHEST: Palpation of the chest wall shows no significant chest wall tenderness or abnormalities. HEART: [place] OPERATIONS INTERN, No PSH, 1/6 TARAH aortic area, 1/6 pradhan systolic murmur mitral area, no rubs, no gallops. ABDOMEN: Soft, no significant tenderness appreciated, normoactive bowel sounds. No guarding, no rebound. No rigidity noted . No masses appreciated. EXTREMITIES: Pedal pulses are 1-2+, no calf tenderness noted. No clubbing or cyanosis.trace pedal edema noted. Left midtarsal amputation noted. Patient has amputation of right sided toes as well. Ulcerations noted right foot. Patient however has the right foot in wraps. Patient subsequently underwent in the afternoon, below-knee amputation on the right side. This exam note is for earlier this morning. NEUROLOGICAL: Focused neurological exam showed no significant neurologic deficit. Normal speech, no focal weakness appreciated. PSYCH: Normal mood, normal affect. Judgment and insight within normal limits. SKIN: No significant ecchymosis, rash, patient has diabetic ulcer right foot. MUSCULOSKELETAL EXAM: No significant joint swelling noted. Results Laboratory Results: 07/10/16 04:45 07/09/16 04:47 07/10/16 04:45 WBC 6.6 RBC 2.93 L Hgb 8.6 L Hct 25.8 L MCV 88 MCH 29.5 MCHC 33.5 RDW 17.1 H Plt Count 132 L Impressions: Foot X-Ray 06/24/16 00:00 IMPRESSION: No cortical erosions or lytic areas are identified to confirm bony involvement by osteomyelitis. Extensive amputations which appears stable. Other findings as noted above Chest X-Ray 06/30/16 00:00 IMPRESSION: Stable chest with appropriate right IJ lines. Central Venous Line 07/07/16 00:00 IMPRESSION: Intra procedural imaging and fluoro Guidance Fluoroscopy 07/07/16 00:00 IMPRESSION: Intra procedural imaging and fluoro Assessment & Plan - Diagnosis (1) Acute on chronic renal failure Is this a current diagnosis for this admission?: Yes (2) Acute on chronic respiratory failure with hypoxia and hypercapnia Is this a current diagnosis for this admission?: Yes (3) COPD (chronic obstructive pulmonary disease) Qualifiers: COPD type: unspecified COPD Qualified Code(s): J44.9 - Chronic obstructive pulmonary disease, unspecified Is this a current diagnosis for this admission?: Yes (4) Diabetic infection of right foot Is this a current diagnosis for this admission?: Yes (5) Acute on chronic diastolic (congestive) heart failure Is this a current diagnosis for this admission?: Yes (6) ORIANA (obstructive sleep apnea) Is this a current diagnosis for this admission?: Yes (7) Dyslipidemia Is this a current diagnosis for this admission?: Yes (8) Hypertension Qualifiers: Hypertension type: essential hypertension Qualified Code(s): I10 - Essential (primary) hypertension Is this a current diagnosis for this admission?: Yes (9) Bradycardia Is this a current diagnosis for this admission?: Yes (10) Anemia Qualifiers: Anemia type: unspecified type Qualified Code(s): D64.9 - Anemia, unspecified Is this a current diagnosis for this admission?: Yes - Notes Notes: Patient was seen preop and also postop. Patient has done well with surgery. We 'll review an EKG in the morning. Patient generally stable from cardiac standpoint. She has other ongoing chronic problems which are being well managed and stable at this point. Dr. Harding to see in the morning. Patient generally stable from cardiac standpoint. - Time Time with patient: 15-25 minutes - CODE STATUS : was discussed, patient remains DO NOT RESUSCITATE. Surrogate decision-maker unchanged. Multiple medical problems were addressed.More than 50% of the time spent coordinating care, discussing management plans with involved caregivers. Management plans discussed with involved personnels. Medical decision making was of moderate complexity.
[2016-07-10] MEDS: SERTRALINE HCL 50 MG TABLET PO SCH (22:26)
[2016-07-11] MEDS: HYDROMORPHONE HCL INJ/PF 2 MG/ML AMPULE IV PRN ×5 (04:18→18:10)
[2016-07-11 05:15] LABS: HEMATOCRIT 23.6 % (36.0-47.0); HGB HCT DIFFERENCE 0.1; MEAN CORPUSCULAR HEMOGLOBIN 29.4 pg (27.0-33.4); MEAN CORPUSCULAR HGB CONC 33.7 g/dL (32.0-36.0); MEAN CORPUSCULAR VOLUME 87 fl (80-97); RED CELL DISTRIBUTION WIDTH 16.4 % (11.5-14.0); WHITE BLOOD COUNT 8.6 10^3/uL (4.0-10.5)
[2016-07-11 05:18] LABS: HEMOGLOBIN 7.9 g/dL (12.0-15.5)
[2016-07-11 05:20] LABS: ANION GAP 10 (5-19); BLOOD UREA NITROGEN 34 mg/dL (7-20); CALCIUM 9.1 mg/dL (8.4-10.2); CARBON DIOXIDE 29 mmol/L (22-30); CHLORIDE 102 mmol/L (98-107); CREATININE RESULT 2.59 mg/dL (0.52-1.25); GLUCOSE 130 mg/dL (75-110); POTASSIUM 4.6 mmol/L (3.6-5.0); SODIUM 141.4 mmol/L (137-145)
--- NOTE | 2016-07-11 07:56 | PDOC CONSULTATION ---
Consultation Consult Date: 07/11/16 Attending physician:: LENORA HERNANDEZ Consult reason:: Patient well known to our oncology clinic with known history of stage IV cervical cancer, other multiple medical conditions, status post BKA History of Present Illness Admission Date/PCP: 06/23/16 05:45 CAROLINA ROBIN MD History of Present Illness: 70-year-old female with known history of long-standing right foot osteomyelitis , recently had right BKA done on 07-10-16. She tolerated surgery well. She has known history also of stage IV cervical cancer. She presented now almost about 2 years ago with retroperitoneal adenopathy, ultimately she had biopsies done which indicated metastatic adenocarcinoma, we did next generation sequencing on it, and ultimately was felt to be a cervical cancer. She has not had chemotherapy now for about 4 months because of right foot ulcer that ultimately turned to osteomyelitis. Because of her multiple comorbidities, there was concern about her tolerability of surgery. Ultimately, it was decided that surgery would be done, and it was done yesterday. In addition, she is initiated on dialysis. She has been tolerating that well. Recently we did PET/ CT imaging for restaging and there was some mild increase in lymphadenopathy but overall seems generally stable. In addition, she was not symptomatic of the cancer at this point. Past Medical History Cardiac Medical History: Reports: Congestive Heart Failure - diastolic, Coronary Artery Disease, Hyperlipidema, Hypertension, Peripheral Vascular Disease, Heart Murmur Denies: Atrial Fibrillation, DVT, Myocardial Infarction, Pulmonary Embolism Pulmonary Medical History: Reports: Asthma - Sinus related, Chronic Obstructive Pulmonary Disease (COPD), Pneumonia - 02/2016, Sleep Apnea - CPAP Denies: Bronchitis, Respiratory Failure, Tuberculosis Neurological Medical History: Denies: Hemorrhagic CVA, Ischemic CVA, Seizures Endocrine Medical History: Reports: Diabetes Mellitus Type 1, Diabetes Mellitus Type 2 Denies: Hyperthyroidism, Hypothyroidism Renal/ Medical History: Denies: End Stage Renal Disease Malignancy Medical History: Reports: Cervical Cancer - currently Denies: Breast Cancer, Leukemia, Lung Cancer, Ovarian Cancer GI Medical History: Reports: Gastroesophageal Reflux Disease Denies: Cirrhosis, Crohn's Disease, Hiatal Hernia Musculoskeltal Medical History: Reports: Arthritis Denies: Fibromyalgia Skin Medical History: Denies: Eczema, Psoriasis Psychiatric Medical History: Reports: Depression Denies: Alcohol Dependency, Bipolar Disorder, Dementia, Post Traumatic Stress Disorder, Substance Abuse Hematology: Reports: Anemia Denies: Hemophilia, Sickle Cell Disease, Bleeding Tendencies Infectious Medical History: Reports: Methicillin-Resistant Staph Aureus Denies: Hepatitis B, Hepatitis C, HIV Past Surgical History Past Surgical History: Reports: Amputation - All toes, Appendectomy, Cholecystectomy, Orthopedic Surgery - Amputation 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 Lumbar spine fusion. Denies: Section, Colostomy, Coronary Artery Bypass Graft, Gastric Bypass Surgery, Herniorrhaphy, Hysterectomy, Mastectomy, Pacemaker, Tonsillectomy, Tubal Ligation Social History Lives with: Spouse/Significant other Smoking Status: Never Smoker Frequency of Alcohol Use: None Hx Recreational Drug Use: No Drugs: None Hx Prescription Drug Abuse: No - Advance Directive Resuscitation Status: Do Not Intubate Family History Family History: Reviewed & Not Pertinent, DM, Hyperlipidemia, Hypertension Parental Family History Reviewed: Yes Children Family History Reviewed: Yes Sibling(s) Family History Reviewed.: Yes Medication/Allergy Home Medications: Amlodipine Besylate [Norvasc 10 mg Tablet] 10 mg PO QAM 06/23/16 Aspirin [Ecotrin 81 mg EC Tablet] 81 mg PO QAM 06/23/16 Atorvastatin Calcium [Lipitor 10 mg Tablet] 10 mg PO QAM 06/23/16 Bumetanide [Bumex 1 mg Tablet] 2 mg PO BID 06/23/16 Carvedilol [Coreg 12.5 mg Tablet] 12.5 mg PO Q12 06/23/16 Clonidine HCl [Catapres 0.2 mg Tablet] 0.2 mg PO TID 06/23/16 Esomeprazole Mag Trihydrate [Nexium] 40 mg PO DAILY 06/23/16 Fenofibrate Nanocrystallized [Tricor 145 mg Tablet] 145 mg PO DAILY 06/23/16 Hum Insulin NPH/Reg Insulin Hm [Insulin Inj 70-30 (100 Unit/1 ml) 3 ml Vial] 15 unit SUBCUT MEALS 06/23/16 Magnesium Oxide [Magnesium] 400 mg PO DAILY 06/23/16 Pramipexole Di-HCl [Mirapex] 1 mg PO BID 06/23/16 Sertraline HCl [Zoloft 50 mg Tablet] 100 mg PO QHS 06/23/16 Allergies/Adverse Reactions: hydralazine [Hydralazine] Allergy (Severe, Verified 06/22/16 23:26) Rash all over Sulfa (Sulfonamide Antibiotics) Allergy (Severe, Verified 06/22/16 23:26) mouth swells Review of Systems Constitutional: ABSENT: chills, fever(s), headache(s), weight gain, weight loss Eyes: ABSENT: visual disturbances Ears: ABSENT: hearing changes Cardiovascular: ABSENT: chest pain, dyspnea on exertion, edema, orthropnea, palpitations Respiratory: ABSENT: cough, hemoptysis Gastrointestinal: ABSENT: abdominal pain, constipation, diarrhea, hematemesis, hematochezia, nausea, vomiting Genitourinary: ABSENT: dysuria, hematuria Musculoskeletal: ABSENT: joint swelling Integumentary: ABSENT: rash, wounds Neurological: ABSENT: abnormal gait, abnormal speech, confusion, dizziness, focal weakness, syncope Psychiatric: ABSENT: anxiety, depression, homidical ideation, suicidal ideation Endocrine: ABSENT: cold intolerance, heat intolerance, polydipsia, polyuria Hematologic/Lymphatic: ABSENT: easy bleeding, easy bruising Physical Exam Vital Signs: Temp Pulse Resp BP Pulse Ox 99.7 F 76 20 150/44 H 100 07/11/16 05:19 07/11/16 05:20 07/11/16 05:19 07/11/16 05:19 07/11/16 05:20 Intake & Output 07/10/16 07/11/16 07/12/16 06:59 06:59 06:59 Intake Total 975 4695 Output Total 800 2370 Balance 175 2325 Weight 95.4 kg 94 kg General appearance: PRESENT: no acute distress Head exam: PRESENT: atraumatic Mouth exam: PRESENT: moist Neck exam: ABSENT: carotid bruit, JVD, lymphadenopathy, thyromegaly Respiratory exam: PRESENT: clear to auscultation siobhan. ABSENT: rales, rhonchi, wheezes Cardiovascular exam: PRESENT: RRR. ABSENT: diastolic murmur, rubs, systolic murmur GI/Abdominal exam: PRESENT: normal bowel sounds, soft. ABSENT: distended, guarding, mass, organolmegaly, rebound, tenderness Rectal exam: PRESENT: deferred Musculoskeletal exam: PRESENT: other - Right BKA noted Neurological exam: PRESENT: alert, awake, oriented to person, oriented to place , oriented to time, oriented to situation, CN II-XII grossly intact. ABSENT: motor sensory deficit Results Laboratory Results: 07/11/16 04:48 07/11/16 04:48 07/11/16 07/11/16 04:48 04:48 WBC 8.6 RBC 2.70 L Hgb 7.9 L Hct 23.6 L MCV 87 MCH 29.4 MCHC 33.7 RDW 16.4 H Plt Count 133 L Sodium 141.4 Potassium 4.6 Chloride 102 Carbon Dioxide 29 Anion Gap 10 BUN 34 H Creatinine 2.59 H Est GFR ( Amer) 22 L Est GFR (Non-Af Amer) 18 L Glucose 130 H Calcium 9.1 Impressions: Foot X-Ray 06/24/16 00:00 IMPRESSION: No cortical erosions or lytic areas are identified to confirm bony involvement by osteomyelitis. Extensive amputations which appears stable. Other findings as noted above Chest X-Ray 06/30/16 00:00 IMPRESSION: Stable chest with appropriate right IJ lines. Central Venous Line 07/07/16 00:00 IMPRESSION: Intra procedural imaging and fluoro Guidance Fluoroscopy 07/07/16 00:00 IMPRESSION: Intra procedural imaging and fluoro Assessment & Plan - Diagnosis (1) Cervical cancer, FIGO stage MIRIAM Is this a current diagnosis for this admission?: YesPlan: Patient with known stage IV cervical cancer, at this point don't plan on chemotherapy. Ultimately we would like to treat but we would have to wait at least 4-6 weeks before she would be ready post surgery. She needs rehabilitation placement, while she is in rehabilitation we would not pursue any active treatment, as she would have to improve her performance status. (2) Anemia Qualifiers: Anemia type: other cause Other causes of anemia: chronic disease, kidney Qualified Code(s): N18.9 - Chronic kidney disease, unspecified; D63.1 - Anemia in chronic kidney disease Is this a current diagnosis for this admission?: YesPlan: She does have anemia of chronic disease as well as previous history of iron deficiency, most recent iron studies were normal, so we have been giving Aranesp as an outpatient. Now this will need to be done on dialysis. Her hemoglobin is fallen in the 7 range, she would probably benefit from at least 1 unit of packed red blood cells, but that will need to be coordinated with nephrology to be done predialysis. I will talk to the hospitalist team about this. - Time Time Spent with patient: Today spent greater than 70 minutes talking with patient about current status of disease next steps of care, patient voiced understanding and agreement with plan. - Inpatient Certification Based on my medical assessment, after consideration of the patient's comorbidities, presenting symptoms, or acuity I expect that the services needed warrant INPATIENT care.: Yes I certify that my determination is in accordance with my understanding of Medicare's requirements for reasonable and necessary INPATIENT services [42 CFR 412.3e].: Yes Medical Necessity: Failure to Improve With Outpatient Therapy, Need For Continuous Telemetry Monitoring, Need for Pain Control, Need for IV Antibiotics , Need for Surgery
[2016-07-11] MEDS: CLONIDINE HCL 0.1 MG TABLET PO SCH ×3 (08:33→22:10)
[2016-07-11] MEDS ORDERED: EPOETIN ALFA INJ 20000 UNIT/1 ML VIAL (RENAL) IV PRN (09:40)
[2016-07-11] MEDS ORDERED: NORMAL SALINE 250 ML IV PRN ×2 (10:16)
[2016-07-11] MEDS ORDERED: FUROSEMIDE INJ/PF 20 MG/2 ML SDV IV PRN (10:16)
--- NOTE | 2016-07-11 10:25 | PDOC PROGRESS REPORT ---
Subjective Progress Note for:: 07/11/16 Subjective:: The patient was seen while having hemodialysis. She denies any chest pain or discomfort. Her right below knee amputation site dressing is dry, and her pain is well-controlled she has no palpitations. Her heart rate is once a heart rate of 66/m, and her bradycardia resolved. She has no pedal edema. There is no PND or orthopnea. At present the patient denies any chest pain or shortness of breath. There is no TIA or CVA symptoms. Physical Exam Vital Signs: Temp Pulse Resp BP Pulse Ox 99.7 F 76 20 150/44 H 100 07/11/16 05:19 07/11/16 05:20 07/11/16 05:19 07/11/16 05:19 07/11/16 05:20 Intake & Output 07/10/16 07/11/16 07/12/16 06:59 06:59 06:59 Intake Total 975 4695 Output Total 800 2370 Balance 175 2325 Weight 95.4 kg 94 kg General appearance: PRESENT: no acute distress - Patient in no acute distress. She is mildly obese, obese Head exam: PRESENT: atraumatic - Head is atraumatic and normocephalic., normocephalic Eye exam: PRESENT: other - External ocular movements are normal. There is conjunctival pallor. There is no scleral icterus Mouth exam: PRESENT: moist - Tongue is moist. Mucous membranes are moist. Neck is supple, and there is no ulcers in the mouth. There is no bleeding from the gums, neck supple, tongue midline, other - There is no ulcers in the mouth and no bleeding from the gums. Teeth exam: PRESENT: other Throat exam: PRESENT: other - There is no tonsillar exudate, and there is no pharyngeal erythema. Neck exam: PRESENT: JVD - There is no JVD, carotids are equal and there are no carotid bruits. There is no lymphadenopathy, and no thyromegaly. Respiratory exam: PRESENT: accessory muscle use - There is no axillary muscles of respiration in use., chest wall tenderness - There is no chest wall tenderness. There is prolonged expiration, without any rhonchi rales or wheezing. There is hyperresonance on percussion. Cardiovascular exam: PRESENT: +S1 - S1 and S2 heard. There is a systolic murmur in the left sternal border and apex. At present the patient is not bradycardic. There is no rubs Pulses: PRESENT: normal carotid pulses - Normal carotid pulses. There is 1+ pedal pulses on the left lower extremity. There is a right below-knee application. Femorals are equal slightly diminished without any bruits Vascular exam: PRESENT: normal capillary refill - Capillary refill is normal. GI/Abdominal exam: PRESENT: other - Abdomen is soft there is no hepatosplenomegaly. Bowel sounds are well heard. There is no tender areas or masses Rectal exam: PRESENT: deferred - Rectal exam is deferred Extremities exam: PRESENT: calf tenderness - There is no calf tenderness. There is no clubbing or cyanosis. There is no pedal edema on the left lower extremity. Note there is no edema of the right thigh. Musculoskeletal exam: PRESENT: other - No acute muscular skeletal problems, except there is a right below-knee amputation present Neurological exam: PRESENT: alert - The patient is awake alert oriented 3 , without any focal deficits Psychiatric exam: PRESENT: other - The patient's judgment and insight are intact. The patient does not appear to be suicidal or agitated. Her affect is normal Results Laboratory Results: 07/11/16 04:48 07/11/16 04:48 07/11/16 07/11/16 04:48 04:48 WBC 8.6 RBC 2.70 L Hgb 7.9 L Hct 23.6 L MCV 87 MCH 29.4 MCHC 33.7 RDW 16.4 H Plt Count 133 L Sodium 141.4 Potassium 4.6 Chloride 102 Carbon Dioxide 29 Anion Gap 10 BUN 34 H Creatinine 2.59 H Est GFR ( Amer) 22 L Est GFR (Non-Af Amer) 18 L Glucose 130 H Calcium 9.1 EKG Comments: Sinus rhythm. First-degree AV block. Possible left atrial enlargement. An left anterior fascicle block. Impressions: Foot X-Ray 06/24/16 00:00 IMPRESSION: No cortical erosions or lytic areas are identified to confirm bony involvement by osteomyelitis. Extensive amputations which appears stable. Other findings as noted above Chest X-Ray 06/30/16 00:00 IMPRESSION: Stable chest with appropriate right IJ lines. Central Venous Line 07/07/16 00:00 IMPRESSION: Intra procedural imaging and fluoro Guidance Fluoroscopy 07/07/16 00:00 IMPRESSION: Intra procedural imaging and fluoro Assessment & Plan - Diagnosis (1) chronic kidney disease, on hemodialysis. Is this a current diagnosis for this admission?: YesPlan: Continue hemodialysis. (6) Acute on chronic renal failure Is this a current diagnosis for this admission?: Yes (7) Acute on chronic respiratory failure with hypoxia and hypercapnia Is this a current diagnosis for this admission?: Yes (8) Anemia Qualifiers: Anemia type: other cause Other causes of anemia: chronic disease, kidney Qualified Code(s): N18.9 - Chronic kidney disease, unspecified; D63.1 - Anemia in chronic kidney disease Is this a current diagnosis for this admission?: YesPlan: A changes on on Procrit injections. (9) COPD (chronic obstructive pulmonary disease) Qualifiers: COPD type: unspecified COPD Qualified Code(s): J44.9 - Chronic obstructive pulmonary disease, unspecified Is this a current diagnosis for this admission?: YesPlan: Continue anti-COPD medication. (10) Hypertension Qualifiers: Hypertension type: essential hypertension Qualified Code(s): I10 - Essential (primary) hypertension Is this a current diagnosis for this admission?: YesPlan: Continue clonidine, lisinopril and amlodipine. (11) Cervical cancer, FIGO stage MIRIAM Is this a current diagnosis for this admission?: YesPlan: The patient is being followed by oncologist. (12) Diabetic foot ulcer Qualifiers: Diabetes mellitus type: type 2 Laterality: right Qualified Code( s): E11.621 - Type 2 diabetes mellitus with foot ulcer; L97.509 - Non-pressure chronic ulcer of other part of unspecified foot with unspecified severity Is this a current diagnosis for this admission?: YesPlan: Patient is status post right below knee amputation done yesterday, and is stable from that point of view. (13) Insulin dependent diabetes mellitus Is this a current diagnosis for this admission?: YesPlan: Continue insulin as is being done now. (14) Anemia Qualifiers: Anemia type: other cause Other causes of anemia: other cause, not classified Qualified Code(s): D64.89 - Other specified anemias Is this a current diagnosis for this admission?: Yes (15) Diastolic CHF Qualifiers: Congestive heart failure chronicity: acute on chronic Qualified Code (s): I50.33 - Acute on chronic diastolic (congestive) heart failure Is this a current diagnosis for this admission?: YesPlan: At present the patient is compensated, and there is no overt signs of diastolic heart failure. (16) ORIANA (obstructive sleep apnea) Is this a current diagnosis for this admission?: YesPlan: Would recommend continuing C Pap therapy. - Notes Notes: Note 30 minutes spent on this patient was 50% of the time spent on reviewing the patient's medication and doing direct patient care. Also discussed with the other providers on the case. The patient continues to be a DO NOT RESUSCITATE, and his surrogate healthcare decision-maker is unchanged. Note that the patient's cardiac status is stable. - Time Medications reviewed and adjusted accordingly: Yes
--- NOTE | 2016-07-11 11:04 | EKG REPORT ---
SEVERITY:- ABNORMAL ECG - SINUS RHYTHM FIRST DEGREE AV BLOCK PROBABLE LEFT ATRIAL ABNORMALITY LEFT ANTERIOR FASCICULAR BLOCK : Confirmed by: Chas Hutchison 11-Jul-2016 11:03:06
[2016-07-11] MEDS: CALCIUM ACETATE 667 MG CAPSULE PO SCH ×3 (11:10→18:11)
[2016-07-11] MEDS ORDERED: HEPARIN SOD (PORCINE) 1,000 UNIT/ML 10 ML VIAL IV PRN (11:21)
[2016-07-11] MEDS: BUMETANIDE 1 MG TABLET PO SCH (12:12)
[2016-07-11] MEDS: INSULIN GLARGINE,HUM.REC.ANLOG 300 UNIT/3 ML INSULN.PEN SUBCUT SCH (12:13)
[2016-07-11] MEDS: LISINOPRIL 10 MG TABLET PO SCH ×2 (12:13→22:09)
[2016-07-11] MEDS: ATORVASTATIN CALCIUM 10 MG TABLET PO SCH (12:13)
[2016-07-11] MEDS: AMLODIPINE BESYLATE 10 MG TABLET PO SCH (12:13)
[2016-07-11] MEDS: CARVEDILOL 12.5 MG TABLET PO SCH ×2 (12:13→22:09)
[2016-07-11] MEDS: MUPIROCIN 2% OINTMENT 22 GM TP SCH (12:13)
[2016-07-11] MEDS: PRAMIPEXOLE DI-HCL 0.5 MG TABLET PO SCH ×2 (12:14→18:10)
[2016-07-11] MEDS: MAGNESIUM OXIDE 400 MG TABLET PO SCH (12:14)
[2016-07-11] MEDS: FENOFIBRATE NANOCRYSTALLIZED 145 MG TABLET PO SCH (12:14)
[2016-07-11] MEDS: LANSOPRAZOLE 30 MG TAB.RAP.DR PO SCH (12:14)
--- NOTE | 2016-07-11 13:30 | PDOC PROGRESS REPORT ---
Subjective Progress Note for:: 07/11/16 Subjective:: Patient appears quite depressed today still complaining of pain she wishes to have sleeping pill She is being transfused 2 units of packed red cells after dialysis was performed Physical Exam Vital Signs: Temp Pulse Resp BP Pulse Ox 98.2 F 70 16 162/41 H 99 07/11/16 13:12 07/11/16 13:12 07/11/16 13:12 07/11/16 13:12 07/11/16 13:12 Intake & Output 07/10/16 07/11/16 07/12/16 00:59 00:59 00:59 Intake Total 1197 4457 248 Output Total 800 2370 0 Balance 397 2087 248 Weight 95.7 kg 95.4 kg 94 kg General appearance: PRESENT: no acute distress, well-developed, well-nourished Head exam: PRESENT: atraumatic, normocephalic Eye exam: PRESENT: conjunctiva pink, EOMI, PERRLA. ABSENT: scleral icterus Ear exam: PRESENT: normal external ear exam Mouth exam: PRESENT: moist, tongue midline Neck exam: ABSENT: carotid bruit, JVD, lymphadenopathy, thyromegaly Respiratory exam: PRESENT: clear to auscultation siobhan. ABSENT: rales, rhonchi, wheezes Cardiovascular exam: PRESENT: RRR. ABSENT: diastolic murmur, rubs, systolic murmur Pulses: PRESENT: normal dorsalis pedis pul Vascular exam: PRESENT: normal capillary refill GI/Abdominal exam: PRESENT: normal bowel sounds, soft. ABSENT: distended, guarding, mass, organolmegaly, rebound, tenderness Rectal exam: PRESENT: deferred Extremities exam: PRESENT: full ROM, other - Right lower extremity stump bandaged. ABSENT: calf tenderness, clubbing, pedal edema Neurological exam: PRESENT: alert, awake, oriented to person, oriented to place , oriented to time, oriented to situation, CN II-XII grossly intact. ABSENT: motor sensory deficit Psychiatric exam: PRESENT: appropriate affect, normal mood. ABSENT: homicidal ideation, suicidal ideation Skin exam: PRESENT: dry, intact, warm. ABSENT: cyanosis, rash Results Laboratory Results: 07/11/16 04:48 07/11/16 04:48 07/11/16 07/11/16 07/11/16 04:48 04:48 10:30 WBC 8.6 RBC 2.70 L Hgb 7.9 L Hct 23.6 L MCV 87 MCH 29.4 MCHC 33.7 RDW 16.4 H Plt Count 133 L Sodium 141.4 Potassium 4.6 Chloride 102 Carbon Dioxide 29 Anion Gap 10 BUN 34 H Creatinine 2.59 H Est GFR ( Amer) 22 L Est GFR (Non-Af Amer) 18 L Glucose 130 H Calcium 9.1 Blood Type A POSITIVE Antibody Screen NEGATIVE Impressions: Foot X-Ray 06/24/16 00:00 IMPRESSION: No cortical erosions or lytic areas are identified to confirm bony involvement by osteomyelitis. Extensive amputations which appears stable. Other findings as noted above Chest X-Ray 06/30/16 00:00 IMPRESSION: Stable chest with appropriate right IJ lines. 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 Is this a current diagnosis for this admission?: Yes (4) Osteomyelitis Qualifiers: Osteomyelitis location: foot Laterality: right Qualified Code(s): M86.671 - Other chronic osteomyelitis, right ankle and foot Is this a current diagnosis for this admission?: Yes (5) Anemia Qualifiers: Anemia type: other cause Other causes of anemia: chronic disease, kidney Qualified Code(s): N18.9 - Chronic kidney disease, unspecified; D63.1 - Anemia in chronic kidney disease Is this a current diagnosis for this admission?: Yes (6) MRSA bacteremia Is this a current diagnosis for this admission?: Yes (7) Status post below knee amputation of right lower extremity Is this a current diagnosis for this admission?: YesPlan: No post op complications Continue opiates We'll prescribe Ambien 5 mg at bedtime Patient will remain in the hospital until Thursday; she may be transferred to rehabilitation on Thursday stable - Time Time Spent with patient: 25-34 minutes
--- NOTE | 2016-07-11 15:18 | PDOC PROGRESS REPORT ---
Subjective Progress Note for:: 07/11/16 Subjective:: Overall doing well. Pain is currently at a 3/10. Is receiving a blood transfusion at this time. Ravinder wrap is not saturated with blood. Physical Exam Vital Signs: Temp Pulse Resp BP Pulse Ox 98.8 F 66 17 164/43 H 100 07/11/16 14:17 07/11/16 14:17 07/11/16 14:17 07/11/16 14:17 07/11/16 14:17 Intake & Output 07/10/16 07/11/16 07/12/16 06:59 06:59 06:59 Intake Total 975 4695 0 Output Total 800 2370 Balance 175 2325 0 Weight 95.4 kg 94 kg General appearance: PRESENT: no acute distress Extremities exam: PRESENT: other - Right leg BKA. Dressing still intact, not saturated. Superior to dressing, no rashes noted. Neurological exam: PRESENT: alert, awake Results Laboratory Results: 07/11/16 04:48 07/11/16 04:48 07/11/16 07/11/16 07/11/16 04:48 04:48 10:30 WBC 8.6 RBC 2.70 L Hgb 7.9 L Hct 23.6 L MCV 87 MCH 29.4 MCHC 33.7 RDW 16.4 H Plt Count 133 L Sodium 141.4 Potassium 4.6 Chloride 102 Carbon Dioxide 29 Anion Gap 10 BUN 34 H Creatinine 2.59 H Est GFR ( Amer) 22 L Est GFR (Non-Af Amer) 18 L Glucose 130 H Calcium 9.1 Blood Type A POSITIVE Antibody Screen NEGATIVE Impressions: Foot X-Ray 06/24/16 00:00 IMPRESSION: No cortical erosions or lytic areas are identified to confirm bony involvement by osteomyelitis. Extensive amputations which appears stable. Other findings as noted above Chest X-Ray 06/30/16 00:00 IMPRESSION: Stable chest with appropriate right IJ lines. Central Venous Line 07/07/16 00:00 IMPRESSION: Intra procedural imaging and fluoro Guidance Fluoroscopy 07/07/16 00:00 IMPRESSION: Intra procedural imaging and fluoro Assessment & Plan - Diagnosis (1) Amput below knee, unilat Is this a current diagnosis for this admission?: YesPlan: Continue IV medication. Re-evaluate wound/dressing change tomorrow. - Time Time Spent with patient: Less than 15 minutes
--- NOTE | 2016-07-11 19:28 | PDOC PROGRESS REPORT ---
Subjective Progress Note for:: 07/11/16 Subjective:: I saw the patient around 8:30 AM this morning while on dialysis to cover Dr. Dick Craig. Patient complains of pain on her stump. She underwent right BKA yesterday. She has an order of 2 units of blood transfusion today. Patient seems to be fragile and weak. Her blood pressure is also somewhat elevated during dialysis. Otherwise she tolerated dialysis well. Physical Exam Vital Signs: Temp Pulse Resp BP Pulse Ox 99 F 63 19 157/52 H 99 07/11/16 18:12 07/11/16 18:12 07/11/16 18:12 07/11/16 18:12 07/11/16 18:12 Intake & Output 07/10/16 07/11/16 07/12/16 06:59 06:59 06:59 Intake Total 975 4695 512 Output Total 800 2370 Balance 175 2325 512 Weight 95.4 kg 94 kg Vital signs during dialysis when I saw her: Blood pressure of 175/72, blood flow rate of 350 mL per minute, dialysate flow rate of 800 mL per minute. Exam: General appearance: PRESENT: no acute distress, cooperative, well-developed, well-nourished Head exam: PRESENT: atraumatic, normocephalic Eye exam: PRESENT: conjunctiva pale, PERRLA. ABSENT: scleral icterus Neck exam: ABSENT: JVD Respiratory exam: PRESENT: Diminished breath sounds. ABSENT: crackles, rales, rhonchi, unlabored, wheezes Cardiovascular exam: PRESENT: Regular rate rhythm -+S1, +S2. Grade 2/6 systolic murmur ABSENT: diastolic murmur GI/Abdominal exam: PRESENT: normal bowel sounds, soft. ABSENT: guarding, mass, tenderness Extremities exam: ABSENT: No edema, right BKA stump wrapped up Neurological exam: PRESENT: alert, awake, oriented to person, place and time. Skin exam: PRESENT: dry, warm, Cardiovascular exam: PRESENT: +S1, +S2, systolic murmur GI/Abdominal exam: PRESENT: distended, soft. ABSENT: diminished bowel sounds, firm, guarding, organomegaly, tenderness Results Laboratory Results: 07/11/16 04:48 07/11/16 04:48 07/11/16 07/11/16 07/11/16 04:48 04:48 10:30 WBC 8.6 RBC 2.70 L Hgb 7.9 L Hct 23.6 L MCV 87 MCH 29.4 MCHC 33.7 RDW 16.4 H Plt Count 133 L Sodium 141.4 Potassium 4.6 Chloride 102 Carbon Dioxide 29 Anion Gap 10 BUN 34 H Creatinine 2.59 H Est GFR ( Amer) 22 L Est GFR (Non-Af Amer) 18 L Glucose 130 H Calcium 9.1 Blood Type A POSITIVE Antibody Screen NEGATIVE Impressions: Foot X-Ray 06/24/16 00:00 IMPRESSION: No cortical erosions or lytic areas are identified to confirm bony involvement by osteomyelitis. Extensive amputations which appears stable. Other findings as noted above Chest X-Ray 06/30/16 00:00 IMPRESSION: Stable chest with appropriate right IJ lines. Central Venous Line 07/07/16 00:00 IMPRESSION: Intra procedural imaging and fluoro Guidance Fluoroscopy 07/07/16 00:00 IMPRESSION: Intra procedural imaging and fluoro Assessment & Plan - Diagnosis (1) Chronic kidney disease, stage V requiring chronic dialysis Is this a current diagnosis for this admission?: YesPlan: We did dialysis today for 3 hours, using the patient's left IJ PermCath, with 2 potassium bath, blood flow rate of 350 mL per minute, dialysate flow rate of 800 mL per minute, ultrafiltration as tolerated, no heparin and Procrit with 20, 000 units during dialysis intravenously. Patient was monitored during dialysis treatment. (2) Anemia Qualifiers: Anemia type: other cause Other causes of anemia: chronic disease, kidney Qualified Code(s): N18.9 - Chronic kidney disease, unspecified; D63.1 - Anemia in chronic kidney disease Is this a current diagnosis for this admission?: YesPlan: This is also likely due to surgery. Patient is ordered to receive 2 units of packed RBC today. She also received Procrit as above. (3) MRSA bacteremia Is this a current diagnosis for this admission?: Yes (4) Diabetes Qualifiers: Diabetes mellitus type: type 1 (5) Hypertension Qualifiers: Hypertension type: essential hypertension Qualified Code(s): I10 - Essential (primary) hypertension Is this a current diagnosis for this admission?: YesPlan: Suboptimally controlled (6) Status post below knee amputation of right lower extremity Is this a current diagnosis for this admission?: Yes (7) Cervical cancer, FIGO stage MIRIAM Is this a current diagnosis for this admission?: Yes (8) Osteomyelitis Qualifiers: Osteomyelitis location: foot Laterality: right Qualified Code(s): M86.671 - Other chronic osteomyelitis, right ankle and foot Is this a current diagnosis for this admission?: Yes - Time Time with patient: 15-25 minutes
[2016-07-11] MEDS: ZOLPIDEM TARTRATE 5 MG TABLET PO SCH (22:08)
[2016-07-11] MEDS: SERTRALINE HCL 50 MG TABLET PO SCH (22:09)
[2016-07-12 01:26] LABS: ABSOLUTE BASOPHILS # (AUTO) 0.1 10^3/uL (0.0-0.2); ABSOLUTE EOSINOPHILS # (AUTO) 0.1 10^3/uL (0.0-0.6); ABSOLUTE MONOCYTES (AUTO) 1.3 10^3/uL (0.1-1.4); ABSOLUTE NEUT (AUTO) 7.7 10^3/uL (1.7-8.2); BASOPHILS % (AUTO) 0.5 % (0-2); EOSINOPHILS % (AUTO) 0.9 % (0-6); HEMATOCRIT 30.2 % (36.0-47.0); HGB HCT DIFFERENCE 0.1; LYMPHOCYTES % (AUTO) 18.1 % (13-45); MEAN CORPUSCULAR HEMOGLOBIN 29.3 pg (27.0-33.4); MEAN CORPUSCULAR HGB CONC 33.4 g/dL (32.0-36.0); MEAN CORPUSCULAR VOLUME 88 fl (80-97); MONOCYTES % (AUTO) 11.7 % (3-13); RED BLOOD COUNT 3.45 10^6/uL (3.72-5.28); RED CELL DISTRIBUTION WIDTH 15.7 % (11.5-14.0); SEGMENTED NEUTROPHILS % (AUTO) 68.8 % (42-78); WHITE BLOOD COUNT 11.1 10^3/uL (4.0-10.5)
[2016-07-12 01:27] LABS: HEMOGLOBIN 10.1 g/dL (12.0-15.5)
[2016-07-12] MEDS: HYDROMORPHONE HCL INJ/PF 2 MG/ML AMPULE IV PRN ×4 (01:51→16:59)
[2016-07-12] MEDS: CLONIDINE HCL 0.1 MG TABLET PO SCH ×3 (06:05→21:50)
[2016-07-12] MEDS: LANSOPRAZOLE 30 MG TAB.RAP.DR PO SCH (09:34)
[2016-07-12] MEDS: ATORVASTATIN CALCIUM 10 MG TABLET PO SCH (09:34)
[2016-07-12] MEDS: FENOFIBRATE NANOCRYSTALLIZED 145 MG TABLET PO SCH (09:35)
[2016-07-12] MEDS: AMLODIPINE BESYLATE 10 MG TABLET PO SCH (09:38)
[2016-07-12] MEDS: CARVEDILOL 12.5 MG TABLET PO SCH ×2 (09:39→21:49)
[2016-07-12] MEDS: CALCIUM ACETATE 667 MG CAPSULE PO SCH ×3 (09:39→17:02)
[2016-07-12] MEDS: LISINOPRIL 10 MG TABLET PO SCH ×2 (09:39→21:50)
[2016-07-12] MEDS: MAGNESIUM OXIDE 400 MG TABLET PO SCH (09:39)
[2016-07-12] MEDS: BUMETANIDE 1 MG TABLET PO SCH (09:41)
[2016-07-12] MEDS: INSULIN GLARGINE,HUM.REC.ANLOG 300 UNIT/3 ML INSULN.PEN SUBCUT SCH (09:42)
[2016-07-12] MEDS: MUPIROCIN 2% OINTMENT 22 GM TP SCH (09:42)
--- NOTE | 2016-07-12 10:55 | PDOC PROGRESS REPORT ---
Subjective Progress Note for:: 07/12/16 Subjective:: Patient was having pain this morning, given a medication doing better now. Physical Exam Vital Signs: Temp Pulse Resp BP Pulse Ox 98.2 F 65 17 154/50 H 100 07/12/16 07:58 07/12/16 07:58 07/12/16 07:58 07/12/16 07:58 07/12/16 07:58 Intake & Output 07/11/16 07/12/16 07/13/16 06:59 06:59 06:59 Intake Total 4695 823 Output Total 2370 1150 Balance 2325 -123 Weight 94 kg 83.1 kg General appearance: PRESENT: no acute distress Head exam: PRESENT: atraumatic Respiratory exam: PRESENT: clear to auscultation siobhan. ABSENT: rales, rhonchi, wheezes Cardiovascular exam: PRESENT: RRR. ABSENT: diastolic murmur, rubs, systolic murmur GI/Abdominal exam: PRESENT: normal bowel sounds, soft. ABSENT: distended, guarding, mass, organolmegaly, rebound, tenderness Rectal exam: PRESENT: deferred Results Laboratory Results: 07/12/16 01:10 07/11/16 04:48 07/11/16 07/12/16 10:30 01:10 WBC 11.1 H RBC 3.45 L Hgb 10.1 L D Hct 30.2 L MCV 88 MCH 29.3 MCHC 33.4 RDW 15.7 H Plt Count 140 L Seg Neutrophils % 68.8 Lymphocytes % 18.1 Monocytes % 11.7 Eosinophils % 0.9 Basophils % 0.5 Absolute Neutrophils 7.7 Absolute Lymphocytes 2.0 Absolute Monocytes 1.3 Absolute Eosinophils 0.1 Absolute Basophils 0.1 Blood Type A POSITIVE Antibody Screen NEGATIVE Impressions: Foot X-Ray 06/24/16 00:00 IMPRESSION: No cortical erosions or lytic areas are identified to confirm bony involvement by osteomyelitis. Extensive amputations which appears stable. Other findings as noted above Chest X-Ray 06/30/16 00:00 IMPRESSION: Stable chest with appropriate right IJ lines. Central Venous Line 07/07/16 00:00 IMPRESSION: Intra procedural imaging and fluoro Guidance Fluoroscopy 07/07/16 00:00 IMPRESSION: Intra procedural imaging and fluoro Assessment & Plan - Diagnosis (1) Cervical cancer, FIGO stage MIRIAM Is this a current diagnosis for this admission?: YesPlan: Plan for treatment only after rehabilitation stay is complete, will see patient after discharge. (2) Anemia Qualifiers: Anemia type: other cause Other causes of anemia: chronic disease, kidney Qualified Code(s): N18.9 - Chronic kidney disease, unspecified; D63.1 - Anemia in chronic kidney disease Is this a current diagnosis for this admission?: YesPlan: Hemoglobin stable posttransfusion, continue to monitor - Time Time Spent with patient: 15-24 minutes Critical Time spent with patient: 15-24 minutes - Inpatient Certification Based on my medical assessment, after consideration of the patient's comorbidities, presenting symptoms, or acuity I expect that the services needed warrant INPATIENT care.: Yes I certify that my determination is in accordance with my understanding of Medicare's requirements for reasonable and necessary INPATIENT services [42 CFR 412.3e].: Yes Medical Necessity: Need For IV Fluids, Need for Pain Control, Need for IV Antibiotics
[2016-07-12] MEDS: PRAMIPEXOLE DI-HCL 0.5 MG TABLET PO SCH ×2 (13:13→17:03)
[2016-07-12] MEDS: INSULIN LISPRO 100 UNIT/ML 3 ML VIAL SUBCUT PRN ×2 (13:25→22:49)
--- NOTE | 2016-07-12 14:58 | PROGRESS NOTE E ---
Progress Note NAME: VIVIAN WATKINS : 1945 AGE: 70Y DATE: 07/12/2016 ROOM: 325 SUBJECTIVE: The patient seems to be in no major distress although she states that her right BK amputation site is hurting. She just got her pain medications for that. She denies any chest pain or discomfort. There is no PND or orthopnea. There are no palpitations. There are no TIA or CVA symptoms. OBJECTIVE: GENERAL: The patient is mildly obese in no major acute distress, although she has some mild pain at the site of the BKA. VITAL SIGNS: She is afebrile with a temperature of 98.5 degrees Fahrenheit, pulse of 64 beats per minute, blood pressure 138/46, respirations 17 per minute. O2 sat is 98% on room air. HEENT: Head is atraumatic, normocephalic. EYES: Pupils are equal, round, regular, reactive to light and accommodation. Extraocular movements are normal. There is no conjunctival pallor. There is no scleral icterus. ENT: Negative. NECK: Supple. There is no JVD. Carotids are equal. There is no bruit. There is no lymphadenopathy. There is no goiter. Trachea is central. LUNGS: Diminished air entry and prolonged expiration; otherwise, there is no rhonchi, rales or wheezing. There is hyperresonance on percussion. HEART: S1 and S2 are heard. There is no S3 gallop. There is no S4 gallop. There is a systolic murmur in the left sternal border and the apex. The patient is *------* bradycardic. There are no rubs. EXTREMITIES: Carotid pulses are normal. There is no carotid bruit and they are equal. Femorals are diminished. There are no femoral bruits. The left pedal pulse is slightly diminished. There is no pedal edema on the left side. There is no edema of the thigh on the right side. The amputation stump in the right BK site dressing is clean and dry. There is no cyanosis or clubbing. On the left leg, the capillary refill is normal. ABDOMEN: Soft, nontender. There is no hepatosplenomegaly. Bowel sounds are well heard. There are no tender areas or masses. There is no hepatosplenomegaly. CENTRAL NERVOUS SYSTEM: The patient is conscious, awake, alert, oriented x3 with no focal deficits. PSYCHIATRIC: The patient's judgment and insight are intact. Her affect is normal. The patient does not appear to be agitated. MUSCULOSKELETAL: There are no acute musculoskeletal problems except there is a right gdghx-hzw-hmti amputation present. DIAGNOSTIC TEST RESULTS: The patient's 24-hr intake is 823 mL; output is 1150 mL. The patient's white count is 11,100, hemoglobin is 10.1, hematocrit is 30.2, platelet count is 140,000. The patient's blood sugar is 172 and 233. IMPRESSION: 1. Nwqei-lc-wgrlmsv renal failure. The patient is having intermittent dialysis and the patient is producing some amount of urine. 2. Lieew-hm-uxadyxz renal failure. The patient is on dialysis for this. The patient is putting out some urine. 3. Gyyjl-aa-kvyixdi respiratory failure with hypoxia and hypercapnia. Now patient is back to baseline. 4. Anemia. The patient did get 2 units of blood after dialysis yesterday. Most likely the cause of anemia is chronic kidney disease. The patient is also getting Procrit injections. 5. COPD, unspecified. At present is back to her baseline. There is no acute exacerbation of COPD symptoms. 6. Hypertension. Seems to be well controlled. Continue current antihypertensive medication. 7. Cervical cancer. FIGO stage MIRIAM. The patient is being followed by oncologist. 8. Diabetic foot ulcers, status post right zsxbi-bko-zbuc amputation. 9. 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 10. Zzjxa-nd-suaytkz heart failure. At present, patient is compensated. There are no overt signs of diastolic heart failure. Also the cause of heart failure is secondary to volume overload due to her kidney disease, which has been treated with dialysis intermittently. 11. Obstructive sleep apnea. I would recommend continuing CPAP therapy. 12. Bradycardia, resolved. At present the patient's heart rate is much improved. Note that the patient is back on Coreg 12.5 mg q.12 h. and clonidine 0.1 mg q.8 h. The patient is also on lisinopril 10 mg p.o. q.12 h. TIME SPENT: NOTE: Thirty minutes was spent on this patient with more than 50% of the time spent on direct patient care and also medications have been reviewed and also discussed with other caregiving providers on the case. We will follow with you. Thanking you. DICTATING PHYSICIAN: KRYSTAL QUEVEDO M.D. [id number] PHY#: [id number] ID: [id number] JOB#: [id number] ACCT: [id number] cc: >
--- NOTE | 2016-07-12 17:27 | PDOC PROGRESS REPORT ---
Subjective Progress Note for:: 07/12/16 Subjective:: Patient still has significant pain , no fever no chills She appears depressed Physical Exam Vital Signs: Temp Pulse Resp BP Pulse Ox 98.5 F 73 17 138/46 H 95 07/12/16 11:57 07/12/16 14:00 07/12/16 11:57 07/12/16 11:57 07/12/16 13:01 Intake & Output 07/11/16 07/12/16 07/13/16 00:59 00:59 00:59 Intake Total 4457 1060 11 Output Total 2370 1100 50 Balance 7 -40 -39 Weight 95.4 kg 94 kg 83.1 kg General appearance: PRESENT: no acute distress, well-developed, well-nourished Head exam: PRESENT: atraumatic, normocephalic Eye exam: PRESENT: conjunctiva pink, EOMI, PERRLA. ABSENT: scleral icterus Ear exam: PRESENT: normal external ear exam Mouth exam: PRESENT: moist, tongue midline Neck exam: ABSENT: carotid bruit, JVD, lymphadenopathy, thyromegaly Respiratory exam: PRESENT: clear to auscultation siobhan. ABSENT: rales, rhonchi, wheezes Cardiovascular exam: PRESENT: RRR. ABSENT: diastolic murmur, rubs, systolic murmur Pulses: PRESENT: normal dorsalis pedis pul Vascular exam: PRESENT: normal capillary refill GI/Abdominal exam: PRESENT: normal bowel sounds, soft. ABSENT: distended, guarding, mass, organolmegaly, rebound, tenderness Rectal exam: PRESENT: deferred Extremities exam: PRESENT: full ROM, other - Rt stump : dressing clean and dry. ABSENT: calf tenderness, clubbing, pedal edema Neurological exam: PRESENT: alert, awake, oriented to person, oriented to place , oriented to time, oriented to situation, CN II-XII grossly intact. ABSENT: motor sensory deficit Psychiatric exam: PRESENT: appropriate affect, normal mood. ABSENT: homicidal ideation, suicidal ideation Skin exam: PRESENT: dry, intact, warm. ABSENT: cyanosis, rash Results Laboratory Results: 07/12/16 01:10 07/11/16 04:48 07/11/16 07/12/16 10:30 01:10 WBC 11.1 H RBC 3.45 L Hgb 10.1 L D Hct 30.2 L MCV 88 MCH 29.3 MCHC 33.4 RDW 15.7 H Plt Count 140 L Seg Neutrophils % 68.8 Lymphocytes % 18.1 Monocytes % 11.7 Eosinophils % 0.9 Basophils % 0.5 Absolute Neutrophils 7.7 Absolute Lymphocytes 2.0 Absolute Monocytes 1.3 Absolute Eosinophils 0.1 Absolute Basophils 0.1 Blood Type A POSITIVE Antibody Screen NEGATIVE Impressions: Foot X-Ray 06/24/16 00:00 IMPRESSION: No cortical erosions or lytic areas are identified to confirm bony involvement by osteomyelitis. Extensive amputations which appears stable. Other findings as noted above Chest X-Ray 06/30/16 00:00 IMPRESSION: Stable chest with appropriate right IJ lines. 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 Is this a current diagnosis for this admission?: Yes (4) Osteomyelitis Qualifiers: Osteomyelitis location: foot Laterality: right Qualified Code(s): M86.671 - Other chronic osteomyelitis, right ankle and foot Is this a current diagnosis for this admission?: Yes (5) Anemia Qualifiers: Anemia type: other cause Other causes of anemia: chronic disease, kidney Qualified Code(s): N18.9 - Chronic kidney disease, unspecified; D63.1 - Anemia in chronic kidney disease Is this a current diagnosis for this admission?: Yes (6) MRSA bacteremia Is this a current diagnosis for this admission?: Yes (7) Status post below knee amputation of right lower extremity Is this a current diagnosis for this admission?: Yes - Time Time Spent with patient: continue supportive treatment will increase pain meds PT evaluation on Thursday patient to be discharged to short term rehab early next week if ok with surgery Time Spent with patient: 25-34 minutes
[2016-07-12] MEDS: OXYCODONE-ACETAMINOPHEN 5-325 MG TABLET PO PRN (21:48)
[2016-07-12] MEDS: SENNOSIDES/DOCUSATE 8.6-50 MG 1 EACH TABLET PO SCH (21:49)
[2016-07-12] MEDS: ZOLPIDEM TARTRATE 5 MG TABLET PO SCH (21:49)
[2016-07-12] MEDS: SERTRALINE HCL 50 MG TABLET PO SCH (21:51)
--- NOTE | 2016-07-12 21:58 | PDOC PROGRESS REPORT ---
Subjective Subjective:: Some itching and pain on right BKA stump. No other complaints. Reports she slept well last evening. Physical Exam Vital Signs: Temp Pulse Resp BP Pulse Ox 99.1 F 71 20 154/47 H 100 07/12/16 20:35 07/12/16 20:35 07/12/16 20:35 07/12/16 20:35 07/12/16 20:35 Intake & Output 07/11/16 07/12/16 07/13/16 06:59 06:59 06:59 Intake Total 4668 823 360 Output Total 2370 1150 Balance 2325 -327 360 Weight 94 kg 83.1 kg General appearance: PRESENT: no acute distress Eye exam: PRESENT: EOMI Respiratory exam: PRESENT: unlabored Extremities exam: PRESENT: other - Right BKA dressing removed. Wound inspected : Healthy, no infection, no ischemic signs. Suture line intact. Redressed with Xeroform gauze, gauze 4 x 4's, Kerlix rolls, Ravinder wraps. Neurological exam: PRESENT: alert, oriented to situation Results Laboratory Results: 07/12/16 01:10 07/11/16 04:48 07/12/16 01:10 WBC 11.1 H RBC 3.45 L Hgb 10.1 L D Hct 30.2 L MCV 88 MCH 29.3 MCHC 33.4 RDW 15.7 H Plt Count 140 L Seg Neutrophils % 68.8 Lymphocytes % 18.1 Monocytes % 11.7 Eosinophils % 0.9 Basophils % 0.5 Absolute Neutrophils 7.7 Absolute Lymphocytes 2.0 Absolute Monocytes 1.3 Absolute Eosinophils 0.1 Absolute Basophils 0.1 Impressions: Foot X-Ray 06/24/16 00:00 IMPRESSION: No cortical erosions or lytic areas are identified to confirm bony involvement by osteomyelitis. Extensive amputations which appears stable. Other findings as noted above Chest X-Ray 06/30/16 00:00 IMPRESSION: Stable chest with appropriate right IJ lines. Central Venous Line 07/07/16 00:00 IMPRESSION: Intra procedural imaging and fluoro Guidance Fluoroscopy 07/07/16 00:00 IMPRESSION: Intra procedural imaging and fluoro Assessment & Plan - Diagnosis (1) Diabetic infection of right foot Is this a current diagnosis for this admission?: YesPlan: Status post BKA. Wound looks good. Redressed. Continue wound care. (2) Acute on chronic renal failure Is this a current diagnosis for this admission?: Yes
[2016-07-13] MEDS: CLONIDINE HCL 0.1 MG TABLET PO SCH ×3 (05:46→22:46)
[2016-07-13] MEDS: OXYCODONE-ACETAMINOPHEN 5-325 MG TABLET PO PRN ×3 (05:47→22:45)
[2016-07-13] MEDS: MAGNESIUM OXIDE 400 MG TABLET PO SCH (09:26)
[2016-07-13] MEDS: AMLODIPINE BESYLATE 10 MG TABLET PO SCH (09:26)
[2016-07-13] MEDS: CALCIUM ACETATE 667 MG CAPSULE PO SCH ×3 (09:26→17:14)
[2016-07-13] MEDS: ATORVASTATIN CALCIUM 10 MG TABLET PO SCH (09:26)
[2016-07-13] MEDS: FENOFIBRATE NANOCRYSTALLIZED 145 MG TABLET PO SCH (09:27)
[2016-07-13] MEDS: CARVEDILOL 12.5 MG TABLET PO SCH ×2 (09:27→23:58)
[2016-07-13] MEDS: LISINOPRIL 10 MG TABLET PO SCH ×2 (09:27→23:58)
[2016-07-13] MEDS: LANSOPRAZOLE 30 MG TAB.RAP.DR PO SCH (09:27)
[2016-07-13] MEDS: BUMETANIDE 1 MG TABLET PO SCH (09:28)
[2016-07-13] MEDS: PRAMIPEXOLE DI-HCL 0.5 MG TABLET PO SCH ×2 (09:29→17:14)
[2016-07-13] MEDS: POLYETHYLENE GLYCOL 3350 POWDER 17 GM/1 PACKET PO SCH (09:30)
[2016-07-13] MEDS: HYDROMORPHONE HCL INJ/PF 2 MG/ML AMPULE IV PRN ×2 (09:30→15:31)
[2016-07-13] MEDS: INSULIN GLARGINE,HUM.REC.ANLOG 300 UNIT/3 ML INSULN.PEN SUBCUT SCH (09:44)
[2016-07-13] MEDS: MUPIROCIN 2% OINTMENT 22 GM TP SCH (09:46)
[2016-07-13 09:47] LABS: ABSOLUTE BASOPHILS # (AUTO) 0.1 10^3/uL (0.0-0.2); ABSOLUTE EOSINOPHILS # (AUTO) 0.1 10^3/uL (0.0-0.6); ABSOLUTE LYMPHOCYTES (AUTO) 1.6 10^3/uL (0.5-4.7); ABSOLUTE MONOCYTES (AUTO) 1.2 10^3/uL (0.1-1.4); ABSOLUTE NEUT (AUTO) 8.4 10^3/uL (1.7-8.2); BASOPHILS % (AUTO) 0.4 % (0-2); EOSINOPHILS % (AUTO) 0.6 % (0-6); HEMATOCRIT 27.7 % (36.0-47.0); HEMOGLOBIN 9.1 g/dL (12.0-15.5); HGB HCT DIFFERENCE -0.4; LYMPHOCYTES % (AUTO) 14.3 % (13-45); MEAN CORPUSCULAR HEMOGLOBIN 29.1 pg (27.0-33.4); MEAN CORPUSCULAR VOLUME 88 fl (80-97); MONOCYTES % (AUTO) 10.2 % (3-13); RED BLOOD COUNT 3.14 10^6/uL (3.72-5.28); RED CELL DISTRIBUTION WIDTH 16.1 % (11.5-14.0); SEGMENTED NEUTROPHILS % (AUTO) 74.5 % (42-78); WHITE BLOOD COUNT 11.3 10^3/uL (4.0-10.5)
[2016-07-13 10:05] LABS: ALANINE AMINOTRANSFERASE 37 U/L (9-52); ALBUMIN 3.1 g/dL (3.5-5.0); ALKALINE PHOSPHATASE 72 U/L (38-126); ANION GAP 12 (5-19); ASPARTATE AMINO TRANSFERASE 58 U/L (14-36); BLOOD UREA NITROGEN 30 mg/dL (7-20); CALCIUM 9.2 mg/dL (8.4-10.2); CARBON DIOXIDE 28 mmol/L (22-30); CHLORIDE 98 mmol/L (98-107); CREATININE RESULT 2.69 mg/dL (0.52-1.25); GLUCOSE 251 mg/dL (75-110); POTASSIUM 4.2 mmol/L (3.6-5.0); SODIUM 137.8 mmol/L (137-145); TOTAL PROTEIN 6.5 g/dL (6.3-8.2)
[2016-07-13] MEDS: INSULIN LISPRO 100 UNIT/ML 3 ML VIAL SUBCUT PRN ×3 (12:23→22:44)
--- NOTE | 2016-07-13 14:33 | PDOC PROGRESS REPORT ---
Subjective Subjective:: No complaints. Physical Exam Vital Signs: Temp Pulse Resp BP Pulse Ox 99.4 F 74 16 122/55 L 94 07/13/16 11:19 07/13/16 11:19 07/13/16 11:19 07/13/16 11:19 07/13/16 11:19 Intake & Output 07/12/16 07/13/16 07/14/16 06:59 06:59 06:59 Intake Total 823 655 510 Output Total 1150 500 200 Balance -327 155 310 Weight 83.1 kg 85.2 kg General appearance: PRESENT: no acute distress Eye exam: PRESENT: EOMI, other - Glasses Extremities exam: PRESENT: other - Right lower extremity status post BKA. Ravinder wraps peelback. Kerlix dressing was clean and dry. Ravinder replaced. Neurological exam: PRESENT: alert, oriented to situation Results Laboratory Results: 07/13/16 09:10 07/13/16 09:10 07/13/16 07/13/16 09:10 09:10 WBC 11.3 H RBC 3.14 L Hgb 9.1 L Hct 27.7 L MCV 88 MCH 29.1 MCHC 33.0 RDW 16.1 H Plt Count 201 Seg Neutrophils % 74.5 Lymphocytes % 14.3 Monocytes % 10.2 Eosinophils % 0.6 Basophils % 0.4 Absolute Neutrophils 8.4 H Absolute Lymphocytes 1.6 Absolute Monocytes 1.2 Absolute Eosinophils 0.1 Absolute Basophils 0.1 Sodium 137.8 Potassium 4.2 Chloride 98 Carbon Dioxide 28 Anion Gap 12 BUN 30 H Creatinine 2.69 H Est GFR ( Amer) 21 L Est GFR (Non-Af Amer) 17 L Glucose 251 H Calcium 9.2 Total Bilirubin 1.0 AST 58 H ALT 37 Alkaline Phosphatase 72 Total Protein 6.5 Albumin 3.1 L Impressions: Foot X-Ray 06/24/16 00:00 IMPRESSION: No cortical erosions or lytic areas are identified to confirm bony involvement by osteomyelitis. Extensive amputations which appears stable. Other findings as noted above Chest X-Ray 06/30/16 00:00 IMPRESSION: Stable chest with appropriate right IJ lines. Central Venous Line 07/07/16 00:00 IMPRESSION: Intra procedural imaging and fluoro Guidance Fluoroscopy 07/07/16 00:00 IMPRESSION: Intra procedural imaging and fluoro Assessment & Plan - Diagnosis (1) Diabetic infection of right foot Is this a current diagnosis for this admission?: YesPlan: Status post BKA. Doing well. Incision looked good yesterday. Dressing looks good today. Okay for discharge tomorrow from BKA/surgical standpoint. (2) Acute on chronic renal failure Is this a current diagnosis for this admission?: Yes
--- NOTE | 2016-07-13 14:39 | PROGRESS NOTE E ---
Progress Note NAME: VIVIAN WATKINS : 1945 AGE: 70Y DATE: 07/13/2016 ROOM: 325 SUBJECTIVE: The patient states that she has some itching and pain at the site of the right BKA, but the dressing is dry and clean. She is not in any major distress. She says that she slept well last night. Her appetite is good. She denies any chest pain or discomfort. There is no PND or orthopnea. There is no shortness of breath. There are no palpitations. There are no TIA or CVA symptoms. OBJECTIVE: GENERAL: On examination, the patient is mildly obese, in no major acute distress. However, she has some mild pain at the site of right BKA. VITAL SIGNS: She has a low-grade temperature of 99.4 degrees Fahrenheit. Pulse is 74 beats per minute. Blood pressure 122/55. Respirations 16 per minute. O2 saturations are 94% on room air. HEENT: Head is atraumatic and normocephalic. Eyes: Pupils are equal, round, regular, reactive to light and accommodation. Extraocular movements are normal. There is no conjunctival pallor. There is no scleral icterus. ENT is negative. NECK: Supple. There is no JVD. Carotids are equal. There is no bruit. There is no lymphadenopathy. There is no goiter. Trachea is central. LUNGS: Diminished air entry and prolonged expiration. Otherwise, there are no rhonchi, rales or wheezing. There is hyperresonance to percussion. HEART: S1 and S2 are heard normally. There is no S3 gallop. There is no S4 gallop. There is systolic murmur at left sternal border and the apex. The patient is no more bradycardic. The heart rate is now 74, and the patient is on Coreg and clonidine and lisinopril. Blood pressure and heart rate remain stable. There are no rubs. EXTREMITIES: Carotid pulses are normal. There are no carotid bruits. They are equal. Femorals are diminished. There are no femoral bruits. Left pedal pulse is slightly diminished. There is no pedal edema on the left side. There is no edema at the thigh on the right side. The right BKA site dressing is clean and dry. There is no cyanosis or clubbing in the left leg. Capillary refill is normal. ABDOMEN: Soft, nontender. There is no hepatosplenomegaly. Bowel sounds are well heard. There are no tender areas or masses. CENTRAL NERVOUS SYSTEM: The patient is conscious, awake, alert, oriented x3 with no focal deficit. PSYCHIATRIC: The patient's judgment and insight are intact. Her affect is normal. The patient does not appear to be agitated. MUSCULOSKELETAL: There is no acute musculoskeletal problem except that the patient has had a right BKA and is recovering well. DIAGNOSTIC TEST RESULTS: The patient's white count is 11,300. Hemoglobin is 9.1. Hematocrit is 27.7. Her platelet count is 201. The patient's sodium is 137.8. Potassium 4.2. Chloride 98. CO2 is 28. The patient's BUN is 30. Creatinine is 2.69. Her GFR is reduced at 17 mL, which is stage-4 chronic kidney disease. Glucose is 251. His calcium is 9.2. The patient's liver function tests show a high AST of 58, but the rest of the liver function tests are normal. The patient's albumin is 3.1. Total protein is 6.5. The patient's 24-hour intake is 655 mL; output is 500 mL. Note that the patient is for dialysis tomorrow. IMPRESSION AND PLAN: 1. Devep-xw-yaqsaot renal failure, at present slightly improved now with chronic kidney disease stage 4. Note that the patient is on dialysis. She will be getting dialysis tomorrow. 2. Usmxs-wk-dginpbd respiratory failure with hypoxia and hypercapnia. This has resolved, and the patient is back to baseline. Her O2 saturations are within normal limits. 3. Anemia. Most likely cause of anemia is chronic kidney disease. The patient is on Procrit injections. She did receive 2 units after dialysis yesterday. 4. COPD at present is back to baseline. There are no signs of acute exacerbation of COPD. 5. Hypertension seems to be well controlled. 6. Cervical cancer, FIGO stage 4A. The patient is being followed by oncologist. 7. Diabetic foot ulcer status post right below-knee amputation. 8. 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 9. Dekee-bl-efbfidf heart failure. At present, patient is compensated. There are no overt signs of heart failure. The patient most likely had diastolic heart failure and volume overload secondary to acute renal failure. These have improved once the patient is on dialysis. 10. Chronic kidney disease, at present stage 4. 11. Obstructive sleep apnea. Continue CPAP therapy. 12. Bradycardia, resolved. At present, the patient's heart rate is much improved. The patient is back on Coreg 12.5 mg p.o. q. 12 hours. She is also on clonidine 0.1 mg p.o. q. 8 hours, and the patient is also on lisinopril 10 mg p.o. q. 12 hours. 13. The patient is a DNR. Note that the patient's daughter is her surrogate healthcare decision maker. Note: Thirty minutes spent on this patient with more than 50% of the time spent on direct patient care, and also the patient's medications have been reviewed. Also discussed the plans with the other caregivers on the case. The patient's cardiac status is stable. We will sign off. The patient is a patient of mine, and she would like to follow up with me. Hence, will see the patient in about 2 weeks or earlier if the patient needs in the office. Will give the patient my telephone number (cell phone number). This has been discussed with the patient and patient's daughter, and they have been asked to call me if there are any problems. Will sign off the case. DICTATING PHYSICIAN: KRYSTAL QUEVEDO M.D. [id number] PHY#: [id number] ID: [id number] JOB#: [id number] ACCT: [id number] cc: >
--- NOTE | 2016-07-13 16:51 | PDOC PROGRESS REPORT ---
Subjective Progress Note for:: 07/13/16 Subjective:: Patient is doing well She still has some degree of pain She is less depressed She is complaining of constipation Physical Exam Vital Signs: Temp Pulse Resp BP Pulse Ox 99.5 F 80 20 130/39 H 93 07/13/16 15:37 07/13/16 15:37 07/13/16 15:37 07/13/16 15:37 07/13/16 15:37 Intake & Output 07/12/16 07/13/16 07/14/16 00:59 00:59 00:59 Intake Total 1060 611 565 Output Total 1100 350 400 Balance -40 261 165 Weight 94 kg 83.1 kg 85.2 kg General appearance: PRESENT: no acute distress, well-developed, well-nourished Head exam: PRESENT: atraumatic, normocephalic Eye exam: PRESENT: conjunctiva pink, EOMI, PERRLA. ABSENT: scleral icterus Ear exam: PRESENT: normal external ear exam Mouth exam: PRESENT: moist, tongue midline Neck exam: ABSENT: carotid bruit, JVD, lymphadenopathy, thyromegaly Respiratory exam: PRESENT: clear to auscultation siobhan. ABSENT: rales, rhonchi, wheezes Cardiovascular exam: PRESENT: RRR. ABSENT: diastolic murmur, rubs, systolic murmur Pulses: PRESENT: normal dorsalis pedis pul Vascular exam: PRESENT: normal capillary refill GI/Abdominal exam: PRESENT: normal bowel sounds, soft. ABSENT: distended, guarding, mass, organolmegaly, rebound, tenderness Rectal exam: PRESENT: deferred Extremities exam: PRESENT: full ROM, other - Stump right lower extremity dressed No redness or swelling of the thigh. ABSENT: calf tenderness, clubbing , pedal edema Neurological exam: PRESENT: alert, awake, oriented to person, oriented to place , oriented to time, oriented to situation, CN II-XII grossly intact. ABSENT: motor sensory deficit Psychiatric exam: PRESENT: appropriate affect, normal mood. ABSENT: homicidal ideation, suicidal ideation Skin exam: PRESENT: dry, intact, warm. ABSENT: cyanosis, rash Results Laboratory Results: 07/13/16 09:10 07/13/16 09:10 07/13/16 07/13/16 09:10 09:10 WBC 11.3 H RBC 3.14 L Hgb 9.1 L Hct 27.7 L MCV 88 MCH 29.1 MCHC 33.0 RDW 16.1 H Plt Count 201 Seg Neutrophils % 74.5 Lymphocytes % 14.3 Monocytes % 10.2 Eosinophils % 0.6 Basophils % 0.4 Absolute Neutrophils 8.4 H Absolute Lymphocytes 1.6 Absolute Monocytes 1.2 Absolute Eosinophils 0.1 Absolute Basophils 0.1 Sodium 137.8 Potassium 4.2 Chloride 98 Carbon Dioxide 28 Anion Gap 12 BUN 30 H Creatinine 2.69 H Est GFR ( Amer) 21 L Est GFR (Non-Af Amer) 17 L Glucose 251 H Calcium 9.2 Total Bilirubin 1.0 AST 58 H ALT 37 Alkaline Phosphatase 72 Total Protein 6.5 Albumin 3.1 L Impressions: Foot X-Ray 06/24/16 00:00 IMPRESSION: No cortical erosions or lytic areas are identified to confirm bony involvement by osteomyelitis. Extensive amputations which appears stable. Other findings as noted above Chest X-Ray 06/30/16 00:00 IMPRESSION: Stable chest with appropriate right IJ lines. 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 Is this a current diagnosis for this admission?: Yes (4) Osteomyelitis Qualifiers: Osteomyelitis location: foot Laterality: right Qualified Code(s): M86.671 - Other chronic osteomyelitis, right ankle and foot Is this a current diagnosis for this admission?: Yes (5) Anemia Qualifiers: Anemia type: other cause Other causes of anemia: chronic disease, kidney Qualified Code(s): N18.9 - Chronic kidney disease, unspecified; D63.1 - Anemia in chronic kidney disease Is this a current diagnosis for this admission?: Yes (6) MRSA bacteremia Is this a current diagnosis for this admission?: Yes (7) Status post below knee amputation of right lower extremity Is this a current diagnosis for this admission?: Yes - Time Time Spent with patient: Discharge to short-term rehabilitation when a bed is available Time Spent with patient: 25-34 minutes
[2016-07-13] MEDS ORDERED: LACTULOSE SYRUP 20 GM/30 ML UDCUP PO ONE (17:00)
[2016-07-13] MEDS: HEPARIN SOD (PORCINE) 5,000 UNIT/ML 1 ML SYRINGE SUBCUT SCH (22:44)
[2016-07-13] MEDS: SENNOSIDES/DOCUSATE 8.6-50 MG 1 EACH TABLET PO SCH (22:46)
[2016-07-13] MEDS: SERTRALINE HCL 50 MG TABLET PO SCH (22:46)
[2016-07-13] MEDS: ZOLPIDEM TARTRATE 5 MG TABLET PO SCH (22:46)
[2016-07-13] MEDS: ACETAMINOPHEN 325 MG TABLET PO PRN (23:29)
[2016-07-14] MEDS: CLONIDINE HCL 0.1 MG TABLET PO SCH ×2 (05:31→14:54)
[2016-07-14 06:06] LABS: ABSOLUTE EOSINOPHILS # (AUTO) 0.2 10^3/uL (0.0-0.6); ABSOLUTE LYMPHOCYTES (AUTO) 1.7 10^3/uL (0.5-4.7); ABSOLUTE MONOCYTES (AUTO) 1.2 10^3/uL (0.1-1.4); ABSOLUTE NEUT (AUTO) 6.6 10^3/uL (1.7-8.2); BASOPHILS % (AUTO) 0.4 % (0-2); EOSINOPHILS % (AUTO) 1.6 % (0-6); LYMPHOCYTES % (AUTO) 17.8 % (13-45); MEAN CORPUSCULAR HEMOGLOBIN 29.3 pg (27.0-33.4); MEAN CORPUSCULAR HGB CONC 33.2 g/dL (32.0-36.0); MEAN CORPUSCULAR VOLUME 88 fl (80-97); MONOCYTES % (AUTO) 12.3 % (3-13); RED BLOOD COUNT 3.06 10^6/uL (3.72-5.28); RED CELL DISTRIBUTION WIDTH 16.5 % (11.5-14.0); SEGMENTED NEUTROPHILS % (AUTO) 67.9 % (42-78); WHITE BLOOD COUNT 9.8 10^3/uL (4.0-10.5)
[2016-07-14 06:31] LABS: ANION GAP 11 (5-19); BLOOD UREA NITROGEN 40 mg/dL (7-20); CALCIUM 8.7 mg/dL (8.4-10.2); CARBON DIOXIDE 28 mmol/L (22-30); CHLORIDE 97 mmol/L (98-107); CREATININE RESULT 3.42 mg/dL (0.52-1.25); GLUCOSE 194 mg/dL (75-110); POTASSIUM 4.2 mmol/L (3.6-5.0); SODIUM 135.5 mmol/L (137-145)
--- NOTE | 2016-07-14 08:33 | PDOC TRANSFER SUMMARY ---
General - Admit/Disc Date/PCP Admission Date/Primary Care Provider: 06/23/16 05:45 CAROLINA ROBIN MD Discharge Date: 07/14/16 - Discharge Diagnosis (1) CKD (chronic kidney disease) stage 5, GFR less than 15 ml/min Is this a current diagnosis for this admission?: YesSummary: CKD disease stage 5 on chronic hemodialysis Thursday and Fridays Dialysis to be continued as an outpatient at [facility] Patient to follow-up with Dr. 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 Is this a current diagnosis for this admission?: YesSummary: increased Lantus to 20 units daily continue Lispro Lantus to be readjusted according to blood sugars for optimal control (4) Osteomyelitis Is this a current diagnosis for this admission?: YesSummary: 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 (5) Anemia Is this a current diagnosis for this admission?: YesSummary: anemia chronic disease secondary to CKD fillow up with Dr Ureña (6) MRSA bacteremia Is this a current diagnosis for this admission?: YesSummary: resolved (7) Status post below knee amputation of right lower extremity Is this a current diagnosis for this admission?: YesSummary: 07/10/2016 Dr Mclaughlin Surgery was uncomplicated stump is clean healing at discharge Change dressings daily clean with saline apply xeroform, curlex and corina bandage Patient to follow with Josh Mclaughlin in 1 week (8) Cervical cancer, FIGO stage MIRIAM Is this a current diagnosis for this admission?: YesSummary: patient to resume chemotherapy in 3 weeks follow up with Dr Ureña as scheduled (9) Diastolic CHF Is this a current diagnosis for this admission?: YesSummary: now compensated (10) ORIANA (obstructive sleep apnea) Is this a current diagnosis for this admission?: YesSummary: continue to use CPap at [facility] - Additional Information Resuscitation Status: Do Not Intubate Discharge Activity: Activity As Tolerated, Balance Activity w/Rest, Energy Conservation, Weigh Daily Home Medications: Aspirin [Ecotrin 81 mg EC Tablet] 81 mg PO QAM 06/23/16 Atorvastatin Calcium [Lipitor 10 mg Tablet] 10 mg PO QAM 06/23/16 Carvedilol [Coreg 12.5 mg Tablet] 12.5 mg PO Q12 06/23/16 Fenofibrate Nanocrystallized [Tricor 145 mg Tablet] 145 mg PO DAILY 06/23/16 Pramipexole Di-HCl [Mirapex] 1 mg PO BID 06/23/16 Sertraline HCl [Zoloft 50 mg Tablet] 100 mg PO QHS 06/23/16 Bumetanide [Bumex 1 mg Tablet] 1 mg PO DAILY #30 tablet 07/14/16 Clonidine HCl [Catapres 0.1 mg Tablet] 0.1 mg PO Q8 #90 tablet 07/14/16 Fenofibrate Nanocrystallized [Tricor 145 mg Tablet] 145 mg PO DAILY #30 tablet 07/14/16 Insulin Glargine,Hum.rec.anlog [Lantus Insulin 100 Unit/mL] 20 unit SUBCUT DAILY #1 insuln.pen 07/14/16 Insulin Lispro [Humalog Insulin (Lispro) 100 unit/mL] 0 - 12 unit SUBCUT ACHSP PRN #1 unit 07/14/16 Lisinopril [Prinivil 10 mg Tablet] 10 mg PO Q12 #60 tablet 07/14/16 Mupirocin [Bactroban 2% Ointment 22 gm] 1 applic TP DAILY #1 tube 07/14/16 Oxycodone HCl/Acetaminophen [Percocet 5-325 mg Tablet] 1 tab PO Q4HP PRN #30 tablet 07/14/16 Polyethylene Glycol 3350 [Miralax Powder 17 gm/Packet] 17 gm PO DAILY #30 powd.pack 07/14/16 Sennosides/Docusate 8.6-50 mg [Senna Plus Tablet] 2 each PO QHS #120 tablet 11/22 Zolpidem Tartrate [Ambien 5 mg Tablet] 5 mg PO QHS #30 tablet 07/14/16 History of Present Illness Admission Date/PCP: 06/23/16 05:45 CAROLINA ROBIN MD Patient complains of: SOB History of Present Illness: Describes a 48 hour history of slowly progressive respiratory distress, in particular with much of any exertion, fever, productive cough, and generalized weakness. No nausea vomiting, diarrhea or dysuria. No sick contacts. Up-to- date with Pneumovax and flu vaccination. EMS reported a room air oxygen saturation of 78%, with an initial temperature 103.6. Significant respiratory distress upon arrival in the emergency room. Has responded nicely to treatment, including BiPAP. Hospitalized for 5 days last month at [facility] for problems associated with her chronic kidney disease. Hospital Course Hospital Course: see above Physical Exam Vital Signs: Temp Pulse Resp BP Pulse Ox 98.1 F 56 L 20 143/49 H 99 07/14/16 03:20 07/14/16 03:20 07/14/16 03:20 07/14/16 03:20 07/14/16 03:20 Intake & Output 07/13/16 07/14/16 07/15/16 00:59 00:59 00:59 Intake Total 611 1595 10 Output Total 350 430 100 Balance 261 1165 -90 Weight 83.1 kg 85.2 kg 92.8 kg General appearance: PRESENT: no acute distress, other - Looks chronically ill Head exam: PRESENT: atraumatic, normocephalic Eye exam: PRESENT: conjunctiva pink, EOMI, PERRLA. ABSENT: scleral icterus Ear exam: PRESENT: normal external ear exam Mouth exam: PRESENT: moist, tongue midline Neck exam: ABSENT: carotid bruit, JVD, lymphadenopathy, thyromegaly Respiratory exam: PRESENT: clear to auscultation siobhan. ABSENT: rales, rhonchi, wheezes Cardiovascular exam: PRESENT: RRR. ABSENT: diastolic murmur, rubs, systolic murmur Pulses: PRESENT: normal dorsalis pedis pul Vascular exam: PRESENT: normal capillary refill GI/Abdominal exam: PRESENT: normal bowel sounds, soft. ABSENT: distended, guarding, mass, organolmegaly, rebound, tenderness Rectal exam: PRESENT: deferred Extremities exam: PRESENT: full ROM. ABSENT: calf tenderness, clubbing, pedal edema Musculoskeletal exam: PRESENT: other - Right stump looks clean Wound is healing Neurological exam: PRESENT: alert, awake, oriented to person, oriented to place , oriented to time, oriented to situation, CN II-XII grossly intact. ABSENT: motor sensory deficit Psychiatric exam: PRESENT: appropriate affect, normal mood. ABSENT: homicidal ideation, suicidal ideation Skin exam: PRESENT: dry, intact, warm. ABSENT: cyanosis, rash Results Laboratory Results: 07/14/16 05:08 07/14/16 05:08 07/13/16 07/13/16 07/14/16 09:10 09:10 05:08 WBC 11.3 H 9.8 RBC 3.14 L 3.06 L Hgb 9.1 L 9.0 L Hct 27.7 L 27.0 L MCV 88 88 MCH 29.1 29.3 MCHC 33.0 33.2 RDW 16.1 H 16.5 H Plt Count 201 227 Seg Neutrophils % 74.5 67.9 Lymphocytes % 14.3 17.8 Monocytes % 10.2 12.3 Eosinophils % 0.6 1.6 Basophils % 0.4 0.4 Absolute Neutrophils 8.4 H 6.6 Absolute Lymphocytes 1.6 1.7 Absolute Monocytes 1.2 1.2 Absolute Eosinophils 0.1 0.2 Absolute Basophils 0.1 0.0 Sodium 137.8 Potassium 4.2 Chloride 98 Carbon Dioxide 28 Anion Gap 12 BUN 30 H Creatinine 2.69 H Est GFR ( Amer) 21 L Est GFR (Non-Af Amer) 17 L Glucose 251 H Calcium 9.2 Total Bilirubin 1.0 AST 58 H ALT 37 Alkaline Phosphatase 72 Total Protein 6.5 Albumin 3.1 L 07/14/16 05:08 WBC RBC Hgb Hct MCV MCH MCHC RDW Plt Count Seg Neutrophils % Lymphocytes % Monocytes % Eosinophils % Basophils % Absolute Neutrophils Absolute Lymphocytes Absolute Monocytes Absolute Eosinophils Absolute Basophils Sodium 135.5 L Potassium 4.2 Chloride 97 L Carbon Dioxide 28 Anion Gap 11 BUN 40 H Creatinine 3.42 H Est GFR ( Amer) 16 L Est GFR (Non-Af Amer) 13 L Glucose 194 H Calcium 8.7 Total Bilirubin AST ALT Alkaline Phosphatase Total Protein Albumin And day and Versed 06/27/16 19:00 Blood Culture - Final Blood NO GROWTH IN 5 DAYS 06/27/16 18:40 Blood Culture - Final Blood NO GROWTH IN 5 DAYS 06/24/16 11:10 Gram Stain - Final Foot - Right Wound Culture - Final Mrsa (Meth Resis Staph Aureus) Skin Diamante 06/23/16 00:13 Blood Culture - Final Blood Mrsa (Meth Resis Staph Aureus) 06/22/16 22:58 Urine Culture - Final Clean Catch Midstream Mixed Skin. Possible Pathogen 06/22/16 21:57 Blood Culture - Final Blood Mrsa (Meth Resis Staph Aureus) Impressions: Foot X-Ray 06/24/16 00:00 IMPRESSION: No cortical erosions or lytic areas are identified to confirm bony involvement by osteomyelitis. Extensive amputations which appears stable. Other findings as noted above Chest X-Ray 06/30/16 00:00 IMPRESSION: Stable chest with appropriate right IJ lines. Central Venous Line 07/07/16 00:00 IMPRESSION: Intra procedural imaging and fluoro Guidance Fluoroscopy 07/07/16 00:00 IMPRESSION: Intra procedural imaging and fluoro Transfer Plan - Disposition Transfer Plan: transfer to [facility] for physical therapy - Time Spent with Patient Time spent with patient: Greater than 30 Minutes
[2016-07-14] MEDS: CALCIUM ACETATE 667 MG CAPSULE PO SCH ×3 (08:35→17:19)
[2016-07-14] MEDS: AMLODIPINE BESYLATE 10 MG TABLET PO SCH (08:35)
[2016-07-14] MEDS: ATORVASTATIN CALCIUM 10 MG TABLET PO SCH (08:35)
[2016-07-14] MEDS: OXYCODONE-ACETAMINOPHEN 5-325 MG TABLET PO PRN ×2 (08:35→14:52)
--- NOTE | 2016-07-14 09:47 | PDOC PROGRESS REPORT ---
Subjective Progress Note for:: 07/14/16 Subjective:: Requiring pain medication, feels a bit loopy Physical Exam Vital Signs: Temp Pulse Resp BP Pulse Ox 98.0 F 60 18 118/42 L 99 07/14/16 07:39 07/14/16 07:39 07/14/16 07:39 07/14/16 07:39 07/14/16 07:39 Intake & Output 07/13/16 07/14/16 07/15/16 06:59 06:59 06:59 Intake Total 655 1550 Output Total 500 330 Balance 155 1220 Weight 85.2 kg 92.8 kg General appearance: PRESENT: no acute distress Musculoskeletal exam: PRESENT: other - Stump dressing removed. Stump flaps warm , no foul smell no drainage. There are several areas of partial thickness ischemia inferiorly right at the skin edge which may result in skin slough but nothing to debride, and no evidence of progression. Results Laboratory Results: 07/14/16 05:08 07/14/16 05:08 07/13/16 07/13/16 07/14/16 09:10 09:10 05:08 WBC 11.3 H 9.8 RBC 3.14 L 3.06 L Hgb 9.1 L 9.0 L Hct 27.7 L 27.0 L MCV 88 88 MCH 29.1 29.3 MCHC 33.0 33.2 RDW 16.1 H 16.5 H Plt Count 201 227 Seg Neutrophils % 74.5 67.9 Lymphocytes % 14.3 17.8 Monocytes % 10.2 12.3 Eosinophils % 0.6 1.6 Basophils % 0.4 0.4 Absolute Neutrophils 8.4 H 6.6 Absolute Lymphocytes 1.6 1.7 Absolute Monocytes 1.2 1.2 Absolute Eosinophils 0.1 0.2 Absolute Basophils 0.1 0.0 Sodium 137.8 Potassium 4.2 Chloride 98 Carbon Dioxide 28 Anion Gap 12 BUN 30 H Creatinine 2.69 H Est GFR ( Amer) 21 L Est GFR (Non-Af Amer) 17 L Glucose 251 H Calcium 9.2 Total Bilirubin 1.0 AST 58 H ALT 37 Alkaline Phosphatase 72 Total Protein 6.5 Albumin 3.1 L 07/14/16 05:08 WBC RBC Hgb Hct MCV MCH MCHC RDW Plt Count Seg Neutrophils % Lymphocytes % Monocytes % Eosinophils % Basophils % Absolute Neutrophils Absolute Lymphocytes Absolute Monocytes Absolute Eosinophils Absolute Basophils Sodium 135.5 L Potassium 4.2 Chloride 97 L Carbon Dioxide 28 Anion Gap 11 BUN 40 H Creatinine 3.42 H Est GFR ( Amer) 16 L Est GFR (Non-Af Amer) 13 L Glucose 194 H Calcium 8.7 Total Bilirubin AST ALT Alkaline Phosphatase Total Protein Albumin Impressions: Foot X-Ray 06/24/16 00:00 IMPRESSION: No cortical erosions or lytic areas are identified to confirm bony involvement by osteomyelitis. Extensive amputations which appears stable. Other findings as noted above Chest X-Ray 06/30/16 00:00 IMPRESSION: Stable chest with appropriate right IJ lines. Central Venous Line 07/07/16 00:00 IMPRESSION: Intra procedural imaging and fluoro Guidance Fluoroscopy 07/07/16 00:00 IMPRESSION: Intra procedural imaging and fluoro Assessment & Plan - Diagnosis (1) Amput below knee, unilat Is this a current diagnosis for this admission?: YesPlan: 1. Satisfactory postoperative course, postoperative day 4 status post right below the knee amputation by Dr. Mclaughlin. 2. Several small areas of partial thickness epidermal lysis which bear watching. 3. Continue dressing changes with Xeroform Curlex and Ravinder wrap; can be continued at [facility] 4. Engage services of physical therapy. 5. Have patient return to see me at the office at [facility] in approximately 1-2 weeks
[2016-07-14] MEDS ORDERED: LACTULOSE SYRUP 20 GM/30 ML UDCUP PO SCH (10:00)
[2016-07-14] MEDS: CARVEDILOL 12.5 MG TABLET PO SCH (10:01)
[2016-07-14] MEDS: MAGNESIUM OXIDE 400 MG TABLET PO SCH (10:01)
[2016-07-14] MEDS: FENOFIBRATE NANOCRYSTALLIZED 145 MG TABLET PO SCH (10:01)
[2016-07-14] MEDS: MUPIROCIN 2% OINTMENT 22 GM TP SCH (10:01)
[2016-07-14] MEDS: POLYETHYLENE GLYCOL 3350 POWDER 17 GM/1 PACKET PO SCH (10:01)
[2016-07-14] MEDS: BUMETANIDE 1 MG TABLET PO SCH (10:01)
[2016-07-14] MEDS: PRAMIPEXOLE DI-HCL 0.5 MG TABLET PO SCH ×2 (10:01→17:19)
[2016-07-14] MEDS: LANSOPRAZOLE 30 MG TAB.RAP.DR PO SCH (10:01)
[2016-07-14] MEDS: HEPARIN SOD (PORCINE) 5,000 UNIT/ML 1 ML SYRINGE SUBCUT SCH (10:01)
[2016-07-14] MEDS: INSULIN GLARGINE,HUM.REC.ANLOG 300 UNIT/3 ML INSULN.PEN SUBCUT SCH (10:01)
[2016-07-14] MEDS: LISINOPRIL 10 MG TABLET PO SCH (10:01)
[2016-07-14] MEDS: INSULIN LISPRO 100 UNIT/ML 3 ML VIAL SUBCUT PRN (12:40)
[2016-07-14] MEDS ORDERED: EPOETIN ALFA INJ 20000 UNIT/1 ML VIAL (RENAL) IV PRN (18:54)
--- NOTE | 2016-07-14 19:52 | PDOC PROGRESS REPORT ---
Subjective Progress Note for:: 07/14/16 Subjective:: I'm seeing the patient during dialysis this evening. She is doing well and the only complain that she has is the phantom limb pain. She is stable on dialysis. She doesn't have any other complaints. Physical Exam Vital Signs: Temp Pulse Resp BP Pulse Ox 98.0 F 60 18 118/42 L 99 07/14/16 07:39 07/14/16 07:39 07/14/16 07:39 07/14/16 07:39 07/14/16 07:39 Intake & Output 07/13/16 07/14/16 07/15/16 06:59 06:59 06:59 Intake Total 655 1550 118 Output Total 500 330 0 Balance 155 1220 118 Weight 85.2 kg 92.8 kg Vitals during dialysis: Blood pressure of 132/45, heart rate of 75, blood flow of 350 mL per minute, dialysate flow of 600 mL per minute. Exam: General appearance: PRESENT: no acute distress, cooperative, well-developed, well-nourished Head exam: PRESENT: atraumatic, normocephalic Eye exam: PRESENT: conjunctiva pale, PERRLA. ABSENT: scleral icterus Neck exam: ABSENT: JVD Respiratory exam: PRESENT: Diminished breath sounds. ABSENT: crackles, rales, rhonchi, unlabored, wheezes Cardiovascular exam: PRESENT: Regular rate rhythm -+S1, +S2. ABSENT: diastolic murmur, systolic murmur GI/Abdominal exam: PRESENT: normal bowel sounds, soft. ABSENT: guarding, mass, tenderness Extremities exam: ABSENT: No edema, right BKA stump with Ravinder wrap Neurological exam: PRESENT: alert, awake, oriented to person, place and time. Skin exam: PRESENT: dry, warm, Results Laboratory Results: 07/14/16 05:08 07/14/16 05:08 07/14/16 07/14/16 05:08 05:08 WBC 9.8 RBC 3.06 L Hgb 9.0 L Hct 27.0 L MCV 88 MCH 29.3 MCHC 33.2 RDW 16.5 H Plt Count 227 Seg Neutrophils % 67.9 Lymphocytes % 17.8 Monocytes % 12.3 Eosinophils % 1.6 Basophils % 0.4 Absolute Neutrophils 6.6 Absolute Lymphocytes 1.7 Absolute Monocytes 1.2 Absolute Eosinophils 0.2 Absolute Basophils 0.0 Sodium 135.5 L Potassium 4.2 Chloride 97 L Carbon Dioxide 28 Anion Gap 11 BUN 40 H Creatinine 3.42 H Est GFR ( Amer) 16 L Est GFR (Non-Af Amer) 13 L Glucose 194 H Calcium 8.7 Impressions: Foot X-Ray 06/24/16 00:00 IMPRESSION: No cortical erosions or lytic areas are identified to confirm bony involvement by osteomyelitis. Extensive amputations which appears stable. Other findings as noted above Chest X-Ray 06/30/16 00:00 IMPRESSION: Stable chest with appropriate right IJ lines. Central Venous Line 07/07/16 00:00 IMPRESSION: Intra procedural imaging and fluoro Guidance Fluoroscopy 07/07/16 00:00 IMPRESSION: Intra procedural imaging and fluoro Assessment & Plan - Diagnosis (1) Chronic kidney disease, stage V requiring chronic dialysis Is this a current diagnosis for this admission?: YesPlan: We are doing dialysis today for 3 hours, using the patient's PermCath, with 2 potassium bath, blood flow rate of 350 mL per minute, dialysate flow rate of 600 mL per minute, ultrafiltration 2 L, no heparin and Procrit with 10,000 units during dialysis intravenously. Patient will be monitored for during dialysis. Patient is going to be transferred to rehabilitation today after dialysis. She is already accepted at the [facility] dialysis unit and her next dialysis will be on Thursday. Dr. Craig will continue to follow her as an outpatient at the [facility] dialysis unit. (2) Anemia Qualifiers: Anemia type: other cause Other causes of anemia: chronic disease, kidney Qualified Code(s): N18.9 - Chronic kidney disease, unspecified; D63.1 - Anemia in chronic kidney disease Is this a current diagnosis for this admission?: YesPlan: She also received Procrit as above. (3) MRSA bacteremia Is this a current diagnosis for this admission?: Yes (4) Diabetes Qualifiers: Diabetes mellitus type: type 1 Is this a current diagnosis for this admission?: Yes (5) Hypertension Qualifiers: Hypertension type: essential hypertension Qualified Code(s): I10 - Essential (primary) hypertension Is this a current diagnosis for this admission?: YesPlan: Suboptimally controlled (6) Status post below knee amputation of right lower extremity Is this a current diagnosis for this admission?: Yes (7) Cervical cancer, FIGO stage MIRIAM Is this a current diagnosis for this admission?: Yes (8) Osteomyelitis Qualifiers: Osteomyelitis location: foot Laterality: right Qualified Code(s): M86.671 - Other chronic osteomyelitis, right ankle and foot Is this a current diagnosis for this admission?: Yes - Time Time with patient: 15-25 minutes
[2016-07-14] MEDS ORDERED: EPOETIN ALFA 10,000 UNIT in SYRINGE, DISPOSABLE, 1 EACH IV PRN (20:00)
[2016-07-15 00:20] VITALS: BP 134/61
== END 2016-07-14 21:33 | DRG 853 ==
LOC: ER 21:48 → UNDOADMIN 06-23 03:23 → EH 06-23 03:23 → 3W 06-23 06:17 → EH 06-23 06:17
PROVIDERS: ADMIT Family Medicine; ATTEND Family Medicine
PROC: 5A09457 Assistance with Respiratory Ventilation, 24-96 Consecutive Hours, Continuous Positive Airway Pressure (ICD-10-PCS; 2016-06-23)
PROC: 3E0F73Z Introduction of Anti-inflammatory into Respiratory Tract, Via Natural or Artificial Opening (ICD-10-PCS; 2016-06-25)
PROC: 02HV33Z Insertion of Infusion Device into Superior Vena Cava, Percutaneous Approach (ICD-10-PCS; 2016-06-27)
PROC: 5A1D60Z (ICD-10-PCS; 2016-06-27)
PROC: 06H033Z Insertion of Infusion Device into Inferior Vena Cava, Percutaneous Approach (ICD-10-PCS; 2016-06-30)
PROC: B549ZZA Ultrasonography of Inferior Vena Cava, Guidance (ICD-10-PCS; 2016-06-30)
PROC: 06HM33Z Insertion of Infusion Device into Right Femoral Vein, Percutaneous Approach (ICD-10-PCS; 2016-06-30)
PROC: B54BZZA Ultrasonography of Right Lower Extremity Veins, Guidance (ICD-10-PCS; 2016-06-30)
PROC: 30233N1 Transfusion of Nonautologous Red Blood Cells into Peripheral Vein, Percutaneous Approach (ICD-10-PCS; 2016-07-02)
PROC: 0Y6H0Z2 Detachment at Right Lower Leg, Mid, Open Approach (ICD-10-PCS; principal; 2016-07-10 10:00)
DX: A41.02 Sepsis due to Methicillin resistant Staphylococcus aureus (principal); J96.21 Acute and chronic respiratory failure with hypoxia; J96.22 Acute and chronic respiratory failure with hypercapnia; I50.33 Acute on chronic diastolic (congestive) heart failure; N17.0 Acute kidney failure with tubular necrosis; M86.671 Other chronic osteomyelitis, right ankle and foot; J45.901 Unspecified asthma with (acute) exacerbation; J44.1 Chronic obstructive pulmonary disease with (acute) exacerbation; N18.5 Chronic kidney disease, stage 5; I13.2 Hypertensive heart and chronic kidney disease with heart failure and with stage 5 chronic kidney disease, or end stage renal disease; E87.2 Acidosis; T82.41XA Breakdown (mechanical) of vascular dialysis catheter, initial encounter; C78.6 Secondary malignant neoplasm of retroperitoneum and peritoneum; E10.51 Type 1 diabetes mellitus with diabetic peripheral angiopathy without gangrene; E10.69 Type 1 diabetes mellitus with other specified complication; E10.22 Type 1 diabetes mellitus with diabetic chronic kidney disease; C53.9 Malignant neoplasm of cervix uteri, unspecified; I27.2 Other secondary pulmonary hypertension; E10.621 Type 1 diabetes mellitus with foot ulcer; L97.519 Non-pressure chronic ulcer of other part of right foot with unspecified severity; E03.9 Hypothyroidism, unspecified; G47.33 Obstructive sleep apnea (adult) (pediatric); E66.9 Obesity, unspecified; R65.20 Severe sepsis without septic shock; Y84.1 Kidney dialysis as the cause of abnormal reaction of the patient, or of later complication, without mention of misadventure at the time of the procedure; E78.5 Hyperlipidemia, unspecified; D63.1 Anemia in chronic kidney disease; Z66 Do not resuscitate; G89.18 Other acute postprocedural pain; G54.6 Phantom limb syndrome with pain; I70.209 Unspecified atherosclerosis of native arteries of extremities, unspecified extremity; Z99.2 Dependence on renal dialysis; E65 Localized adiposity; Z79.4 Long term (current) use of insulin; Z68.32 Body mass index [BMI] 32.0-32.9, adult; Z89.412 Acquired absence of left great toe; Z89.411 Acquired absence of right great toe; Z89.422 Acquired absence of other left toe(s); Z89.421 Acquired absence of other right toe(s); Z79.899 Other long term (current) drug therapy; Z82.49 Family history of ischemic heart disease and other diseases of the circulatory system
CPT/HCPCS: 01482; 36415; 36430; 36556; 36558; 36600; 51702; 71010; 71020; 76937; 77001; 80048; 80053; 80069; 81001; 82550; 82553; 82607; 82728; 82746; 82803; 82962; 83540; 83550; 83605; 83735; 83880; 83970; 84100; 84134; 84466; 84484; 85025; 85027; 85045; 85610; 85730; 86704; 86705; 86706; 86707; 86803; 86850; 86900; 86901; 86920; 87040; 87070; 87077; 87086; 87186; 87205; 87340; 87350; 87804; 88307; 88311; 93005; 93010; 93306; 94640; 94660; 94799; 96365; 96367; 99291; C1752; C1769; G8978-GP; G8979-GP; J0131; J0456; J0690; J0692; J0696; J1170; J1644; J1815; J1940; J2020; J2250; J2270; J2405; J2543; J2704; J2765; J3010; J3490; J7030; J7050; J7620; P9016; Q0139; Q4081

== ENCOUNTER → 2016-08-26 | Outpatient (CLI) | payer MEDICARE, OTHER ==
[2016-08-26 18:38] LABS: ALANINE AMINOTRANSFERASE 17 U/L (9-52); ALBUMIN 3.1 g/dL (3.5-5.0); ALKALINE PHOSPHATASE 59 U/L (38-126); ANION GAP 13 (5-19); ASPARTATE AMINO TRANSFERASE 31 U/L (14-36); BILIRUBIN,DIRECT 0.4 mg/dL (0.0-0.4); BILIRUBIN,TOTAL 0.6 mg/dL (0.2-1.3); BLOOD UREA NITROGEN 26 mg/dL (7-20); CALCIUM 9.1 mg/dL (8.4-10.2); CARBON DIOXIDE 28 mmol/L (22-30); CHLORIDE 101 mmol/L (98-107); CREATININE RESULT 2.43 mg/dL (0.52-1.25); GLUCOSE 84 mg/dL (75-110); POTASSIUM 4.1 mmol/L (3.6-5.0); SODIUM 142.3 mmol/L (137-145); TOTAL PROTEIN 6.8 g/dL (6.3-8.2)
== END ==
LOC: OD 16:58
PROVIDERS: ATTEND Internal Medicine
DX: R59.1 Generalized enlarged lymph nodes (principal)
CPT/HCPCS: 36415; 80053

== ENCOUNTER → 2016-09-14 | Outpatient (CLI) | payer MEDICARE, OTHER | LOC: RAD 16:34 | PROVIDERS: ATTEND Internal Medicine | DX: C53.0 Malignant neoplasm of endocervix (principal); R59.1 Generalized enlarged lymph nodes | CPT/HCPCS: 78815; A9552 ==

== ENCOUNTER 2016-12-05 16:23 | Emergency (ER) | payer MEDICARE, OTHER ==
[2016-12-05] MEDS ORDERED: OXYCODONE HCL IR 5 MG TABLET PO ONE ×2 (17:10→21:17)
--- NOTE | 2016-12-05 17:15 | ER Document Report ---
ED General - General Chief Complaint: Hand Pain Stated Complaint: LEFT ARM AND HAND PAIN Time Seen by Provider: 12/05/16 17:09 Mode of Arrival: Ambulatory Information source: Patient Notes: This is a 71-year-old female history of end-stage renal disease, peripheral vascular disease (status post right AKA) who presents to the emergency room with right upper extremity pain. Patient was last dialyzed today TRAVEL OUTSIDE OF THE [place] IN LAST 30 DAYS: No - HPI Onset: Just prior to arrival Onset/Duration: Gradual Quality of pain: Dull Severity: Moderate Pain Level: 2 Associated symptoms: denies: Chest pain, Fever, Shortness of breath Exacerbated by: Denies Relieved by: Denies Similar symptoms previously: No Recently seen / treated by doctor: Yes - Related Data Allergies/Adverse Reactions: hydralazine [Hydralazine] Allergy (Severe, Verified 08/05/16 14:26) Rash all over Sulfa (Sulfonamide Antibiotics) Allergy (Severe, Verified 08/05/16 14:26) mouth swells Past Medical History - General Information source: Patient - Social History Smoking Status: Never Smoker Cigarette use (# per day): No Chew tobacco use (# tins/day): No Frequency of alcohol use: None Drug Abuse: None Lives with: Spouse/Significant other Family History: Reviewed & Not Pertinent, DM, Hyperlipidemia, Hypertension Patient has suicidal ideation: No Patient has homicidal ideation: No - Past Medical History Cardiac Medical History: Reports: Hx Congestive Heart Failure - diastolic, Hx Coronary Artery Disease, Hx Hypercholesterolemia, Hx Hypertension, Hx Peripheral Vascular Disease, Hx Heart Murmur Denies: Hx Atrial Fibrillation, Hx DVT, Hx Heart Attack, Hx Pulmonary Embolism Pulmonary Medical History: Reports: Hx Asthma - Sinus related, Hx COPD, Hx Pneumonia - 02/2016, Hx Sleep Apnea - CPAP Denies: Hx Bronchitis, Hx Respiratory Failure, Hx Tuberculosis Neurological Medical History: Denies: Hx Cerebrovascular Accident, Hx Seizures Endocrine Medical History: Reports: Hx Diabetes Mellitus Type 1, Hx Diabetes Mellitus Type 2. Denies: Hx Graves' Disease, Hx Hyperthyroidism, Hx Hypothyroidism Renal/ Medical History: Reports: Hx End Stage Renal Disease, Hx Kidney Stones - 1993, Hx Peritoneal Dialysis. Denies: Hx Ovarian Cysts, Hx Pelvic Inflammatory Disease Malignancy Medical History: Reports: Hx Cervical Cancer - currently. Denies: Hx Breast Cancer, Hx Leukemia, Hx Lung Cancer, Hx Ovarian Cancer GI Medical History: Reports: Hx Gastroesophageal Reflux Disease, Hx Irritable Bowel. Denies: Hx Cirrhosis, Hx Crohn's Disease, Hx Hiatal Hernia, Hx Liver Failure, Hx Ulcer Musculoskeltal Medical History: Reports Hx Arthritis, Denies Hx Fibromyalgia, Denies Hx Multiple Sclerosis, Denies Hx Muscular Dystrophy Skin Medical History: Denies Hx Eczema, Denies Hx Psoriasis Psychiatric Medical History: Reports: Hx Anxiety, Hx Depression Denies: Hx Bipolar Disorder, Hx Dementia, Hx Post Traumatic Stress Disorder, Hx Schizophrenia Traumatic Medical History: Denies: Hx Fractures Infectious Medical History: Reports: Hx MRSA. 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 Lumbar spine fusion.. Denies: Hx Section, Hx Colostomy, Hx Coronary Artery Bypass Graft, Hx Gastric Bypass Surgery, Hx Herniorrhaphy, Hx Hysterectomy, Hx Mastectomy, Hx Pacemaker, Hx Tonsillectomy, Hx Tubal Ligation - Immunizations Hx Diphtheria, Pertussis, Tetanus Vaccination: No Hx Pneumococcal Vaccination: 04/30/16 Review of Systems - Review of Systems Constitutional: denies: Chills, Fever EENT: No symptoms reported Cardiovascular: No symptoms reported Respiratory: No symptoms reported Gastrointestinal: No symptoms reported Genitourinary: No symptoms reported Female Genitourinary: No symptoms reported Musculoskeletal: See HPI Skin: No symptoms reported Hematologic/Lymphatic: No symptoms reported Neurological/Psychological: No symptoms reported Physical Exam - Vital signs Vitals: Temp Pulse Resp BP Pulse Ox 97.7 F 107 H 14 107/38 L 96 12/05/16 16:31 12/05/16 16:31 12/05/16 16:31 12/05/16 16:31 12/05/16 16:31 Notes: Physical exam: GENERAL: 71-year-old female, alert and oriented 3, no acute distress HEAD: Atraumatic, normocephalic. EYES: Pupils equal round and reactive to light, extraocular movements intact, sclera anicteric, conjunctiva are normal. ENT: Moist mucous membranes. NECK: Supraclavicular vascular cath LUNGS: Breath sounds clear to auscultation bilaterally and equal. No wheezes rales or rhonchi. HEART: Regular rate and rhythm without murmurs, rubs or gallops. ABDOMEN: Soft, normoactive bowel sounds. No palpable to palpation. No guarding , no rebound. No masses appreciated. EXTREMITIES: Right hand pain. There is some warmth to the hand. Capillary refill is reduced (but about the same as the left side). Left upper extremity: Left shunt with positive thrill. Patient does have recent surgical scar to the left forearm with mild erythema (no obvious cellulitis) NEUROLOGICAL: Cranial nerves II through XII grossly intact. Normal speech, normal gait. PSYCH: Normal mood, normal affect. SKIN: Warm, Dry, normal turgor, no rashes or lesions noted. Course - Re-evaluation Re-evalutation: 12/06/16 00:14 Note: The arterial Doppler shows good blood flow to the right upper extremity. He did feel better after some oxycodone. Discussed the results with her and recommended she follow-up with her primary care doctor. - Vital Signs Vital signs: Temp Pulse Resp BP Pulse Ox 98.1 F 56 L 20 118/33 L 97 12/05/16 21:31 12/05/16 21:31 12/05/16 21:31 12/05/16 21:31 12/05/16 21:31 Discharge - Discharge Clinical Impression: Hand pain Condition: Stable Disposition: HOME, SELF-CARE Additional Instructions: As we discussed, the arterial ultrasound of the hand showed good blood supply. Try taking the pain medicine over the next several days. May require repeat ultrasound if the pain gets worse or continues. The emergency room for any concerns or to getting worse. Review doctors on Thursday. Referrals: CAROLINA ROBIN MD [Primary Care Provider] - Follow up in 3-5 days
[2016-12-05 21:31] VITALS: BP 118/33
--- NOTE | 2016-12-06 15:05 | XCELERA REPORT ---
[address] [address] Upper Extremity Arterial Evaluation Name: VIVIAN WATKINS Age: 71 yrs Gender: Female : 1945 Patient Status: Emergency Patient Location: ER Study Date: 12/05/2016 06:03 PM Procedure: A duplex scan of the upper extremity arteries was performed on the right. Reason For Study: RUE pain Ordering Physician: ALVIN KING Performed By: Lee Dave Measurements and Calculations Right Left Mid SCLA PSV -122.2 cm/sec Ax A PSV -92.8 cm/sec Dist Brach A PSV 119.4 cm/sec Dist Rad A PSV 77.7 cm/sec Dist Ulnar A PSV 64.6 cm/sec Ax A PSV -92.8 cm/sec Dist Brach A PSV 119.4 cm/sec Dist Rad A PSV 77.7 cm/sec Dist Ulnar A PSV 64.6 cm/sec Mid SCLA PSV -122.2 cm/sec Right Side Arterial Evaluation Normal velocity and triphasic waveforms noted from the Common Carotid artery to the forearm vessels. 0 % stenosis noted . Interpretation Summary No hemodynamically significant lesions noted in the right upper extremity arteries, on duplex imaging, at rest. : ALVIN KING [place] >
== END 2016-12-05 21:31 | disposition home or self-care (01) ==
LOC: ER 16:23
DX: M79.641 Pain in right hand (principal); I25.10 Atherosclerotic heart disease of native coronary artery without angina pectoris; I12.0 Hypertensive chronic kidney disease with stage 5 chronic kidney disease or end stage renal disease; E11.22 Type 2 diabetes mellitus with diabetic chronic kidney disease; N18.6 End stage renal disease; J44.9 Chronic obstructive pulmonary disease, unspecified; Z99.2 Dependence on renal dialysis; E11.51 Type 2 diabetes mellitus with diabetic peripheral angiopathy without gangrene; Z88.2 Allergy status to sulfonamides; Z88.8 Allergy status to other drugs, medicaments and biological substances; Z85.41 Personal history of malignant neoplasm of cervix uteri; Z86.14 Personal history of Methicillin resistant Staphylococcus aureus infection
CPT/HCPCS: 99283; 93931 ×2; A9270

== ENCOUNTER 2016-12-18 18:55 | Inpatient (IN) | payer MEDICARE, OTHER ==
[2016-12-18] MEDS ORDERED: NORMAL SALINE 1000 ML 1,000 ML IV ONE ×2 (19:13→20:23)
[2016-12-18] MEDS ORDERED: ONDANSETRON HCL INJ/PF 4 MG/2 ML SDV IV ONE (19:14)
--- NOTE | 2016-12-18 19:18 | ER Document Report ---
ED Medical Screen (RME) - General Chief Complaint: Abdominal Pain Stated Complaint: NAUSEA,VOMITING Time Seen by Provider: 12/18/16 19:12 Notes: Patient is here because of vomiting and diarrhea today. She says that she has had the diarrhea all day long and she is vomited about 3 or 4 times. Has some lower abdominal pains. Patient has a history of cervical cancer and is currently undergoing chemotherapy under Dr. Ureña. Also, patient is a dialysis patient on Thursday, Thursday, and Thursday dialysis. Says she has very little oral intake, does not eat hardly anything. Has lost over 100 pounds since she was originally diagnosed and started on treatment for her cancer. TRAVEL OUTSIDE OF THE [place] IN LAST 30 DAYS: No - Related Data Allergies/Adverse Reactions: hydralazine [Hydralazine] Allergy (Severe, Verified 12/18/16 19:07) Rash all over Sulfa (Sulfonamide Antibiotics) Allergy (Severe, Verified 12/18/16 19:07) mouth swells Past Medical History - Past Medical History Cardiac Medical History: Reports: Hx Congestive Heart Failure - diastolic, Hx Coronary Artery Disease, Hx Hypercholesterolemia, Hx Hypertension, Hx Peripheral Vascular Disease, Hx Heart Murmur Denies: Hx Atrial Fibrillation, Hx DVT, Hx Heart Attack, Hx Pulmonary Embolism Pulmonary Medical History: Reports: Hx Asthma - Sinus related, Hx COPD, Hx Pneumonia - 02/2016, Hx Sleep Apnea - CPAP Denies: Hx Bronchitis, Hx Respiratory Failure, Hx Tuberculosis Neurological Medical History: Denies: Hx Cerebrovascular Accident, Hx Seizures Endocrine Medical History: Reports: Hx Diabetes Mellitus Type 1, Hx Diabetes Mellitus Type 2. Denies: Hx Graves' Disease, Hx Hyperthyroidism, Hx Hypothyroidism Renal/ Medical History: Reports: Hx End Stage Renal Disease, Hx Kidney Stones - 1993. Denies: Hx Ovarian Cysts, Hx Peritoneal Dialysis, Hx Pelvic Inflammatory Disease Malignancy Medical History: Reports: Hx Cervical Cancer - currently. Denies: Hx Breast Cancer, Hx Leukemia, Hx Lung Cancer, Hx Ovarian Cancer GI Medical History: Reports: Hx Gastroesophageal Reflux Disease, Hx Irritable Bowel. Denies: Hx Cirrhosis, Hx Crohn's Disease, Hx Hiatal Hernia, Hx Liver Failure, Hx Ulcer Musculoskeltal Medical History: Reports Hx Arthritis, Denies Hx Fibromyalgia, Denies Hx Multiple Sclerosis, Denies Hx Muscular Dystrophy Skin Medical History: Denies Hx Eczema, Denies Hx Psoriasis Psychiatric Medical History: Reports: Hx Anxiety, Hx Depression Denies: Hx Bipolar Disorder, Hx Dementia, Hx Post Traumatic Stress Disorder, Hx Schizophrenia Traumatic Medical History: Denies: Hx Fractures Infectious Medical History: Reports: Hx MRSA. 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 Lumbar spine fusion.. Denies: Hx Section, Hx Colostomy, Hx Coronary Artery Bypass Graft, Hx Gastric Bypass Surgery, Hx Herniorrhaphy, Hx Hysterectomy, Hx Mastectomy, Hx Pacemaker, Hx Tonsillectomy, Hx Tubal Ligation - Immunizations Hx Diphtheria, Pertussis, Tetanus Vaccination: No
[2016-12-18] MEDS ORDERED: MORPHINE SULFATE 10 MG/ML INJ IV ONE (19:46)
--- NOTE | 2016-12-18 19:48 | ER Document Report ---
ED GI/ - General Chief Complaint: Abdominal Pain Stated Complaint: NAUSEA,VOMITING Time Seen by Provider: 12/18/16 19:12 Notes: Patient is a 71-year-old female who comes emergency department for chief complaint of vomiting, diarrhea, abdominal pain in her lower abdomen. She states she has had diarrhea all day today and she has vomited 4 times. Patient states she had chemotherapy today, she is undergoing chemotherapy for cervical cancer by Dr. Ureña. Patient denies any fevers, she denies any hematemesis or hematochezia. She is also on dialysis Thursday, she did not miss her Thursday dialysis. Other past medical history includes COPD and type 2 diabetes. She is not on home oxygen. She denies any shortness of breath or cough. She denies any chest pains or headache. TRAVEL OUTSIDE OF THE [place] IN LAST 30 DAYS: No - Related Data Allergies/Adverse Reactions: hydralazine [Hydralazine] Allergy (Severe, Verified 12/18/16 19:07) Rash all over Sulfa (Sulfonamide Antibiotics) Allergy (Severe, Verified 12/18/16 19:07) mouth swells Home Medications: Current Home Medications Amlodipine Besylate [Norvasc 10 mg Tablet] 10 mg PO DAILY 12/19/16 [History] Aspirin [Aspirin EC] 81 mg PO DAILY 12/19/16 [History] Atorvastatin Calcium [Lipitor 10 mg Tablet] 10 mg PO DAILY 12/19/16 [History] Bumetanide [Bumex 1 mg Tablet] 2 mg PO Q12 12/19/16 [History] Carvedilol [Coreg 12.5 mg Tablet] 12.5 mg PO Q12 12/19/16 [History] Clonidine HCl [Catapres 0.1 mg Tablet] 0.1 mg PO Q8 12/19/16 [History] Exenatide Microspheres [Bydureon Pen] 2 mg INJ TU@1000 12/19/16 [History] Insulin Aspart [Novolog Flexpen] 15 units SQ BIDACBL 12/19/16 [History] Insulin Aspart [Novolog Flexpen] 25 units SQ ACSUPPER 12/19/16 [History] Insulin Glargine,Hum.rec.anlog [Lantus] 0 unit SQ .SEE COMMENTS PRN 12/19/16 [ History] Lisinopril [Prinivil 10 mg Tablet] 10 mg PO DAILY 12/19/16 [History] Megestrol Acetate 40 mg PO BIDACBS 12/19/16 [History] Oxycodone HCl [Oxycodone HCl 10 MG Tablet] 10 mg PO Q6HP PRN 12/19/16 [History] Oxycodone HCl [Oxycontin Sr 10 mg Tablet] 10 mg PO Q12 12/19/16 [History] Oxycodone HCl/Acetaminophen [Percocet 5-325 mg Tablet] 1 tab PO Q6HP PRN [History] Promethazine HCl [Phenergan 25 mg Tablet] 25 mg PO Q6HP PRN 12/19/16 [History] Sertraline HCl [Zoloft 50 mg Tablet] 100 mg PO QHS 12/19/16 [History] Past Medical History - General Information source: Patient - Social History Smoking Status: Never Smoker Frequency of alcohol use: None Drug Abuse: None Lives with: Family Family History: Reviewed & Not Pertinent, DM, Hyperlipidemia, Hypertension Patient has suicidal ideation: No Patient has homicidal ideation: No - Past Medical History Cardiac Medical History: Reports: Hx Congestive Heart Failure - diastolic, Hx Coronary Artery Disease, Hx Hypercholesterolemia, Hx Hypertension, Hx Peripheral Vascular Disease, Hx Heart Murmur Denies: Hx Atrial Fibrillation, Hx DVT, Hx Heart Attack, Hx Pulmonary Embolism Pulmonary Medical History: Reports: Hx Asthma - Sinus related, Hx COPD, Hx Pneumonia - 02/2016, Hx Sleep Apnea - CPAP Denies: Hx Bronchitis, Hx Respiratory Failure, Hx Tuberculosis Neurological Medical History: Denies: Hx Cerebrovascular Accident, Hx Seizures Endocrine Medical History: Reports: Hx Diabetes Mellitus Type 2. Denies: Hx Graves' Disease, Hx Hyperthyroidism, Hx Hypothyroidism Renal/ Medical History: Reports: Hx End Stage Renal Disease, Hx Kidney Stones - 1993. Denies: Hx Ovarian Cysts, Hx Peritoneal Dialysis, Hx Pelvic Inflammatory Disease Malignancy Medical History: Reports: Hx Cervical Cancer - currently. Denies: Hx Breast Cancer, Hx Leukemia, Hx Lung Cancer, Hx Ovarian Cancer GI Medical History: Reports: Hx Gastroesophageal Reflux Disease, Hx Irritable Bowel. Denies: Hx Cirrhosis, Hx Crohn's Disease, Hx Hiatal Hernia, Hx Liver Failure, Hx Ulcer Musculoskeltal Medical History: Reports Hx Arthritis, Denies Hx Fibromyalgia, Denies Hx Multiple Sclerosis, Denies Hx Muscular Dystrophy Skin Medical History: Denies Hx Eczema, Denies Hx Psoriasis Psychiatric Medical History: Reports: Hx Anxiety, Hx Depression Denies: Hx Bipolar Disorder, Hx Dementia, Hx Post Traumatic Stress Disorder, Hx Schizophrenia Traumatic Medical History: Denies: Hx Fractures Infectious Medical History: Reports: Hx MRSA. 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 Lumbar spine fusion.. Denies: Hx Section, Hx Colostomy, Hx Coronary Artery Bypass Graft, Hx Gastric Bypass Surgery, Hx Herniorrhaphy, Hx Hysterectomy, Hx Mastectomy, Hx Pacemaker, Hx Tonsillectomy, Hx Tubal Ligation - Immunizations Hx Diphtheria, Pertussis, Tetanus Vaccination: No Hx Pneumococcal Vaccination: 04/30/16 Review of Systems - Review of Systems Constitutional: See HPI EENT: No symptoms reported Cardiovascular: No symptoms reported Respiratory: No symptoms reported Gastrointestinal: See HPI Genitourinary: No symptoms reported Female Genitourinary: No symptoms reported Musculoskeletal: No symptoms reported Skin: No symptoms reported Hematologic/Lymphatic: No symptoms reported Neurological/Psychological: No symptoms reported Physical Exam - Vital signs Vitals: Resp 12/18/16 19:31 - General General appearance: Other - patient appears chronically unwell In distress: None - HEENT Head: Normocephalic, Atraumatic Eyes: Normal Conjunctiva: Normal Extraocular movements intact: Yes Eyelashes: Normal Pupils: PERRL Mucous membranes: Dry Pharynx: Normal Neck: Normal - Respiratory Respiratory status: No respiratory distress Breath sounds: Normal. No: Decreased air movement, Nonproductive cough, Wheezing - Cardiovascular Rhythm: Regular. No: Tachycardia Heart sounds: Normal auscultation, S1 appreciated, S2 appreciated Murmur: Yes - 2/6 heard throughout - Abdominal Inspection: Normal Tenderness: Tender - mild generalized tenderness - Back Back: Normal. No: Tender - Extremities General upper extremity: Normal inspection, Nontender, Normal ROM, Normal strength General lower extremity: Other - left AKA, right foot with toes removed - Neurological Neuro grossly intact: Yes Cognition: Normal Orientation: AAOx4 Gareth Coma Scale Eye Opening: Spontaneous Troy Coma Scale Verbal: Oriented [place] Coma Scale Motor: Obeys Commands Gareth Coma Scale Total: 15 Speech: Normal Cranial nerves: Normal Cerebellar coordination: Normal Motor strength normal: LUE, RUE, LLE, RLE - Skin Skin Temperature: Warm Skin Moisture: Dry Skin Color: Normal Skin irregularity: other - Skin breakdown noted under the lower abdominal pannus , there is one area of skin breakdown with foul-smelling some erythema, no purulent drainage noted however. No induration or fluctuance. Course - Re-evaluation Re-evalutation: Patient chronically ill-appearing, has mild generalized abdominal tenderness, she is oriented. Clear lungs, no respiratory distress, she also has skin breakdown underneath her pannus (despite being small and thin she actually does have a pannus) with foul-smell and some erythema. Urine unremarkable, chest x-ray unremarkable, CAT scan performed and shows no acute abnormalities. Potassium low at 3.0, however patient is a dialysis patient, as a result this was not supplemented at this time. Patient found to be running a fever at 102.1. Medicated for this. Also medicated for pain and nausea. Afterwards patient felt much better. She denies any current symptoms. Question source of the fever, could be the skin breakdown/infection. No neutropenia, leukocytosis, tachycardia, or hypotension. Discussed with Dr. Wells. Recommends antibiotic coverage and admission to the hospital. 12/19/16 05:[address] Whittaker, patient will be admitted to [facility] - Vital Signs Vital signs: Temp Pulse Resp BP Pulse Ox 97.6 F 76 20 133/35 H 93 12/19/16 18:20 12/19/16 18:20 12/19/16 18:20 12/19/16 18:20 12/19/16 18:20 - Laboratory Result Diagrams: 12/19/16 08:55 12/19/16 06:34 Laboratory results interpreted by me: 12/18/16 12/18/16 12/18/16 19:55 19:55 19:55 RBC 2.54 L Hgb 8.1 L Hct 25.3 L MCV 99 H MCHC RDW 22.1 H Plt Count 118 L Seg Neutrophils % Lymphocytes % Sodium 136.1 L Potassium 3.0 L* Carbon Dioxide BUN 32 H Creatinine 2.89 H Est GFR ( Amer) 19 L Est GFR (Non-Af Amer) 16 L Glucose 143 H Lactic Acid 2.3 H Calcium Direct Bilirubin 0.8 H Albumin 2.9 L Lipase 14.3 L Urine Protein Urine Glucose (UA) 12/18/16 12/19/16 12/19/16 19:55 06:34 07:15 RBC 2.16 L Hgb 6.8 L Hct 21.7 L MCV 100 H MCHC 31.4 L RDW 22.2 H Plt Count 93 L Seg Neutrophils % 78.4 H Lymphocytes % 11.9 L Sodium 135.7 L Potassium Carbon Dioxide 21 L BUN 36 H Creatinine 2.90 H Est GFR ( Amer) 19 L Est GFR (Non-Af Amer) 16 L Glucose Lactic Acid Calcium 8.2 L Direct Bilirubin Albumin Lipase Urine Protein 100 H Urine Glucose (UA) 50 H Discharge - Discharge Clinical Impression: Open wound Nausea and vomiting Qualifiers: Vomiting type: unspecified Vomiting Intractability: non-intractable Qualified Code(s): R11.2 - Nausea with vomiting, unspecified Abdominal pain Qualifiers: Abdominal location: generalized Qualified Code(s): R10.84 - Generalized abdominal pain Fever Qualifiers: Fever type: unspecified Qualified Code(s): R50.9 - Fever, unspecified Condition: Stable Disposition: ADMITTED INPATIENT Admitting Provider: Hospitalist Unit Admitted: IMCU
[2016-12-18 20:18] LABS: ABSOLUTE LYMPHOCYTES (AUTO) 1.4 10^3/uL (0.5-4.7); ABSOLUTE MONOCYTES (AUTO) 0.8 10^3/uL (0.1-1.4); ABSOLUTE NEUT (AUTO) 7.4 10^3/uL (1.7-8.2); BASOPHILS % (AUTO) 0.2 % (0-2); HEMATOCRIT 25.3 % (36.0-47.0); HEMOGLOBIN 8.1 g/dL (12.0-15.5); LYMPHOCYTES % (AUTO) 14.3 % (13-45); MEAN CORPUSCULAR HEMOGLOBIN 31.8 pg (27.0-33.4); MEAN CORPUSCULAR VOLUME 99 fl (80-97); MONOCYTES % (AUTO) 8.6 % (3-13); RED BLOOD COUNT 2.54 10^6/uL (3.72-5.28); RED CELL DISTRIBUTION WIDTH 22.1 % (11.5-14.0); SEGMENTED NEUTROPHILS % (AUTO) 76.9 % (42-78); WHITE BLOOD COUNT 9.6 10^3/uL (4.0-10.5)
[2016-12-18] MEDS ORDERED: ACETAMINOPHEN 325 MG TABLET PO ONE ×3 (20:23→21:16)
[2016-12-18 20:31] LABS: ALANINE AMINOTRANSFERASE 22 U/L (9-52); ALBUMIN 2.9 g/dL (3.5-5.0); ALKALINE PHOSPHATASE 112 U/L (38-126); ANION GAP 13 (5-19); ASPARTATE AMINO TRANSFERASE 27 U/L (14-36); BILIRUBIN,DIRECT 0.8 mg/dL (0.0-0.4); BILIRUBIN,TOTAL 1.2 mg/dL (0.2-1.3); BLOOD UREA NITROGEN 32 mg/dL (7-20); CALCIUM 8.8 mg/dL (8.4-10.2); CARBON DIOXIDE 25 mmol/L (22-30); CHLORIDE 98 mmol/L (98-107); CREATININE RESULT 2.89 mg/dL (0.52-1.25); GLUCOSE 143 mg/dL (75-110); LIPASE 14.3 U/L (23-300); SODIUM 136.1 mmol/L (137-145); TOTAL PROTEIN 6.7 g/dL (6.3-8.2)
[2016-12-18 21:16] LABS: AMORPHOUS SEDIMENT,URINE TRACE /HPF; APPEARANCE,URINE CLOUDY; BILIRUBIN,URINE NEGATIVE (NEGATIVE); GLUCOSE, URINE 50 mg/dL (NEGATIVE); KETONES,URINE NEGATIVE (NEGATIVE); LEUKOCYTE ESTERASE,URINE NEGATIVE (NEGATIVE); NITRITE,URINE NEGATIVE (NEGATIVE); PROTEIN,URINE 100 mg/dL (NEGATIVE); URINE SPECIFIC GRAVITY 1.024; UROBILINOGEN,URINE NEGATIVE mg/dL (<2.0)
--- NOTE | 2016-12-18 21:17 | RADIOLOGY REPORT (SQ) ---
EXAM DESCRIPTION: CHEST SINGLE VIEW COMPLETED DATE/TIME: 12/18/2016 9:08 pm REASON FOR STUDY: hypotension COMPARISON: 08/05/2016. EXAM PARAMETERS: NUMBER OF VIEWS: One view. TECHNIQUE: Single frontal radiographic view of the chest acquired. RADIATION DOSE: NA LIMITATIONS: None. FINDINGS: LUNGS AND PLEURA: No opacities, masses or pneumothorax. No pleural effusion. MEDIASTINUM AND HILAR STRUCTURES: No masses. Contour normal. HEART AND VASCULAR STRUCTURES: Heart upper limits of normal in size. Mild vascular prominence. BONES: No acute findings. HARDWARE: Vascular access port. Multi lumen catheter. OTHER: No other significant finding. IMPRESSION: BORDERLINE CARDIOMEGALY WITH MILD VASCULAR PROMINENCE. SIMILAR APPEARANCE TO THE PRIOR STUDY. TECHNICAL DOCUMENTATION: JOB ID: [id number]
--- NOTE | 2016-12-18 23:22 | RADIOLOGY REPORT (SQ) ---
EXAM DESCRIPTION: CT ABD/PELVIS NO ORAL OR IV COMPLETED DATE/TIME: 12/18/2016 11:03 pm REASON FOR STUDY: mid abd pain, vomiting, fever COMPARISON: PET-CT dated 09/14/2016. TECHNIQUE: CT scan of the abdomen and pelvis performed without intravenous or oral contrast. Images reviewed with lung, soft tissue, and bone windows. Reconstructed coronal and sagittal MPR images revi ewed. All images stored on PACS. All CT scanners at this facility use dose modulation, iterative reconstruction, and/or weight based d osing when appropriate to reduce radiation dose to as low as reasonably achievable (ALARA). [facility]: Dose Right [facility]: CareDose [facility]: Dose Right [facility]: Teradose 4D [facility]: [employer] RADIATION DOSE: Up-to-date CT equipment and radiation dose reduction techniques were employed. CTDIv ol: 15.3 mGy. DLP: 827 mGy-cm.mGy. LIMITATIONS: Beam hardening artifact from metallic hardware in the lumbar spine. FINDINGS: LOWER CHEST: No significant findings. No nodules or infiltrates. NON-CONTRASTED LIVER, SPLEEN, ADRENALS: Evaluation limited by lack of IV contrast. No identified sign ificant masses. PANCREAS: No masses. No peripancreatic inflammatory changes. GALLBLADDER: Surgically absent. RIGHT KIDNEY AND URETER: No suspicious masses. Assessment limited by lack of IV contrast. No signif icant calcifications. Moderate hydronephrosis and hydroureter. LEFT KIDNEY AND URETER: No suspicious masses. Assessment limited by lack of IV contrast. No signifi cant calcifications. Moderate hydronephrosis and hydroureter. AORTA AND RETROPERITONEUM: No aneurysm. Extensive vascular calcifications. Conglomerate retroperito lakeisha adenopathy. BOWEL AND PERITONEAL CAVITY: No obvious masses or inflammatory changes. No free fluid. APPENDIX: Surgically absent. PELVIS, BLADDER, AND ABDOMINAL WALL:No abnormal masses. No free fluid. Bladder normal. BONES: No significant findings. Surgical changes in the lumbar spine with hardware. OTHER: No other significant finding. IMPRESSION: 1. CONGLOMERATE RETROPERITONEAL ADENOPATHY SIMILAR TO THE RECENT PET-CT SCAN. AGAIN SEEN IS HYDRONEP HROSIS OF THE RIGHT KIDNEY WITH INTERVAL DEVELOPMENT OF HYDRONEPHROSIS OF THE LEFT KIDNEY. THE URETE RS ARE DIFFICULT TO VISUALIZE DUE TO METALLIC ARTIFACT BUT HYDRONEPHROSIS IS PROBABLY DUE TO COMPRESS ION FROM ADJACENT RETROPERITONEAL ADENOPATHY. 2. NO OTHER SIGNIFICANT OR ACUTE PROCESS IN THE ABDOMEN OR PELVIS. TECHNICAL DOCUMENTATION: JOB ID: [id number] Quality ID # [id number]: Final reports with documentation of one or more dose reduction techniques (e.g., Au tomated exposure control, adjustment of the mA and/or kV according to patient size, use of iterative reconstruction technique) 2010 [employer]- All Rights Reserved
[2016-12-18] MEDS ORDERED: PIPERACILLIN/TAZOBACTAM 3.375 GM VIAL IV ONE (23:46)
[2016-12-19] MEDS ORDERED: PIPERACILLIN/TAZOBACTAM 3.375 GM VIAL IV ONE (02:16)
[2016-12-19] MEDS ORDERED: MORPHINE SULFATE 10 MG/ML INJ IV ONE (05:32)
[2016-12-19] MEDS ORDERED: POTASSIUM CHLORIDE 10 MEQ TABLET.SA PO ONE (06:02)
[2016-12-19] MEDS ORDERED: VANCOMYCIN HCL INJ 1000 MG VIAL IV PRN (06:13)
[2016-12-19] MEDS ORDERED: VANCOMYCIN HCL INJ 500 MG VIAL IV PRN (06:13)
[2016-12-19] MEDS ORDERED: VANCOMYCIN HCL 0 MG in DEXTROSE 5%-WATER 250 ML IV NR (06:15)
[2016-12-19] MEDS ORDERED: VANCOMYCIN HCL 1,250 MG in DEXTROSE 5%-WATER 250 ML IV ONE (06:15)
[2016-12-19 07:04] LABS: ANION GAP 12 (5-19); BLOOD UREA NITROGEN 36 mg/dL (7-20); CALCIUM 8.2 mg/dL (8.4-10.2); CARBON DIOXIDE 21 mmol/L (22-30); CHLORIDE 103 mmol/L (98-107); GLUCOSE 108 mg/dL (75-110); POTASSIUM 3.8 mmol/L (3.6-5.0); SODIUM 135.7 mmol/L (137-145)
[2016-12-19] MEDS ORDERED: DEXTROSE 40% GEL 15 GM TUBE PO PRN ×2 (07:28)
[2016-12-19] MEDS ORDERED: INSULIN LISPRO 100 UNIT/ML 3 ML VIAL SUBCUT PRN (07:28)
[2016-12-19] MEDS ORDERED: DEXTROSE 50%-WATER 25 GM/50 ML DISP.SYRIN IV PRN ×2 (07:28)
[2016-12-19] MEDS ORDERED: GLUCAGON,HUMAN RECOMB 1 MG INJ IM PRN (07:28)
[2016-12-19] MEDS ORDERED: NORMAL SALINE 1000 ML 1,000 ML IV PRN (07:31)
[2016-12-19] MEDS ORDERED: IPRATROPIUM/ALBUTEROL 0.5-2.5 MG/3 ML AMPUL NEB PRN (07:33)
[2016-12-19 07:35] LABS: ABSOLUTE LYMPHOCYTES (AUTO) 1.2 10^3/uL (0.5-4.7); ABSOLUTE NEUT (AUTO) 8.2 10^3/uL (1.7-8.2); BASOPHILS % (AUTO) 0.2 % (0-2); HEMATOCRIT 21.7 % (36.0-47.0); HGB HCT DIFFERENCE -1.3; LYMPHOCYTES % (AUTO) 11.9 % (13-45); MEAN CORPUSCULAR HEMOGLOBIN 31.4 pg (27.0-33.4); MEAN CORPUSCULAR HGB CONC 31.4 g/dL (32.0-36.0); MEAN CORPUSCULAR VOLUME 100 fl (80-97); MONOCYTES % (AUTO) 9.5 % (3-13); RED BLOOD COUNT 2.16 10^6/uL (3.72-5.28); RED CELL DISTRIBUTION WIDTH 22.2 % (11.5-14.0); SEGMENTED NEUTROPHILS % (AUTO) 78.4 % (42-78); WHITE BLOOD COUNT 10.4 10^3/uL (4.0-10.5)
[2016-12-19] MEDS ORDERED: PROMETHAZINE HCL 25 MG TABLET PO PRN (07:36)
[2016-12-19] MEDS ORDERED: ACETAMINOPHEN 325 MG TABLET PO PRN (07:36)
[2016-12-19] MEDS ORDERED: PHARMACY COMMUNICATION ORDER MC SCH (07:45)
[2016-12-19 07:51] LABS: HEMOGLOBIN 6.8 g/dL (12.0-15.5)
--- NOTE | 2016-12-19 08:17 | EKG REPORT ---
SEVERITY:- ABNORMAL ECG - SINUS RHYTHM PROBABLE LVH WITH SECONDARY REPOL ABNRM : Confirmed by: Vlad Baez MD 19-Dec-2016 08:16:35
--- NOTE | 2016-12-19 09:22 | PDOC H&P ---
History of Present Illness Admission Date/PCP: 12/19/16 07:33 CAROLINA ROBIN MD Nephrology Dr. Dick Craig Wound care Dr. Mclaughlin Oncology Dr. Ureña Patient complains of: Nausea vomiting and diarrhea History of Present Illness: VIVIAN WATKINS is a 71 year old female currently undergoing chemotherapy for cervical cancer, with last session on the of this month, who presents to the emergency room for evaluation of approximately a 24 hour history of nausea and 4 episodes of vomiting, along with multiple episodes of diarrhea. No blood either from above or below. Also describes mild cramping pain in her lower abdomen, at least partly associated with multiple small ulcers she has under her lower abdominal wall panniculus, currently being followed by wound care. Generalized weakness also. Denies fever or chills, shortness of breath or cough, chest pain or headache. Also is on Thursday hemodialysis, and has been compliant with the sessions. Spiked a fever in the emergency room. Patient has been discussed with emergency room nurse practitioner who evaluated the patient. Hospitalized on our service 23 June - 14 July of this year, with final diagnoses including acute on chronic renal failure, along with osteomyelitis of the right foot. History and physical and discharge summary reviewed. Laboratory results are listed in [facility] and are reviewed. X-ray summary results are listed below, with full report(s) reviewed. . EKG reviewed. Social history/personal habits: . 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 No use of alcohol tobacco or illicit drugs. Allergies/adverse reactions are listed in [facility] and are reviewed. Home medications initially autopopulated into [facility] may not accurately reflect patient's true medications, dosages, and/or frequencies. mechanical technical service specialist to reconcile medications. Unfortunately, patient not certain of all medications/dosages/frequencies. REVIEW OF SYSTEMS: Constitutional: See history and present illness. Eyes: Wears glasses. ENT: No swallowing problems or complaints. Denies hearing loss. Pulmonary: No current complaints. Cardiovascular: No current complaints, including chest pain. Gastrointestinal: See history and present illness. Skin: Right BKA stump ulcer, followed by outpatient wound care clinic, as are multiple ulcers under her abdominal wall panniculus. Hematologic: Easy bruising. Neurologic: No current complaints, including numbness or tingling. Musculoskeletal: Joint pain from arthritis. Psychiatric: Anxiety and depression. Endocrine: No current complaints, including polyuria. Genitourinary: No current complaints, including dysuria. PHYSICAL EXAMINATION: 5 feet 4 inches tall. 55.6 kg. BMI 21 kg/m. Blood pressure 111/41. Pulse 70 and regular. 96% saturation on room air. Respirations are 12 and unlabored. Temperature 97.9. Elderly frail female who appears not to feel very well. Somewhat fatigued appearance. Appears a bit older than her stated age. However, alert and cooperative. Female emergency room nurse is Marbella and Angie are present. Skin is warm and dry. No grossly obvious evidence of rash in areas of skin examined. No subcutaneous nodules palpated. See comments under "abdomen" below. ENT: Hearing grossly normal to normal conversation. Tongue midline on protrusion pink and slightly tacky. Eyes: No scleral icterus. Pupils equal and reactive to light at 4 mm. [place] conjunctivae. Neck is supple and nontender to gentle active range of motion and palpation. Midline trachea. No palpable thyroid nodule mass enlargement or tenderness. Lymphatic: No palpable cervical or clavicular nodes. Neck and lymphatic exams limited by patient body habitus. Psychiatric: Reasonable insight into acute and chronic medical issues. Oriented to time location and why here. Lungs: Auscultation reveals clear and equal breath sounds bilaterally. No use of accessory respiratory muscles. Cardiovascular: Heart regular rate and rhythm, without gallop murmur or rub. No carotid or abdominal aortic bruits. No ankle or pedal edema. Faintly palpable dorsalis pedis pulse. Abdomen:soft slightly distended with positive bowel sounds. Unable to adequately evaluate abdomen for masses or organomegaly due to distention. Under the flap of her lower abdominal wall panniculus, she has approximately a 2 x 10 cm clean chronic appearing ulcer slightly to the right of midline, with a number of much smaller also clean ulcers primarily lateral to this larger ulcer. Per nursing staff, she has a number of small ulcers on the left aspect of her lower abdominal wall panniculus. This overall area is somewhat tender to palpation, but without evidence of secondary infection. Abdomen otherwise basically nontender to palpation. Extremities: Left foot warm and dry. No calf tenderness to compression. No grossly obvious visual evidence of calf swelling. Gentle manipulation of left lower extremity fails to reveal any obvious evidence of injury or instability to the hip or ankle. Compression stocking in place over right BKA stump. Stocking is left in place. Neurologic: Moves upper extremities grossly normally. Patellar reflex absent. Absent Babinski. Light touch is intact at left foot. Dorsiflexion and plantarflexion of foot 5 / 5 and symmetric. Past Medical History Past Medical History: Please refer also to information under past medical history in June 23, 2016 history and physical Cardiac Medical History: Reports: Congestive Heart Failure - diastolic, Coronary Artery Disease, Hyperlipidema, Hypertension, Peripheral Vascular Disease, Heart Murmur Denies: Atrial Fibrillation, DVT, Myocardial Infarction, Pulmonary Embolism Pulmonary Medical History: Reports: Asthma - Sinus related, Chronic Obstructive Pulmonary Disease (COPD), Pneumonia - 02/2016, Sleep Apnea - CPAP; does not use on a consistent basis. Denies: Bronchitis, Respiratory Failure, Tuberculosis Neurological Medical History: Denies: Seizures Endocrine Medical History: Reports: Diabetes Mellitus Type 1, Diabetes Mellitus Type 2 Denies: Hyperthyroidism, Hypothyroidism Renal/ Medical History: Reports: End Stage Renal Disease Malignancy Medical History: Reports: Cervical Cancer - currently chemo for same Denies: Breast Cancer, Leukemia, Lung Cancer, Ovarian Cancer GI Medical History: Reports: Gastroesophageal Reflux Disease Denies: Cirrhosis, Crohn's Disease, Hiatal Hernia Musculoskeltal Medical History: Reports: Arthritis Denies: Fibromyalgia Skin Medical History: Reports: Other - multiple ulcers lower abd wall panniculus Denies: Eczema, Psoriasis Psychiatric Medical History: Reports: Depression Denies: Bipolar Disorder, Dementia, Post Traumatic Stress Disorder Hematology: Reports: Anemia Denies: Hemophilia, Sickle Cell Disease, Bleeding Tendencies Infectious Medical History: Reports: Methicillin-Resistant Staph Aureus Denies: HIV Past Surgical History Past Surgical History: Please refer also to information under surgical history in June 23, 2016 history and physical Past Surgical History: Reports: Amputation - All toes, Appendectomy, Cholecystectomy, Orthopedic Surgery - Amputation 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 Lumbar spine fusion. Denies: Section, Colostomy, Coronary Artery Bypass Graft, Gastric Bypass Surgery, Herniorrhaphy, Hysterectomy, Mastectomy, Pacemaker, Tonsillectomy, Tubal Ligation Social History Information Source: Patient, Emergency Med Personnel, [facility] Records Lives with: Family Smoking Status: Never Smoker Frequency of Alcohol Use: None Hx Recreational Drug Use: No Drugs: None Hx Prescription Drug Abuse: No - Advance Directive Resuscitation Status: Full Code Surrogate healthcare decision maker:: Family History Family History: Reviewed & Not Pertinent, DM, Hyperlipidemia, Hypertension Parental Family History Reviewed: Yes - Father of myocardial infarction; mother of leukemia. Children Family History Reviewed: Yes - Brother is healthy. Sibling(s) Family History Reviewed.: Yes - 2 daughters are each diabetic. Medication/Allergy Home Medications: Aspirin [Aspirin EC] 81 mg PO DAILY 12/19/16 Carvedilol [Coreg 12.5 mg Tablet] 12.5 mg PO Q12 12/19/16 Lisinopril [Prinivil 10 mg Tablet] 10 mg PO Q12 12/19/16 Oxycodone HCl [Oxycodone HCl 10 MG Tablet] 10 mg PO Q6HP PRN 12/19/16 Oxycodone HCl [Oxycontin Sr 10 mg Tablet] 10 mg PO Q12 12/19/16 Sertraline HCl [Zoloft 50 mg Tablet] 100 mg PO QHS 12/19/16 Pramipexole Di-HCl [Mirapex 0.5 mg Tablet] 1 mg PO QHS 12/20/16 Zolpidem Tartrate [Ambien 5 mg Tablet] 5 mg PO HSP PRN 12/20/16 Ampicillin Trihydrate [Princepen 500 mg Capsule] 500 mg PO Q6 #40 capsule Levofloxacin [Levaquin 750 mg Tablet] 750 mg PO Q2D@2200 #5 tablet 12/24/16 Promethazine HCl [Phenergan 25 mg Tablet] 25 mg PO Q6HP PRN #20 tablet 12/24/16 Allergies/Adverse Reactions: hydralazine [Hydralazine] Allergy (Severe, Verified 12/18/16 19:07) Rash all over Sulfa (Sulfonamide Antibiotics) Allergy (Severe, Verified 12/18/16 19:07) mouth swells Physical Exam Vital Signs: Temp Pulse Resp BP Pulse Ox 98.8 F 13 115/61 96 12/19/16 08:25 12/19/16 08:15 12/19/16 08:15 12/19/16 08:15 Results Impressions: Chest X-Ray 12/18/16 20:24 IMPRESSION: BORDERLINE CARDIOMEGALY WITH MILD VASCULAR PROMINENCE. SIMILAR APPEARANCE TO THE PRIOR STUDY. Abdomen/Pelvis CT 12/18/16 21:27 IMPRESSION: 1. CONGLOMERATE RETROPERITONEAL ADENOPATHY SIMILAR TO THE RECENT PET-CT SCAN. AGAIN SEEN IS HYDRONEPHROSIS OF THE RIGHT KIDNEY WITH INTERVAL DEVELOPMENT OF HYDRONEPHROSIS OF THE LEFT KIDNEY. THE URETERS ARE DIFFICULT TO VISUALIZE DUE TO METALLIC ARTIFACT BUT HYDRONEPHROSIS IS PROBABLY DUE TO COMPRESSION FROM ADJACENT RETROPERITONEAL ADENOPATHY. 2. NO OTHER SIGNIFICANT OR ACUTE PROCESS IN THE ABDOMEN OR PELVIS. Assessment & Plan - Diagnosis (1) Nausea vomiting and diarrhea Is this a current diagnosis for this admission?: YesPlan: IV fluids. Antiemetics. Stool for culture and sensitivity. (2) Abdominal wall ulcer Qualifiers: Non-pressure ulcer stage: unspecified non-pressure ulcer stage Qualified Code(s): L98.499 - Non-pressure chronic ulcer of skin of other sites with unspecified severity Is this a current diagnosis for this admission?: YesPlan: Surgery consult. (3) amputation stump wound Is this a current diagnosis for this admission?: YesPlan: Surgery consult. (4) Fever Qualifiers: Fever type: unspecified Qualified Code(s): R50.9 - Fever, unspecified Is this a current diagnosis for this admission?: YesPlan: Uncertain specific etiology. With patient currently undergoing chemotherapy, will use empiric broad-spectrum antibiotics, consisting of cefepime and intravenous vancomycin. Pharmacy to assist with dosing. Oncology consult. Patient is a full code. I have strongly encouraged patient not to get out of bed without notifying staff , to avoid a fall with injury. Knee high SCD for DVT prophylaxis, along with subcutaneous heparin. Impression and plans were discussed with patient who concurs. Time spent in evaluation and management of patient: 61 minutes. (5) chronic kidney disease, on hemodialysis. Is this a current diagnosis for this admission?: YesPlan: Nephrology consult. 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 Accu-Cheks with appropriate sliding scale coverage. - Inpatient Certification Based on my medical assessment, after consideration of the patient's comorbidities, presenting symptoms, or acuity I expect that the services needed warrant INPATIENT care.: Yes I certify that my determination is in accordance with my understanding of Medicare's requirements for reasonable and necessary INPATIENT services [42 CFR 412.3e].: Yes Medical Necessity: Significant Comorbidiites Make Outpatient Treatment Too Risky , Need Close Monitoring Due to Risk of Patient Decompensation, Need For IV Fluids, Need For Continuous Telemetry Monitoring, Need for IV Antibiotics, Risk of Complication if Not Cared For in Hospital Post Hospital Care: D/C or Transfer Summary
[2016-12-19 09:37] LABS: ABSOLUTE LYMPHOCYTES (AUTO) 1.2 10^3/uL (0.5-4.7); ABSOLUTE MONOCYTES (AUTO) 0.9 10^3/uL (0.1-1.4); ABSOLUTE NEUT (AUTO) 8.8 10^3/uL (1.7-8.2); BASOPHILS % (AUTO) 0.1 % (0-2); EOSINOPHILS % (AUTO) 0.1 % (0-6); HEMATOCRIT 21.1 % (36.0-47.0); LYMPHOCYTES % (AUTO) 10.7 % (13-45); MEAN CORPUSCULAR HEMOGLOBIN 31.6 pg (27.0-33.4); MEAN CORPUSCULAR HGB CONC 31.6 g/dL (32.0-36.0); MEAN CORPUSCULAR VOLUME 100 fl (80-97); MONOCYTES % (AUTO) 7.9 % (3-13); RED BLOOD COUNT 2.11 10^6/uL (3.72-5.28); SEGMENTED NEUTROPHILS % (AUTO) 81.2 % (42-78); WHITE BLOOD COUNT 10.8 10^3/uL (4.0-10.5)
[2016-12-19 09:48] LABS: HEMOGLOBIN 6.7 g/dL (12.0-15.5)
[2016-12-19] MEDS ORDERED: HEPARIN SOD (PORCINE) 5,000 UNIT/ML 1 ML SYRINGE SUBCUT SCH (10:00)
[2016-12-19] MEDS ORDERED: CEFEPIME 1 GM/D5W RTU 50 ML IV SCH (10:00)
[2016-12-19] MEDS ORDERED: HEPARIN SOD (PORCINE) 1,000 UNIT/ML 10 ML VIAL IV PRN (10:21)
[2016-12-19] MEDS ORDERED: DIPHENHYDRAMINE HCL 25 MG CAPSULE PO PRN (13:00)
[2016-12-19] MEDS ORDERED: VANCOMYCIN HCL 500 MG in DEXTROSE 5%-WATER 100 ML IV ONE (13:00)
[2016-12-19] MEDS: CEFEPIME HCL 1 GM in DEXTROSE 5%-WATER 50 ML IV SCH (13:07)
[2016-12-19] MEDS ORDERED: NORMAL SALINE 250 ML IV PRN ×2 (13:30)
--- NOTE | 2016-12-19 14:42 | PDOC PROGRESS REPORT ---
Subjective Progress Note for:: 12/19/16 Subjective:: Patient complains of pain in her right third finger. This came on rather acutely. She has also been having various skin issues on her extremities and abdomen that occur spontaneously. She denies fevers or chills. She has had some nausea yesterday. She states that she always has abdominal cramping when she is receiving chemotherapy. Physical Exam Vital Signs: Temp Pulse Resp BP Pulse Ox 97.9 F 80 18 111/36 L 90 L 12/19/16 13:22 12/19/16 13:43 12/19/16 13:22 12/19/16 13:22 12/19/16 13:22 GENERAL: No acute distress HEENT: Conjunctiva clear, nonicteric, moist mucous membranes, no JVD, midline trachea RESPIRATORY: Clear to auscultation bilaterally, no wheezes, no rhonchi CARDIAC: Regular rate and rhythm, harsh systolic murmur noted ABDOMEN: Soft, nondistended, nontender, positive bowel sounds, no rebound, no guarding EXTREMETIES: No edema, cyanosis, clubbing. Right BKA NEUROLOGIC: Alert, oriented to person/place/time, CN's grossly intact, no focal deficits SKIN: Right BKA stump ulcer PSYCH: Normal mood, normal affect Results Laboratory Results: 12/19/16 08:55 12/19/16 12/19/16 08:55 09:24 WBC 10.8 H RBC 2.11 L Hgb 6.7 L Hct 21.1 L MCV 100 H MCH 31.6 MCHC 31.6 L RDW 22.0 H Plt Count 96 L Seg Neutrophils % 81.2 H Lymphocytes % 10.7 L Monocytes % 7.9 Eosinophils % 0.1 Basophils % 0.1 Absolute Neutrophils 8.8 H Absolute Lymphocytes 1.2 Absolute Monocytes 0.9 Absolute Eosinophils 0.0 Absolute Basophils 0.0 Blood Type A POSITIVE Antibody Screen NEGATIVE Impressions: Chest X-Ray 12/18/16 20:24 IMPRESSION: BORDERLINE CARDIOMEGALY WITH MILD VASCULAR PROMINENCE. SIMILAR APPEARANCE TO THE PRIOR STUDY. Abdomen/Pelvis CT 12/18/16 21:27 IMPRESSION: 1. CONGLOMERATE RETROPERITONEAL ADENOPATHY SIMILAR TO THE RECENT PET-CT SCAN. AGAIN SEEN IS HYDRONEPHROSIS OF THE RIGHT KIDNEY WITH INTERVAL DEVELOPMENT OF HYDRONEPHROSIS OF THE LEFT KIDNEY. THE URETERS ARE DIFFICULT TO VISUALIZE DUE TO METALLIC ARTIFACT BUT HYDRONEPHROSIS IS PROBABLY DUE TO COMPRESSION FROM ADJACENT RETROPERITONEAL ADENOPATHY. 2. NO OTHER SIGNIFICANT OR ACUTE PROCESS IN THE ABDOMEN OR PELVIS. Assessment & Plan - Diagnosis (1) Fever Qualifiers: Fever type: unspecified Qualified Code(s): R50.9 - Fever, unspecified Is this a current diagnosis for this admission?: YesPlan: Given patient's necrosis of finger, recurrent skin issues, and harsh systolic murmur I am concerned about cardioembolic phenomena. Blood cultures pending. Check echocardiogram. Continue IV cefepime and IV vancomycin for now. (2) Necrosis of finger Is this a current diagnosis for this admission?: Yes (3) Abdominal wall ulcer Qualifiers: Non-pressure ulcer stage: unspecified non-pressure ulcer stage Qualified Code(s): L98.499 - Non-pressure chronic ulcer of skin of other sites with unspecified severity Is this a current diagnosis for this admission?: Yes (4) Cervical cancer, FIGO stage MIRIAM Is this a current diagnosis for this admission?: YesPlan: Dr. Ureña of oncology consulted. Patient is receiving palliative chemotherapy and her overall condition is slowly deteriorating. I have had discussions with patient and she still wishes to be aggressive care possible. (5) Chronic kidney disease, stage V requiring chronic dialysis Is this a current diagnosis for this admission?: YesPlan: Continue hemodialysis per nephrology. (6) Status post below knee amputation of right lower extremity Is this a current diagnosis for this admission?: Yes (7) Anemia Qualifiers: Anemia type: other cause Other causes of anemia: chronic disease, kidney Qualified Code(s): N18.9 - Chronic kidney disease, unspecified; D63.1 - Anemia in chronic kidney disease Is this a current diagnosis for this admission?: YesPlan: Patient to be transfused 2 units PRBC. Monitor H&H for stability. - Time Time Spent with patient: 35 or more minutes
--- NOTE | 2016-12-19 15:08 | PDOC CONSULTATION ---
Consultation Consult Date: 12/19/16 Consult reason:: Hemodialysis and anemia. History of Present Illness Admission Date/PCP: 12/19/16 07:33 CAROLINA ROBIN MD History of Present Illness: VIVIAN WATKINS is a 71 year old female currently undergoing chemotherapy for cervical cancer, with last session on the of this month, who presents to the emergency room for evaluation of approximately a 24 hour history of nausea and 4 episodes of vomiting, along with multiple episodes of diarrhea. No blood either from above or below. Also describes mild cramping pain in her lower abdomen, at least partly associated with multiple small ulcers she has under her lower abdominal wall panniculus, currently being followed by wound care.She does complain of generalized weakness.She still has some amount of residual renal functions but up over the last few days she thinks her urine output might have dropped some. She denies any history of fever chills or riders.She denies any history of abdominal pains hematuria. She is being seen on dialysis which is being supervised to ensure a safe and smooth procedure. Vital signs are stable. No acute low hemoglobin and will arrange for transfusion.Meanwhile adjust erythropoietin. Under the flap of her lower abdominal wall panniculus, she has approximately a 2 x 10 cm clean chronic appearing ulcer slightly to the right of midline, with a number of much smaller also clean ulcers primarily lateral to this larger ulcer. Per nursing staff, she has a number of small ulcers on the left aspect of her lower abdominal wall panniculus. This overall area is somewhat tender to palpation, but without evidence of secondary infection. Past Medical History Cardiac Medical History: Reports: Coronary Artery Disease, Heart Murmur, Hyperlipidemia, Peripheral Vascular Disease Denies: Atrial Fibrillation, DVT, Myocardial Infarction, Pulmonary Embolism Pulmonary Medical History: Reports: Asthma - Sinus related, Chronic Obstructive Pulmonary Disease (COPD), Pneumonia - 02/2016, Sleep Apnea - CPAP; does not use on a consistent basis. Denies: Bronchitis, Respiratory Failure, Tuberculosis Neurological Medical History: Denies: Seizures Endocrine Medical History: Reports: Diabetes Mellitus Type 1, Diabetes Mellitus Type 2 Denies: Hyperthyroidism, Hypothyroidism Renal/ Medical History: Reports: End Stage Renal Disease, Renal Osteodystropy Denies: Benign Prostatic Hyperplasia Malignancy Medical History: Reports: Cervical Cancer - currently Denies: Breast Cancer, Leukemia, Lung Cancer, Ovarian Cancer GI Medical History: Reports: Gastroesophageal Reflux Disease Denies: Cirrhosis, Crohn's Disease, Hiatal Hernia Musculoskeltal Medical History: Reports: Arthritis Denies: Fibromyalgia, Rheumatoid Arthritis, Systemic Lupus Erythematosus Skin Medical History: Denies: Eczema, Psoriasis Psychiatric Medical History: Reports: Depression Denies: Bipolar Disorder, Dementia, Post Traumatic Stress Disorder Infectious Medical History: Reports: Methicillin-resist Staph Aureus Denies: HIV Hematology Medical History: Reports Anemia of Chronic Kidney Disease Past Surgical History Past Surgical History: Reports: Appendectomy, Cholecystectomy, Orthopedic Surgery - Amputation 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 Lumbar spine fusion. Denies: Section, Colostomy, Coronary Artery Bypass Graft, Gastric Bypass Surgery, Herniorrhaphy, Hysterectomy, Mastectomy, Pacemaker, Tonsillectomy, Tubal Ligation Social History Lives with: Family Smoking Status: Never Smoker Frequency of Alcohol Use: None Hx Recreational Drug Use: No Drugs: None Hx Prescription Drug Abuse: No - Advance Directive Resuscitation Status: Full Code Family History Parental Family History Reviewed: Yes - Negative for ESRD. Children Family History Reviewed: Yes - Negative for CKD. Sibling(s) Family History Reviewed.: Yes - Negative for CKD Medication/Allergy Allergies/Adverse Reactions: hydralazine [Hydralazine] Allergy (Severe, Verified 12/18/16 19:07) Rash all over Sulfa (Sulfonamide Antibiotics) Allergy (Severe, Verified 12/18/16 19:07) mouth swells Review of Systems Constitutional: PRESENT: anorexia, fatigue, fever(s), weakness. ABSENT: chills , headache(s), night sweats Cardiovascular: ABSENT: edema, orthropnea, palpitations Respiratory: ABSENT: dyspnea, hemoptysis Gastrointestinal: PRESENT: bloating, diarrhea, nausea, vomiting. ABSENT: melena Genitourinary: ABSENT: dysuria, hematuria Musculoskeletal: ABSENT: back pain, joint swelling Integumentary: ABSENT: lesions, pruritus Neurological: ABSENT: abnormal movements, abnormal speech, focal weakness, frequent falls, lack of coordination Endocrine: ABSENT: flushing, heat intolerance, menstrual abnormalities, polydipsia Hematologic/Lymphatic: ABSENT: easy bruising, lymphadenopathy Physical Exam Vital Signs: Temp Pulse Resp BP Pulse Ox 97.9 F 80 18 111/36 L 90 L 12/19/16 13:22 12/19/16 14:00 12/19/16 13:22 12/19/16 13:22 12/19/16 13:22 General appearance: PRESENT: mild distress, thin Eye exam: PRESENT: conjunctiva pale, EOMI, PERRLA. ABSENT: nystagmus, scleral icterus Ear exam: PRESENT: normal external ear exam Mouth exam: PRESENT: moist, neck supple Neck exam: ABSENT: lymphadenopathy, meningismus, tenderness, thyromegaly, tracheal deviation Respiratory exam: PRESENT: clear to auscultation siobhan. ABSENT: crackles, rhonchi Cardiovascular exam: PRESENT: +S1, +S2 GI/Abdominal exam: PRESENT: normal bowel sounds, soft. ABSENT: diminished bowel sounds, distended, organomegaly, tenderness Extremities exam: ABSENT: pedal edema Neurological exam: PRESENT: alert, awake, oriented to person, oriented to place , oriented to time Skin exam: PRESENT: rash - Skin lesions as described earlier my history. Results Laboratory Results: 12/19/16 08:55 12/19/16 12/19/16 08:55 09:24 WBC 10.8 H RBC 2.11 L Hgb 6.7 L Hct 21.1 L MCV 100 H MCH 31.6 MCHC 31.6 L RDW 22.0 H Plt Count 96 L Seg Neutrophils % 81.2 H Lymphocytes % 10.7 L Monocytes % 7.9 Eosinophils % 0.1 Basophils % 0.1 Absolute Neutrophils 8.8 H Absolute Lymphocytes 1.2 Absolute Monocytes 0.9 Absolute Eosinophils 0.0 Absolute Basophils 0.0 Blood Type A POSITIVE Antibody Screen NEGATIVE Impressions: Chest X-Ray 12/18/16 20:24 IMPRESSION: BORDERLINE CARDIOMEGALY WITH MILD VASCULAR PROMINENCE. SIMILAR APPEARANCE TO THE PRIOR STUDY. Abdomen/Pelvis CT 12/18/16 21:27 IMPRESSION: 1. CONGLOMERATE RETROPERITONEAL ADENOPATHY SIMILAR TO THE RECENT PET-CT SCAN. AGAIN SEEN IS HYDRONEPHROSIS OF THE RIGHT KIDNEY WITH INTERVAL DEVELOPMENT OF HYDRONEPHROSIS OF THE LEFT KIDNEY. THE URETERS ARE DIFFICULT TO VISUALIZE DUE TO METALLIC ARTIFACT BUT HYDRONEPHROSIS IS PROBABLY DUE TO COMPRESSION FROM ADJACENT RETROPERITONEAL ADENOPATHY. 2. NO OTHER SIGNIFICANT OR ACUTE PROCESS IN THE ABDOMEN OR PELVIS. Assessment & Plan - Diagnosis (1) Anemia in chronic kidney disease (CKD) Plan: Low hemoglobin. Arrange transfusion. Adjust erythropoietin. (2) Nausea vomiting and diarrhea Is this a current diagnosis for this admission?: YesPlan: Being worked up by hospitalist. (3) Cervical cancer, FIGO stage MIRIAM Is this a current diagnosis for this admission?: YesPlan: On palliative chemotherapy. Poor prognosis.Cachectic. (4) ESRD (end stage renal disease) Plan: Patient currently being dialyzed and being supervised to ensure a safe and smooth procedure. Vital signs are stable. Plan to remove no fluid as he is on the dry side. Orders were discussed with the treating nurse. (5) Skin ulcer Plan: Skin ulcers beneath the panniculus of the abdomen which could be a source of sepsis. Patient does with vancomycin, cefepime. Will adjust the vancomycin dosing for ESRD patient. Orders have been placed for vancomycin.
[2016-12-19] MEDS: OXYCODONE HCL IR 5 MG TABLET PO PRN ×2 (15:32→21:12)
--- NOTE | 2016-12-19 16:39 | XCELERA REPORT ---
[address] [address] Transthoracic Echocardiogram Report Name: VIVIAN WATKINS Age: 71 yrs Gender: Female : 1945 Patient Status: Inpatient Patient Location: 3N\S\304\S\B Study Date: 12/19/2016 02:46 PM Height: 64 in Weight: 122 lb BSA: 1.6 m2 Procedure: A two-dimensional transthoracic echocardiogram with color flow and Doppler was performed. Study Quality: Fair. Reason For Study: MURMUR / Cardiac Emboli History: MURMUR / Cardiac Emboli. Ordering Physician: PARAM AYALA Performed By: Lee Dave Interpretation Summary There is no obvious cardiac source of embolus noted on this transthoracic echocardiogram. Follow-up with a VINAYAK is suggested if cardiac source is still suspected. The left ventricle is normal in size. There is severe concentric left ventricular hypertrophy. LV EF is 65% Left ventricular systolic function is normal. Doppler measurements suggest impaired left ventricular relaxation, which is associated with grade I/IV or mild diastolic dysfunction The left ventricular wall motion is normal. There is no thrombus. The right ventricle is grossly normal size. The right ventricle is not well visualized secondary to technical limitations The left atrium is mildly dilated. There is no evidence of mitral valve prolapse. There is no vegetation seen on the mitral valve. There is mild mitral stenosis There is a trace amount of mitral regurgitation There is a peak gradient of 38 mm of Hg. There is no LVOT obstruction. No aortic regurgitation is present. There is no tricuspid stenosis. There is a mild amount of tricuspid regurgitation There is mild pulmonary hypertension by echo RVSP is 36 mm of Hg , with RA mean of 10. There is no pericardial effusion. There is no obvious cardiac source of embolus noted on this transthoracic echocardiogram. Follow-up with a VINAYAK is suggested if cardiac source is still suspected MMode/2D Measurements \T\ Calculations RVDd: 3.9 cm LVIDd: 4.3 cm FS: 46.3 % Ao root diam: 3.1 cm IVSd: 1.8 cm LVIDs: 2.3 cm EDV(Teich): 81.5 ml LVPWd: 1.8 cm ESV(Teich): 18.0 ml Ao root area: 7.4 cm2 EF(Teich): 78.0 % LA dimension: 4.4 cm LVOT diam: 2.1 cm LVOT area: 3.5 cm2 Doppler Measurements \T\ Calculations MV E max robbie: MV P1/2t max robbie: Ao V2 max: LV V1 max P.0 cm/sec 200.1 cm/sec 310.7 cm/sec 6.7 mmHg MV A max robbie: MV P1/2t: 87.8 msec Ao max PG: LV V1 mean P.0 cm/sec MVA(P1/2t): 2.5 cm2 38.6 mmHg 3.4 mmHg MV E/A: 0.97 MV dec slope: Ao V2 mean: LV V1 max: 667.5 cm/sec2 224.5 cm/sec 129.2 cm/sec Ao mean PG: LV V1 mean: 22.9 mmHg 87.3 cm/sec Ao V2 VTI: LV V1 VTI: 70.3 cm 29.8 cm JC(I,D): 1.5 cm2 JC(V,D): 1.5 cm2 SV(LVOT): 105.6 ml PA V2 max: TR max robbie: RAP systole: 156.9 cm/sec 276.5 cm/sec 5.0 mmHg PA max P.8 mmHg TR max P.7 mmHg RVSP(TR): 35.7 mmHg Left Ventricle The left ventricle is normal in size. There is severe concentric left ventricular hypertrophy. LV EF is 65%. Left ventricular systolic function is normal. Doppler measurements suggest impaired left ventricular relaxation, which is associated with grade I/IV or mild diastolic dysfunction. The left ventricular wall motion is normal. There is no thrombus. There is no ventricular septal defect visualized. Right Ventricle The right ventricle is grossly normal size. The right ventricle is not well visualized secondary to technical limitations. Atria The right atrium is normal. The left atrium is mildly dilated. The interatrial septum is intact with no evidence for an atrial septal defect. Mitral Valve Calcified mitral apparatus causing mitral stenosis. There is no evidence of mitral valve prolapse. There is no vegetation seen on the mitral valve. There is mild mitral stenosis. There is a trace amount of mitral regurgitation. Aortic Valve There is no aortic valvular vegetation. There is mild aortic stenosis. There is a peak gradient of 38 mm of Hg. There is no LVOT obstruction. No aortic regurgitation is present. Tricuspid Valve There is no tricuspid stenosis. There is a mild amount of tricuspid regurgitation. There is mild pulmonary hypertension by echo. RVSP is 36 mm of Hg , with RA mean of 10. Pulmonic Valve There is no pulmonic valvular stenosis. There is no pulmonic valvular regurgitation. Great Vessels The aortic root is normal size. Effusions There is no pericardial effusion. : PARAM AYALA > Sarah Harding
--- NOTE | 2016-12-19 19:59 | CONSULTATION REPORT E ---
Consultation Report NAME: VIVIAN WATKINS : 1945 AGE: 71Y DATE: 12/19/2016 304 B TO: JUAN ABREU M.D. FROM: CEZAR DELUCA M.D. Requesting Physician REASON FOR CONSULTATION: Patient with multiple ulcers on her lower abdominal wall panniculus that were being followed by wound care. The patient also had a incision and drainage of abscess in the left radial area along the left basilic vein. HISTORY OF PRESENT ILLNESS: This is a 71-year-old female undergoing chemotherapy for cervical cancer, also on hemodialysis Thursday, Thursday and Thursday, admitted primarily for complaints of nausea, vomiting and diarrhea. [facility] for ulcerations along the lower abdominal wall panniculus area. She had a wound that was apparently drained at [facility] about a week ago on the left wrist along the left cephalic vein area. This apparently was being followed by the visiting nurse and a packing was placed yesterday. The wound was checked this morning and dressed. They were apparently clean and dry with no evidence of obvious infection. ALLERGIES: As listed on [employer] and were reviewed. SOCIAL HISTORY: Denies smoking, tobacco or illicit alcohol use. REVIEW OF SYSTEMS: Denies any fever or chills. Eyes: Wears glasses. EENT: No swallowing problems and denies hearing loss. Pulmonary: No current complaints. Cardiovascular: No chest pain. Gastrointestinal: Nausea, vomiting and diarrhea as in present illness. Skin: Right BKA stump ulcer, being [facility] and multiple ulcers underneath her abdominal panniculus. She also has a wound in the left wrist. Hematologic: Easy bruisability. Neurologic: No numbness or tingling. Musculoskeletal: Joint pains from arthritis. Psychiatric: Anxiety and depression. Endocrine: No prior complaints including polyuria. Genitourinary: No dysuria. PHYSICAL EXAMINATION: GENERAL: A well-developed, fairly nourished, 71-year-old female, pleasant, and oriented. The patient is a frail female, quite alert but fatigued in appearance. VITAL SIGNS: No fever. Blood pressure 111/41, pulse of 70 and regular, and 02 sat of 90% on room air. SKIN: Warm and dry. She has abdominal wall ulcers on the panniculus area in the lower abdomen. I and D site on the left wrist with a packing. Wound packing measures 1.5 cm wide by 5 cm long. ENT: Tongue is midline. Hearing normal. Eyes: No icterus and PERRLA. NECK: Supple and nontender. LUNGS: Clear with equal breath sounds bilaterally. CARDIOVASCULAR: Regular rate and rhythm. ABDOMEN: Soft, slightly distended. Positive bowel sounds. She has 2 x 10 cm clean chronic-appearing ulcer. She has a number of smaller ulcers that are clean lateral to the larger ulcer. No evidence of secondary infection. EXTREMITIES: The left wrist has a wound that is packed but no discharge. Pulses of the wrist are intact. Stocking over right BKA stump. PAST MEDICAL HISTORY: Cardiac: CHF, hypertension, PVD. Pulmonary: Asthma, COPD, pneumonia, sleep apnea. Endocrine: Diabetes mellitus type 1 and type 2, end-stage renal disease on hemodialysis, malignancy history. Musculoskeletal: Reports arthritis. PAST SURGICAL HISTORY: Amputation of all toes, appendectomy, cholecystectomy, lumbar spine fusion. SOCIAL HISTORY: Never smoked, denies alcohol or recreational drug use. FAMILY HISTORY: Father of [place] and mother of leukemia. She has 2 daughters and both are diabetic. IMPRESSION: 1. 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 2. Post incision and drainage of left wrist abscess. PLAN: 1. The packing on the left wrist was removed and a new Iodoform gauze packing was placed. 2. The abdominal wall ulcers will be checked in the morning and we will redress. 3. The patient will eventually need to be followed up [facility]. DICTATING PHYSICIAN: JUAN ABREU M.D. [id number] PHY#: [id number] ID: [id number] JOB#: [id number] ACCT: [id number] cc:JUAN ABREU M.D. >
[2016-12-20 02:52] LABS: HEMATOCRIT 26.9 % (36.0-47.0); HEMOGLOBIN 8.5 g/dL (12.0-15.5); HGB HCT DIFFERENCE -1.4; MEAN CORPUSCULAR HEMOGLOBIN 31.2 pg (27.0-33.4); MEAN CORPUSCULAR HGB CONC 31.8 g/dL (32.0-36.0); MEAN CORPUSCULAR VOLUME 98 fl (80-97); RED BLOOD COUNT 2.74 10^6/uL (3.72-5.28); RED CELL DISTRIBUTION WIDTH 20.9 % (11.5-14.0); WHITE BLOOD COUNT 12.8 10^3/uL (4.0-10.5)
[2016-12-20 06:46] LABS: ANION GAP 10 (5-19); BLOOD UREA NITROGEN 21 mg/dL (7-20); CALCIUM 8.5 mg/dL (8.4-10.2); CARBON DIOXIDE 27 mmol/L (22-30); CHLORIDE 102 mmol/L (98-107); CREATININE RESULT 2.19 mg/dL (0.52-1.25); GLUCOSE 90 mg/dL (75-110); POTASSIUM 3.6 mmol/L (3.6-5.0); SODIUM 138.5 mmol/L (137-145)
[2016-12-20 06:48] LABS: ABSOLUTE LYMPHOCYTES (AUTO) 1.3 10^3/uL (0.5-4.7); ABSOLUTE MONOCYTES (AUTO) 1.2 10^3/uL (0.1-1.4); ABSOLUTE NEUT (AUTO) 9.9 10^3/uL (1.7-8.2); BASOPHILS % (AUTO) 0.2 % (0-2); EOSINOPHILS % (AUTO) 0.2 % (0-6); HEMATOCRIT 29.4 % (36.0-47.0); HEMOGLOBIN 9.5 g/dL (12.0-15.5); HGB HCT DIFFERENCE -0.9; LYMPHOCYTES % (AUTO) 10.5 % (13-45); MEAN CORPUSCULAR HEMOGLOBIN 31.3 pg (27.0-33.4); MEAN CORPUSCULAR HGB CONC 32.2 g/dL (32.0-36.0); MEAN CORPUSCULAR VOLUME 97 fl (80-97); MONOCYTES % (AUTO) 9.4 % (3-13); RED BLOOD COUNT 3.02 10^6/uL (3.72-5.28); RED CELL DISTRIBUTION WIDTH 20.6 % (11.5-14.0); SEGMENTED NEUTROPHILS % (AUTO) 79.7 % (42-78); WHITE BLOOD COUNT 12.4 10^3/uL (4.0-10.5)
[2016-12-20] MEDS: OXYCODONE HCL IR 5 MG TABLET PO PRN ×3 (07:27→21:22)
[2016-12-20] MEDS: CEFEPIME HCL 1 GM in DEXTROSE 5%-WATER 50 ML IV SCH (10:10)
[2016-12-20] MEDS ORDERED: OXYCODONE HCL IR 5 MG TABLET ONE (12:07)
--- NOTE | 2016-12-20 12:20 | PDOC CONSULTATION ---
Consultation Consult Date: 12/20/16 Attending physician:: PARAM AYALA Consult reason:: known stage IV cervical ca History of Present Illness Admission Date/PCP: 12/19/16 07:33 CAROLINA ROBNI MD Patient complains of: stage IV cervical ca History of Present Illness: 71-year-old female with multiple medical problems who has known stage IV cervical cancer, currently receiving Gemzar/Avastin through our clinic, this actually been tolerating that fairly well, but also is on chronic hemodialysis as well as dealing with recent amputation and multiple other issues, comes in with intractable nausea and vomiting, also what appears to be a panniculitis and ulcers under the abdomen skin, that is being managed also by general surgery , nephrology is on board for the renal failure, her nausea now has been controlled. She has required transfusion for the anemia that has been chronic for her as well. Past Medical History Cardiac Medical History: Reports: Congestive Heart Failure - diastolic, Coronary Artery Disease, Hyperlipidema, Hypertension, Peripheral Vascular Disease, Heart Murmur Denies: Atrial Fibrillation, DVT, Myocardial Infarction, Pulmonary Embolism Pulmonary Medical History: Reports: Asthma - Sinus related, Chronic Obstructive Pulmonary Disease (COPD), Pneumonia - 02/2016, Sleep Apnea - CPAP Denies: Bronchitis, Respiratory Failure, Tuberculosis Neurological Medical History: Denies: Seizures Endocrine Medical History: Reports: Diabetes Mellitus Type 1, Diabetes Mellitus Type 2 Denies: Hyperthyroidism, Hypothyroidism Renal/ Medical History: Reports: End Stage Renal Disease Malignancy Medical History: Reports: Cervical Cancer - currently Denies: Breast Cancer, Leukemia, Lung Cancer, Ovarian Cancer GI Medical History: Reports: Gastroesophageal Reflux Disease Denies: Cirrhosis, Crohn's Disease, Hiatal Hernia Musculoskeltal Medical History: Reports: Arthritis Denies: Fibromyalgia Skin Medical History: Denies: Eczema, Psoriasis Psychiatric Medical History: Reports: Depression Denies: Bipolar Disorder, Dementia, Post Traumatic Stress Disorder Hematology: Reports: Anemia Denies: Hemophilia, Sickle Cell Disease, Bleeding Tendencies Infectious Medical History: Reports: Methicillin-Resistant Staph Aureus Denies: HIV Past Surgical History Past Surgical History: Reports: Amputation - All toes, Appendectomy, Cholecystectomy, Orthopedic Surgery - Amputation 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 Lumbar spine fusion. Denies: Section, Colostomy, Coronary Artery Bypass Graft, Gastric Bypass Surgery, Herniorrhaphy, Hysterectomy, Mastectomy, Pacemaker, Tonsillectomy, Tubal Ligation Social History Lives with: Family Smoking Status: Never Smoker Frequency of Alcohol Use: None Hx Recreational Drug Use: No Drugs: None Hx Prescription Drug Abuse: No - Advance Directive Resuscitation Status: Full Code Family History Family History: Reviewed & Not Pertinent, DM, Hyperlipidemia, Hypertension Parental Family History Reviewed: Yes Children Family History Reviewed: Yes Sibling(s) Family History Reviewed.: Yes Medication/Allergy Home Medications: Amlodipine Besylate [Norvasc 10 mg Tablet] 10 mg PO DAILY 12/19/16 Aspirin [Aspirin EC] 81 mg PO DAILY 12/19/16 Atorvastatin Calcium [Lipitor 10 mg Tablet] 10 mg PO QHS 12/19/16 Bumetanide [Bumex 1 mg Tablet] 2 mg PO Q12 12/19/16 Carvedilol [Coreg 12.5 mg Tablet] 12.5 mg PO Q12 12/19/16 Clonidine HCl [Catapres 0.1 mg Tablet] 0.1 mg PO Q8 12/19/16 Exenatide Microspheres [Bydureon Pen] 2 mg INJ TU@1000 12/19/16 Insulin Aspart [Novolog Flexpen] 15 units SQ BIDACBL 12/19/16 Insulin Aspart [Novolog Flexpen] 25 units SQ ACSUPPER 12/19/16 Insulin Glargine,Hum.rec.anlog [Lantus] 0 unit SQ .SEE COMMENTS PRN 12/19/16 Lisinopril [Prinivil 10 mg Tablet] 10 mg PO DAILY 12/19/16 Megestrol Acetate 40 mg PO BIDACBS 12/19/16 Oxycodone HCl [Oxycodone HCl 10 MG Tablet] 10 mg PO Q6HP PRN 12/19/16 Oxycodone HCl [Oxycontin Sr 10 mg Tablet] 10 mg PO Q12 12/19/16 Oxycodone HCl/Acetaminophen [Percocet 5-325 mg Tablet] 1 tab PO Q4 PRN 12/19/16 Promethazine HCl [Phenergan 25 mg Tablet] 25 mg PO Q6HP PRN 12/19/16 Sertraline HCl [Zoloft 50 mg Tablet] 100 mg PO QHS 12/19/16 Losartan Potassium 50 mg PO DAILY 12/20/16 Pramipexole Di-HCl [Mirapex 0.5 Mg Tablet] 0.5 mg PO DAILY 12/20/16 Allergies/Adverse Reactions: hydralazine [Hydralazine] Allergy (Severe, Verified 12/18/16 19:07) Rash all over Sulfa (Sulfonamide Antibiotics) Allergy (Severe, Verified 12/18/16 19:07) mouth swells Review of Systems Constitutional: ABSENT: chills, fever(s), headache(s), weight gain, weight loss Eyes: ABSENT: visual disturbances Ears: ABSENT: hearing changes Cardiovascular: ABSENT: chest pain, dyspnea on exertion, edema, orthropnea, palpitations Respiratory: ABSENT: cough, hemoptysis Gastrointestinal: ABSENT: abdominal pain, constipation, diarrhea, hematemesis, hematochezia, nausea, vomiting Genitourinary: ABSENT: dysuria, hematuria Musculoskeletal: ABSENT: joint swelling Integumentary: ABSENT: rash, wounds Neurological: ABSENT: abnormal gait, abnormal speech, confusion, dizziness, focal weakness, syncope Psychiatric: ABSENT: anxiety, depression, homidical ideation, suicidal ideation Endocrine: ABSENT: cold intolerance, heat intolerance, polydipsia, polyuria Hematologic/Lymphatic: ABSENT: easy bleeding, easy bruising Physical Exam Vital Signs: Temp Pulse Resp BP Pulse Ox 97.9 F 73 18 134/40 H 100 12/20/16 07:34 12/20/16 07:34 12/20/16 07:34 12/20/16 07:34 12/20/16 07:34 Intake & Output 12/19/16 12/20/16 12/21/16 06:59 06:59 06:59 Intake Total 1972 Output Total 100 Balance 1872 Weight 74.7 kg General appearance: PRESENT: no acute distress, well-developed, well-nourished Head exam: PRESENT: atraumatic, normocephalic Eye exam: PRESENT: conjunctiva pink, EOMI, PERRLA. ABSENT: scleral icterus Ear exam: PRESENT: normal external ear exam Mouth exam: PRESENT: moist, tongue midline Neck exam: ABSENT: carotid bruit, JVD, lymphadenopathy, thyromegaly Respiratory exam: PRESENT: clear to auscultation siobhan. ABSENT: rales, rhonchi, wheezes Cardiovascular exam: PRESENT: RRR. ABSENT: diastolic murmur, rubs, systolic murmur Pulses: PRESENT: normal dorsalis pedis pul Vascular exam: PRESENT: normal capillary refill GI/Abdominal exam: PRESENT: normal bowel sounds, soft. ABSENT: distended, guarding, mass, organolmegaly, rebound, tenderness Rectal exam: PRESENT: deferred Extremities exam: PRESENT: full ROM. ABSENT: calf tenderness, clubbing, pedal edema Neurological exam: PRESENT: alert, awake, oriented to person, oriented to place , oriented to time, oriented to situation, CN II-XII grossly intact. ABSENT: motor sensory deficit Psychiatric exam: PRESENT: appropriate affect, normal mood. ABSENT: homicidal ideation, suicidal ideation Skin exam: PRESENT: dry, intact, warm. ABSENT: cyanosis, rash Results Laboratory Results: 12/20/16 06:24 12/20/16 06:24 12/19/16 12/20/16 12/20/16 09:24 02:35 06:24 WBC 12.8 H 12.4 H RBC 2.74 L 3.02 L Hgb 8.5 L 9.5 L Hct 26.9 L 29.4 L MCV 98 H 97 MCH 31.2 31.3 MCHC 31.8 L 32.2 RDW 20.9 H 20.6 H Plt Count 85 L 94 L Seg Neutrophils % 79.7 H Lymphocytes % 10.5 L Monocytes % 9.4 Eosinophils % 0.2 Basophils % 0.2 Absolute Neutrophils 9.9 H Absolute Lymphocytes 1.3 Absolute Monocytes 1.2 Absolute Eosinophils 0.0 Absolute Basophils 0.0 Sodium Potassium Chloride Carbon Dioxide Anion Gap BUN Creatinine Est GFR ( Amer) Est GFR (Non-Af Amer) Glucose Calcium Blood Type A POSITIVE Antibody Screen NEGATIVE 12/20/16 06:24 WBC RBC Hgb Hct MCV MCH MCHC RDW Plt Count Seg Neutrophils % Lymphocytes % Monocytes % Eosinophils % Basophils % Absolute Neutrophils Absolute Lymphocytes Absolute Monocytes Absolute Eosinophils Absolute Basophils Sodium 138.5 Potassium 3.6 Chloride 102 Carbon Dioxide 27 Anion Gap 10 BUN 21 H Creatinine 2.19 H Est GFR ( Amer) 27 L Est GFR (Non-Af Amer) 22 L Glucose 90 Calcium 8.5 Blood Type Antibody Screen Impressions: Chest X-Ray 12/18/16 20:24 IMPRESSION: BORDERLINE CARDIOMEGALY WITH MILD VASCULAR PROMINENCE. SIMILAR APPEARANCE TO THE PRIOR STUDY. Abdomen/Pelvis CT 12/18/16 21:27 IMPRESSION: 1. CONGLOMERATE RETROPERITONEAL ADENOPATHY SIMILAR TO THE RECENT PET-CT SCAN. AGAIN SEEN IS HYDRONEPHROSIS OF THE RIGHT KIDNEY WITH INTERVAL DEVELOPMENT OF HYDRONEPHROSIS OF THE LEFT KIDNEY. THE URETERS ARE DIFFICULT TO VISUALIZE DUE TO METALLIC ARTIFACT BUT HYDRONEPHROSIS IS PROBABLY DUE TO COMPRESSION FROM ADJACENT RETROPERITONEAL ADENOPATHY. 2. NO OTHER SIGNIFICANT OR ACUTE PROCESS IN THE ABDOMEN OR PELVIS. Assessment & Plan - Diagnosis (1) Cervical cancer, FIGO stage MIRIAM Is this a current diagnosis for this admission?: YesPlan: Hold chemotherapy until she improves, we will continue as an outpatient once we are comfortable that the infection is appropriately controlled, I do not believe the chemotherapy had anything to do with what is going on so far, we will need to reassess upon outpatient status whether she can continue treatment. I have discontinued the PET/CT that was planned for the Thursday, recent CT imaging indicates stability of the retroperitoneal adenopathy. She does not require imaging right now we will do further imaging as an outpatient if needed. - Time Time Spent: Greater than 70 Minutes Critical Time spent with patient: 35 or more minutes - Inpatient Certification Based on my medical assessment, after consideration of the patient's comorbidities, presenting symptoms, or acuity I expect that the services needed warrant INPATIENT care.: Yes I certify that my determination is in accordance with my understanding of Medicare's requirements for reasonable and necessary INPATIENT services [42 CFR 412.3e].: Yes Medical Necessity: Failure to Improve With Outpatient Therapy, Need For IV Fluids, Need For Continuous Telemetry Monitoring, Need for IV Antibiotics
--- NOTE | 2016-12-20 14:03 | PDOC PROGRESS REPORT ---
Subjective Progress Note for:: 12/20/16 Subjective:: Patient complains of pain in her hands. She gets minimal relief with oxycodone 5 mg. She denies fever, chills. Physical Exam Vital Signs: Temp Pulse Resp BP Pulse Ox 97.9 F 99 18 134/40 H 100 12/20/16 07:34 12/20/16 13:05 12/20/16 13:05 12/20/16 07:34 12/20/16 07:34 Intake & Output 12/19/16 12/20/16 12/21/16 06:59 06:59 06:59 Intake Total 1972 Output Total 100 Balance 1872 Weight 74.7 kg GENERAL: No acute distress HEENT: Conjunctiva clear, nonicteric, moist mucous membranes, no JVD, midline trachea RESPIRATORY: Clear to auscultation bilaterally, no wheezes, no rhonchi CARDIAC: Regular rate and rhythm, harsh systolic murmur noted ABDOMEN: Soft, nondistended, nontender, positive bowel sounds, no rebound, no guarding EXTREMETIES: No edema, cyanosis, clubbing. Right BKA NEUROLOGIC: Alert, oriented to person/place/time, CN's grossly intact, no focal deficits SKIN: Right BKA stump ulcer, [id number]/4th fingers with ischemic changes, no sign of infection PSYCH: Normal mood, normal affect Results Laboratory Results: 12/20/16 06:24 12/20/16 06:24 12/19/16 12/20/16 12/20/16 09:24 02:35 06:24 WBC 12.8 H 12.4 H RBC 2.74 L 3.02 L Hgb 8.5 L 9.5 L Hct 26.9 L 29.4 L MCV 98 H 97 MCH 31.2 31.3 MCHC 31.8 L 32.2 RDW 20.9 H 20.6 H Plt Count 85 L 94 L Seg Neutrophils % 79.7 H Lymphocytes % 10.5 L Monocytes % 9.4 Eosinophils % 0.2 Basophils % 0.2 Absolute Neutrophils 9.9 H Absolute Lymphocytes 1.3 Absolute Monocytes 1.2 Absolute Eosinophils 0.0 Absolute Basophils 0.0 Sodium Potassium Chloride Carbon Dioxide Anion Gap BUN Creatinine Est GFR ( Amer) Est GFR (Non-Af Amer) Glucose Calcium Blood Type A POSITIVE Antibody Screen NEGATIVE 12/20/16 06:24 WBC RBC Hgb Hct MCV MCH MCHC RDW Plt Count Seg Neutrophils % Lymphocytes % Monocytes % Eosinophils % Basophils % Absolute Neutrophils Absolute Lymphocytes Absolute Monocytes Absolute Eosinophils Absolute Basophils Sodium 138.5 Potassium 3.6 Chloride 102 Carbon Dioxide 27 Anion Gap 10 BUN 21 H Creatinine 2.19 H Est GFR ( Amer) 27 L Est GFR (Non-Af Amer) 22 L Glucose 90 Calcium 8.5 Blood Type Antibody Screen Impressions: Chest X-Ray 12/18/16 20:24 IMPRESSION: BORDERLINE CARDIOMEGALY WITH MILD VASCULAR PROMINENCE. SIMILAR APPEARANCE TO THE PRIOR STUDY. Abdomen/Pelvis CT 12/18/16 21:27 IMPRESSION: 1. CONGLOMERATE RETROPERITONEAL ADENOPATHY SIMILAR TO THE RECENT PET-CT SCAN. AGAIN SEEN IS HYDRONEPHROSIS OF THE RIGHT KIDNEY WITH INTERVAL DEVELOPMENT OF HYDRONEPHROSIS OF THE LEFT KIDNEY. THE URETERS ARE DIFFICULT TO VISUALIZE DUE TO METALLIC ARTIFACT BUT HYDRONEPHROSIS IS PROBABLY DUE TO COMPRESSION FROM ADJACENT RETROPERITONEAL ADENOPATHY. 2. NO OTHER SIGNIFICANT OR ACUTE PROCESS IN THE ABDOMEN OR PELVIS. Assessment & Plan - Diagnosis (1) Fever Qualifiers: Fever type: unspecified Qualified Code(s): R50.9 - Fever, unspecified Is this a current diagnosis for this admission?: YesPlan: Likely secondary to soft tissue infections. Blood cultures no growth. Echocardiogram no evidence of thrombus or vegetation. Continue IV cefepime and IV vancomycin for now. 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 (3) Abdominal wall ulcer Qualifiers: Non-pressure ulcer stage: unspecified non-pressure ulcer stage Qualified Code(s): L98.499 - Non-pressure chronic ulcer of skin of other sites with unspecified severity Is this a current diagnosis for this admission?: YesPlan: Wound culture tentatively growing gram-negative rods and gram-positive cocci. (4) Cervical cancer, FIGO stage MIRIAM Is this a current diagnosis for this admission?: YesPlan: Dr. Ureña of oncology following. Patient is receiving palliative chemotherapy and her overall condition is slowly deteriorating. I have had discussions with patient and she still wishes to be aggressive care possible. (5) Chronic kidney disease, stage V requiring chronic dialysis Is this a current diagnosis for this admission?: YesPlan: Continue hemodialysis per nephrology. (6) Status post below knee amputation of right lower extremity Is this a current diagnosis for this admission?: Yes (7) Anemia Qualifiers: Anemia type: other cause Other causes of anemia: chronic disease, kidney Qualified Code(s): N18.9 - Chronic kidney disease, unspecified; D63.1 - Anemia in chronic kidney disease Is this a current diagnosis for this admission?: YesPlan: Patient transfused 2 units PRBC. Monitor H&H for stability. Nephrology to adjust Procrit. - Time Time Spent with patient: 25-34 minutes
[2016-12-20] MEDS ORDERED: MORPHINE SULFATE 10 MG/ML INJ ONE (17:09)
--- NOTE | 2016-12-20 17:33 | OPERATIVE REPORT E ---
Operative Report NAME: VIVIAN WATKINS : 1945 AGE: 71Y DATE OF SURGERY: 12/20/2016 ROOM: 304 PREOPERATIVE DIAGNOSIS: OPEN WOUND ON THE LEFT WRIST WITH SOME NECROTIC TISSUE. POSTOPERATIVE DIAGNOSIS: OPEN WOUND ON THE LEFT WRIST WITH SOME NECROTIC TISSUE. OPERATION: Sharp debridement of some necrotic tissue on the left wrist wound. SURGEON: JUAN ABREU M.D. INDICATIONS AND PROCEDURE: This is a 71-year-old diabetic female noted to have apparently an infected wound in the left wrist that was being packed by the visiting nurse with gauze prior to patient admitted to the hospital. I repacked the area yesterday and today, the wound was inspected and it appears to be relatively better, but with some necrotic tissue on the surface. A sharp debridement of necrotic tissue was then done with scissors. The debridement site was close to normal tissue and 1 area had some small amount of bleeding. The wound was subsequently repacked with Iodoform gauze. The wound roughly measures about 1.5-cm in diameter by about 4-cm long. Sterile dressing was then put on top of the iodoform gauze. The patient will need continued daily wound dressing and may eventually need wound V.A.C. to heal the wound. DICTATING PHYSICIAN: JUAN ABREU M.D. [id number] PHY#: [id number] ID: [id number] JOB#: [id number] ACCT: [id number] cc:JUAN ABREU M.D. >
--- NOTE | 2016-12-20 17:54 | PROGRESS NOTE E ---
Progress Note NAME: VIVIAN WATKINS : 1945 AGE: 71Y DATE: 12/20/2016 ROOM: 304 OBJECTIVE: The abdominal wound dressing was removed and noted a relatively dry and relatively superficial ulcer about 2-cm x 4-cm on the right lateral abdominal wall pannus. There were a few other smaller ulcerations and shallower on the left side of the midline. There were at least about 5 of them. There is no induration noted along the areas, but they are noted to be very tender. I would suggest dressing the wound with Silvadene dressings twice a day. Silvadene cream has been ordered from the pharmacy and once it comes to the floor, the nurses will put the Silvadene. In the meantime, the left wrist wound was debrided sharply at bedside and repacked with Iodoform gauze. The patient will [facility] and may need a wound V.A.C. for the left wrist wound. Incidentally, the right little fingertip is dusky and cool and very tender. She might need to be watched more closely and this also can be followed up at the [facility]. DICTATING PHYSICIAN: JUAN ABREU M.D. [id number] PHY#: [id number] ID: [id number] JOB#: [id number] ACCT: [id number] cc: >
[2016-12-20] MEDS: SERTRALINE HCL 50 MG TABLET PO SCH (21:21)
[2016-12-20] MEDS: PRAMIPEXOLE DI-HCL 0.5 MG TABLET PO SCH (21:22)
[2016-12-20] MEDS: CARVEDILOL 12.5 MG TABLET PO SCH (21:22)
[2016-12-20] MEDS: OXYCODONE HCL SR 10 MG TABLET PO SCH (21:22)
[2016-12-20] MEDS: LISINOPRIL 10 MG TABLET PO SCH (21:22)
[2016-12-21 05:25] LABS: ABSOLUTE EOSINOPHILS # (AUTO) 0.1 10^3/uL (0.0-0.6); ABSOLUTE LYMPHOCYTES (AUTO) 1.1 10^3/uL (0.5-4.7); ABSOLUTE NEUT (AUTO) 8.2 10^3/uL (1.7-8.2); BASOPHILS % (AUTO) 0.1 % (0-2); EOSINOPHILS % (AUTO) 0.8 % (0-6); HEMOGLOBIN 9.4 g/dL (12.0-15.5); HGB HCT DIFFERENCE -0.8; LYMPHOCYTES % (AUTO) 10.3 % (13-45); MEAN CORPUSCULAR HEMOGLOBIN 31.7 pg (27.0-33.4); MEAN CORPUSCULAR HGB CONC 32.2 g/dL (32.0-36.0); MEAN CORPUSCULAR VOLUME 98 fl (80-97); MONOCYTES % (AUTO) 9.6 % (3-13); RED BLOOD COUNT 2.95 10^6/uL (3.72-5.28); RED CELL DISTRIBUTION WIDTH 21.3 % (11.5-14.0); SEGMENTED NEUTROPHILS % (AUTO) 79.2 % (42-78); WHITE BLOOD COUNT 10.4 10^3/uL (4.0-10.5)
[2016-12-21 05:29] LABS: ANION GAP 8 (5-19); BLOOD UREA NITROGEN 31 mg/dL (7-20); CALCIUM 8.6 mg/dL (8.4-10.2); CARBON DIOXIDE 29 mmol/L (22-30); CHLORIDE 100 mmol/L (98-107); CREATININE RESULT 2.76 mg/dL (0.52-1.25); GLUCOSE 129 mg/dL (75-110); POTASSIUM 3.2 mmol/L (3.6-5.0); SODIUM 137.3 mmol/L (137-145)
[2016-12-21] MEDS ORDERED: POTASSIUM CHLORIDE 10 MEQ TABLET.SA PO ONE (07:15)
--- NOTE | 2016-12-21 08:29 | PDOC PROGRESS REPORT ---
Subjective Progress Note for:: 12/21/16 Subjective:: Patient complains of pain in her hands. She gets relief with oxycodone 10 mg. She denies fever, chills. Physical Exam Vital Signs: Temp Pulse Resp BP Pulse Ox 97.6 F 64 16 122/44 L 99 12/21/16 03:59 12/21/16 03:59 12/21/16 03:59 12/21/16 03:59 12/21/16 03:59 Intake & Output 12/20/16 12/21/16 12/22/16 06:59 06:59 06:59 Intake Total 1972 885 Output Total 100 0 Balance 1872 885 Weight 74.7 kg 74.5 kg GENERAL: No acute distress HEENT: Conjunctiva clear, nonicteric, moist mucous membranes, no JVD, midline trachea RESPIRATORY: Clear to auscultation bilaterally, no wheezes, no rhonchi CARDIAC: Regular rate and rhythm, harsh systolic murmur noted ABDOMEN: Soft, nondistended, nontender, positive bowel sounds, no rebound, no guarding EXTREMETIES: No edema, cyanosis, clubbing. Right BKA NEUROLOGIC: Alert, oriented to person/place/time, CN's grossly intact, no focal deficits SKIN: Right BKA stump ulcer, right distal 3rd finger with gangrene, right 4th fingers with ischemic changes, no sign of infection PSYCH: Normal mood, normal affect Results Laboratory Results: 12/21/16 04:16 12/21/16 04:16 12/21/16 12/21/16 04:16 04:16 WBC 10.4 RBC 2.95 L Hgb 9.4 L Hct 29.0 L MCV 98 H MCH 31.7 MCHC 32.2 RDW 21.3 H Plt Count 77 L Seg Neutrophils % 79.2 H Lymphocytes % 10.3 L Monocytes % 9.6 Eosinophils % 0.8 Basophils % 0.1 Absolute Neutrophils 8.2 Absolute Lymphocytes 1.1 Absolute Monocytes 1.0 Absolute Eosinophils 0.1 Absolute Basophils 0.0 Sodium 137.3 Potassium 3.2 L Chloride 100 Carbon Dioxide 29 Anion Gap 8 BUN 31 H Creatinine 2.76 H Est GFR ( Amer) 20 L Est GFR (Non-Af Amer) 17 L Glucose 129 H Calcium 8.6 Impressions: Chest X-Ray 12/18/16 20:24 IMPRESSION: BORDERLINE CARDIOMEGALY WITH MILD VASCULAR PROMINENCE. SIMILAR APPEARANCE TO THE PRIOR STUDY. Abdomen/Pelvis CT 12/18/16 21:27 IMPRESSION: 1. CONGLOMERATE RETROPERITONEAL ADENOPATHY SIMILAR TO THE RECENT PET-CT SCAN. AGAIN SEEN IS HYDRONEPHROSIS OF THE RIGHT KIDNEY WITH INTERVAL DEVELOPMENT OF HYDRONEPHROSIS OF THE LEFT KIDNEY. THE URETERS ARE DIFFICULT TO VISUALIZE DUE TO METALLIC ARTIFACT BUT HYDRONEPHROSIS IS PROBABLY DUE TO COMPRESSION FROM ADJACENT RETROPERITONEAL ADENOPATHY. 2. NO OTHER SIGNIFICANT OR ACUTE PROCESS IN THE ABDOMEN OR PELVIS. Assessment & Plan - Diagnosis (1) Fever Qualifiers: Fever type: unspecified Qualified Code(s): R50.9 - Fever, unspecified Is this a current diagnosis for this admission?: YesPlan: Likely secondary to soft tissue infections. Blood cultures no growth. Echocardiogram no evidence of thrombus or vegetation. Continue IV cefepime and IV vancomycin for now. 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 Discuss with surgery. (3) Abdominal wall ulcer Qualifiers: Non-pressure ulcer stage: unspecified non-pressure ulcer stage Qualified Code(s): L98.499 - Non-pressure chronic ulcer of skin of other sites with unspecified severity Is this a current diagnosis for this admission?: YesPlan: Wound culture tentatively growing gram-negative rods and gram-positive cocci. (4) Cervical cancer, FIGO stage MIRIAM Is this a current diagnosis for this admission?: YesPlan: Dr. Ureña of oncology following. Patient is receiving palliative chemotherapy and her overall condition is slowly deteriorating. I have had discussions with patient and she still wishes to be aggressive care possible. 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 Continue hemodialysis per nephrology. (6) Status post below knee amputation of right lower extremity Is this a current diagnosis for this admission?: Yes (7) Anemia Qualifiers: Anemia type: other cause Other causes of anemia: chronic disease, kidney Qualified Code(s): N18.9 - Chronic kidney disease, unspecified; D63.1 - Anemia in chronic kidney disease Is this a current diagnosis for this admission?: YesPlan: Patient transfused 2 units PRBC. Monitor H&H for stability. Nephrology to adjust Procrit. - Time Time Spent with patient: 25-34 minutes - He currently tired if he is getting a chance to sleep when he comes
[2016-12-21] MEDS: LISINOPRIL 10 MG TABLET PO SCH ×2 (09:42→21:41)
[2016-12-21] MEDS: CARVEDILOL 12.5 MG TABLET PO SCH ×2 (09:42→21:41)
[2016-12-21] MEDS: OXYCODONE HCL SR 10 MG TABLET PO SCH ×2 (09:42→21:40)
[2016-12-21] MEDS: ASPIRIN 81 MG TABLET, ENT COATED PO SCH (09:43)
[2016-12-21] MEDS: OXYCODONE HCL IR 5 MG TABLET PO PRN (09:46)
[2016-12-21] MEDS: CEFEPIME HCL 1 GM in DEXTROSE 5%-WATER 50 ML IV SCH (09:47)
[2016-12-21] MEDS ORDERED: MAG HYDROX/AL HYDROX/SIMETH SUSP 30 ML UDCUP PO PRN (12:48)
[2016-12-21] MEDS: SILVER SULFADIAZINE 1% CREAM 400 GM TP SCH ×2 (15:50→21:42)
--- NOTE | 2016-12-21 16:59 | PROGRESS NOTE E ---
Progress Note NAME: VIVIAN WATKINS : 1945 AGE: 71Y DATE: 12/21/2016 ROOM: 304 SUBJECTIVE: She now has more discomfort along the right 4th fingertip. The right little fingertip is starting to demarcate the gangrenous site. They both are dry and a little tender. She apparently had an arteriogram of the right arm done. According to the patient they were noted to be okay. As far as the left wrist ulcer site, I am going to change the packing this afternoon and check the wound on the abdominal pannus. I just ordered Silvadene cream to start today for the abdominal pannus site. Again, she is still a FULL CODE. DICTATING PHYSICIAN: JUAN ABREU M.D. [id number] PHY#: [id number] ID: [id number] JOB#: [id number] ACCT: [id number] cc: >
[2016-12-21] MEDS: LANSOPRAZOLE 15 MG TAB.RAP.DR PO SCH (18:59)
[2016-12-21] MEDS: SERTRALINE HCL 50 MG TABLET PO SCH (21:40)
[2016-12-21] MEDS: PRAMIPEXOLE DI-HCL 0.5 MG TABLET PO SCH (21:41)
[2016-12-22 05:36] LABS: ABSOLUTE EOSINOPHILS # (AUTO) 0.1 10^3/uL (0.0-0.6); ABSOLUTE MONOCYTES (AUTO) 0.8 10^3/uL (0.1-1.4); ABSOLUTE NEUT (AUTO) 6.7 10^3/uL (1.7-8.2); BASOPHILS % (AUTO) 0.2 % (0-2); EOSINOPHILS % (AUTO) 1.4 % (0-6); HEMATOCRIT 27.5 % (36.0-47.0); HGB HCT DIFFERENCE -0.5; LYMPHOCYTES % (AUTO) 11.2 % (13-45); MEAN CORPUSCULAR HEMOGLOBIN 31.6 pg (27.0-33.4); MEAN CORPUSCULAR HGB CONC 32.9 g/dL (32.0-36.0); MEAN CORPUSCULAR VOLUME 96 fl (80-97); MONOCYTES % (AUTO) 8.8 % (3-13); RED BLOOD COUNT 2.85 10^6/uL (3.72-5.28); RED CELL DISTRIBUTION WIDTH 21.7 % (11.5-14.0); SEGMENTED NEUTROPHILS % (AUTO) 78.4 % (42-78); WHITE BLOOD COUNT 8.6 10^3/uL (4.0-10.5)
[2016-12-22 05:39] LABS: ANION GAP 8 (5-19); BLOOD UREA NITROGEN 39 mg/dL (7-20); CALCIUM 8.4 mg/dL (8.4-10.2); CARBON DIOXIDE 26 mmol/L (22-30); CHLORIDE 101 mmol/L (98-107); CREATININE RESULT 2.95 mg/dL (0.52-1.25); GLUCOSE 94 mg/dL (75-110); POTASSIUM 3.8 mmol/L (3.6-5.0); SODIUM 135.3 mmol/L (137-145)
[2016-12-22] MEDS ORDERED: HEPARIN SOD (PORCINE) 1,000 UNIT/ML 10 ML VIAL MC PRN (08:56)
[2016-12-22] MEDS ORDERED: EPOETIN ALFA INJ 20000 UNIT/1 ML VIAL (RENAL) IV PRN (08:57)
[2016-12-22] MEDS: CARVEDILOL 12.5 MG TABLET PO SCH ×2 (09:24→21:19)
[2016-12-22] MEDS: LANSOPRAZOLE 15 MG TAB.RAP.DR PO SCH ×2 (09:24→17:54)
[2016-12-22] MEDS: ASPIRIN 81 MG TABLET, ENT COATED PO SCH (09:24)
[2016-12-22] MEDS: LISINOPRIL 10 MG TABLET PO SCH ×2 (09:24→21:19)
--- NOTE | 2016-12-22 09:40 | PDOC PROGRESS REPORT ---
Subjective Progress Note for:: 12/22/16 Subjective:: Patient was seen on dialysis this morning. She is feeling well compared to when she came in.She denies any history of chest pain shortness of breath. Normal history of nausea vomiting diarrhea. Dialysis orders were discussed with the treating nurse. Labs and medications were reviewed. Physical Exam Vital Signs: Temp Pulse Resp BP Pulse Ox 97.7 F 57 L 16 133/45 H 100 12/22/16 07:18 12/22/16 07:18 12/22/16 07:18 12/22/16 07:18 12/22/16 07:18 Intake & Output 12/21/16 12/22/16 12/23/16 06:59 06:59 06:59 Intake Total 885 910 Output Total 0 Balance 885 910 Weight 74.5 kg 70.3 kg General appearance: PRESENT: no acute distress Respiratory exam: PRESENT: clear to auscultation siobhan. ABSENT: crackles, rhonchi Cardiovascular exam: PRESENT: +S1, +S2 GI/Abdominal exam: PRESENT: normal bowel sounds, soft. ABSENT: diminished bowel sounds, distended, organomegaly, tenderness Neurological exam: PRESENT: alert, awake, oriented to person, oriented to place Results Laboratory Results: 12/22/16 04:16 12/22/16 04:16 12/22/16 12/22/16 04:16 04:16 WBC 8.6 RBC 2.85 L Hgb 9.0 L Hct 27.5 L MCV 96 MCH 31.6 MCHC 32.9 RDW 21.7 H Plt Count 79 L Seg Neutrophils % 78.4 H Lymphocytes % 11.2 L Monocytes % 8.8 Eosinophils % 1.4 Basophils % 0.2 Absolute Neutrophils 6.7 Absolute Lymphocytes 1.0 Absolute Monocytes 0.8 Absolute Eosinophils 0.1 Absolute Basophils 0.0 Sodium 135.3 L Potassium 3.8 Chloride 101 Carbon Dioxide 26 Anion Gap 8 BUN 39 H Creatinine 2.95 H Est GFR ( Amer) 19 L Est GFR (Non-Af Amer) 16 L Glucose 94 Calcium 8.4 12/19/16 16:35 Nasophary (Mrsa Only) MRSA Surveillance Culture - Final NO MRSA RECOVERED Impressions: Chest X-Ray 12/18/16 20:24 IMPRESSION: BORDERLINE CARDIOMEGALY WITH MILD VASCULAR PROMINENCE. SIMILAR APPEARANCE TO THE PRIOR STUDY. Abdomen/Pelvis CT 12/18/16 21:27 IMPRESSION: 1. CONGLOMERATE RETROPERITONEAL ADENOPATHY SIMILAR TO THE RECENT PET-CT SCAN. AGAIN SEEN IS HYDRONEPHROSIS OF THE RIGHT KIDNEY WITH INTERVAL DEVELOPMENT OF HYDRONEPHROSIS OF THE LEFT KIDNEY. THE URETERS ARE DIFFICULT TO VISUALIZE DUE TO METALLIC ARTIFACT BUT HYDRONEPHROSIS IS PROBABLY DUE TO COMPRESSION FROM ADJACENT RETROPERITONEAL ADENOPATHY. 2. NO OTHER SIGNIFICANT OR ACUTE PROCESS IN THE ABDOMEN OR PELVIS. Assessment & Plan - Diagnosis (1) Anemia in chronic kidney disease (CKD) Plan: Stable hemoglobin posttransfusion. Adjust erythropoietin. (2) Nausea vomiting and diarrhea Is this a current diagnosis for this admission?: YesPlan: Resolving nicely. (3) Cervical cancer, FIGO stage MIRIAM Is this a current diagnosis for this admission?: YesPlan: On palliative chemotherapy. Poor prognosis.Cachectic. (4) ESRD (end stage renal disease) Plan: Patient currently being dialyzed and being supervised to ensure a safe and smooth procedure. Vital signs are stable. Plan to remove no fluid as she is on the dry side. Orders were discussed with the treating nurse. (5) Skin ulcer Plan: Skin ulcers beneath the panniculus of the abdomen which could be a source of sepsis. Patient does with vancomycin, cefepime.
--- NOTE | 2016-12-22 10:28 | PDOC PROGRESS REPORT ---
Subjective Progress Note for:: 12/22/16 Subjective:: Patient complains of pain in her hands. She gets relief with oxycodone 10 mg. She denies fever, chills. Physical Exam Vital Signs: Temp Pulse Resp BP Pulse Ox 97.7 F 57 L 16 133/45 H 100 12/22/16 07:18 12/22/16 07:18 12/22/16 07:18 12/22/16 07:18 12/22/16 07:18 Intake & Output 12/21/16 12/22/16 12/23/16 06:59 06:59 06:59 Intake Total 885 910 Output Total 0 Balance 885 910 Weight 74.5 kg 70.3 kg GENERAL: No acute distress HEENT: Conjunctiva clear, nonicteric, moist mucous membranes, no JVD, midline trachea RESPIRATORY: Clear to auscultation bilaterally, no wheezes, no rhonchi CARDIAC: Regular rate and rhythm, harsh systolic murmur noted ABDOMEN: Soft, nondistended, nontender, positive bowel sounds, no rebound, no guarding EXTREMETIES: No edema, cyanosis, clubbing. Right BKA NEUROLOGIC: Alert, oriented to person/place/time, CN's grossly intact, no focal deficits SKIN: Right BKA stump ulcer, right distal 3rd finger with gangrene, right 4th fingers with ischemic changes, no sign of infection PSYCH: Normal mood, normal affect Results Laboratory Results: 12/22/16 04:16 12/22/16 04:16 12/22/16 12/22/16 04:16 04:16 WBC 8.6 RBC 2.85 L Hgb 9.0 L Hct 27.5 L MCV 96 MCH 31.6 MCHC 32.9 RDW 21.7 H Plt Count 79 L Seg Neutrophils % 78.4 H Lymphocytes % 11.2 L Monocytes % 8.8 Eosinophils % 1.4 Basophils % 0.2 Absolute Neutrophils 6.7 Absolute Lymphocytes 1.0 Absolute Monocytes 0.8 Absolute Eosinophils 0.1 Absolute Basophils 0.0 Sodium 135.3 L Potassium 3.8 Chloride 101 Carbon Dioxide 26 Anion Gap 8 BUN 39 H Creatinine 2.95 H Est GFR ( Amer) 19 L Est GFR (Non-Af Amer) 16 L Glucose 94 Calcium 8.4 12/19/16 16:35 Nasophary (Mrsa Only) MRSA Surveillance Culture - Final NO MRSA RECOVERED Impressions: Chest X-Ray 12/18/16 20:24 IMPRESSION: BORDERLINE CARDIOMEGALY WITH MILD VASCULAR PROMINENCE. SIMILAR APPEARANCE TO THE PRIOR STUDY. Abdomen/Pelvis CT 12/18/16 21:27 IMPRESSION: 1. CONGLOMERATE RETROPERITONEAL ADENOPATHY SIMILAR TO THE RECENT PET-CT SCAN. AGAIN SEEN IS HYDRONEPHROSIS OF THE RIGHT KIDNEY WITH INTERVAL DEVELOPMENT OF HYDRONEPHROSIS OF THE LEFT KIDNEY. THE URETERS ARE DIFFICULT TO VISUALIZE DUE TO METALLIC ARTIFACT BUT HYDRONEPHROSIS IS PROBABLY DUE TO COMPRESSION FROM ADJACENT RETROPERITONEAL ADENOPATHY. 2. NO OTHER SIGNIFICANT OR ACUTE PROCESS IN THE ABDOMEN OR PELVIS. Assessment & Plan - Diagnosis (1) Cervical cancer, FIGO stage MIRIAM Is this a current diagnosis for this admission?: YesPlan: Dr. Ureña of oncology following. Patient is receiving palliative chemotherapy and her overall condition is slowly deteriorating. I will defer treatment and management to oncology. (2) Abdominal wall ulcer Qualifiers: Non-pressure ulcer stage: unspecified non-pressure ulcer stage Qualified Code(s): L98.499 - Non-pressure chronic ulcer of skin of other sites with unspecified severity Is this a current diagnosis for this admission?: YesPlan: Wound culture tentatively growing gram-negative rods and gram-positive cocci. Continue IV cefepime and IV vancomycin. (3) Fever Qualifiers: Fever type: unspecified Qualified Code(s): R50.9 - Fever, unspecified Is this a current diagnosis for this admission?: YesPlan: Likely secondary to soft tissue infections. Blood cultures no growth. Wound culture as mentioned above. Echocardiogram no evidence of thrombus or vegetation. Continue IV cefepime and IV vancomycin for now. 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 Case discussed with surgery and they do not feel that surgery is warranted at this time. 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 Continue hemodialysis per nephrology. (6) Status post below knee amputation of right lower extremity Is this a current diagnosis for this admission?: Yes (7) Anemia Qualifiers: Anemia type: other cause Other causes of anemia: chronic disease, kidney Qualified Code(s): N18.9 - Chronic kidney disease, unspecified; D63.1 - Anemia in chronic kidney disease Is this a current diagnosis for this admission?: YesPlan: Patient transfused 2 units PRBC. Monitor H&H for stability. Nephrology to adjust Procrit. (8) Thrombocytopenia Is this a current diagnosis for this admission?: YesPlan: Hematology following. - Time Time Spent with patient: 25-34 minutes
[2016-12-22] MEDS: OXYCODONE HCL SR 10 MG TABLET PO SCH ×2 (13:12→21:19)
[2016-12-22] MEDS: CEFEPIME HCL 1 GM in DEXTROSE 5%-WATER 50 ML IV SCH (13:53)
[2016-12-22] MEDS: SILVER SULFADIAZINE 1% CREAM 400 GM TP SCH ×2 (13:54→21:21)
[2016-12-22] MEDS: VANCOMYCIN HCL 500 MG in DEXTROSE 5%-WATER 100 ML IV SCH (17:51)
[2016-12-22] MEDS ORDERED: VANCOMYCIN HCL 750 MG in DEXTROSE 5%-WATER 250 ML IV SCH (18:00)
[2016-12-22] MEDS: PRAMIPEXOLE DI-HCL 0.5 MG TABLET PO SCH (21:19)
[2016-12-22] MEDS: SERTRALINE HCL 50 MG TABLET PO SCH (21:20)
[2016-12-23 04:48] LABS: ABSOLUTE EOSINOPHILS # (AUTO) 0.1 10^3/uL (0.0-0.6); ABSOLUTE MONOCYTES (AUTO) 0.9 10^3/uL (0.1-1.4); ABSOLUTE NEUT (AUTO) 6.6 10^3/uL (1.7-8.2); BASOPHILS % (AUTO) 0.3 % (0-2); EOSINOPHILS % (AUTO) 1.5 % (0-6); HEMOGLOBIN 9.3 g/dL (12.0-15.5); HGB HCT DIFFERENCE -1.1; LYMPHOCYTES % (AUTO) 11.8 % (13-45); MEAN CORPUSCULAR HEMOGLOBIN 31.7 pg (27.0-33.4); MEAN CORPUSCULAR VOLUME 99 fl (80-97); MONOCYTES % (AUTO) 10.7 % (3-13); RED BLOOD COUNT 2.94 10^6/uL (3.72-5.28); RED CELL DISTRIBUTION WIDTH 21.2 % (11.5-14.0); SEGMENTED NEUTROPHILS % (AUTO) 75.7 % (42-78); WHITE BLOOD COUNT 8.7 10^3/uL (4.0-10.5)
[2016-12-23 05:13] LABS: ANION GAP 8 (5-19); BLOOD UREA NITROGEN 20 mg/dL (7-20); CALCIUM 8.1 mg/dL (8.4-10.2); CARBON DIOXIDE 29 mmol/L (22-30); CHLORIDE 100 mmol/L (98-107); CREATININE RESULT 1.78 mg/dL (0.52-1.25); GLUCOSE 92 mg/dL (75-110); SODIUM 137.1 mmol/L (137-145)
--- NOTE | 2016-12-23 08:28 | PDOC PROGRESS REPORT ---
Subjective Progress Note for:: 12/23/16 Subjective:: Patient having nausea this morning, today ordered IV antiemetics Physical Exam Vital Signs: Temp Pulse Resp BP Pulse Ox 97.6 F 63 16 151/43 H 100 12/23/16 07:13 12/23/16 07:13 12/23/16 07:13 12/23/16 07:13 12/23/16 07:13 Intake & Output 12/22/16 12/23/16 12/24/16 06:59 06:59 06:59 Intake Total 910 720 Output Total 1357 Balance 910 -637 Weight 70.3 kg 75.4 kg General appearance: PRESENT: no acute distress, well-developed, well-nourished Head exam: PRESENT: atraumatic, normocephalic Eye exam: PRESENT: conjunctiva pink, EOMI, PERRLA. ABSENT: scleral icterus Ear exam: PRESENT: normal external ear exam Mouth exam: PRESENT: moist, tongue midline Neck exam: ABSENT: carotid bruit, JVD, lymphadenopathy, thyromegaly Respiratory exam: PRESENT: clear to auscultation siobhan. ABSENT: rales, rhonchi, wheezes Cardiovascular exam: PRESENT: RRR. ABSENT: diastolic murmur, rubs, systolic murmur Pulses: PRESENT: normal dorsalis pedis pul Vascular exam: PRESENT: normal capillary refill GI/Abdominal exam: PRESENT: normal bowel sounds, soft. ABSENT: distended, guarding, mass, organolmegaly, rebound, tenderness Rectal exam: PRESENT: deferred Extremities exam: PRESENT: full ROM. ABSENT: calf tenderness, clubbing, pedal edema Neurological exam: PRESENT: alert, awake, oriented to person, oriented to place , oriented to time, oriented to situation, CN II-XII grossly intact. ABSENT: motor sensory deficit Psychiatric exam: PRESENT: appropriate affect, normal mood. ABSENT: homicidal ideation, suicidal ideation Skin exam: PRESENT: dry, intact, warm. ABSENT: cyanosis, rash Results Laboratory Results: 12/23/16 03:54 12/23/16 03:54 12/23/16 12/23/16 03:54 03:54 WBC 8.7 RBC 2.94 L Hgb 9.3 L Hct 29.0 L MCV 99 H MCH 31.7 MCHC 32.0 RDW 21.2 H Plt Count 121 L Seg Neutrophils % 75.7 Lymphocytes % 11.8 L Monocytes % 10.7 Eosinophils % 1.5 Basophils % 0.3 Absolute Neutrophils 6.6 Absolute Lymphocytes 1.0 Absolute Monocytes 0.9 Absolute Eosinophils 0.1 Absolute Basophils 0.0 Sodium 137.1 Potassium 4.0 Chloride 100 Carbon Dioxide 29 Anion Gap 8 BUN 20 Creatinine 1.78 H Est GFR ( Amer) 34 L Est GFR (Non-Af Amer) 28 L Glucose 92 Calcium 8.1 L Impressions: Chest X-Ray 12/18/16 20:24 IMPRESSION: BORDERLINE CARDIOMEGALY WITH MILD VASCULAR PROMINENCE. SIMILAR APPEARANCE TO THE PRIOR STUDY. Abdomen/Pelvis CT 12/18/16 21:27 IMPRESSION: 1. CONGLOMERATE RETROPERITONEAL ADENOPATHY SIMILAR TO THE RECENT PET-CT SCAN. AGAIN SEEN IS HYDRONEPHROSIS OF THE RIGHT KIDNEY WITH INTERVAL DEVELOPMENT OF HYDRONEPHROSIS OF THE LEFT KIDNEY. THE URETERS ARE DIFFICULT TO VISUALIZE DUE TO METALLIC ARTIFACT BUT HYDRONEPHROSIS IS PROBABLY DUE TO COMPRESSION FROM ADJACENT RETROPERITONEAL ADENOPATHY. 2. NO OTHER SIGNIFICANT OR ACUTE PROCESS IN THE ABDOMEN OR PELVIS. Assessment & Plan - Diagnosis (1) Cervical cancer, FIGO stage MIRIAM Is this a current diagnosis for this admission?: YesPlan: I do not believe she would be a candidate for further chemotherapy, today had a long discussion with her about that, I spent greater than 40 minutes in discussion with her, I recommended comfort care measures. However, at this point she is not ready for that, I also recommended DNR status, she wants to talk further with her family about this. - Time Time Spent with patient: 35 or more minutes Critical Time spent with patient: 35 or more minutes
[2016-12-23] MEDS ORDERED: PROMETHAZINE HCL INJ 25 MG/1 ML VIAL IV PRN ×2 (08:42)
[2016-12-23] MEDS ORDERED: ZOLPIDEM TARTRATE 5 MG TABLET PO PRN (09:02)
[2016-12-23] MEDS ORDERED: MINERAL OIL ENEMA 133 ML PR PRN (09:03)
[2016-12-23] MEDS: CARVEDILOL 12.5 MG TABLET PO SCH ×2 (10:13→21:57)
[2016-12-23] MEDS: LANSOPRAZOLE 15 MG TAB.RAP.DR PO SCH ×2 (10:14→18:00)
[2016-12-23] MEDS: LISINOPRIL 10 MG TABLET PO SCH ×2 (10:14→21:57)
[2016-12-23] MEDS: CEFEPIME HCL 1 GM in DEXTROSE 5%-WATER 50 ML IV SCH (10:15)
[2016-12-23] MEDS: ASPIRIN 81 MG TABLET, ENT COATED PO SCH (10:15)
[2016-12-23] MEDS: OXYCODONE HCL SR 10 MG TABLET PO SCH ×2 (10:15→21:57)
--- NOTE | 2016-12-23 12:17 | PDOC PROGRESS REPORT ---
Subjective Progress Note for:: 12/23/16 Subjective:: Patient c/o nausea. She reports her pain is controlled. Patient reports a sensation feels like need BM. Per nursing, patient having liquid brown stool. Patient denies chest pain, shortness of breath, vomiting, fever, chills, focal weakness. Physical Exam Vital Signs: Temp Pulse Resp BP Pulse Ox 97.7 F 69 20 136/45 H 100 12/23/16 03:26 12/23/16 03:26 12/23/16 03:26 12/23/16 03:26 12/23/16 03:26 Intake & Output 12/22/16 12/23/16 12/24/16 06:59 06:59 06:59 Intake Total 910 720 Output Total 1357 Balance 910 -637 Weight 70.3 kg 75.4 kg Exam: GENERAL: No acute distress, chronically ill-appearing HEENT: Conjunctiva clear, nonicteric, moist mucous membranes, no JVD, midline trachea RESPIRATORY: Clear to auscultation bilaterally, no wheezes, no rhonchi CARDIAC: Regular rate and rhythm, harsh systolic murmur noted ABDOMEN: Soft, nondistended, nontender, diminished bowel sounds, no rebound, no guarding EXTREMETIES: No edema, cyanosis, clubbing. Right BKA NEUROLOGIC: Alert, oriented to person/place/time, CN's grossly intact, no focal deficits SKIN: Right BKA stump ulcer, right distal 3rd finger with gangrene, right 4th finger with ischemic changes, left 4th finger with central ischemia, no sign of infection, fistula ulceration PSYCH: depressed mood, normal affect Results Laboratory Results: 12/23/16 03:54 12/23/16 03:54 12/23/16 12/23/16 03:54 03:54 WBC 8.7 RBC 2.94 L Hgb 9.3 L Hct 29.0 L MCV 99 H MCH 31.7 MCHC 32.0 RDW 21.2 H Plt Count 121 L Seg Neutrophils % 75.7 Lymphocytes % 11.8 L Monocytes % 10.7 Eosinophils % 1.5 Basophils % 0.3 Absolute Neutrophils 6.6 Absolute Lymphocytes 1.0 Absolute Monocytes 0.9 Absolute Eosinophils 0.1 Absolute Basophils 0.0 Sodium 137.1 Potassium 4.0 Chloride 100 Carbon Dioxide 29 Anion Gap 8 BUN 20 Creatinine 1.78 H Est GFR ( Amer) 34 L Est GFR (Non-Af Amer) 28 L Glucose 92 Calcium 8.1 L Impressions: Chest X-Ray 12/18/16 20:24 IMPRESSION: BORDERLINE CARDIOMEGALY WITH MILD VASCULAR PROMINENCE. SIMILAR APPEARANCE TO THE PRIOR STUDY. Abdomen/Pelvis CT 12/18/16 21:27 IMPRESSION: 1. CONGLOMERATE RETROPERITONEAL ADENOPATHY SIMILAR TO THE RECENT PET-CT SCAN. AGAIN SEEN IS HYDRONEPHROSIS OF THE RIGHT KIDNEY WITH INTERVAL DEVELOPMENT OF HYDRONEPHROSIS OF THE LEFT KIDNEY. THE URETERS ARE DIFFICULT TO VISUALIZE DUE TO METALLIC ARTIFACT BUT HYDRONEPHROSIS IS PROBABLY DUE TO COMPRESSION FROM ADJACENT RETROPERITONEAL ADENOPATHY. 2. NO OTHER SIGNIFICANT OR ACUTE PROCESS IN THE ABDOMEN OR PELVIS. Assessment & Plan - Diagnosis (1) Cervical cancer, FIGO stage MIRIAM Is this a current diagnosis for this admission?: YesPlan: It appears as though patient has discussed her care and prognosis with oncology. At this time, they recommend cessation of any further therapy and hospice care. I am in agreement with this plan. I have discussed patient's overall prognosis and plan with her and at this time she agrees to a DNR. (2) Anemia in chronic kidney disease (CKD) Qualifiers: Chronic kidney disease stage: on chronic dialysis Qualified Code(s) : N18.6 - End stage renal disease; D63.1 - Anemia in chronic kidney disease; Z99.2 - Dependence on renal dialysis Is this a current diagnosis for this admission?: YesPlan: Patient has received 2 units of packed red blood cells. Defer Epogen to nephrology. (3) Nausea and vomiting Qualifiers: Vomiting type: unspecified Vomiting Intractability: non-intractable Qualified Code(s): R11.2 - Nausea with vomiting, unspecified Is this a current diagnosis for this admission?: YesPlan: Patient has as needed Phenergan. Will consider Ativan if not improved. This is likely secondary to intra-abdominal metastasis of her endometrial cancer. (4) Necrosis of finger Is this a current diagnosis for this admission?: YesPlan: These will likely auto amputate and at this time show no sign of active infection. 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 Surgery has seen this patient and does not recommend intervention at this time. (5) Abdominal wall cellulitis Is this a current diagnosis for this admission?: YesPlan: Patient with Enterococcus faecalis group D, Citrobacter freundii, and Enterobacter cloacae. Patient currently on Cefepime day #4 and Vancomycin given with HD per nephrology. Will alter these due to resistance patterns. (6) Amput below knee, unilat Is this a current diagnosis for this admission?: Yes (7) Chronic kidney disease, stage V requiring chronic dialysis Is this a current diagnosis for this admission?: YesPlan: Defer to nephrology appreciate their input into this patient's care.. 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 (10) Thrombocytopenia Is this a current diagnosis for this admission?: YesPlan: Patient is being followed by hematology. This is likely secondary to chemotherapy. - Time Time Spent with patient: 25-34 minutes Medications reviewed and adjusted accordingly: Yes Anticipated discharge: Home, Hospice Within: within 48 hours - Inpatient Certification Based on my medical assessment, after consideration of the patient's comorbidities, presenting symptoms, or acuity I expect that the services needed warrant INPATIENT care.: Yes I certify that my determination is in accordance with my understanding of Medicare's requirements for reasonable and necessary INPATIENT services [42 CFR 412.3e].: Yes Medical Necessity: Need for Pain Control, Need for IV Antibiotics Post Hospital Care: D/C Fishing Manager Documentation
[2016-12-23] MEDS: SILVER SULFADIAZINE 1% CREAM 400 GM TP SCH ×2 (13:42→21:54)
[2016-12-23] MEDS: OXYCODONE HCL IR 5 MG TABLET PO PRN (13:42)
[2016-12-23] MEDS: PRAMIPEXOLE DI-HCL 0.5 MG TABLET PO SCH (21:57)
[2016-12-23] MEDS: SERTRALINE HCL 50 MG TABLET PO SCH (21:57)
[2016-12-23] MEDS ORDERED: LEVOFLOXACIN 750 MG TABLET PO SCH (22:00)
[2016-12-24 05:14] LABS: ABSOLUTE EOSINOPHILS # (AUTO) 0.1 10^3/uL (0.0-0.6); ABSOLUTE LYMPHOCYTES (AUTO) 1.2 10^3/uL (0.5-4.7); ABSOLUTE NEUT (AUTO) 10.8 10^3/uL (1.7-8.2); BASOPHILS % (AUTO) 0.3 % (0-2); EOSINOPHILS % (AUTO) 0.8 % (0-6); HEMATOCRIT 30.3 % (36.0-47.0); HEMOGLOBIN 9.5 g/dL (12.0-15.5); HGB HCT DIFFERENCE -1.8; LYMPHOCYTES % (AUTO) 8.9 % (13-45); MEAN CORPUSCULAR HGB CONC 31.4 g/dL (32.0-36.0); MEAN CORPUSCULAR VOLUME 99 fl (80-97); MONOCYTES % (AUTO) 7.6 % (3-13); RED BLOOD COUNT 3.07 10^6/uL (3.72-5.28); RED CELL DISTRIBUTION WIDTH 22.2 % (11.5-14.0); SEGMENTED NEUTROPHILS % (AUTO) 82.4 % (42-78); WHITE BLOOD COUNT 13.1 10^3/uL (4.0-10.5)
--- NOTE | 2016-12-24 08:00 | PDOC PROGRESS REPORT ---
Subjective Progress Note for:: 12/24/16 Subjective:: Had long family meeting, spent 45 min in discussion, family and pt agrees to hospice, pt already has [facility] so will start their hospice services. Physical Exam Vital Signs: Temp Pulse Resp BP Pulse Ox 97.9 F 74 16 159/47 H 97 12/24/16 03:59 12/24/16 03:59 12/24/16 03:59 12/24/16 03:59 12/24/16 03:59 Intake & Output 12/23/16 12/24/16 12/25/16 06:59 06:59 06:59 Intake Total 720 360 Output Total 1357 Balance -637 360 Weight 75.4 kg 75.4 kg General appearance: PRESENT: no acute distress, well-developed, well-nourished Head exam: PRESENT: atraumatic, normocephalic Eye exam: PRESENT: conjunctiva pink, EOMI, PERRLA. ABSENT: scleral icterus Ear exam: PRESENT: normal external ear exam Mouth exam: PRESENT: moist, tongue midline Neck exam: ABSENT: carotid bruit, JVD, lymphadenopathy, thyromegaly Respiratory exam: PRESENT: clear to auscultation siobhan. ABSENT: rales, rhonchi, wheezes Cardiovascular exam: PRESENT: RRR. ABSENT: diastolic murmur, rubs, systolic murmur Pulses: PRESENT: normal dorsalis pedis pul Vascular exam: PRESENT: normal capillary refill GI/Abdominal exam: PRESENT: normal bowel sounds, soft. ABSENT: distended, guarding, mass, organolmegaly, rebound, tenderness Rectal exam: PRESENT: deferred Extremities exam: PRESENT: full ROM. ABSENT: calf tenderness, clubbing, pedal edema Neurological exam: PRESENT: alert, awake, oriented to person, oriented to place , oriented to time, oriented to situation, CN II-XII grossly intact. ABSENT: motor sensory deficit Psychiatric exam: PRESENT: appropriate affect, normal mood. ABSENT: homicidal ideation, suicidal ideation Skin exam: PRESENT: dry, intact, warm. ABSENT: cyanosis, rash Results Laboratory Results: 12/24/16 04:21 12/23/16 03:54 12/24/16 04:21 WBC 13.1 H RBC 3.07 L Hgb 9.5 L Hct 30.3 L MCV 99 H MCH 31.0 MCHC 31.4 L RDW 22.2 H Plt Count 175 Seg Neutrophils % 82.4 H Lymphocytes % 8.9 L Monocytes % 7.6 Eosinophils % 0.8 Basophils % 0.3 Absolute Neutrophils 10.8 H Absolute Lymphocytes 1.2 Absolute Monocytes 1.0 Absolute Eosinophils 0.1 Absolute Basophils 0.0 Impressions: Chest X-Ray 12/18/16 20:24 IMPRESSION: BORDERLINE CARDIOMEGALY WITH MILD VASCULAR PROMINENCE. SIMILAR APPEARANCE TO THE PRIOR STUDY. Abdomen/Pelvis CT 12/18/16 21:27 IMPRESSION: 1. CONGLOMERATE RETROPERITONEAL ADENOPATHY SIMILAR TO THE RECENT PET-CT SCAN. AGAIN SEEN IS HYDRONEPHROSIS OF THE RIGHT KIDNEY WITH INTERVAL DEVELOPMENT OF HYDRONEPHROSIS OF THE LEFT KIDNEY. THE URETERS ARE DIFFICULT TO VISUALIZE DUE TO METALLIC ARTIFACT BUT HYDRONEPHROSIS IS PROBABLY DUE TO COMPRESSION FROM ADJACENT RETROPERITONEAL ADENOPATHY. 2. NO OTHER SIGNIFICANT OR ACUTE PROCESS IN THE ABDOMEN OR PELVIS. Assessment & Plan - Diagnosis (1) Cervical cancer, FIGO stage MIRIAM Is this a current diagnosis for this admission?: YesPlan: Not candidate for further chemo, life expectancy <6m so hospice appropriate, probable d/c after dialysis today. I have offered to be her hospice physician. Family agrees. [facility] will send orders to our clinic. - Time Time Spent with patient: 35 or more minutes Critical Time spent with patient: 35 or more minutes Anticipated discharge: Home, Hospice
[2016-12-24] MEDS ORDERED: EPOETIN ALFA INJ 20000 UNIT/1 ML VIAL (RENAL) IV PRN (09:38)
[2016-12-24] MEDS ORDERED: HEPARIN SOD (PORCINE) 1,000 UNIT/ML 10 ML VIAL IV PRN (09:38)
[2016-12-24] MEDS ORDERED: MORPHINE SULFATE 10 MG/ML INJ IV PRN (10:08)
[2016-12-24] MEDS ORDERED: MORPHINE SULFATE 10 MG/ML INJ IV ONE (10:08)
--- NOTE | 2016-12-24 11:00 | PDOC PROGRESS REPORT ---
Subjective Progress Note for:: 12/24/16 Subjective:: Patient was seen on dialysis this morning. She is feeling fair.She denies any history of chest pain shortness of breath. Normal history of nausea vomiting diarrhea. Dialysis orders were discussed with the treating nurse. Labs and medications were reviewed.I later reviewed notes and see that Dr. Ureña has had a meeting with her and family and she has agreed to hospice. Physical Exam Vital Signs: Temp Pulse Resp BP Pulse Ox 97.9 F 74 16 159/47 H 97 12/24/16 03:59 12/24/16 03:59 12/24/16 03:59 12/24/16 03:59 12/24/16 03:59 Intake & Output 12/23/16 12/24/16 12/25/16 06:59 06:59 06:59 Intake Total 720 360 Output Total 1357 Balance -637 360 Weight 75.4 kg 75.4 kg General appearance: PRESENT: no acute distress Respiratory exam: PRESENT: clear to auscultation siobhan. ABSENT: crackles, rhonchi Cardiovascular exam: PRESENT: +S1, +S2 GI/Abdominal exam: PRESENT: normal bowel sounds, soft. ABSENT: diminished bowel sounds, distended, organomegaly, tenderness Neurological exam: PRESENT: alert, awake, oriented to person, oriented to place , oriented to time Results Laboratory Results: 12/24/16 04:21 12/23/16 03:54 12/24/16 04:21 WBC 13.1 H RBC 3.07 L Hgb 9.5 L Hct 30.3 L MCV 99 H MCH 31.0 MCHC 31.4 L RDW 22.2 H Plt Count 175 Seg Neutrophils % 82.4 H Lymphocytes % 8.9 L Monocytes % 7.6 Eosinophils % 0.8 Basophils % 0.3 Absolute Neutrophils 10.8 H Absolute Lymphocytes 1.2 Absolute Monocytes 1.0 Absolute Eosinophils 0.1 Absolute Basophils 0.0 Impressions: Chest X-Ray 12/18/16 20:24 IMPRESSION: BORDERLINE CARDIOMEGALY WITH MILD VASCULAR PROMINENCE. SIMILAR APPEARANCE TO THE PRIOR STUDY. Abdomen/Pelvis CT 12/18/16 21:27 IMPRESSION: 1. CONGLOMERATE RETROPERITONEAL ADENOPATHY SIMILAR TO THE RECENT PET-CT SCAN. AGAIN SEEN IS HYDRONEPHROSIS OF THE RIGHT KIDNEY WITH INTERVAL DEVELOPMENT OF HYDRONEPHROSIS OF THE LEFT KIDNEY. THE URETERS ARE DIFFICULT TO VISUALIZE DUE TO METALLIC ARTIFACT BUT HYDRONEPHROSIS IS PROBABLY DUE TO COMPRESSION FROM ADJACENT RETROPERITONEAL ADENOPATHY. 2. NO OTHER SIGNIFICANT OR ACUTE PROCESS IN THE ABDOMEN OR PELVIS. Assessment & Plan - Diagnosis (1) Anemia in chronic kidney disease (CKD) Qualifiers: Chronic kidney disease stage: on chronic dialysis Qualified Code(s) : N18.6 - End stage renal disease; D63.1 - Anemia in chronic kidney disease; Z99.2 - Dependence on renal dialysis Is this a current diagnosis for this admission?: YesPlan: Stable hemoglobin posttransfusion. Adjust erythropoietin. (2) Nausea vomiting and diarrhea Is this a current diagnosis for this admission?: Yes (3) Cervical cancer, FIGO stage MIRIAM Is this a current diagnosis for this admission?: YesPlan: Poor prognosis.Cachectic.She is now moving into hospice given her current status and after talking with Dr. Ureña. (4) ESRD (end stage renal disease) Plan: Patient currently being dialyzed and being supervised to ensure a safe and smooth procedure. Vital signs are stable. Plan to remove no fluid as she is on the dry side. Orders were discussed with the treating nurse.
[2016-12-24] MEDS: OXYCODONE HCL IR 5 MG TABLET PO PRN (13:17)
[2016-12-24] MEDS: LANSOPRAZOLE 15 MG TAB.RAP.DR PO SCH ×2 (13:18→17:22)
[2016-12-24] MEDS: LISINOPRIL 10 MG TABLET PO SCH (13:18)
[2016-12-24] MEDS: ASPIRIN 81 MG TABLET, ENT COATED PO SCH (13:19)
[2016-12-24] MEDS: CARVEDILOL 12.5 MG TABLET PO SCH (13:19)
[2016-12-24] MEDS: OXYCODONE HCL SR 10 MG TABLET PO SCH (13:19)
[2016-12-24] MEDS: AMPICILLIN TRIHYD 500 MG CAPSULE PO SCH ×2 (13:23→17:22)
[2016-12-24 14:52] VITALS: BP 143/39
[2016-12-24] MEDS: VANCOMYCIN HCL 500 MG in DEXTROSE 5%-WATER 100 ML IV SCH (15:49)
--- NOTE | 2016-12-24 16:28 | PDOC DISCHARGE SUMMARY ---
General - Admit/Disc Date/PCP Admission Date/Primary Care Provider: 12/19/16 07:33 CAROLINA ROBIN MD Discharge Date: 12/24/16 - Discharge Diagnosis (1) Cervical cancer, FIGO stage MIRIAM Is this a current diagnosis for this admission?: Yes (2) Anemia in chronic kidney disease (CKD) Is this a current diagnosis for this admission?: Yes (3) Nausea and vomiting Is this a current diagnosis for this admission?: Yes (4) Necrosis of finger Is this a current diagnosis for this admission?: Yes (5) Abdominal wall cellulitis Is this a current diagnosis for this admission?: Yes (6) Amput below knee, unilat Is this a current diagnosis for this admission?: Yes (7) Chronic kidney disease, stage V requiring chronic dialysis Is this a current diagnosis for this admission?: Yes (8) Moderate to severe pulmonary hypertension Is this a current diagnosis for this admission?: Yes (9) 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 Is this a current diagnosis for this admission?: Yes (10) Thrombocytopenia Is this a current diagnosis for this admission?: Yes - Additional Information Resuscitation Status: Full Code Discharge Diet: As Tolerated Discharge Activity: Activity As Tolerated Home Medications: Aspirin [Aspirin EC] 81 mg PO DAILY 12/19/16 Carvedilol [Coreg 12.5 mg Tablet] 12.5 mg PO Q12 12/19/16 Lisinopril [Prinivil 10 mg Tablet] 10 mg PO Q12 12/19/16 Oxycodone HCl [Oxycodone HCl 10 MG Tablet] 10 mg PO Q6HP PRN 12/19/16 Oxycodone HCl [Oxycontin Sr 10 mg Tablet] 10 mg PO Q12 12/19/16 Sertraline HCl [Zoloft 50 mg Tablet] 100 mg PO QHS 12/19/16 Pramipexole Di-HCl [Mirapex 0.5 mg Tablet] 1 mg PO QHS 12/20/16 Zolpidem Tartrate [Ambien 5 mg Tablet] 5 mg PO HSP PRN 12/20/16 Ampicillin Trihydrate [Princepen 500 mg Capsule] 500 mg PO Q6 #40 capsule Levofloxacin [Levaquin 750 mg Tablet] 750 mg PO Q2D@2200 #5 tablet 12/24/16 Promethazine HCl [Phenergan 25 mg Tablet] 25 mg PO Q6HP PRN #20 tablet 12/24/16 History of Present Illness History of Present Illness: Please see H&P for full HPI Hospital Course Hospital Course: Patient is a quite unfortunate 71-year-old female with a known history of stage IV cervical cancer who presented to the emergency department with complaints of vomiting and diarrhea. Patient had 24 hours of nausea and vomiting as well as diarrhea prior to presentation to the emergency department. Patient had multiple small ulcerations on her lower abdominal pannus which is being followed by wound care. Patient was found to be septic in the emergency department. Placed on broad-spectrum antibiotics, IV fluids, antiemetics, and stool cultures were obtained. Was found to have Enterococcus faecalis group D, Enterobacter cloacae, and Citrobacter freundii in her abdominal wall lesions. Was transitioned from broad-spectrum antibiotics to Levaquin and ampicillin. Patient was also noted to have gangrenous right third and fourth fingers with dry gangrene. Surgery was consulted and they felt there is no need for surgical intervention at this time. Patient underwent echocardiogram on 2016 which revealed an EF of 65%, grade 1 diastolic dysfunction, and pulmonary hypertension. No source Of emboli was noted. Nephrology was consulted for ongoing hemodialysis. Oncology was consulted for discussion with this patient regarding ongoing care, and at this time they feel that patient would be better served with hospice. Patient's family agreed with home hospice and this established patient she was discharged home today. Physical Exam Vital Signs: Temp Pulse Resp BP Pulse Ox 98.6 F 64 18 143/39 H 98 12/24/16 14:50 12/24/16 14:50 12/24/16 14:50 12/24/16 14:50 12/24/16 14:50 Intake & Output 12/23/16 12/24/16 12/25/16 06:59 06:59 06:59 Intake Total 720 360 100 Output Total 1357 Balance -637 360 100 Weight 75.4 kg 75.4 kg Exam: GENERAL: No acute distress, chronically ill-appearing HEENT: Conjunctiva clear, nonicteric, moist mucous membranes, no JVD, midline trachea RESPIRATORY: Clear to auscultation bilaterally, no wheezes, no rhonchi CARDIAC: Regular rate and rhythm, harsh systolic murmur noted ABDOMEN: Soft, nondistended, nontender, diminished bowel sounds, no rebound, no guarding EXTREMETIES: No edema, cyanosis, clubbing. Right BKA NEUROLOGIC: Alert, oriented to person/place/time, CN's grossly intact, no focal deficits SKIN: Right BKA stump ulcer, right distal 3rd finger with gangrene, right 4th finger with ischemic changes, left 4th finger with central ischemia, no sign of infection, fistula ulceration PSYCH: depressed mood, normal affect Results Laboratory Results: 12/24/16 04:21 12/23/16 03:54 12/24/16 04:21 WBC 13.1 H RBC 3.07 L Hgb 9.5 L Hct 30.3 L MCV 99 H MCH 31.0 MCHC 31.4 L RDW 22.2 H Plt Count 175 Seg Neutrophils % 82.4 H Lymphocytes % 8.9 L Monocytes % 7.6 Eosinophils % 0.8 Basophils % 0.3 Absolute Neutrophils 10.8 H Absolute Lymphocytes 1.2 Absolute Monocytes 1.0 Absolute Eosinophils 0.1 Absolute Basophils 0.0 Impressions: Chest X-Ray 12/18/16 20:24 IMPRESSION: BORDERLINE CARDIOMEGALY WITH MILD VASCULAR PROMINENCE. SIMILAR APPEARANCE TO THE PRIOR STUDY. Abdomen/Pelvis CT 12/18/16 21:27 IMPRESSION: 1. CONGLOMERATE RETROPERITONEAL ADENOPATHY SIMILAR TO THE RECENT PET-CT SCAN. AGAIN SEEN IS HYDRONEPHROSIS OF THE RIGHT KIDNEY WITH INTERVAL DEVELOPMENT OF HYDRONEPHROSIS OF THE LEFT KIDNEY. THE URETERS ARE DIFFICULT TO VISUALIZE DUE TO METALLIC ARTIFACT BUT HYDRONEPHROSIS IS PROBABLY DUE TO COMPRESSION FROM ADJACENT RETROPERITONEAL ADENOPATHY. 2. NO OTHER SIGNIFICANT OR ACUTE PROCESS IN THE ABDOMEN OR PELVIS. Qualifiers PATEINT BEING DISCHARGED WITH ANY OF THE FOLLOWING DIAGNOSIS?: No Plan Time Spent: Less than 30 Minutes
[2016-12-24] MEDS: SILVER SULFADIAZINE 1% CREAM 400 GM TP SCH (17:22)
[2016-12-24] MEDS ORDERED: HEPARIN SOD ONE (18:53)
[2016-12-26] MEDS ORDERED: VANCOMYCIN HCL 500 MG in DEXTROSE 5%-WATER 100 ML IV SCH (18:00)
== END 2016-12-24 20:13 | disposition hospice, home (50) | DRG 749 ==
LOC: ER 18:55 → EH 12-19 06:11 → UNDOADMIN 12-19 06:11 → EH 12-19 07:33 → 3N 12-19 09:50
PROVIDERS: ADMIT Family Medicine; ATTEND Family Medicine
PROC: 5A1D60Z (ICD-10-PCS; 2016-12-19)
PROC: 30233N1 Transfusion of Nonautologous Red Blood Cells into Peripheral Vein, Percutaneous Approach (ICD-10-PCS; 2016-12-19)
PROC: 0JBH0ZZ Excision of Left Lower Arm Subcutaneous Tissue and Fascia, Open Approach (ICD-10-PCS; principal; 2016-12-20)
DX: C53.9 Malignant neoplasm of cervix uteri, unspecified (principal); N18.6 End stage renal disease; I13.2 Hypertensive heart and chronic kidney disease with heart failure and with stage 5 chronic kidney disease, or end stage renal disease; I50.32 Chronic diastolic (congestive) heart failure; L03.311 Cellulitis of abdominal wall; I96 Gangrene, not elsewhere classified; E10.22 Type 1 diabetes mellitus with diabetic chronic kidney disease; D63.1 Anemia in chronic kidney disease; E87.6 Hypokalemia; M79.644 Pain in right finger(s); T87.89 Other complications of amputation stump; D69.6 Thrombocytopenia, unspecified; I27.2 Other secondary pulmonary hypertension; E78.5 Hyperlipidemia, unspecified; J44.9 Chronic obstructive pulmonary disease, unspecified; K21.9 Gastro-esophageal reflux disease without esophagitis; L98.499 Non-pressure chronic ulcer of skin of other sites with unspecified severity; I70.298 Other atherosclerosis of native arteries of extremities, other extremity; B95.2 Enterococcus as the cause of diseases classified elsewhere; B96.89 Other specified bacterial agents as the cause of diseases classified elsewhere; I25.2 Old myocardial infarction; Z79.4 Long term (current) use of insulin; Z79.82 Long term (current) use of aspirin; Z79.2 Long term (current) use of antibiotics; Z79.899 Other long term (current) drug therapy; Z89.511 Acquired absence of right leg below knee; Z88.2 Allergy status to sulfonamides; Z99.2 Dependence on renal dialysis
CPT/HCPCS: 36415; 36430; 36591; 71010; 74176; 80048; 80053; 81001; 82962; 83605; 83690; 83735; 84443; 85025; 85027; 86850; 86900; 86901; 86920; 87040; 87045; 87070; 87075; 87077; 87086; 87186; 87205; 87493; 93005; 93010; 93306; 96361; 96365; 96366; 96375; 96376; 99285; A6266; G8981-GP; G8982-GP; J0692; J1642; J1644; J2270; J2405; J2543; J2550; J3370; J3490; J7030; P9016; Q4081